=== PATIENT | female | born 1930 | race Caucasian/White ===

== ENCOUNTER → 2017-11-27 | Outpatient (CLI) | payer BC ==
--- NOTE | 2017-11-27 16:06 | DIAGNOSTIC IMAGING REPORT ---
BONE SCAN WHOLE BODY CLINICAL HISTORY: BREAST CA COMPARISON STUDY: No previous studies for comparison. FINDINGS: The patient was injected with 20.1 mCi of technetium 99m MDP. Three-hour delayed whole body images were acquired. There are foci of increased activity within the shoulders wrist and knees, likely on a degenerative/arthritic basis. There is a nonspecific focus of increased activity within the lower neck anteriorly, at the expected location of the right lobe of the thyroid. There is a focus of increased activity involving the left anterior fifth rib. There are foci of increased activity within the lumbar spine at the L2 and L5 levels. Conventional radiographic correlation is recommended as these findings may be secondary to degenerative change or osteoporotic compression fractures. IMPRESSION: 1. Scattered foci of increased uptake many of which are degenerative/arthritic 2. Nonspecific focus of increased activity involving the left anterior fifth rib. 3. Foci of increased activity within the lumbar spine. Conventional radiographic correlation is recommended. Electronically signed by: Carlos Arroyo M.D. 11/27/2017 4:04 PM Dictated Date/Time: 11/27/2017 4:01 PM
== END | disposition home or self-care (01) ==
LOC: C.NUCL 11:10
PROVIDERS: ATTEND Internal Medicine Hematology & Oncology
DX: D49.3 Neoplasm of unspecified behavior of breast (principal)

== ENCOUNTER → 2017-11-30 | Outpatient (CLI) | payer BC ==
[~2017-11-30] MED LIST: OPTIRAY 320 IV PRN
--- NOTE | 2017-11-30 14:11 | DIAGNOSTIC IMAGING REPORT ---
CT ABD/PELVIS IV AND ORAL CONT CLINICAL HISTORY: BREAST CA COMPARISON STUDY: None. TECHNIQUE: Following the IV administration of 94 mL of Optiray-320, CT scan of the abdomen and pelvis was performed from the lung bases to the proximal femurs. Images are reviewed in the axial, sagittal, and coronal planes. IV contrast was administered without complication. A dose lowering technique was utilized adhering to the principles of ALARA. CT DOSE: FINDINGS: Lower chest: The heart is mildly enlarged. There are bilateral pleural effusions. There are right basilar atelectatic changes. Liver: There is a 12 mm right lobe hepatic hypodensity likely representing a cyst. There is mild biliary ductal dilatation. Gallbladder: Surgically absent Spleen: Normal in size and attenuation. Pancreas: Unremarkable. Adrenal glands: There is minor adrenal gland thickening Kidneys: There is symmetric renal cortical enhancement. The kidneys are normal in size without hydronephrosis. Bowel: There are no transition zones indicate bowel obstruction. There is no evidence of acute diverticulitis. There is no evidence of acute appendicitis. Peritoneum: There is no intraperitoneal free air or abdominal ascites. Vasculature: The abdominal aorta is normal in course and caliber. Adenopathy: None. Pelvic viscera: The bladder, and pelvic viscera are unremarkable. Skeletal structures: No destructive lesions are visualized. There are degenerative changes present within the lumbar spine with multilevel spinal stenosis IMPRESSION: 1. Bilateral pleural effusions 2. No CT evidence of intra-abdominal or pelvic metastasis 3. Surgically absent gallbladder. Mild intrahepatic biliary ductal dilatation. 12 mm right lobe hepatic hypodensity likely representing a cyst Electronically signed by: Carlos Arroyo M.D. 11/30/2017 2:10 PM Dictated Date/Time: 11/30/2017 2:05 PM
--- NOTE | 2017-11-30 14:19 | DIAGNOSTIC IMAGING REPORT ---
CHEST CT WITH CONTRAST CT DOSE: 938.08 mGy.cm HISTORY: Surveillance study in a patient with breast cancer. BREAST CA TECHNIQUE: Multiaxial CT images of the chest were performed following the intravenous administration of contrast. A dose lowering technique was utilized adhering to the principles of ALARA. COMPARISON: CT abdomen and pelvis of same day, bone scan 11/27/2017 FINDINGS: No dominant thyroid nodule identified. Surgical clips are seen within the left axilla suggesting prior axillary node dissection. Heterogeneity of the bilateral breast parenchyma scattered calcifications and biopsy clips. No pathologic adenopathy about the chest identified. Mildly prominent right axillary lymph nodes measure up to 8 mm. There is mild multichamber cardiac enlargement. Dense calcifications of the mitral annulus are noted in addition to aortic annular calcifications and coronary arterial disease. Thoracic aorta is normal in both course and caliber without aneurysm or dissection. Moderate mixed plaquing of the thoracic aorta. There is patency of the imaged great vessels. The opacified pulmonary arterial tree is also within normal limits. Small bilateral pleural effusions. No pneumothorax. Mild upper lobe predominant centrilobular emphysema. Dependent groundglass opacities with linear subsegmental pleural based consolidative right basilar opacities suggest atelectasis. Respiratory motion limits evaluation of the lung bases. Central airways are patent. 5 mm pleural-based solid nodule of the right upper lobe is seen on image 152 series 6. 5 mm nodule of the right middle lobe is seen on image 194 series 6 abutting the fissure. This may reflect a perifissural lymph node however is indeterminate. 3 mm nodule of the right lower lobe seen on image 191 series 6. No suspicious nodules or masses of the left lung identified. Central airways are patent. No pathologic adenopathy of the imaged upper abdomen. There is mild thickening suggestive the left adrenal gland, partially imaged. The remaining soft tissues are unremarkable. There is very subtle minimal cortical irregularity of the anterior left fifth rib, image 204 series 6 without discrete lesion identified. No suspicious lytic or blastic bony lesions are seen. Multilevel endplate spurring and facet arthrosis of the spine. IMPRESSION: 1. Small bilateral pleural effusions with subsegmental bibasilar opacities suggesting atelectasis. 2. Three solid noncalcified pulmonary nodules of the right lung measuring up to 5 mm are indeterminate without comparison. Follow-up guidelines provided below. 3. Indeterminate mildly prominent right axillary lymph nodes measure up to 8 mm. No pathologically enlarged lymph nodes by CT size criteria. 4. Emphysema. 5. Minimal cortical irregularity involving the anterior aspect of the left fifth rib suggests possible acute nondisplaced fracture. No lesion identified within this area to correlate with the focal radiotracer uptake discussed on comparison bone scan. No suspicious lytic or blastic bony lesions are identified. Please refer to below summary of Fleischner criteria recommendations for follow-up of incidental CT nodules (Samir Ponce, Guidelines for management of small pulmonary nodules detected on CT scans: A statement from the Fleischner Society, Radiology 237: [phone].) SOLID NODULES Multiple nodules size: <6 mm * Low risk patients: no routine follow-up * high risk patients: optional CT at 12 months Note: newly detected indeterminate nodule in persons 35 years of age or older. * Low risk patients: minimal or absent history of smoking and/or other known risk factors * high risk patients: history of smoking or of other known risk factors (e.g. first degree relative with lung cancer, or exposure to asbestos, radon, uranium) * if a nodule up to 8 mm is partly solid or is ground glass further follow-up is required after 24 months to exclude possible slow growing adenocarcinoma (NIKKI) The above report was generated using voice recognition software. It may contain grammatical, syntax or spelling errors. Electronically signed by: Jordy Stewart M.D. 11/30/2017 2:18 PM Dictated Date/Time: 11/30/2017 2:05 PM
== END | disposition home or self-care (01) ==
LOC: C.CTS 12:29
PROVIDERS: ATTEND Internal Medicine Hematology & Oncology
DX: D49.3 Neoplasm of unspecified behavior of breast (principal)

== ENCOUNTER 2017-12-08 09:13 | Emergency (ER) | payer BC ==
[~2017-12-08] VITALS: Ht 170.2 cm; Wt 79.1 kg
[2017-12-08 09:20] VITALS: O2SAT 95; Ht 170.2 cm; Wt 79.1 kg
--- NOTE | 2017-12-08 09:36 | EMERGENCY ROOM VISIT NOTE ---
History Report prepared by Krista: Rajinder Sheriff Under the Supervision of: Dr. Alex Beltrán M.D. First contact with patient: 09:28 Chief Complaint: RESPIRATORY PROBLEMS Stated Complaint: RESPIRATORY Nursing Triage Summary: patient presents via ambulance from [facility]. patient states when she woke up and went to breakfast she felt slightly sob. after she ate "I feel better now" Patient denies any recent cough, or cold symptoms. History of Present Illness The patient is a 87 year old female who presents to the Emergency Room with complaints of shortness of breath that began prior to arrival. She states she woke up this morning and had a catchy cough. She reports a productive cough that is unchanged from baseline. The patient denies leg swelling, calf pain, history of blood clots, low back pain, and chest pain. She denies use of blood thinners. The patient has a history of breast cancer and diabetes. Source of History: patient Onset: [employer] Position: other (global) Timing: constant Associated Symptoms: + SOB, No chest pain, No back pain Note: The patient denies leg swelling, calf pain, and history of blood clots Review of Systems See HPI for pertinent positives & negatives. A total of 10 systems reviewed and were otherwise negative. Social History Smoking Status: Former Smoker Alcohol Use: none Drug Use: none Occupation Status: retired Current/Historical Medications Scheduled Aspirin (Aspirin Ec), 81 MG PO DAILY Calcium/Vitamin D (Os-John 500 Plus D), 1 TAB PO DAILY Cholecalciferol (D 400), 1 TAB PO DAILY Ferrous Sulfate (Kp Ferrous Sulfate), 1 TAB PO DAILY Insulin Lispro 75/25 (Humalog Mix 75/25), 8 UNIT SC DAILY Insulin Lispro 75/25 (Humalog Mix 75/25), 6 UNIT SC PM Letrozole (Femara), 2.5 MG PO DAILY Lisinopril (Zestril), 10 MG PO DAILY Metoprolol Tartrate (Lopressor) (Lopressor), 50 MG PO BID Multivitamins/Minerals (Mvi With Minerals), 1 TAB PO DAILY Polyethylene Glycol 3350 (Miralax), 17 GM PO HS Pravastatin (Pravachol ), 40 MG PO DAILY Scheduled PRN Acetaminophen Tab (Tylenol), 650 MG PO Q4H PRN for Pain Senna/Docusate Sod (Senokot S), 2 TAB PO DAILY PRN for Constipation [Dulcolax Suppository], 1 SUPP RE DAILY PRN for Constipation Allergies Coded Allergies: Penicillins (Unverified Allergy, Intermediate, UNKNOWN, 12/08/17) Physical Exam Vital Signs Date Time Temp Pulse Resp B/P (MAP) Pulse Ox O2 Delivery O2 Flow Rate FiO2 12/08/17 10:51 36.6 63 24 111/56 94 12/08/17 09:25 68 12/08/17 09:20 95 Room Air 12/08/17 09:20 36.6 68 18 140/65 95 Room Air 12/08/17 09:20 95 Room Air Physical Exam GENERAL: Patient is elderly appearing and in no acute distress. HEENT: No acute trauma, normocephalic atraumatic, mucous membranes moist, no nasal congestion, no scleral icterus. NECK: No stridor, no adenopathy, no meningismus, trachea is midline. LUNGS: No dyspnea. Clear to auscultation and equal bilaterally. No wheeze, no rhonchi. HEART: Regular rate and rhythm. No murmurs, rubs, gallops appreciated. ABDOMEN: Soft, nontender, bowel sounds positive, no masses appreciated, no peritonitis. BACK: No midline tenderness, no CVA tenderness EXTREMITIES: Normal motion all extremities, no cyanosis, no edema. NEUROLOGIC: Alert and oriented, no acute motor or sensory deficits, no focal weakness, cranial nerves grossly intact. SKIN: No rash, no jaundice, no diaphoresis. Medical Decision & Procedures ER Provider Diagnostic Interpretation: Radiology results and stated below per my review and radiologist interpretation: CHEST 2 VIEWS ROUTINE CLINICAL HISTORY: 87 years-old Female presenting with Cough/SHOB earlier in day. TECHNIQUE: PA and lateral views of the chest were obtained. COMPARISON: Chest CT from 11/30/2017. FINDINGS: Atherosclerosis of aortic arch. Cardiac silhouette enlarged. Radiography is not sensitive for pulmonary nodules. Allowing for this, bibasilar hazy and bandlike opacities. Right pleural effusion. No pneumothorax. Surgical clips are evident in the left axilla. Degenerative changes of the thoracic spine. Sclerotic lesion may be present in the proximal left humeral metaphysis. IMPRESSION: 1. Bibasilar hazy and bandlike opacities, likely atelectasis or less likely pulmonary edema. 2. Right pleural effusion. 3. Possible sclerotic lesion in the proximal left humeral metaphysis. No lesion was evident in this region on bone scan from earlier this month, which decreases the suspicion for a metastatic focus. Electronically signed by: Heath Noyola M.D. 12/08/2017 10:15 AM Dictated Date/Time: 12/08/2017 10:12 AM ED Course 0928: The patient was evaluated in room A4. A complete history and physical exam was performed. 1027: I checked on the patient and they are feeling comfortable. She would like to go home. 1030: I reevaluated the patient. Discussed results and discharge instructions: She verbalized understanding and agreement. The patient is ready for discharge. Medical Decision Differential: Infectious, Reactive Airway Disease, Pneumonia, Pneumothorax, COPD , CHF, ACS, Pulmonary Embolism, MSK, GI, Dissection, amongst other etiologies entertained. 87 yr old female brought over for evaluation of shortness of breath earlier in the day cleared with coughing. She is happy, no distress and wishes to go home. Exam is benign. CXR without acute process as pleural effusion noted on CT Scan a few days ago. Symptoms are not consistent with acs, dissection, copd , pna. She has no history of DVT/PE. With history breast CA PE considered but as she is without symptoms, stable vitals, just had CT Chest I feel CT PE study would not be indicated. Suspect her symptoms were some mucous plugging which cleared with cough. She is not in CHF. Discussed at length symptoms requiring RTED with her and son. Both are comfortable with discharge and wish to go home. Medication Reconcilliation Current Medication List: was personally reviewed by me Blood Pressure Screening Patient's blood pressure: Elevated blood pressure Blood pressure disposition: Elevated BP felt to be situational Impression Primary Impression: Shortness of breath Scribe Attestation The scribe's documentation has been prepared under my direction and personally reviewed by me in its entirety. I confirm that the note above accurately reflects all work, treatment, procedures, and medical decision making performed by me. Departure Information Dispostion Home / Self-Care Referrals No Doctor, Assigned (PCP) Patient Instructions My [facility] Additional Instructions Monitor for worsening cough, shortness of breath, fevers, chest pain, passing out or other concerns. We are always here to help. Follow up with your primary provider to discuss repeat chest xray and to discuss findings from your CT Scan last week. There are small amounts of fluid at the base of your lungs that was seen last week, these are called Pleural Effusions.
[2017-12-08] MEDS ORDERED: LETR2TAB PO (10:13)
[2017-12-08] MEDS ORDERED: PRAV20TA PO (10:13)
[2017-12-08] MEDS ORDERED: LISI-461 PO (10:13)
[2017-12-08] MEDS ORDERED: ACET-1693 PO (10:13)
[2017-12-08] MEDS ORDERED: HMLI7525 SC ×2 (10:13)
[2017-12-08] MEDS ORDERED: SENN-65 PO (10:13)
[2017-12-08] MEDS ORDERED: FERR1TAB13 PO (10:13)
[2017-12-08] MEDS ORDERED: MULT-513 PO (10:13)
[2017-12-08] MEDS ORDERED: CALC500C70 PO (10:13)
[2017-12-08] MEDS ORDERED: POLY335019 PO (10:13)
[2017-12-08] MEDS ORDERED: ASPI81TA28 PO (10:13)
[2017-12-08] MEDS ORDERED: CHOL1TAB PO (10:13)
[2017-12-08] MEDS ORDERED: DULCOLAX SUPPOSITORY RE (10:13)
[2017-12-08] MEDS ORDERED: METO50TA16 PO (10:13)
--- NOTE | 2017-12-08 10:17 | DIAGNOSTIC IMAGING REPORT ---
CHEST 2 VIEWS ROUTINE CLINICAL HISTORY: 87 years-old Female presenting with Cough/SHOB earlier in day. TECHNIQUE: PA and lateral views of the chest were obtained. COMPARISON: Chest CT from 11/30/2017. FINDINGS: Atherosclerosis of aortic arch. Cardiac silhouette enlarged. Radiography is not sensitive for pulmonary nodules. Allowing for this, bibasilar hazy and bandlike opacities. Right pleural effusion. No pneumothorax. Surgical clips are evident in the left axilla. Degenerative changes of the thoracic spine. Sclerotic lesion may be present in the proximal left humeral metaphysis. IMPRESSION: 1. Bibasilar hazy and bandlike opacities, likely atelectasis or less likely pulmonary edema. 2. Right pleural effusion. 3. Possible sclerotic lesion in the proximal left humeral metaphysis. No lesion was evident in this region on bone scan from earlier this month, which decreases the suspicion for a metastatic focus. Electronically signed by: Heath Noyola M.D. 12/08/2017 10:15 AM Dictated Date/Time: 12/08/2017 10:12 AM
[2017-12-08 10:51] VITALS: BP 111/56; PULSE 63; TEMP 36.6; O2SAT 94
== END 2017-12-08 10:48 | disposition home or self-care (01) ==
LOC: EDBD 09:13 → C.EDA 09:14
DX: R06.02 Shortness of breath (principal); R05 Cough; E11.9 Type 2 diabetes mellitus without complications; Z85.3 Personal history of malignant neoplasm of breast; Z87.891 Personal history of nicotine dependence; Z88.0 Allergy status to penicillin; Z79.82 Long term (current) use of aspirin; Z79.4 Long term (current) use of insulin

== ENCOUNTER 2018-01-22 12:55 | Emergency (ER) | payer BC ==
[~2018-01-22] VITALS: Ht 165.1 cm; Wt 82.0 kg
[~2018-01-22 12:55] MED LIST changes: +ACET-1693 PO; +ASPI81TA28 PO; +CALC500C70 PO; +CHOL1TAB PO; +DULCOLAX SUPPOSITORY RE; +FERR1TAB13 PO; +HMLI7525 SC; +LETR2TAB PO; +LISI-461 PO; +METO50TA16 PO; +MULT-513 PO; -OPTIRAY 320 IV PRN; +POLY335019 PO; +PRAV20TA PO; +SENN-65 PO
[2018-01-22 12:59] VITALS: TEMP 36.4
[2018-01-22] MEDS ORDERED: ALBUT/IPRATROP 3MG/0.5MG NEB 3 ML VIAL INH STA (13:08)
[2018-01-22 13:24] VITALS: O2SAT 93; Ht 165.1 cm; Wt 82.0 kg
--- NOTE | 2018-01-22 13:30 | DIAGNOSTIC IMAGING REPORT ---
CHEST ONE VIEW PORTABLE CLINICAL HISTORY: Respiratory distress COMPARISON STUDY: 12/08/2017 FINDINGS: The heart is mildly enlarged. There is calcification within the mitral annulus. Surgical clips are visualized in the left axillary region. There is probable left shoulder calcific tendinitis. There are bibasilar opacities, likely atelectatic ectatic. There is a suspected trace right pleural effusion. There is no overt failure.[ IMPRESSION: 1. Cardiomegaly and persistent basilar airspace opacities, likely atelectatic 2. Suspected trace right pleural effusion Electronically signed by: Carlos Arroyo M.D. 01/22/2018 1:29 PM Dictated Date/Time: 01/22/2018 1:27 PM
[2018-01-22] MEDS ORDERED: SODIUM CHLORIDE 0.9% 500ML 500 ML IV STA (13:34)
[2018-01-22 13:49] LABS: EOS % 0.4 %; EOS ABS # 0.01 K/uL (0-0.5); HEMATOCRIT 35.3 % (37-47); HEMOGLOBIN 11.7 g/dL (12.0-16.0); IG# 0.01 K/uL (0.00-0.02); LYMPH % 34.6 %; LYMPH ABS # 0.94 K/uL (1.2-3.4); MEAN CELL VOLUME 94.6 fL (80-100); MEAN CORPUSCULAR HEMOGLOBIN 31.4 pg (25-34); MEAN CORPUSCULAR HGB CONC 33.1 g/dl (32-36); MEAN PLATELET VOLUME 11.3 fL (7.4-10.4); MONO % 11.4 %; MONO ABS # 0.31 K/uL (0.11-0.59); NEUT % 53.2 %; NEUT ABS # 1.45 K/uL (1.4-6.5); PLATELET COUNT 146 K/uL (130-400); RED CELL DISTRIBUTION WIDTH CV 13.9 % (11.5-14.5); RED CELL DISTRIBUTION WIDTH SD 48.1 fL (36.4-46.3); WHITE BLOOD COUNT 2.72 K/uL (4.8-10.8)
[2018-01-22 13:58] LABS: PTT PATIENT 29.7 SECONDS (21.0-31.0)
[2018-01-22 14:05] LABS: INFLUENZA A PCR Neg for Influ A (NEG)
[2018-01-22 14:06] LABS: INFLUENZA B PCR POS for Influ B (NEG)
[2018-01-22] MEDS ORDERED: OSELTAMIVIR PHOSPHATE 75 MG CAP PO STA (14:09)
[2018-01-22 14:10] LABS: CALCIUM 8.9 mg/dl (8.5-10.1); CREATININE 1.58 mg/dl (0.60-1.20)
[2018-01-22] MEDS ORDERED: OSEL75CA12 PO (14:18)
[2018-01-22] MEDS ORDERED: PRAV40TA2 PO (14:27)
[2018-01-22] MEDS ORDERED: IPRASOL4 INH (14:27)
[2018-01-22] MEDS ORDERED: BISA10SU3 PR (14:27)
--- NOTE | 2018-01-22 14:46 | EMERGENCY ROOM VISIT NOTE ---
History Report prepared by Krista: Breana Arzola Under the Supervision of: Daria TapiaO. First contact with patient: 12:59 Chief Complaint: OTHER COMPLAINT History of Present Illness The patient is a 87 year old female who presents to the Emergency Room with complaints of a worsening illness for the past few days. The patient is a resident at [facility]. Per son, he received a call from the halfway that the patient had been short of breath for the past few days. She has been on oxygen intermittently over the past few days. She is not typically on oxygen. Son reports that the patient was having some trouble breathing at dinner with him last night. Today the patient was not acting like herself. She was more tired than usual and did not want to get out of bed. She was found to have a fever with a temperature of 99.4. She was sent to the ED for further evaluation. The patient does not have any complaints at this time. She denies any chest pain or current shortness of breath. She does report that she has been coughing intermittently over the past few days. She denies any pain or swelling in her legs. Source of History: patient, family (son), halfway notes Onset: a few days ago Position: other (global) Quality: other (illness) Timing: worsening Modifying Factors (Relieving): oxygen Associated Symptoms: + fevers, + cough, + SOB, + fatigue, No chest pain Review of Systems See HPI for pertinent positives & negatives. A total of 10 systems reviewed and were otherwise negative. Past Medical & Surgical Medical Problems: (1) Breast cancer (2) CKD (chronic kidney disease) (3) HLD (hyperlipidemia) (4) HTN (hypertension) Family History Non-pertinent due to advanced age. Social History Smoking Status: Former Smoker Alcohol Use: none Drug Use: none Marital Status: Housing Status: halfway Occupation Status: retired Current/Historical Medications Scheduled Aspirin (Aspirin Ec), 81 MG PO DAILY Calcium/Vitamin D (Os-John 500 Plus D), 1 TAB PO DAILY Cholecalciferol (D 400), 1 TAB PO DAILY Ferrous Sulfate (Kp Ferrous Sulfate), 1 TAB PO DAILY Insulin Lispro 75/25 (Humalog Mix 75/25), 26 UNIT SC DAILY Insulin Lispro 75/25 (Humalog Mix 75/25), 14 UNIT SC PM Letrozole (Femara), 2.5 MG PO DAILY Lisinopril (Zestril), 10 MG PO DAILY Metoprolol Tartrate (Lopressor) (Lopressor), 50 MG PO BID Multivitamins/Minerals (Mvi With Minerals), 1 TAB PO DAILY Oseltamivir (Tamiflu), 75 MG PO BID Polyethylene Glycol 3350 (Miralax), 17 GM PO HS Pravastatin Sodium (Pravastatin Sodium), 1 TAB PO DAILY Scheduled PRN Acetaminophen Tab (Tylenol), 650 MG PO Q4H PRN for Pain Bisacodyl (Dulcolax), 1 SUPP OH BID PRN for Constipation Ipratropium-Albuterol (Duoneb), 1 TREATMENT INH QID PRN for Shortness of Breath Senna/Docusate Sod (Senokot S), 2 TAB PO DAILY PRN for Constipation Allergies Coded Allergies: Penicillins (Unverified Allergy, Intermediate, UNKNOWN, 01/22/18) Physical Exam Vital Signs Date Time Temp Pulse Resp B/P (MAP) Pulse Ox O2 Delivery O2 Flow Rate FiO2 01/22/18 16:17 75 16 112/67 98 01/22/18 14:34 73 16 131/58 95 Room Air 01/22/18 13:26 63 01/22/18 13:24 93 Room Air 01/22/18 13:24 94 Room Air 01/22/18 12:59 36.4 61 16 101/66 93 Room Air Physical Exam GENERAL: Patient is awake, alert, somewhat anxious appearing but comfortable. EYES: The conjunctivae are clear. The pupils are round and reactive. EARS, NOSE, MOUTH AND THROAT: The nose is without any evidence of any deformity. Mucous membranes are moist tongue is midline NECK: The neck is nontender and supple. RESPIRATORY: Lung sounds diminished at both bases with scattered rhonchi, no tachypnea. CARDIOVASCULAR: Regular rate and rhythm noted there no murmurs rubs or gallops normal S1 normal S2 GASTROINTESTINAL: The abdomen is soft. Bowel sounds are present in all quadrants. Abdomen is nontender MUSCULOSKELETAL/EXTREMITIES: There is no evidence of gross deformity full range of motion is noted in the hips and shoulders SKIN: Trace pedal edema bilaterally. There is no obvious evidence of any rash. There are no petechiae, pallor or cyanosis noted. NEUROLOGIC: Patient is awake alert and oriented x3 Medical Decision & Procedures ER Provider Diagnostic Interpretation: Radiology results as stated below per my review and radiologist interpretation: CHEST ONE VIEW PORTABLE CLINICAL HISTORY: Respiratory distress COMPARISON STUDY: 12/08/2017 FINDINGS: The heart is mildly enlarged. There is calcification within the mitral annulus. Surgical clips are visualized in the left axillary region. There is probable left shoulder calcific tendinitis. There are bibasilar opacities, likely atelectatic ectatic. There is a suspected trace right pleural effusion. There is no overt failure.[ IMPRESSION: 1. Cardiomegaly and persistent basilar airspace opacities, likely atelectatic 2. Suspected trace right pleural effusion Electronically signed by: Carlos Arroyo M.D. 01/22/2018 1:29 PM Dictated Date/Time: 01/22/2018 1:27 PM Laboratory Results 01/22/18 13:30 Red Blood Count 3.73, Mean Corpuscular Volume 94.6, Mean Corpuscular Hemoglobin 31.4, Mean Corpuscular Hemoglobin Concent 33.1, Mean Platelet Volume 11.3, Neutrophils (%) (Auto) 53.2, Lymphocytes (%) (Auto) 34.6, Monocytes (%) (Auto) 11.4, Eosinophils (%) (Auto) 0.4, Basophils (%) (Auto) 0.0, Neutrophils # (Auto ) 1.45, Lymphocytes # (Auto) 0.94, Monocytes # (Auto) 0.31, Eosinophils # (Auto ) 0.01, Basophils # (Auto) 0.00 01/22/18 13:30 Test 01/22/18 13:17 01/22/18 13:30 01/22/18 14:14 Influenza Type A (RT-PCR) Neg for Influ A (NEG) Influenza Type B (RT-PCR) POS for Influ B (NEG) White Blood Count 2.72 K/uL (4.8-10.8) Red Blood Count 3.73 M/uL (4.2-5.4) Hemoglobin 11.7 g/dL (12.0-16.0) Hematocrit 35.3 % (37-47) Mean Corpuscular Volume 94.6 fL (80-100) Mean Corpuscular Hemoglobin 31.4 pg (25-34) Mean Corpuscular Hemoglobin Concent 33.1 g/dl (32-36) Platelet Count 146 K/uL (130-400) Mean Platelet Volume 11.3 fL (7.4-10.4) Neutrophils (%) (Auto) 53.2 % Lymphocytes (%) (Auto) 34.6 % Monocytes (%) (Auto) 11.4 % Eosinophils (%) (Auto) 0.4 % Basophils (%) (Auto) 0.0 % Neutrophils # (Auto) 1.45 K/uL (1.4-6.5) Lymphocytes # (Auto) 0.94 K/uL (1.2-3.4) Monocytes # (Auto) 0.31 K/uL (0.11-0.59) Eosinophils # (Auto) 0.01 K/uL (0-0.5) Basophils # (Auto) 0.00 K/uL (0-0.2) RDW Standard Deviation 48.1 fL (36.4-46.3) RDW Coefficient of Variation 13.9 % (11.5-14.5) Immature Granulocyte % (Auto) 0.4 % Immature Granulocyte # (Auto) 0.01 K/uL (0.00-0.02) Prothrombin Time 10.3 SECONDS (9.0-12.0) Prothromb Time International Ratio 1.0 (0.9-1.1) Activated Partial Thromboplast Time 29.7 SECONDS (21.0-31.0) Partial Thromboplastin Ratio 1.1 Anion Gap 6.0 mmol/L (3-11) Est Creatinine Clear Calc Drug Dose 26.0 ml/min Estimated GFR () 33.5 Estimated GFR (Non- 28.9 BUN/Creatinine Ratio 21.2 (10-20) Calcium Level 8.9 mg/dl (8.5-10.1) Total Bilirubin 0.3 mg/dl (0.2-1) Aspartate Amino Transf (AST/SGOT) 40 U/L (15-37) Alanine Aminotransferase (ALT/SGPT) 30 U/L (12-78) Alkaline Phosphatase 45 U/L (45-117) Troponin I 0.017 ng/ml (0-0.045) Pro-B-Type Natriuretic Peptide 2433 pg/ml (0-1800) Total Protein 7.0 gm/dl (6.4-8.2) Albumin 3.0 gm/dl (3.4-5.0) Globulin 4.0 gm/dl (2.5-4.0) Albumin/Globulin Ratio 0.8 (0.9-2) Bedside Glucose 82 mg/dl (70-90) Laboratory results per my review. Medications Administered Medications (Trade) Dose Ordered Sig/Salena Route Start Time Stop Time Status Last Admin Dose Admin Albuterol/ Ipratropium (Duoneb) 3 ml NOW STAT INH 01/22/18 13:08 01/22/18 13:10 DC 01/22/18 13:23 3 ML Sodium Chloride 500 ml @ 999 mls/hr Q31M STAT IV 01/22/18 13:34 01/22/18 14:04 DC 01/22/18 13:49 999 MLS/HR Oseltamivir Phosphate (Tamiflu Cap) 75 mg NOW STAT PO 01/22/18 14:09 01/22/18 14:10 DC 01/22/18 14:32 75 MG ECG Per My Interpretation Indication: SOB/dyspnea Rate (beats per minute): 62 Rhythm: normal sinus Findings: nonspecific-ST abn (Inferior), no ectopy Comparison ECG Date: no prior available ED Course 1259: The patient was evaluated in room B9. A complete history and physical examination were performed. 1308: DuoNeb 3 ml INH 1334: NSS 500 ml @ 999 mls/hr IV 1409: Tamiflu 75 mg PO 1419: I reassessed the patient at this time. She is feeling better and resting comfortably. I discussed the results and treatment plan with the patient and her son. I answered all pertaining questions that they had. They expressed understanding and verbalized agreement. The patient will be discharged home. Medical Decision Differential diagnosis: Etiologies such as infections, reactive airway disease, pneumonia, pneumothorax , COPD, CHF, cardiac ischemia, pulmonary embolism, musculoskeletal, gastrointestinal, as well as others were entertained. Nursing notes reviewed. The patient is an 87-year-old female who presented to the emergency department from her personal usp for fever and altered mental status. The patient was found to have a positive flu swab as well as hypoglycemia. She was given oral glucose replacement. Her repeat Accu-Chek was improved. Her mental status was at baseline according to her son. She was started on Tamiflu. I discussed patient's laboratory and radiographic studies with her son as well as the patient. They were encouraged to follow-up with the primary physician as soon as possible but return to the emergency department immediately if symptoms change worsen or the need arises. Medication Reconcilliation Current Medication List: was personally reviewed by me Blood Pressure Screening Patient's blood pressure: Normal blood pressure Impression Primary Impression: Influenza Additional Impressions: Fever Hypoglycemia Scribe Attestation The scribe's documentation has been prepared under my direction and personally reviewed by me in its entirety. I confirm that the note above accurately reflects all work, treatment, procedures, and medical decision making performed by me. Departure Information Dispostion Home / Self-Care Prescriptions Oseltamivir (Tamiflu) 75 Mg Cap 75 MG PO BID, #10 CAP Prov: Nguyễn Jacobo, DO 01/22/18 Referrals [facility] (PCP) Forms HOME CARE DOCUMENTATION FORM, IMPORTANT VISIT INFORMATION, WORK / SCHOOL INSTRUCTIONS Patient Instructions ED Diabetes Hypoglycemia Oral Agent, ED Fever Control, ED Flu, My [facility] Additional Instructions Follow-up with the family doctor this week for reevaluation. Continue all medications as prescribed. Monitor the blood sugar to ensure it does not drop again. Return to the emergency department immediately if symptoms change worsen or the need arises. Continue using Tylenol as directed for fever. Problem Qualifiers Additional Impressions: Fever Fever type: unspecified Qualified Codes: R50.9 - Fever, unspecified
[2018-01-22 16:17] VITALS: BP 112/67; PULSE 75; O2SAT 98
== END 2018-01-22 16:18 | disposition home or self-care (01) ==
LOC: EDBD 12:55 → C.EDB 12:59
DX: J10.1 Influenza due to other identified influenza virus with other respiratory manifestations (principal); R50.9 Fever, unspecified; E16.2 Hypoglycemia, unspecified; D49.3 Neoplasm of unspecified behavior of breast; N18.9 Chronic kidney disease, unspecified; E78.5 Hyperlipidemia, unspecified; I10 Essential (primary) hypertension; Z87.891 Personal history of nicotine dependence; Z79.82 Long term (current) use of aspirin; Z79.4 Long term (current) use of insulin

== ENCOUNTER 2018-01-29 15:33 | Emergency (ER) | payer BC ==
[~2018-01-29] VITALS: Ht 170.2 cm; Wt 78.1 kg
[~2018-01-29 15:33] MED LIST changes: +BISA10SU3 PR; -DULCOLAX SUPPOSITORY RE; +IPRASOL4 INH; +OSEL75CA12 PO; -PRAV20TA PO; +PRAV40TA2 PO
[2018-01-29 16:29] VITALS: TEMP 36.9; Ht 170.2 cm; Wt 78.1 kg
[2018-01-29 16:38] LABS: BASO % 0.2 %; BASO ABS # 0.01 K/uL (0-0.2); EOS % 0.9 %; EOS ABS # 0.06 K/uL (0-0.5); HEMATOCRIT 36.4 % (37-47); HEMOGLOBIN 11.9 g/dL (12.0-16.0); IG# 0.03 K/uL (0.00-0.02); LYMPH ABS # 0.79 K/uL (1.2-3.4); MEAN CELL VOLUME 94.5 fL (80-100); MEAN CORPUSCULAR HEMOGLOBIN 30.9 pg (25-34); MEAN CORPUSCULAR HGB CONC 32.7 g/dl (32-36); MEAN PLATELET VOLUME 10.8 fL (7.4-10.4); MONO % 8.7 %; MONO ABS # 0.57 K/uL (0.11-0.59); NEUT % 77.7 %; NEUT ABS # 5.12 K/uL (1.4-6.5); PLATELET COUNT 208 K/uL (130-400); RED CELL DISTRIBUTION WIDTH CV 13.5 % (11.5-14.5); RED CELL DISTRIBUTION WIDTH SD 46.4 fL (36.4-46.3); WHITE BLOOD COUNT 6.58 K/uL (4.8-10.8)
[2018-01-29 17:01] LABS: BLOOD UREA NITROGEN 18 mg/dl (7-18); CALCIUM 9.6 mg/dl (8.5-10.1); CARBON DIOXIDE 30 mmol/L (21-32); CREATININE 1.31 mg/dl (0.60-1.20); GLUCOSE 224 mg/dl (70-99); POTASSIUM 4.2 mmol/L (3.5-5.1); SODIUM 137 mmol/L (136-145)
--- NOTE | 2018-01-29 17:15 | DIAGNOSTIC IMAGING REPORT ---
CHEST ONE VIEW PORTABLE CLINICAL HISTORY: 87 years-old Female presenting with sob. TECHNIQUE: Portable upright AP view of the chest was obtained. COMPARISON: 01/22/2018. FINDINGS: Atherosclerosis of aortic arch. Cardiac silhouette enlarged. Mitral annular calcification suggested. Bandlike and hazy opacities at the lung bases unchanged from prior. Mild hyperinflation suggested. No large pleural effusion or pneumothorax. Surgical clips again noted in the left axilla. Osteopenia suspected. IMPRESSION: 1. Mild hyperinflation and bibasilar atelectasis or scarring, unchanged. 2. Mild cardiomegaly. Electronically signed by: Heath Noyola M.D. 01/29/2018 5:13 PM Dictated Date/Time: 01/29/2018 5:12 PM
--- NOTE | 2018-01-29 17:16 | DIAGNOSTIC IMAGING REPORT ---
SINGLE VIEW PELVIS; 2 VIEWS LEFT HIP CLINICAL HISTORY: Left hip pain. FINDINGS: An AP view of the pelvis with AP and frog-leg views of the left hip are obtained. Correlation is made with pelvic CT dated 11/30/2017. The skeletal structures are osteopenic. There is no radiographic evidence of fracture involving the hips or bony pelvis. Moderate to advanced arthritic change and joint space narrowing are present in both hips. Sclerotic change is seen involving the sacroiliac joints and pubic symphysis. Enthesophytes are noted at the origin the hamstrings, the anterior superior iliac spines, and the greater trochanters of the proximal femora. Lumbosacral spondylosis is partially imaged. There are pelvic phleboliths. Atherosclerotic calcification is seen in the femoral arteries. IMPRESSION: 1. No acute bony abnormality is identified involving the hips or pelvis. 2. Osteopenia and arthritic change as above. Electronically signed by: Rm Metzger M.D. 01/29/2018 5:15 PM Dictated Date/Time: 01/29/2018 5:13 PM
--- NOTE | 2018-01-29 18:20 | DIAGNOSTIC IMAGING REPORT ---
L VENOUS DOPP LOWER EXT UNILAT CLINICAL HISTORY: 87 years-old Female presenting with leg pain, swelling. TECHNIQUE: Real-time grayscale and color and spectral Doppler ultrasound imaging of the veins of the left lower extremity was performed. Compression and augmentation were also utilized. COMPARISON: None. FINDINGS: Left: Common femoral vein: Patent. Greater saphenous vein: Patent. Deep femoral vein: Patent. Femoral vein: Patent. Popliteal vein: Patent. Calf veins: Patent. Other: None. IMPRESSION: No evidence of deep venous thrombosis. Electronically signed by: Heath Noyola M.D. 01/29/2018 6:18 PM Dictated Date/Time: 01/29/2018 6:18 PM
[2018-01-29] MEDS ORDERED: CEFDINIR 300 MG CAP PO STA (18:58)
[2018-01-29] MEDS ORDERED: CEFD300C2 PO (19:36)
[2018-01-29 19:47] VITALS: BP 150/72; PULSE 71; O2SAT 93
--- NOTE | 2018-01-29 20:07 | EMERGENCY ROOM VISIT NOTE ---
History Report prepared by Krista: Brielle Knight Under the Supervision of: Dr. Rm Mccall M.D. First contact with patient: 15:37 Stated Complaint: GROIN PAIN, OTHER History of Present Illness The patient is an 87 year old female who presents to the Emergency Room with complaints of persistent low oxygen starting last night. The patient presents to the ED by EMS from [facility]. The patient had an oxygen saturation in the high 80s last night on room air. She was placed on oxygen. She is recently getting over an illness which the patient cannot recall. She reports feeling well currently. She is having some left hip pain. She denies any falls today. She uses a cane to ambulate. The history is limited secondary to dementia. Source of History: patient, nursing staff History Limited By: dementia Onset: last night Position: other (oxygen saturation) Symptom Intensity: high 80s on room air Quality: other (low oxygen) Timing: other (persistent) Note: Pt reports left hip pain. Review of Systems Limited secondary to dementia. Past Medical & Surgical Medical Problems: (1) Breast cancer (2) CKD (chronic kidney disease) (3) HLD (hyperlipidemia) (4) HTN (hypertension) Family History Noncontributory secondary to age. Social History Smoking Status: Former Smoker Alcohol Use: none Drug Use: none Marital Status: Housing Status: long term Occupation Status: retired Current/Historical Medications Scheduled Aspirin (Aspirin Ec), 81 MG PO DAILY Calcium/Vitamin D (Os-John 500 Plus D), 1 TAB PO DAILY Cefdinir (Omnicef), 300 MG PO Q12H Cholecalciferol (D 400), 1 TAB PO DAILY Ferrous Sulfate (Kp Ferrous Sulfate), 1 TAB PO DAILY Insulin Lispro 75/25 (Humalog Mix 75/25), 20 UNIT SC QAM Insulin Lispro 75/25 (Humalog Mix 75/25), 14 UNIT SC PM Letrozole (Femara), 2.5 MG PO DAILY Lisinopril (Zestril), 10 MG PO DAILY Metoprolol Tartrate (Lopressor) (Lopressor), 50 MG PO BID Multivitamins/Minerals (Mvi With Minerals), 1 TAB PO DAILY Polyethylene Glycol 3350 (Miralax), 17 GM PO HS Pravastatin Sodium (Pravastatin Sodium), 1 TAB PO DAILY Scheduled PRN Acetaminophen Tab (Tylenol), 650 MG PO Q4H PRN for Pain Bisacodyl (Dulcolax), 1 SUPP NE BID PRN for Constipation Ipratropium-Albuterol (Duoneb), 1 TREATMENT INH QID PRN for Shortness of Breath Senna/Docusate Sod (Senokot S), 2 TAB PO DAILY PRN for Constipation Allergies Coded Allergies: Penicillins (Unverified Allergy, Intermediate, UNKNOWN, 01/22/18) Physical Exam Vital Signs Date Time Temp Pulse Resp B/P (MAP) Pulse Ox O2 Delivery O2 Flow Rate FiO2 01/29/18 19:47 71 16 150/72 93 01/29/18 19:03 73 16 142/79 93 Room Air 01/29/18 18:36 72 16 138/69 94 Room Air 01/29/18 17:30 72 16 137/59 94 Room Air 01/29/18 16:29 36.9 80 16 140/62 95 Room Air Physical Exam GENERAL: Patient is in no acute distress. HEENT: No acute trauma, normocephalic atraumatic, mucous membranes moist, no nasal congestion, no scleral icterus. NECK: No stridor, no adenopathy, no meningismus, trachea is midline. LUNGS: Crackles at both lung bases, no wheezing. Breath sounds equal. No respiratory distress. HEART: Without murmurs gallops or rubs, regular rate and rhythm. ABDOMEN: Soft, nontender, bowel sounds positive, no hernias, no peritonitis. EXTREMITIES: Some pain with movement of the left hip, no gross deformity to the lower extremities, no pedal edema. NEUROLOGIC: Some confusion noted likely consistent with dementia. Awake, alert, moving all extremities. SKIN: No rash, no jaundice, no diaphoresis. Medical Decision & Procedures ER Provider Diagnostic Interpretation: X-ray results as stated below per interpretation by me and the radiologist. Radiology results as stated below per my review and radiologist interpretation: CHEST ONE VIEW PORTABLE CLINICAL HISTORY: 87 years-old Female presenting with sob. TECHNIQUE: Portable upright AP view of the chest was obtained. COMPARISON: 01/22/2018. FINDINGS: Atherosclerosis of aortic arch. Cardiac silhouette enlarged. Mitral annular calcification suggested. Bandlike and hazy opacities at the lung bases unchanged from prior. Mild hyperinflation suggested. No large pleural effusion or pneumothorax. Surgical clips again noted in the left axilla. Osteopenia suspected. IMPRESSION: 1. Mild hyperinflation and bibasilar atelectasis or scarring, unchanged. 2. Mild cardiomegaly. Electronically signed by: Heath Noyola M.D. 01/29/2018 5:13 PM Dictated Date/Time: 01/29/2018 5:12 PM SINGLE VIEW PELVIS; 2 VIEWS LEFT HIP CLINICAL HISTORY: Left hip pain. FINDINGS: An AP view of the pelvis with AP and frog-leg views of the left hip are obtained. Correlation is made with pelvic CT dated 11/30/2017. The skeletal structures are osteopenic. There is no radiographic evidence of fracture involving the hips or bony pelvis. Moderate to advanced arthritic change and joint space narrowing are present in both hips. Sclerotic change is seen involving the sacroiliac joints and pubic symphysis. Enthesophytes are noted at the origin the hamstrings, the anterior superior iliac spines, and the greater trochanters of the proximal femora. Lumbosacral spondylosis is partially imaged. There are pelvic phleboliths. Atherosclerotic calcification is seen in the femoral arteries. IMPRESSION: 1. No acute bony abnormality is identified involving the hips or pelvis. 2. Osteopenia and arthritic change as above. Electronically signed by: Rm Metzger M.D. 01/29/2018 5:15 PM Dictated Date/Time: 01/29/2018 5:13 PM L VENOUS DOPP LOWER EXT UNILAT CLINICAL HISTORY: 87 years-old Female presenting with leg pain, swelling. TECHNIQUE: Real-time grayscale and color and spectral Doppler ultrasound imaging of the veins of the left lower extremity was performed. Compression and augmentation were also utilized. COMPARISON: None. FINDINGS: Left: Common femoral vein: Patent. Greater saphenous vein: Patent. Deep femoral vein: Patent. Femoral vein: Patent. Popliteal vein: Patent. Calf veins: Patent. Other: None. IMPRESSION: No evidence of deep venous thrombosis. Electronically signed by: Heath Noyola M.D. 01/29/2018 6:18 PM Dictated Date/Time: 01/29/2018 6:18 PM Laboratory Results 01/29/18 16:27 Red Blood Count 3.85, Mean Corpuscular Volume 94.5, Mean Corpuscular Hemoglobin 30.9, Mean Corpuscular Hemoglobin Concent 32.7, Mean Platelet Volume 10.8, Neutrophils (%) (Auto) 77.7, Lymphocytes (%) (Auto) 12.0, Monocytes (%) (Auto) 8.7, Eosinophils (%) (Auto) 0.9, Basophils (%) (Auto) 0.2, Neutrophils # (Auto) 5.12, Lymphocytes # (Auto) 0.79, Monocytes # (Auto) 0.57, Eosinophils # (Auto) 0.06, Basophils # (Auto) 0.01 01/29/18 16:27 Test 01/29/18 16:27 01/29/18 18:14 White Blood Count 6.58 K/uL (4.8-10.8) Red Blood Count 3.85 M/uL (4.2-5.4) Hemoglobin 11.9 g/dL (12.0-16.0) Hematocrit 36.4 % (37-47) Mean Corpuscular Volume 94.5 fL (80-100) Mean Corpuscular Hemoglobin 30.9 pg (25-34) Mean Corpuscular Hemoglobin Concent 32.7 g/dl (32-36) Platelet Count 208 K/uL (130-400) Mean Platelet Volume 10.8 fL (7.4-10.4) Neutrophils (%) (Auto) 77.7 % Lymphocytes (%) (Auto) 12.0 % Monocytes (%) (Auto) 8.7 % Eosinophils (%) (Auto) 0.9 % Basophils (%) (Auto) 0.2 % Neutrophils # (Auto) 5.12 K/uL (1.4-6.5) Lymphocytes # (Auto) 0.79 K/uL (1.2-3.4) Monocytes # (Auto) 0.57 K/uL (0.11-0.59) Eosinophils # (Auto) 0.06 K/uL (0-0.5) Basophils # (Auto) 0.01 K/uL (0-0.2) RDW Standard Deviation 46.4 fL (36.4-46.3) RDW Coefficient of Variation 13.5 % (11.5-14.5) Immature Granulocyte % (Auto) 0.5 % Immature Granulocyte # (Auto) 0.03 K/uL (0.00-0.02) Anion Gap 7.0 mmol/L (3-11) Est Creatinine Clear Calc Drug Dose 32.0 ml/min Estimated GFR () 42.0 Estimated GFR (Non- 36.3 BUN/Creatinine Ratio 13.4 (10-20) Calcium Level 9.6 mg/dl (8.5-10.1) Troponin I < 0.015 ng/ml (0-0.045) Urine Color YELLOW Urine Appearance CLOUDY (CLEAR) Urine pH 8.0 (4.5-7.5) Urine Specific [place] 1.019 (1.000-1.030) Urine Protein NEG (NEG) Urine Glucose (UA) NEG (NEG) Urine Ketones NEG (NEG) Urine Occult Blood NEG (NEG) Urine Nitrite NEG (NEG) Urine Bilirubin NEG (NEG) Urine Urobilinogen NEG (NEG) Urine Leukocyte Esterase LARGE (NEG) Urine WBC (Auto) >30 /hpf (0-5) Urine RBC (Auto) 0-4 /hpf (0-4) Urine Hyaline Casts (Auto) 1-5 /lpf (0-5) Urine Epithelial Cells (Auto) >30 /lpf (0-5) Urine Bacteria (Auto) NEG (NEG) Laboratory results reviewed by me. Medications Administered Medications (Trade) Dose Ordered Sig/Salena Route Start Time Stop Time Status Last Admin Dose Admin Cefdinir (Omnicef Cap) 300 mg ONE STAT PO 01/29/18 18:58 01/29/18 18:59 DC 01/29/18 19:01 300 MG ECG Per My Interpretation Indication: SOB/dyspnea Rate (beats per minute): 71 Rhythm: sinus rhythm Findings: PAC, other (no ST elevation) ED Course 1541: The patient was evaluated in room A11A. A complete history and physical exam was performed. 1556: I spoke with [facility] where the patient resides. They sent the patient in because they were concerned about her respiratory status. 1833: I reevaluated the patient. I updated her and her son on the results. 1848: Reevaluated the patient. Discussed results and discharge instructions: They verbalized understanding and agreement. The patient is ready for discharge. 1858: Cefdinir 300 mg PO. Medical Decision Differential diagnoses considered include dehydration, pneumonia, CHF, bronchitis, anemia, electrolyte imbalance, UTI. There is no leukocytosis or concerning anemia. No significant electrolyte abnormality, no kidney failure. Urinalysis does suggest infection, urine culture is pending. EKG shows a sinus rhythm with PACs, no acute ischemia. Cardiac enzyme testing 1 is not consistent with acute cardiac injury. Chest film does not show pneumonia, CHF, some chronic findings were seen. Pelvis and left hip films do not show evidence for fracture or significant arthritis. Left leg ultrasound did not show any evidence for DVT. The patient has no complaints, she has not been hypoxic during her stay. She has not been tachycardic, she is comfortable. The patient was given a dose of Omnicef orally for the UTI. She is being discharged back to her care facility. If things are worsening, she can be returned. Medication Reconcilliation Current Medication List: was personally reviewed by me Blood Pressure Screening Patient's blood pressure: Elevated blood pressure Blood pressure disposition: Referred to PCP Impression Primary Impression: SOB (shortness of breath) Additional Impression: UTI (urinary tract infection) Scribe Attestation The scribe's documentation has been prepared under my direction and personally reviewed by me in its entirety. I confirm that the note above accurately reflects all work, treatment, procedures, and medical decision making performed by me. Departure Information Dispostion Home / Self-Care Prescriptions Cefdinir (OMNICEF) 300 Mg Cap 300 MG PO Q12H for 5 Days, #10 CAP Prov: Rm Mccall M.D. 01/29/18 Referrals [facility] [place] (PCP) Forms HOME CARE DOCUMENTATION FORM, IMPORTANT VISIT INFORMATION, WORK / SCHOOL INSTRUCTIONS Patient Instructions My [facility] [employer] Additional Instructions omnicef 2x per day for 5 days return to the ER for worsening symptoms chest was unchanged today lab testing and ECG were ok urine appeared infected--omnicef has been prescribed Problem Qualifiers
== END 2018-01-29 19:41 | disposition home or self-care (01) ==
LOC: EDBD 15:33 → C.EDA 15:34
DX: R06.02 Shortness of breath (principal); N39.0 Urinary tract infection, site not specified; F03.90 Unspecified dementia, unspecified severity, without behavioral disturbance, psychotic disturbance, mood disturbance, and anxiety; I12.9 Hypertensive chronic kidney disease with stage 1 through stage 4 chronic kidney disease, or unspecified chronic kidney disease; E78.5 Hyperlipidemia, unspecified; N18.3 Chronic kidney disease, stage 3 (moderate); Z85.3 Personal history of malignant neoplasm of breast; Z87.891 Personal history of nicotine dependence; Z88.0 Allergy status to penicillin; Z79.82 Long term (current) use of aspirin; Z79.899 Other long term (current) drug therapy

== ENCOUNTER → 2018-02-10 | Outpatient (CLI) | payer BC ==
[~2018-02-10] MED LIST changes: -OSEL75CA12 PO
== END | disposition home or self-care (01) ==
LOC: C.LABBROIN 09:30
PROVIDERS: ATTEND Physician Assistant Medical
DX: N39.0 Urinary tract infection, site not specified (principal); R41.82 Altered mental status, unspecified

== ENCOUNTER 2019-01-12 15:00 | Inpatient (IN) ==
[2019-01-12] MEDS ORDERED: ALBUT/IPRATROP 3MG/0.5MG NEB 3 ML VIAL INH STA (15:12)
[2019-01-12 15:37] LABS: Basophils # (auto) 0.02 K/uL (0-0.2); Basophils % (auto) 0.2 %; Eosinophils # (auto) 0.23 K/uL (0-0.5); Eosinophils % (auto) 2.8 %; Hematocrit (blood only) 38.6 % (37-47); Hemoglobin 12.4 g/dL (12.0-16.0); Immature Granulocytes # (auto) 0.02 K/uL (0.00-0.02); Immature Granulocytes % (auto) 0.2 %; Lymphocytes # (auto) 1.44 K/uL (1.2-3.4); Lymphocytes % (auto) 17.5 %; Mean Corpuscular Hgb Conc 32.1 g/dL (32-36); Mean Corpuscular Volume 95.1 fL (80-100); Mean Platelet Volume 11.2 fL (7.4-10.4); Monocytes # (auto) 0.61 K/uL (0.11-0.59); Monocytes % (auto) 7.4 %; Neutrophils # (auto) 5.91 K/uL (1.4-6.5); Neutrophils % (auto) 71.9 %; Platelet Count 233 K/uL (130-400); RDW Coefficient of Variation 14.6 % (11.5-14.5); RDW Standard Deviation 50.3 fL (36.4-46.3); Red Blood Count 4.06 M/uL (4.2-5.4); White Blood Count 8.23 K/uL (4.8-10.8)
--- NOTE | 2019-01-12 15:38 | XRay Report ---
XR chest 1V portable CLINICAL HISTORY: Shortness of breath. COMPARISON STUDY: Chest CT October 03, 2018. FINDINGS: Left breast and left axillary surgical clips are noted. There is moderate cardiomegaly with extensive mitral annular calcification. There is no pneumothorax. There is no radiographic evidence of pulmonary edema. Small left and trace right pleural effusions are noted. There are mild bibasilar opacities. IMPRESSION: 1. Small left and trace right pleural effusions. 3. Bibasilar opacities which favor atelectasis. Consolidation could appear similar but is considered less likely. Electronically signed by: Jeremy aHm M.D. 01/12/2019 3:37 PM
--- NOTE | 2019-01-12 15:53 | CT Scan Report ---
CT OF THE ABDOMEN AND PELVIS WITHOUT CONTRAST CLINICAL HISTORY: Abdominal distention. Left upper quadrant pain. Possible obstruction. History of br east cancer. COMPARISON STUDY: CT of the abdomen and pelvis October 03, 2018. TECHNIQUE: Axial images of the abdomen and pelvis were obtained without IV contrast. Images were revi ewed in the axial, sagittal, and coronal planes. Automated exposure control was utilized for the cassy dy. A dose lowering technique was utilized adhering to the principles of ALARA. FINDINGS: Visualized portions of the lower chest demonstrate moderate cardiomegaly with extensive martinez ral annular calcification. Small bilateral pleural effusions, left larger than right, have mildly inc reased in size since exam October 03, 2018. Associated airspace opacities favor atelectasis. No pneu matosis, free air or portal venous gas is present. Evaluation of the abdomen and pelvis is suboptimal on this unenhanced exam. The liver, spleen, adrenal glands and pancreas are unremarkable. Exam is mi ldly compromised by motion artifact. No renal, ureteral or bladder calculi are present. There is no h ydronephrosis or hydroureter. No peripancreatic infiltration. There is no evidence for a bowel obstru ction. The appendix is not visualized. There is sigmoid diverticulosis without evidence for acute div erticulitis. Mild distention of the bladder. The ovaries are not enlarged. There are no suspicious os seous lesions. There is no lymphadenopathy or ascites. IMPRESSION: 1. No acute process within the abdomen or pelvis on unenhanced exam. 2. Sigmoid diverticulosis without evidence for acute diverticulitis. 3. No bowel obstruction. 4. Small bilateral pleural effusions which have mildly increased in size since CT of October 03 8. Electronically signed by: Jeremy Ham M.D. 01/12/2019 3:52 PM
[2019-01-12 16:00] LABS: Alanine Aminotransferase 18 U/L (12-78); Albumin Level 3.1 gm/dl (3.4-5.0); Aspartate Aminotransferase 22 U/L (15-37); BUN Creatinine Ratio 19.9 (10-20); Blood Urea Nitrogen 29 mg/dl (7-18); Calcium 8.6 mg/dl (8.5-10.1); Carbon Dioxide 30 mmol/L (21-32); Chloride 106 mmol/L (98-107); Creatinine Clr Calc Pharmacy 32.1 ml/min; Est GFR (African American) 36.6; Est GFR (Non-African American) 31.6; Glucose 166 mg/dl (70-99); Potassium 4.3 mmol/L (3.5-5.1); Sodium 139 mmol/L (136-145)
[2019-01-12 16:01] LABS: Albumin Globulin Ratio 0.7 (0.9-2); Alkaline Phosphatase 78 U/L (45-117); Bilirubin,Total 0.4 mg/dl (0.2-1); Globulin 4.5 gm/dl (2.5-4.0); Total Protein 7.6 gm/dl (6.4-8.2); Troponin I < 0.015 ng/ml (0-0.045)
[2019-01-12 16:06] LABS: Partial Thromboplastin Time 26.3 Seconds (21.0-31.0)
[2019-01-12] MEDS ORDERED: OPTIRAY 320 125ml IV PRN (16:29)
--- NOTE | 2019-01-12 16:48 | CT Scan Report ---
CT ANGIOGRAPHY OF THE CHEST, PULMONARY EMBOLUS PROTOCOL CLINICAL HISTORY: Shortness of breath. COMPARISON STUDY: Chest CT October 03, 2018. Chest CT November 30, 2017. Chest radiograph performed earlier today. TECHNIQUE: Following IV administration of 111 mL of Optiray-320, helical axial images of the chest we re obtained utilizing the pulmonary embolus protocol. Maximal intensity projections and sagittal and coronal reformats were viewed on an independent 3D workstation. IV contrast was administered withou t complication. Automated exposure control was utilized for the study. A dose lowering technique wa s utilized adhering to the principles of ALARA. CT DOSE: 640.58 mGy.cm FINDINGS: No pulmonary emboli are identified. There is no thoracic aortic dissection. The heart is m oderately enlarged. No pericardial effusion is noted. There is extensive mitral annular calcification . Note is made of moderate coronary artery calcification. Small to moderate left and small right pleu ral effusions, left larger than right, have increased in size since CT of October 03, 2018. Central airways are patent. Groundglass and linear opacities favor atelectasis. There is no consolidation to strongly suggest pneumonia. There is mild emphysema. A few right lung nodules are unchanged and CT of November 2017. These include a 5 mm right upper lobe nodule on image 149 of 311 and a 6 mm right mid dle lobe nodule on image 108. Central airways are patent. There is no pneumothorax. There are no susp icious osseous lesions within the bony thorax. Postoperative findings within the left breast are note d. A few prominent right axillary lymph nodes measure up to 9 mm in short axis diameter. These are un changed and CT of November 30, 2017. IMPRESSION: 1. No pulmonary emboli identified. 2. Small to moderate left and small right pleural effusions which have mildly increased in size since CT of October 03, 2018. 3. Mild emphysema. 4. Moderate cardiomegaly. Moderate coronary artery calcification. 5. No change in several prominent right axillary lymph nodes and a few subcentimeter right lung nodul es. Electronically signed by: Jeremy Ham M.D. 01/12/2019 4:46 PM
[2019-01-12] MEDS ORDERED: SODIUM CHLORIDE 0.9% 1000ML 500 ML IV ONE (16:57)
[2019-01-12] MEDS ORDERED: ALBUT/IPRATROP 3MG/0.5MG NEB 3 ML VIAL NEB STA (17:41)
[2019-01-12] MEDS ORDERED: ALBUT/IPRATROP 3MG/0.5MG NEB 3 ML VIAL ONE (17:42)
[2019-01-12] MEDS ORDERED: FUROSEMIDE 40 MG/4 ML VIAL IV STA (18:05)
--- NOTE | 2019-01-12 18:06 | XRay Report ---
XR chest 1V portable CLINICAL HISTORY: Shortness of breath. COMPARISON STUDY: Chest radiograph January 12, 2019 at 3:30 PM. FINDINGS: Left axillary/breast surgical clips are noted. Edema has developed. Small to moderate left and small right pleural effusions are again noted. Moderate cardiomegaly is noted. There is no pneumo thorax. IMPRESSION: 1. Interval development of pulmonary edema. 2. Small to moderate left and small right pleural effusions. Electronically signed by: Jeremy Ham M.D. 01/12/2019 6:04 PM
[2019-01-12] MEDS ORDERED: NITROGLYCERIN 2% OINTMENT 30GM TUBE EXT STA (18:10)
[2019-01-12] MEDS ORDERED: NITROGLYCERIN 2% OINTMENT 30GM TUBE ONE (18:11)
--- NOTE | 2019-01-12 18:18 | Emergency Department Note ---
Entered by Jennifer Guthrie acting as a scribe for Rm Mccall MD History of Present Illness General Chief complaint: Shortness of Breath/Dyspnea Time Seen by Provider: 01/12/19 15:02 Source: patient and RN notes reviewed History of Present Illness Onset (ago): day(s) 2 Location: left (Lung) and right (Lung) Pain Consistency: + other (Persistent ) Quality: + other (Shortness of breath) Exacerbated By: + movement Associated symptoms: + shortness of breath and + other (Positive abdominal pain); no cough, no fever/chills and no nausea/vomiting The patient is a 88 year old female who presents to the Emergency Room with complaints of persistent shortness of breath starting 2 days ago. The nurse reports that the patient resides at [facility] and that she was sent here for abdominal pain. She states that the patient also has been sent here for shortness of breath. She notes that the patient had cancer in her left breast and the cancer may be recurring--she is not seeking treatment. The patient reports that she is short of breath. She states that movement worsens her symptoms. She notes that she normally does not use supplemental oxygen at [facility]. She denies cough, nausea, vomiting, fever and diarrhea. Home Medications Home Medications Medication Instructions Recorded Confirmed Type acetaminophen [Tylenol] 650 mg PO Q4H PRN MDD 3600 MG 01/12/19 01/12/19 History APAP/24 HOURS albuterol sulfate [ProAir 2 inh INHALATION Q5H PRN 01/12/19 01/12/19 History RespiClick] aspirin 81 mg PO DAILY 01/12/19 01/12/19 History buspirone 5 mg PO BID 01/12/19 01/12/19 History buspirone 10 mg PO HS 01/12/19 01/12/19 History calcium carbonate-vitamin D3 1 tab PO DAILY 01/12/19 01/12/19 History [Calcium 600 + D(3)] diclofenac sodium 2 g TOPICAL Q8H PRN 01/12/19 01/12/19 History ferrous sulfate 325 mg PO DAILY 01/12/19 01/12/19 History insulin aspart U-100 [Novolog See Rx Instructions .ROUTE .COMPLEX 01/12/19 History Flexpen U-100 Insulin] insulin glargine [Lantus U-100 14 units SUBCUT QAM 01/12/19 01/12/19 History Insulin] insulin glargine [Lantus U-100 20 units SUBCUT HS 01/12/19 01/12/19 History Insulin] letrozole 2.5 mg PO DAILY 01/12/19 01/12/19 History lisinopril 20 mg PO DAILY 01/12/19 01/12/19 History metoprolol tartrate 50 mg PO BID 01/12/19 01/12/19 History pravastatin 40 mg PO DAILY 01/12/19 01/12/19 History Allergies Allergy/AdvReac Type Severity Reaction Status Date / Time Penicillins Allergy Intermediate Unknown Verified 01/12/19 16:10 Past Med/Surg History Medical History Breast cancer (Chronic) initial dx in (left breast); initially treated with lumpectomy CKD (chronic kidney disease) (Chronic) HTN (hypertension) (Chronic) HLD (hyperlipidemia) (Chronic) DM w/o complication type II Surgical History History of tonsillectomy History of appendectomy History of lumpectomy of left breast Family History Father Cancer Mother , near age 90 No problems noted. Social History marital status details: Current Living Situation: Personal Care Facility Current Living Situation Comment: 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 and A total of 10 systems reviewed and were otherwise negative Physical Exam Vital Signs Vital Signs - 24 hr 01/12/19 15:15 01/12/19 15:22 01/12/19 17:45 Temperature 36.6 C Temperature Source Oral Sepsis Recent Fever Within 48 Hours No Sepsis New/Unexplained Change in Mental Status No Sepsis Action Taken by Nursing No Action Required Pulse Rate 72 77 Pulse Rate [Right Finger] 83 Pulse Rhythm Regular Respiratory Rate 29 H 22 24 Respiratory Effort / Characteristics Respiratory Depth Respiratory Pattern Blood Pressure 186/89 H Blood Pressure [Right Arm] 175/72 H Blood Pressure Mean 121 Blood Pressure Mean [Right Arm] 106 Pulse Oximetry 94 94 77 L Oxygen Delivery Method Room Air Room Air Room Air Fraction of Inspired Oxygen 01/12/19 18:31 Temperature Temperature Source Sepsis Recent Fever Within 48 Hours Sepsis New/Unexplained Change in Mental Status Sepsis Action Taken by Nursing Pulse Rate 85 Pulse Rate [Right Finger] Pulse Rhythm Respiratory Rate 32 H Respiratory Effort / Characteristics Spontaneous Labored Respiratory Depth Normal Respiratory Pattern Tachypnea Blood Pressure Blood Pressure [Right Arm] Blood Pressure Mean Blood Pressure Mean [Right Arm] Pulse Oximetry 99 Oxygen Delivery Method Fraction of Inspired Oxygen 35 GENERAL: Patient is in no acute distress. HEENT: No acute trauma, normocephalic atraumatic, mucous membranes moist, no nasal congestion, no scleral icterus. NECK: No stridor, no adenopathy, no meningismus, trachea is midline. LUNGS: Diminished breath sounds bilaterally. Some crackles at both bases. No wheezes. HEART: Without murmurs gallops or rubs, regular rate and rhythm. ABDOMEN: Nontender, bowel sounds positive, no hernias, no peritonitis. Distension noted with subtle bruising to LUQ. EXTREMITIES: No cyanosis, full range of motion of all the joints without pain or difficulty, no signs for acute trauma. Mild bilateral pedal edema. NEUROLOGIC: Oriented x 3, no acute motor or sensory deficits, no focal weakness. SKIN: No rash, no jaundice, no diaphoresis. Course 1505: Past medical records reviewed. The patient was evaluated in room D3B, and a complete history and physical examination were performed. 1613: I updated the patient and her family at this time. 1657: I reevaluated the patient at this time who is doing better. 1740: The nurse informed me that the patient�s oxygen saturation was 77% on room air and that she placed the patient on supplemental oxygen via nasal cannula. 174: I reevaluated the patient at this time. I spoke with the patient�s family. The patient is wheezing. I will order a breathing treatment. We discussed the patient�s disposition and the patient reported that she did not want to stay in the hospital at this time. 1823: I reviewed the patient's case with Dr. Brad Merino [facility] hospitalist. He will evaluate the patient for further management. Consultations Consultation #1: I reviewed the patient's case with Dr. [place] ist. He will evaluate the patient for further management. Time: 18:23 Administered Medications Ioversol (Optiray 320 125ml) 111 ml IV ONCE PRN PRN Reason: Interaction Checking Stop: 01/16/19 16:28 Last Admin: 01/12/19 16:30 Dose: 111 ml Documented by: [id number] Discontinued Medications Albuterol (Duoneb) 3 ml INH NOW STA Stop: 01/12/19 15:13 Last Admin: 01/12/19 15:30 Dose: 3 ml Documented by: [id number] Albuterol (Duoneb) 3 ml NEB NOW STA Stop: 01/12/19 17:42 Last Admin: 01/12/19 17:47 Dose: 3 ml Documented by: [id number] Albuterol (Duoneb) Confirm Administered Dose 3 ml .ROUTE .STK-MED ONE Stop: 01/12/19 17:43 Last Admin: 01/12/19 17:47 Dose: Not Given Documented by: [id number] Sodium Chloride (Nss 1000ml) 500 mls @ 999 mls/hr IV .Q31M ONE Stop: 01/12/19 17:27 Last Infusion: 01/12/19 18:08 Dose: 0 mls/hr Documented by: [id number] Admin: 01/12/19 17:08 Dose: 999 mls/hr Documented by: [id number] Nitroglycerin (Nitro-Bid 2%) 2 inch EXT NOW STA Stop: 01/12/19 18:11 Last Admin: 01/12/19 18:27 Dose: 2 inch Documented by: [id number] Nitroglycerin (Nitro-Bid 2%) Confirm Administered Dose 36 inch .ROUTE .STK-MED ONE Stop: 01/12/19 18:12 Last Admin: 01/12/19 18:27 Dose: Not Given Documented by: [id number] Medical Decision Making Differential Diagnosis Differentials include fluid over load, abdominal wall contusion, anemia, CHF, pneumonia, bronchitis, constipation, bowel obstruction and UTI among others. Medical Records Attestation: I reviewed the patient's medical records. Home Medications Current Medication List: was personally reviewed by me Laboratory Data Attestation: I reviewed the patient's lab results. Result diagrams: 01/12/19 15:30 01/12/19 15:30 Lab Results 01/12/19 01/12/19 01/12/19 Range/Units 15:30 15:30 15:30 WBC 8.23 (4.8-10.8) K/uL RBC 4.06 L (4.2-5.4) M/uL Hgb 12.4 (12.0-16.0) g/dL Hct 38.6 (37-47) % MCV 95.1 (80-100) fL MCH 30.5 (25-34) pg MCHC 32.1 (32-36) g/dL RDW Std Deviation 50.3 H (36.4-46.3) fL RDW Coeff of Nury 14.6 H (11.5-14.5) % Plt Count 233 (130-400) K/uL MPV 11.2 H (7.4-10.4) fL Immature Gran % (Auto) 0.2 % Neut % (Auto) 71.9 % Lymph % (Auto) 17.5 % [place] % (Auto) 7.4 % Eos % (Auto) 2.8 % Baso % (Auto) 0.2 % Immature Gran # (Auto) 0.02 (0.00-0.02) K/uL Neut # (Auto) 5.91 (1.4-6.5) K/uL Lymph # (Auto) 1.44 (1.2-3.4) K/uL [place] # (Auto) 0.61 H (0.11-0.59) K/uL Eos # (Auto) 0.23 (0-0.5) K/uL Baso # (Auto) 0.02 (0-0.2) K/uL PT 10.0 (9.0-12.0) Seconds INR 1.0 (0.9-1.1) APTT 26.3 (21.0-31.0) Seconds PTT Ratio 1.0 Sodium 139 (136-145) mmol/L Potassium 4.3 (3.5-5.1) mmol/L Chloride 106 (98-107) mmol/L Carbon Dioxide 30 (21-32) mmol/L Anion Gap 3.0 (3-11) BUN 29 H (7-18) mg/dl Creatinine 1.46 H (0.6-1.2) mg/dl Est Cr Clr Drug Dosing 32.1 ml/min Est GFR ( Amer) 36.6 Est GFR (Non-Af Amer) 31.6 BUN/Creatinine Ratio 19.9 (10-20) Glucose 166 H (70-99) mg/dl Calcium 8.6 (8.5-10.1) mg/dl Magnesium 2.0 (1.8-2.4) mg/dl Total Bilirubin 0.4 (0.2-1) mg/dl AST 22 (15-37) U/L ALT 18 (12-78) U/L Alkaline Phosphatase 78 (45-117) U/L Troponin I < 0.015 (0-0.045) ng/ml NT-Pro-B Natriuret Pep (0-1800) pg/ml Total Protein 7.6 (6.4-8.2) gm/dl Albumin 3.1 L (3.4-5.0) gm/dl Globulin 4.5 H (2.5-4.0) gm/dl Albumin/Globulin Ratio 0.7 L (0.9-2) Specimen Hemolysis 01/12/19 Range/Units 15:30 WBC (4.8-10.8) K/uL RBC (4.2-5.4) M/uL Hgb (12.0-16.0) g/dL Hct (37-47) % MCV (80-100) fL MCH (25-34) pg MCHC (32-36) g/dL RDW Std Deviation (36.4-46.3) fL RDW Coeff of Nury (11.5-14.5) % Plt Count (130-400) K/uL MPV (7.4-10.4) fL Immature Gran % (Auto) % Neut % (Auto) % Lymph % (Auto) % [place] % (Auto) % Eos % (Auto) % Baso % (Auto) % Immature Gran # (Auto) (0.00-0.02) K/uL Neut # (Auto) (1.4-6.5) K/uL Lymph # (Auto) (1.2-3.4) K/uL [place] # (Auto) (0.11-0.59) K/uL Eos # (Auto) (0-0.5) K/uL Baso # (Auto) (0-0.2) K/uL PT (9.0-12.0) Seconds INR (0.9-1.1) APTT (21.0-31.0) Seconds PTT Ratio Sodium (136-145) mmol/L Potassium (3.5-5.1) mmol/L Chloride (98-107) mmol/L Carbon Dioxide (21-32) mmol/L Anion Gap (3-11) BUN (7-18) mg/dl Creatinine (0.6-1.2) mg/dl Est Cr Clr Drug Dosing ml/min Est GFR ( Amer) Est GFR (Non-Af Amer) BUN/Creatinine Ratio (10-20) Glucose (70-99) mg/dl Calcium (8.5-10.1) mg/dl Magnesium (1.8-2.4) mg/dl Total Bilirubin (0.2-1) mg/dl AST (15-37) U/L ALT (12-78) U/L Alkaline Phosphatase (45-117) U/L Troponin I (0-0.045) ng/ml NT-Pro-B Natriuret Pep 1492 (0-1800) pg/ml Total Protein (6.4-8.2) gm/dl Albumin (3.4-5.0) gm/dl Globulin (2.5-4.0) gm/dl Albumin/Globulin Ratio (0.9-2) Specimen Hemolysis Imaging Data Radiologist's Impression: Radiology results as stated below per my review and th e radiologist's interpretation: XR chest 1V portable CLINICAL HISTORY: Shortness of breath. COMPARISON STUDY: Chest CT October 03, 2018. FINDINGS: Left breast and left axillary surgical clips are noted. There is moderate cardiomegaly with extensive mitral annular calcification. There is no pneumothorax. There is no radiographic evidence of pulmonary edema. Small left and trace right pleural effusions are noted. There are mild bibasilar opacities. IMPRESSION: 1. Small left and trace right pleural effusions. 3. Bibasilar opacities which favor atelectasis. Consolidation could appear similar but is considered less likely. Electronically signed by: Jeremy Ham M.D. 01/12/2019 3:[address] OF THE ABDOMEN AND PELVIS WITHOUT CONTRAST CLINICAL HISTORY: Abdominal distention. Left upper quadrant pain. Possible obstruction. History of breast cancer. COMPARISON STUDY: CT of the abdomen and pelvis October 03, 2018. TECHNIQUE: Axial images of the abdomen and pelvis were obtained without IV contrast. Images were reviewed in the axial, sagittal, and coronal planes. Automated exposure control was utilized for the study. A dose lowering technique was utilized adhering to the principles of ALARA. FINDINGS: Visualized portions of the lower chest demonstrate moderate cardiomegaly with extensive mitral annular calcification. Small bilateral pleural effusions, left larger than right, have mildly increased in size since exam October 03, 2018. Associated airspace opacities favor atelectasis. No pneumatosis, free air or portal venous gas is present. Evaluation of the abdomen and pelvis is suboptimal on this unenhanced exam. The liver, spleen, adrenal glands and pancreas are unremarkable. Exam is mildly compromised by motion artifact. No renal, ureteral or bladder calculi are present. There is no hydronephrosis or hydroureter. No peripancreatic infiltration. There is no evidence for a bowel obstruction. The appendix is not visualized. There is sigmoid diverticulosis without evidence for acute diverticulitis. Mild distention of the bladder. The ovaries are not enlarged. There are no suspicious osseous lesions. There is no lymphadenopathy or ascites. IMPRESSION: 1. No acute process within the abdomen or pelvis on unenhanced exam. 2. Sigmoid diverticulosis without evidence for acute diverticulitis. 3. No bowel obstruction. 4. Small bilateral pleural effusions which have mildly increased in size since CT of October 03, 2018. Electronically signed by: Jeremy Ham M.D. 01/12/2019 3:[address] ANGIOGRAPHY OF THE CHEST, PULMONARY EMBOLUS PROTOCOL CLINICAL HISTORY: Shortness of breath. COMPARISON STUDY: Chest CT October 03, 2018. Chest CT November 30, 2017. Chest radiograph performed earlier today. TECHNIQUE: Following IV administration of 111 mL of Optiray-320, helical axial images of the chest were obtained utilizing the pulmonary embolus protocol. Maximal intensity projections and sagittal and coronal reformats were viewed on an independent 3D workstation. IV contrast was administered without complication. Automated exposure control was utilized for the study. A dose lowering technique was utilized adhering to the principles of ALARA. CT DOSE: 640.58 mGy.cm FINDINGS: No pulmonary emboli are identified. There is no thoracic aortic dissection. The heart is moderately enlarged. No pericardial effusion is noted. There is extensive mitral annular calcification. Note is made of moderate coronary artery calcification. Small to moderate left and small right pleural effusions, left larger than right, have increased in size since CT of October 03, 2018. Central airways are patent. Groundglass and linear opacities favor atelectasis. There is no consolidation to strongly suggest pneumonia. There is mild emphysema. A few right lung nodules are unchanged and CT of November 2017. These include a 5 mm right upper lobe nodule on image 149 of 311 and a 6 mm right middle lobe nodule on image 108. Central airways are patent. There is no pneumothorax. There are no suspicious osseous lesions within the bony thorax. Postoperative findings within the left breast are noted. A few prominent right axillary lymph nodes measure up to 9 mm in short axis diameter. These are unchanged and CT of November 30, 2017. IMPRESSION: 1. No pulmonary emboli identified. 2. Small to moderate left and small right pleural effusions which have mildly increased in size since CT of October 03, 2018. 3. Mild emphysema. 4. Moderate cardiomegaly. Moderate coronary artery calcification. 5. No change in several prominent right axillary lymph nodes and a few subcentimeter right lung nodules. Electronically signed by: Jeremy Ham M.D. 01/12/2019 4:46 PM XR chest 1V portable CLINICAL HISTORY: Shortness of breath. COMPARISON STUDY: Chest radiograph January 12, 2019 at 3:30 PM. FINDINGS: Left axillary/breast surgical clips are noted. Edema has developed. Small to moderate left and small right pleural effusions are again noted. Moderate cardiomegaly is noted. There is no pneumothorax. IMPRESSION: 1. Interval development of pulmonary edema. 2. Small to moderate left and small right pleural effusions. Electronically signed by: Jeremy Ham M.D. 01/12/2019 6:04 PM ECG Data Attestation: I personally reviewed and interpreted this ECG as follows: Indication: SOB/dyspnea Rate (beats per minute): 74 Rhythm: sinus rhythm Findings: + other (Old septal infarct.) and + 1st degree AV block; no PVC Blood Pressure Blood Pressure Findings: Elevated blood pressure Blood Pressure Disposition: further management by hospitalist SARIKA Moore There is no leukocytosis or concerning anemia. No coagulopathy. Renal panel testing does show a creatinine of 1.4. This is about baseline for the patient. No significant electrolyte abnormality requiring correction. No hepatitis. EKG showed a sinus rhythm, no acute ischemia. Cardiac enzyme testing x1 was not consistent with acute cardiac injury. BNP was not elevated. Chest film shows what could be atelectasis or effusions bilaterally, worse on the left. There was no pneumothorax or obvious focal pneumonia. Chest CT showed effusions, no pneumonia, no PE. Abdominal and pelvis CT did not show bowel obstruction or retroperitoneal hematoma. There was no abdominal wall hematoma or free air. The patient initially was asking to be discharged. Prior to discharge though she became suddenly short of breath and was noted to have a saturation of about 77%. She was placed on oxygen with an increase in the O2 saturation to 97%. She was given a DuoNeb. A repeat chest film showed what appears to be worsening fluid overload/CHF on top of the pleural effusions. The patient was placed on BiPAP. She was given IV Lasix and nitroglycerin paste. With the hypoxia, the effusions and now the CHF, I do think a hospital stay is warranted. I spoke to the patient and case management. The on-call hospitalist was consulted. Impression & Plan Shortness of breath, CHF (congestive heart failure), Hypoxia Discharge Plan Visit Data Chief Complaint: Shortness of Breath/Dyspnea ED Provider: Rm Mccall Discharge Problem: Shortness of breath, CHF (congestive heart failure), Hypoxia Patient Disposition: Being Evaluated by Hospitalist Condition: Fair Forms Stand Alone Forms: [facility], Important Visit Information Prescriptions Prescriptions: No Action buspirone 5 mg tablet 5 mg PO BID RF: 0 acetaminophen [Tylenol] 325 mg Tablet 650 mg PO Q4H MDD 3600 MG APAP/24 HOURS PRN (Reason: Fever Or Pain) RF: 0 Lantus U-100 Insulin 100 unit/mL Solution 14 units SUBCUT QAM RF: 0 Lantus U-100 Insulin 100 unit/mL Solution 20 units SUBCUT HS RF: 0 pravastatin 40 mg tablet 40 mg PO DAILY RF: 0 lisinopril 20 mg tablet 20 mg PO DAILY RF: 0 aspirin 81 mg Tablet,Delayed Release (Dr/Ec) 81 mg PO DAILY RF: 0 ferrous sulfate 325 mg (65 mg iron) Tablet 325 mg PO DAILY RF: 0 buspirone 10 mg tablet 10 mg PO HS RF: 0 metoprolol tartrate 50 mg tablet 50 mg PO BID RF: 0 letrozole 2.5 mg tablet 2.5 mg PO DAILY RF: 0 Novolog Flexpen U-100 Insulin 100 unit/mL (3 mL) insulin pen See Rx Instructions .ROUTE .COMPLEX RF: 0 calcium carbonate-vitamin D3 [Calcium 600 + D(3)] 600 mg(1,500mg) -400 unit Tablet 1 tab PO DAILY RF: 0 diclofenac sodium 1 % gel 2 g topical Q8H PRN (Reason: Pain) RF: 0 ProAir RespiClick 90 mcg/actuation Aerosol Powdr Breath Activated 2 inh INHALATION Q5H PRN (Reason: Dyspnea) RF: 0 Referrals Referrals: [facility] [place], [Primary Care Provider] - Discharge Problem: CHF (congestive heart failure) Qualifiers: Heart failure type: unspecified Heart failure chronicity: acute Qualified Code(s): I50.9 - Heart failure, unspecified The scribe's documentation has been prepared under my direction and personally reviewed by me in its entirety. I confirm that the note above accurately reflects all work, treatment, procedures, and medical decision making performed by me.
--- NOTE | 2019-01-12 18:26 | History & Physical Report ---
Date of Service January 12, 2019 Assessment & Plan (1) Acute respiratory failure with hypoxia: Likely 2nd to acute CHF. See below. BIPAP for now; suspect we can transition to NC O2 later tonight after she diureses. No evidence of PE or pneumonia on CTA chest. Present on Admission?: Yes (2) CHF (congestive heart failure): I suspect she has been volume overloaded for some time, perhaps weeks. She has gained an unspecified amount of weight and has had dyspnea. She is a poor historian and cannot pinpoint most dates when symptoms started. [id number] I agree with the IV lasix given in the ER. Strict I's and O's. Daily standing weights. BMP in am. Schedule lasix 20mg IV qam. She may need larger doses and/or BID dosing. Continue beta deirdre -- at some point the metoprolol should be made succinate f orm or changed to coreg. Continue JUAN. Echo in am to check EF, RV function, diastolic function, and LV wall motion. Consider formal cardiology consultation. Needs much better BP control. Present on Admission?: Yes (3) Abdominal distension: Nothing acute on CT abd/pelvis. This is either due to abdominal wall edema from CHF or constipation, or both. KUB x-ray to assess stool load. Diurese. Present on Admission?: Yes (4) HTN (hypertension): Poor control. Agree with nitropaste given in ER for quick afterload reduction. Also gave lopressor 2.5mg IV x1. Titrate BB and/or JUAN while here for optimal control. Likely contributing heavily to acute CHF. Present on Admission?: Yes (5) CKD (chronic kidney disease): stage 3. Cr is at baseline today. Repeat BMP in am. Present on Admission?: Yes (6) Breast cancer: left sided s/p lumpectomy (per pt's recollection) years ago. followed by radiation; uncertain about chemo. then had cancer recurrence 2 years ago. followed by Dr. Chandra. no Rx is planned; she has declined such. b/l pleural effusions are likely due to acute CHF but I cannot fully r/o malignant effusions. the lymphadenopathy seen on CT as well as pulmonary nodules are likely metastatic in etiology. code status needs to be addressed. I encouraged her to discuss code status with her children in light of advanced age, recurrent (and probable metastatic) breast cancer, etc. Present on Admission?: Yes (7) HLD (hyperlipidemia): cont statin agent Present on Admission?: Yes (8) DM w/o complication type II: Cont lantus BID. T2DM diet. BSGs ac/hs. Novolog with meals using correction factor 30 and carb ratio 1:10. Present on Admission?: Yes (9) DVT prophylaxis: lovenox 40mg daily will need Pt, Ot son updated at bedside extensively place on telemetry History of Present Illness Chief Complaint: shortness of breath Primary Care Provider: [facility] 88yo female with history of recurrent breast cancer,CKD stage 3, & HTN who presents with shortness of breath starting some time earlier this week. She cannot pinpoint a specific day that it started but her son reports that on Monday she was short of breath with walking when [facility]. She has also had abdominal bloating/distension for some time. Reports the presence of edema but she also cannot say how long she has had such. She denies PND but has chronic orthopnea. She has gained weight in the last few months, and her son feels she has looked more swollen in general. The amount of weight loss was uncertain. During her work-up in the ER she received about 500cc of NS. She then went to CT, and upon return she had severe orthopnea requiring the placement of BIPAP. Upon my arrival preparations were being made to give IV lasix and place a rosen catheter. Allergies Allergy/AdvReac Type Severity Reaction Status Date / Time Penicillins Allergy Intermediate Unknown Verified 01/12/19 16:10 Home Medications Home Medications Medication Instructions Recorded Confirmed Type acetaminophen [Tylenol] 650 mg PO Q4H PRN MDD 3600 MG 01/12/19 01/12/19 History APAP/24 HOURS albuterol sulfate [ProAir 2 inh INHALATION Q5H PRN 01/12/19 01/12/19 History RespiClick] aspirin 81 mg PO DAILY 01/12/19 01/12/19 History buspirone 5 mg PO BID 01/12/19 01/12/19 History buspirone 10 mg PO HS 01/12/19 01/12/19 History calcium carbonate-vitamin D3 1 tab PO DAILY 01/12/19 01/12/19 History [Calcium 600 + D(3)] diclofenac sodium 2 g TOPICAL Q8H PRN 01/12/19 01/12/19 History ferrous sulfate 325 mg PO DAILY 01/12/19 01/12/19 History insulin aspart U-100 [Novolog See Rx Instructions .ROUTE .COMPLEX 01/12/19 01/12/19 History Flexpen U-100 Insulin] insulin glargine [Lantus U-100 14 units SUBCUT QAM 01/12/19 01/12/19 History Insulin] insulin glargine [Lantus U-100 20 units SUBCUT HS 01/12/19 01/12/19 History Insulin] letrozole 2.5 mg PO DAILY 01/12/19 01/12/19 History lisinopril 20 mg PO DAILY 01/12/19 01/12/19 History metoprolol tartrate 50 mg PO BID 01/12/19 01/12/19 History pravastatin 40 mg PO DAILY 01/12/19 01/12/19 History Past Med/Surg History Medical History Breast cancer (Chronic) initial dx in (left breast); treated with lumpectomy and radiation; recurrent disease diagnosed 2 years ago; decision made NOT to pursue additional treatment CKD (chronic kidney disease) (Chronic) stage 3 HTN (hypertension) (Chronic) HLD (hyperlipidemia) (Chronic) DM w/o complication type II Surgical History History of tonsillectomy History of appendectomy History of lumbar surgery History of lumpectomy of left breast Family History Father Cancer Mother , near age 90 No problems noted. 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 Feels Safe at Home: Yes Safety Concerns: Feels Safe At This Time Smoking Status: Former smoker Hx Alcohol Use: No Hx Substance Use: No Review of Systems Constitutional: + anorexia and + weight gain; no fever and no chills Eyes: no worsening vision Ear, Nose, Mouth, Throat: no sore throat and no dysphagia Respiratory: + cough, + dyspnea and + dyspnea on exertion Cardiovascular: + dyspnea on exertion and + orthopnea; no chest pain, no dyspnea at rest, no paroxysmal nocturnal dyspnea and no edema Gastrointestinal: + constipation; no abdominal pain, no nausea, no vomiting and no diarrhea/loose stools Genitourinary (Female): no dysuria and no difficulty urinating Musculoskeletal: no back pain and no joint pain Integumentary: no rash Neurologic: no numbness Psychiatric: + depression ("sometimes") <150 BSGs Physical Exam Vital Signs (Past 24 Hours): Last Vital Signs Temp 36.6 C 01/12/19 15:22 Pulse 83 01/12/19 17:45 Resp 24 01/12/19 17:45 BP 175/72 H 01/12/19 17:45 Pulse Ox 77 L 01/12/19 17:45 Constitutional: well developed, well nourished, + acute distress and + obese; not ill appearing and no altered mental status mild increased work of breathing Eyes: PERRL ENMT: external ear and nose normal, oropharynx normal Neck: trachea midline, no thyromegaly Respiratory: + labored breathing Auscultation: + diminished lung sounds (b/l) and + crackles (both bases); no rhonchi and no wheezes Cardiovascular: Rate/Rhythm: regular rate and regular rhythm Heart Sounds: normal S1 and normal S2; no murmur (difficult to assess due to the BIPAP machine) Vessels: posterior tibial pulses present and dorsalis pedis pulses present; no JVD (difficult to assess due to BIPAP straps and body habitus) Extremities: + edema (2+ b/l) Gastrointestinal (Abdomen): normal bowel sounds, soft, nontender, no hepatosplenomegaly Inspection/Auscultation: + abdomen distended (mild) Musculoskeletal: no cyanosis or clubbing, extremities motor strength 5/5 Skin: mild stasis changes b/l legs (shins) Neurologic: deep tendon reflexes 2+ bilaterally; no focal motor deficits Psychiatric: Orientation: alert and oriented x 3 Mood: + irritable mood Lymphatic: no cervical lymphadenopathy Results & Data Laboratory Results Laboratory Results - last 24 hr 01/12/19 01/12/19 01/12/19 15:30 15:30 15:30 WBC 8.23 RBC 4.06 L Hgb 12.4 Hct 38.6 MCV 95.1 MCH 30.5 MCHC 32.1 RDW Std Deviation 50.3 H RDW Coeff of [place] 14.6 H Plt Count 233 MPV 11.2 H Immature Gran % (Auto) 0.2 Neut % (Auto) 71.9 Lymph % (Auto) 17.5 Mobile % (Auto) 7.4 Eos % (Auto) 2.8 Baso % (Auto) 0.2 Immature Gran # (Auto) 0.02 Neut # (Auto) 5.91 Lymph # (Auto) 1.44 Mobile # (Auto) 0.61 H Eos # (Auto) 0.23 Baso # (Auto) 0.02 PT 10.0 INR 1.0 APTT 26.3 PTT Ratio 1.0 Sodium 139 Potassium 4.3 Chloride 106 Carbon Dioxide 30 Anion Gap 3.0 BUN 29 H Creatinine 1.46 H Est Cr Clr Drug Dosing 32.1 Est GFR ( Amer) 36.6 Est GFR (Non-Af Amer) 31.6 BUN/Creatinine Ratio 19.9 Glucose 166 H POC Glucose Calcium 8.6 Magnesium 2.0 Total Bilirubin 0.4 AST 22 ALT 18 Alkaline Phosphatase 78 Troponin I < 0.015 NT-Pro-B Natriuret Pep Total Protein 7.6 Albumin 3.1 L Globulin 4.5 H Albumin/Globulin Ratio 0.7 L Specimen Hemolysis Urine Color Urine Appearance Urine pH Ur Specific [place] Urine Protein Urine Glucose (UA) Urine Ketones Urine Blood Urine Nitrite Urine Bilirubin Urine Urobilinogen Ur Leukocyte Esterase 01/12/19 01/12/19 01/12/19 15:30 19:25 21:20 WBC RBC Hgb Hct MCV MCH MCHC RDW Std Deviation RDW Coeff of [place] Plt Count MPV Immature Gran % (Auto) Neut % (Auto) Lymph % (Auto) [place] % (Auto) Eos % (Auto) Baso % (Auto) Immature Gran # (Auto) Neut # (Auto) Lymph # (Auto) Mobile # (Auto) Eos # (Auto) Baso # (Auto) PT INR APTT PTT Ratio Sodium Potassium Chloride Carbon Dioxide Anion Gap BUN Creatinine Est Cr Clr Drug Dosing Est GFR ( Amer) Est GFR (Non-Af Amer) BUN/Creatinine Ratio Glucose POC Glucose 286 H Calcium Magnesium Total Bilirubin AST ALT Alkaline Phosphatase Troponin I NT-Pro-B Natriuret Pep 1492 Total Protein Albumin Globulin Albumin/Globulin Ratio Specimen Hemolysis Urine Color Yellow Urine Appearance Clear Urine pH 5.5 Ur Specific [place] 1.030 Urine Protein Negative Urine Glucose (UA) Negative Urine Ketones Negative Urine Blood Negative Urine Nitrite Negative Urine Bilirubin Negative Urine Urobilinogen Negative Ur Leukocyte Esterase Negative Diagnostic Findings EKG - NSR, first degree AV block, no ST changes CTA chest - IMPRESSION: 1. No pulmonary emboli identified. 2. Small to moderate left and small right pleural effusions which have mildly increased in size since CT of October 03, 2018. 3. Mild emphysema. 4. Moderate cardiomegaly. Moderate coronary artery calcification. 5. No change in several prominent right axillary lymph nodes and a few subcentimeter right lung nodules. repeat cxr later in her ER course- my reading - moderate pulmonary edema with b/l pleural effusions Code Status & VTE Plan Code Status level 1 full code VTE Prophylaxis Plan VTE Prophylaxis will be ordered: Yes (1) CHF (congestive heart failure) Heart failure chronicity: acute Heart failure type: unspecified Qualified Code(s): I50.9 - Heart failure, unspecified (2) HTN (hypertension) Hypertension type: essential hypertension Qualified Code(s): I10 - Essential (primary) hypertension (3) CKD (chronic kidney disease) Chronic kidney disease stage: stage 3 (moderate) Qualified Code(s): N18.3 - Chronic kidney disease, stage 3 (moderate) (4) Breast cancer Breast location: unspecified site of breast Estrogen receptor status: unspecified Patient sex: female Laterality: left Qualified Code(s): C50.912 - Malignant neoplasm of unspecified site of left female breast (5) HLD (hyperlipidemia) Hyperlipidemia type: mixed hyperlipidemia Qualified Code(s): E78.2 - Mixed hyperlipidemia (6) DM w/o complication type II Diabetes mellitus terminal superintendent insulin use: with terminal superintendent use Qualified Code(s): E11.9 - Type 2 diabetes mellitus without complications; Z79.4 - buttermaker (current) use of insulin
[2019-01-12] MEDS ORDERED: METOPROLOL TARTRATE 1 MG/ML VIAL IV STA (19:19)
[2019-01-12] MEDS ORDERED: METOPROLOL TARTRATE 1 MG/ML VIAL IV ONE (19:28)
[2019-01-12 19:47] LABS: Appearance Urine Clear (Clear); Bilirubin Urine Negative (Negative); Blood Urine Negative (Negative); Color Urine Yellow; Glucose Urine UA Negative (Negative); Ketones Urine Negative (Negative); Leukocyte Esterase Urine Negative (Negative); Nitrite Urine Negative (Negative); Protein Urine Negative (Negative); Urobilinogen Urine Negative (Negative); pH Urine 5.5 (4.5-7.5)
[2019-01-12] MEDS ORDERED: DICLOFENAC SOD 1% GEL 100 GM TUBE EXT PRN (20:06)
[2019-01-12] MEDS ORDERED: ONDANSETRON INJ 2 MG/ML 2 ML VIAL IV PRN (20:06)
[2019-01-12] MEDS ORDERED: NITROGLYCERIN SL 0.4 MG/TAB TAB SL PRN (20:06)
[2019-01-12] MEDS ORDERED: ACETAMINOPHEN 325 MG TAB PO PRN (20:06)
[2019-01-12] MEDS ORDERED: DEXTROSE 50% 50 ML SYRINGE IV PRN (20:45)
[2019-01-12] MEDS ORDERED: GLUCAGON FOR INJ 1 MG VIAL IM PRN (20:45)
[2019-01-12] MEDS ORDERED: GLUCOSE 40% GEL 15 GM TUBE PO PRN (20:45)
[2019-01-12] MEDS ORDERED: GLUCOSE 10 TABS/TUBE PO PRN (20:45)
[2019-01-12] MEDS ORDERED: ALBUTEROL HFA 8 GM INHALER INH PRN (21:00)
[2019-01-12] MEDS: METOPROLOL TARTRATE 50 MG TAB PO SCH (21:27)
[2019-01-12] MEDS: ENOXAPARIN INJ 30 MG/0.3 ML SYR SQ SCH (21:28)
[2019-01-12] MEDS: INSULIN ASPART 100 UNITS/ML 3 ML PEN SC SCH (21:28)
[2019-01-12] MEDS: INSULIN GLARGINE SOLOSTAR 100 UNITS/ML 3 ML PEN SC SCH (21:29)
--- NOTE | 2019-01-12 21:46 | XRay Report ---
V[facility] CLINICAL HISTORY: constipation? assess fecal load COMPARISON STUDY: CT of the abdomen and pelvis October 03, 2018 and January 12, 2019. FINDINGS: Bowel gas pattern is normal. A moderate amount stool within the colon and rectum is noted. Small bilateral pleural effusions are noted. There is cardiomegaly with mitral annular calcification. IMPRESSION: 1. Moderate amount of stool within the colon and rectum. 2. No evidence for a bowel obstruction. Electronically signed by: Jeremy Ham M.D. 01/12/2019 9:44 PM
[2019-01-13 07:03] LABS: BUN Creatinine Ratio 19.9 (10-20); Calcium 8.5 mg/dl (8.5-10.1); Creatinine Clr Calc Pharmacy 30.1 ml/min; Est GFR (African American) 37.5; Est GFR (Non-African American) 32.4; Magnesium 1.9 mg/dl (1.8-2.4)
[2019-01-13] MEDS: POTASSIUM CHLORIDE 20 MEQ TABCR PO SCH (08:39)
[2019-01-13] MEDS: ASPIRIN 81 MG ECTAB PO SCH (08:39)
[2019-01-13] MEDS: SENNA 8.6 MG TAB PO SCH (08:39)
[2019-01-13] MEDS: LETROZOLE 2.5 MG TAB PO SCH (08:39)
[2019-01-13] MEDS: LISINOPRIL 20 MG TAB PO SCH (08:39)
[2019-01-13] MEDS: PRAVASTATIN SOD 40 MG TAB PO SCH (08:39)
[2019-01-13] MEDS: CALCIUM 600MG + VIT D 400 IU TAB PO SCH (08:39)
[2019-01-13] MEDS: FUROSEMIDE 20 MG in SYRINGE 0 ML IV SCH (08:40)
[2019-01-13] MEDS: INSULIN GLARGINE SOLOSTAR 100 UNITS/ML 3 ML PEN SC SCH ×2 (08:40→21:24)
[2019-01-13] MEDS: INSULIN ASPART 100 UNITS/ML 3 ML PEN SC SCH ×4 (08:40→21:24)
[2019-01-13] MEDS: FERROUS SULFATE 325 MG TAB PO SCH (08:40)
[2019-01-13] MEDS: METOPROLOL TARTRATE 50 MG TAB PO SCH ×2 (08:40→21:17)
[2019-01-13] MEDS: POLYETHYLENE (MIRALAX) 17 GM PACK PO SCH (08:41)
--- NOTE | 2019-01-13 09:02 | Hospitalist Progress Note ---
Date of Service January 13, 2019 Assessment & Plan (1) Acute respiratory failure with hypoxia: Patient be removed from BiPAP and has been transitioned to NC O2 \ No evidence of PE or pneumonia on CTA chest. Concern for a x-ray pneumonitis (2) CHF (congestive heart failure): lasix 20mg IV qam. Awaiting echocardiogram results metoprolol tartrate 50 mg bid and lisinopril 20 Consider formal cardiology consultation. (3) Abdominal distension: Nothing acute on CT abd/pelvis. Plain films suggest increased stool load continue cathartic agents for constipation This is either due to abdominal wall edema from CHF or constipation, or both. (4) HTN (hypertension): nitropaste given in ER for quick afterload reduction. Also gave lopressor IV (5) CKD (chronic kidney disease): stage 3. Cr is at baseline. (6) Breast cancer: left sided s/p lumpectomy (per pt's recollection) years ago. followed by radiation; uncertain about chemo. then had cancer recurrence 2 years ago. followed by Dr. Chandra. no Rx is planned; she has declined such. b/l pleural effusions are likely due to acute CHF but I cannot fully r/o malignant effusions. the lymphadenopathy seen on CT as well as pulmonary nodules are likely metastatic in etiology. 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 T2DM diet. (9) DVT prophylaxis: lovenox 40mg daily will need Pt, Ot son updated at bedside extensively place on telemetry Subjective Patient states feels much better after being brought in with some heart failure this is defined with a systolic or diastolic and echocardiogram is pending. She also had significant stool load on her abdominal imaging studies and we are awaiting cathartics to improve her stool output Review of Systems ROS: Patient seems fatigued and tired No double vision blurry vision No problems with speech or swallowing No palpitations, chest pain or pressure Complains of increased dyspnea No abdominal pain nausea vomiting diarrhea constipation of late No burning urine urine frequency or changes in color No focal joint pain or muscle pain No skin rashes or oral lesions No unusual bruising or bleeding No focused back pain or numbness or loss of strength No changes in memory or confusion Physical Exam Vital Signs (Past 24 Hours): Last Vital Signs Temp 36.7 C 03/24/19 07:51 Pulse 69 01/13/19 07:51 Resp 19 01/13/19 07:51 BP 130/75 01/13/19 07:51 Pulse Ox 97 01/13/19 07:51 The patient appeared slightly short of breath and fatigued Vital signs as documented. Head exam is unremarkable. normocephalic, atraumatic Neck is without jugular venous distension, thyromegaly, or lymphademopathy Lungs are diminished breath sounds at the bases particularly at the left base some rhonchi there Cardiac exam reveals Rhythm is regular. Systolic ejection murmur first and second heart sounds normal. Abdominal exam reveals normal bowel sounds, no masses, no organomegaly no focal tenderness Extremities are nonedematous and both pedal pulses are present Neurologic exam is A&Ox3, no focal deficits, strength is equal bilateral Psychologically seems neither anxious or depressed Skin is warm Dry without bruises or lesions (1) DM w/o complication type II Diabetes mellitus vermin exterminator insulin use: with vermin exterminator use Qualified Code(s): E11.9 - Type 2 diabetes mellitus without complications; Z79.4 - long term care social worker (current) use of insulin (2) CHF (congestive heart failure) Heart failure chronicity: acute Heart failure type: unspecified Qualified Code(s): I50.9 - Heart failure, unspecified (3) HLD (hyperlipidemia) Hyperlipidemia type: mixed hyperlipidemia Qualified Code(s): E78.2 - Mixed hyperlipidemia (4) CKD (chronic kidney disease) Chronic kidney disease stage: stage 3 (moderate) Qualified Code(s): N18.3 - Chronic kidney disease, stage 3 (moderate) (5) Breast cancer Breast location: unspecified site of breast Estrogen receptor status: unspecified Laterality: left Patient sex: female Qualified Code(s): C50.912 - Malignant neoplasm of unspecified site of left female breast (6) HTN (hypertension) Hypertension type: essential hypertension Qualified Code(s): I10 - Essential (primary) hypertension
[2019-01-13] MEDS: ENOXAPARIN INJ 30 MG/0.3 ML SYR SQ SCH (21:17)
[2019-01-14] MEDS: METOPROLOL TARTRATE 50 MG TAB PO SCH ×2 (08:46→20:49)
[2019-01-14] MEDS: LISINOPRIL 20 MG TAB PO SCH (08:46)
[2019-01-14] MEDS: ASPIRIN 81 MG ECTAB PO SCH (08:46)
[2019-01-14] MEDS: CALCIUM 600MG + VIT D 400 IU TAB PO SCH (08:47)
[2019-01-14] MEDS: PRAVASTATIN SOD 40 MG TAB PO SCH (08:47)
[2019-01-14] MEDS: FERROUS SULFATE 325 MG TAB PO SCH (08:47)
[2019-01-14] MEDS: SENNA 8.6 MG TAB PO SCH ×2 (08:47→20:49)
[2019-01-14] MEDS: POTASSIUM CHLORIDE 20 MEQ TABCR PO SCH (08:47)
[2019-01-14] MEDS: LETROZOLE 2.5 MG TAB PO SCH (08:48)
[2019-01-14] MEDS: INSULIN GLARGINE SOLOSTAR 100 UNITS/ML 3 ML PEN SC SCH ×2 (08:51→20:50)
[2019-01-14] MEDS: POLYETHYLENE (MIRALAX) 17 GM PACK PO SCH (08:52)
[2019-01-14] MEDS: INSULIN ASPART 100 UNITS/ML 3 ML PEN SC SCH ×4 (08:52→20:50)
[2019-01-14] MEDS: FUROSEMIDE 20 MG in SYRINGE 0 ML IV SCH (09:07)
--- NOTE | 2019-01-14 15:07 | Hospitalist Progress Note ---
Date of Service January 14, 2019 Assessment & Plan (1) Acute respiratory failure with hypoxia: No evidence of PE or pneumonia on CTA chest. 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 Echocardiogram shows preserved LV function and RV function she has moderate mitral regurg and mild aortic stenosis continue treatment with metoprolol tartrate 50 mg bid and lisinopril 20 (3) Abdominal distension: Nothing acute on CT abd/pelvis. Plain films suggest increased stool load continue cathartic agents for constipation This is either due to abdominal wall edema from CHF or constipation, will increase cathartic use and promote bowel movements (4) HTN (hypertension): nitropaste given in ER for quick afterload reduction. Also gave lopressor IV (5) CKD (chronic kidney disease): stage 3. Cr is at baseline. (6) Breast cancer: left sided s/p lumpectomy (per pt's recollection) years ago. followed by radiation; uncertain about chemo. then had cancer recurrence 2 years ago. followed by Dr. Chandra. no Rx is planned; she has declined such. b/l pleural effusions are are seen, cannot fully r/o malignant effusions. the lymphadenopathy seen on CT as well as pulmonary nodules are likely metastatic in etiology. 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 T2DM diet. (9) DVT prophylaxis: lovenox 40mg daily Subjective Patient was awoken from sleep she is slightly confused she seems to be in much better cardiopulmonary condition today. Her echocardiogram did not bring any light into the significance of her shortness of breath and she is much better. PT OT evaluation Review of Systems ROS: well nourished well developed. She is forgetful at times during the interview No double vision blurry vision No problems with speech or swallowing No palpitations, chest pain or pressure No Wheezing or complaint of continued dyspnea on exertion No abdominal pain nausea vomiting diarrhea changes in appetite or weight No burning urine urine frequency or changes in color No focal joint pain or muscle pain No skin rashes or oral lesions No unusual bruising or bleeding No focused back pain or numbness or loss of strength No changes in memory or confusion Physical Exam Vital Signs (Past 24 Hours): Last Vital Signs Temp 36.4 C L 01/14/19 12:00 Pulse 66 01/14/19 12:00 Resp 18 01/14/19 12:00 BP 99/62 L 01/14/19 12:00 Pulse Ox 95 01/14/19 12:40 the patient appeared well nourished and normally developed. Vital signs as documented. Head exam is unremarkable. normocephalic, atraumatic Neck is without jugular venous distension, thyromegaly, or lymphademopathy Lungs are clear to auscultation and percussion. Although decreased air movement is felt to be present Cardiac exam reveals Rhythm is regular. First and second heart sounds normal. Abdominal exam reveals normal bowel sounds, soft nontender no masses, no organomegaly Extremities are nonedematous and both pedal pulses are present Neurologic exam is A&Ox2, no focal deficits, strength is equal bilateral Psychologically seems anxious Skin is warm Dry without bruises or lesions (1) CHF (congestive heart failure) Heart failure chronicity: acute Heart failure type: unspecified Qualified Code(s): I50.9 - Heart failure, unspecified (2) HTN (hypertension) Hypertension type: essential hypertension Qualified Code(s): I10 - Essential (primary) hypertension (3) CKD (chronic kidney disease) Chronic kidney disease stage: stage 3 (moderate) Qualified Code(s): N18.3 - Chronic kidney disease, stage 3 (moderate) (4) Breast cancer Breast location: unspecified site of breast Estrogen receptor status: unspecified Patient sex: female Laterality: left Qualified Code(s): C50.912 - Malignant neoplasm of unspecified site of left female breast (5) HLD (hyperlipidemia) Hyperlipidemia type: mixed hyperlipidemia Qualified Code(s): E78.2 - Mixed hyperlipidemia (6) DM w/o complication type II Diabetes mellitus penitentiary insulin use: with penitentiary use Qualified Code(s): E11.9 - Type 2 diabetes mellitus without complications; Z79.4 - local intermodal truck driver (current) use of insulin
[2019-01-14] MEDS: ENOXAPARIN INJ 30 MG/0.3 ML SYR SQ SCH (20:49)
[2019-01-15] MEDS: CARBOHYDRATES FOR HYPOGLYCEMIA PO PRN (07:37)
[2019-01-15] MEDS: POTASSIUM CHLORIDE 20 MEQ TABCR PO SCH (08:34)
[2019-01-15] MEDS: METOPROLOL TARTRATE 50 MG TAB PO SCH ×2 (08:34→20:50)
[2019-01-15] MEDS: FERROUS SULFATE 325 MG TAB PO SCH (08:34)
[2019-01-15] MEDS: PRAVASTATIN SOD 40 MG TAB PO SCH (08:34)
[2019-01-15] MEDS: CALCIUM 600MG + VIT D 400 IU TAB PO SCH (08:34)
[2019-01-15] MEDS: LISINOPRIL 20 MG TAB PO SCH (08:34)
[2019-01-15] MEDS: SENNA 8.6 MG TAB PO SCH ×3 (08:35→21:04)
[2019-01-15] MEDS: ASPIRIN 81 MG ECTAB PO SCH (08:35)
[2019-01-15] MEDS: LETROZOLE 2.5 MG TAB PO SCH (08:35)
[2019-01-15] MEDS: INSULIN GLARGINE SOLOSTAR 100 UNITS/ML 3 ML PEN SC SCH ×2 (08:38→20:49)
[2019-01-15] MEDS: INSULIN ASPART 100 UNITS/ML 3 ML PEN SC SCH ×4 (08:40→20:53)
[2019-01-15] MEDS: POLYETHYLENE (MIRALAX) 17 GM PACK PO SCH (08:42)
--- NOTE | 2019-01-15 09:48 | XRay Report ---
XR chest 2V routine CLINICAL HISTORY: pleural effusion COMPARISON STUDY: 01/12/2019 FINDINGS: The heart remains enlarged. There are persistent bilateral pleural effusions left greater t guevara right. There are associated basilar airspace opacities. There is resolving congestive failure.[ IMPRESSION: 1. Resolving congestive failure/pulmonary edema 2. Persistent bilateral pleural effusions left greater than right 3. Basilar airspace opacities, statistically representing compressive atelectasis Electronically signed by: Carlos Arroyo M.D. 01/15/2019 9:46 AM
[2019-01-15 10:27] LABS: Hematocrit (blood only) 34.8 % (37-47); Hemoglobin 11.1 g/dL (12.0-16.0); Mean Corpuscular Hgb Conc 31.9 g/dL (32-36); Mean Corpuscular Volume 95.3 fL (80-100); Mean Platelet Volume 11.2 fL (7.4-10.4); Platelet Count 228 K/uL (130-400); RDW Coefficient of Variation 14.6 % (11.5-14.5); RDW Standard Deviation 51.3 fL (36.4-46.3); Red Blood Count 3.65 M/uL (4.2-5.4); White Blood Count 9.69 K/uL (4.8-10.8)
[2019-01-15 11:03] LABS: BUN Creatinine Ratio 24.4 (10-20); Calcium 8.8 mg/dl (8.5-10.1); Creatinine Clr Calc Pharmacy 29.8 ml/min; Est GFR (African American) 37.5; Est GFR (Non-African American) 32.4
[2019-01-15] MEDS: ENOXAPARIN INJ 30 MG/0.3 ML SYR SQ SCH (20:51)
--- NOTE | 2019-01-16 07:59 | Hospitalist Progress Note ---
Date of Service January 15, 2019 Assessment & Plan (1) Acute respiratory failure with hypoxia: Likely from pleural effusions. X-ray does show inprovement of pulmonary congestion No evidence of PE or pneumonia on CTA chest. 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 But patient continues to have bliateral signs of pleural effusion. Will consult thoracic surgery. (2) CHF (congestive heart failure): Echocardiogram shows preserved LV function and RV function she has moderate mitral regurg and mild aortic stenosis continue treatment with metoprolol tartrate 50 mg bid and lisinopril 20 (3) Abdominal distension: Nothing acute on CT abd/pelvis. Plain films suggest increased stool load continue cathartic agents for constipation This is either due to abdominal wall edema from CHF or constipation, will increase cathartic use and promote bowel movements. No worsening on 01/15. (4) HTN (hypertension): nitropaste given in ER for quick afterload reduction. Also gave lopressor IV B/P better controlled. (5) CKD (chronic kidney disease): stage 3. Cr is at baseline. (6) Breast cancer: left sided s/p lumpectomy (per pt's recollection) years ago. followed by radiation; uncertain about chemo. then had cancer recurrence 2 years ago. followed by Dr. Chandra. no Rx is planned; she has declined such. b/l pleural effusions are are seen, cannot fully r/o malignant effusions. the lymphadenopathy seen on CT as well as pulmonary nodules are likely metastatic in etiology. 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 T2DM diet. (9) DVT prophylaxis: lovenox 40mg daily Spent 35 minutes in management of patient. Subjective Patient was awake and playing crosswords. She is hard of hearing but she states that she does feel better. She states though that she normally is not on oxygen at home. Constitutional: + anorexia and + weight gain; no fever and no chills Eyes: no blind spots and no discharge Ear, Nose, Mouth, Throat: no ear pain Respiratory: + cough, + dyspnea and + dyspnea on exertion Cardiovascular: + dyspnea on exertion and + orthopnea; no chest pain, no dyspnea at rest, no paroxysmal nocturnal dyspnea and no edema Gastrointestinal: + constipation; no abdominal pain, no nausea, no vomiting and no diarrhea/loose stools Genitourinary (Female): no dysuria and no urinary hesitancy Musculoskeletal: no back pain Integumentary: no rash Neurologic: no gait abnormality and no localized weakness Psychiatric: + depression ("sometimes") Physical Exam Vital Signs (Past 24 Hours): Last Vital Signs Temp 37 C 01/15/19 15:38 Pulse 71 01/15/19 15:38 Resp 18 01/15/19 15:38 BP 99/62 L 01/15/19 15:38 Pulse Ox 97 01/15/19 15:38 Physical Exam: the patient appeared well nourished and normally developed. On nasal cannula Vital signs as documented. Head exam is unremarkable. normocephalic, atraumatic Neck is without jugular venous distension, thyromegaly, or lymphademopathy Lungs are clear to auscultation and percussion except for decreased sounds on bases. Cardiac exam reveals Rhythm is regular. First and second heart sounds normal. Abdominal exam reveals normal bowel sounds, soft nontender no masses, no organomegaly Extremities are nonedematous and both pedal pulses are present Neurologic exam is A&Ox2, no focal deficits, strength is equal bilateral Psychologically seems anxious Skin is warm Dry without bruises or lesions (1) CHF (congestive heart failure) Heart failure chronicity: acute Heart failure type: unspecified Qualified Code(s): I50.9 - Heart failure, unspecified (2) HTN (hypertension) Hypertension type: essential hypertension Qualified Code(s): I10 - Essential (primary) hypertension (3) CKD (chronic kidney disease) Chronic kidney disease stage: stage 3 (moderate) Qualified Code(s): N18.3 - Chronic kidney disease, stage 3 (moderate) (4) Breast cancer Breast location: unspecified site of breast Estrogen receptor status: unspecified Patient sex: female Laterality: left Qualified Code(s): C50.912 - Malignant neoplasm of unspecified site of left female breast (5) HLD (hyperlipidemia) Hyperlipidemia type: mixed hyperlipidemia Qualified Code(s): E78.2 - Mixed hyperlipidemia (6) DM w/o complication type II Diabetes mellitus watermaster insulin use: with fpc use Qualified Code(s): E11.9 - Type 2 diabetes mellitus without complications; Z79.4 - retirement (current) use of insulin
[2019-01-16] MEDS: CALCIUM 600MG + VIT D 400 IU TAB PO SCH (08:10)
[2019-01-16] MEDS: METOPROLOL TARTRATE 50 MG TAB PO SCH ×2 (08:10→21:01)
[2019-01-16] MEDS: LETROZOLE 2.5 MG TAB PO SCH (08:10)
[2019-01-16] MEDS: FERROUS SULFATE 325 MG TAB PO SCH (08:10)
[2019-01-16] MEDS: PRAVASTATIN SOD 40 MG TAB PO SCH (08:10)
[2019-01-16] MEDS: SENNA 8.6 MG TAB PO SCH ×2 (08:10→21:00)
[2019-01-16] MEDS: ASPIRIN 81 MG ECTAB PO SCH (08:11)
[2019-01-16] MEDS: LISINOPRIL 20 MG TAB PO SCH (08:11)
[2019-01-16] MEDS: POTASSIUM CHLORIDE 20 MEQ TABCR PO SCH (08:11)
[2019-01-16] MEDS: INSULIN GLARGINE SOLOSTAR 100 UNITS/ML 3 ML PEN SC SCH (08:49)
[2019-01-16] MEDS: POLYETHYLENE (MIRALAX) 17 GM PACK PO SCH (08:50)
[2019-01-16] MEDS: INSULIN ASPART 100 UNITS/ML 3 ML PEN SC SCH ×4 (08:51→21:05)
--- NOTE | 2019-01-16 18:07 | XRay Report ---
XR chest 1V portable CLINICAL HISTORY: Status post left-sided thoracentesis COMPARISON STUDY: 01/15/2019 FINDINGS: There is been interval decrease in the size of the left pleural effusion. No pneumothorax i s visualized status post thoracentesis. The heart remains enlarged. There are trace pleural effusions . There is radiographic evidence of mild pulmonary vascular congestion/fluid overload. There is no lo bar consolidation. There is significant improved aeration of the left lung base. Surgical clips are v isualized in the left axillary region.[ IMPRESSION: No evidence of pneumothorax status post thoracentesis. Interval decrease in size of left pleural effusion. Improved aeration of the left lung base. Electronically signed by: Carlos Arroyo M.D. 01/16/2019 6:06 PM
--- NOTE | 2019-01-16 18:07 | Post Operative Brief Note ---
Immediate Post Op Note v1 Date of Surgery January 16, 2019 Pre & Post Diagnosis bilateral pleural effusions Procedure Ultrasound guided left thoracentesis Surgeon Sebastian Edwards MD, FACS Area Operations Manager Danny DE LEON Estimated Blood Loss 0 Findings Consistent with Post-Op Diagnosis
[2019-01-16 18:42] LABS: Total Protein Pleural Fluid 3.6 g/dl
[2019-01-16] MEDS ORDERED: PHARMACY GLYCEMIC MGMT CONSULT PRN (19:17)
[2019-01-16 19:18] LABS: Appearance Pleural Fluid CLEAR; Color Pleural Fluid YELLOW; RBC Pleural Fluid (A) < 3000 /uL; Source Pleural Fluid LEFT LUNG; WBC Pleural Fluid (A) 129 /uL
--- NOTE | 2019-01-16 19:57 | Consultation Report ---
DATE OF CONSULTATION: 01/16/2019 REASON FOR CONSULTATION: Bilateral pleural effusions. HISTORY OF PRESENT ILLNESS: Lanette Mahan is a delightful 88-year-old female who does have a history of cigarette smoking who presented to [facility] on 01/12/2019 with acute respiratory failure with hypoxia. These were rather small, but it seemed to be a bit larger in the left. I was asked to see her to determine whether a thoracentesis for both diagnosis and therapy would be helpful. I had a very long talk with the patient, although she is forgetful we discussed this in great detail. It is indicated that she would like to proceed with a thoracentesis. PAST MEDICAL HISTORY: 1. Episode of congestive heart failure. 2. Hypertension. 3. History of breast cancer treated with lumpectomy followed by radiation. 4. Possible metastatic disease with pulmonary nodules and lymphadenopathy. 5. Hyperlipidemia. 6. Diabetes mellitus. 7. History of cigarette smoking. PAST SURGICAL HISTORY: 1. 3, para 3, abortus none. 2. Left breast lumpectomy with radiation, recurrent disease diagnosed 2 years ago. 3. Appendectomy. 4. Lumbar laminectomy. 5. Tonsillectomy. FAMILY MEDICAL HISTORY: Mother at age 90. Father of cancer in his 70s. Her children are healthy. MEDICATIONS AT HOME: 1. ProAir. 2. Pravastatin. 3. Metoprolol. 4. Buspirone. 5. Calcium supplements. 6. Lisinopril. 7. Metoprolol. 8. Letrozole. 9. Diclofenac. 10. Iron supplements. 11. Insulin. ALLERGIES: PENICILLIN. SOCIAL HISTORY: The patient lives at [facility]. She states that she used to smoke. Does not smoke now. She does not use alcohol. She is a retired manager music. She attended to [employer] and studied music in the 40s. REVIEW OF SYSTEMS: The patient had some swelling of her legs and had some weight gain. She states that she has not been eating well. She had no fevers, no chills. It is important to note that this patient was diagnosed with recurrent breast cancer about 2 years ago and elected not to proceed with any therapy. She does indicate she has had a cough with dyspnea, although she states that she is not coughing anything up. She denies a sore throat. She has marked dyspnea on exertion. She is complaining of some constipation with no nausea or vomiting. She denies any difficulty urinating. She denies any joint pain other than "the usual wear and tear." She has had no neurologic events. She has had no skin breakdown. PHYSICAL EXAMINATION: GENERAL: This is a heavyset 210 pound female who is awake, alert and oriented. She wears glasses. HEENT: Extraocular movements are intact. Teeth are actually fairly good repair. Tongue is midline. She is articulate and conversive although easily confused. NECK: She has no carotid bruits. She has no neck vein distention or tracheal deviation. LUNGS: She does have decreased breath sounds on both sides, but I detect no wheezing or crackles. HEART: She has a regular rate and rhythm of her heart. I do not hear a significant murmur. I can palpate pedal pulses. She has good femoral pulses. She does have edema of her lower extremities at about 1+. She has no wound breakdown or discoloration. ABDOMEN: Obese, soft, nontender and she has good bowel sounds. She states that her stomach is a bit distended, but it is soft. EXTREMITIES: She has no joint effusions. NEUROLOGIC: She is awake, alert and oriented, but has no focal deficits and easily confused and readily admits that. ASSESSMENT AND PLAN: Bilateral pleural effusions, left greater than right. There was a question of the rather acute process here. I think a diagnostic and therapeutic left thoracentesis under ultrasound guidance should be offered. KALINA
--- NOTE | 2019-01-16 20:32 | Pharmacy Report ---
Glycemic Control Consultation - Date of Service January 16, 2019 - Scope Scope: Glycemic Pharmacist consulted by Dr Moody on 01-16-19 for glycemic control and to write orders per [facility] inpatient glycemic control protocol - Objective Weight: 95.7 kg Accuchecks BSG (last 24hrs): 01/16/19 01/16/19 01/16/19 07:37 11:49 11:50 POC Glucose 94 350 H 329 H 01/16/19 16:33 POC Glucose 295 H - Recent Pertinent Medications Outpatient Anti-diabetic Regimen: * Lantus 14 units QAM, Lantus 20 units HS, Novolog SSI + 4 units with AM, 6 units afternoon, 7 units pm * A1c = ordered for 01/17 AM The patient is currently receiving: * Basal insulin: Lantus 14 units QAM and Lantus 20 units QPM * Correctional Insulin: Novolog Correction per scale ACHS Goal Range: Low 120 mg/dL - High 160 mg/dL Correction Factor: 30 mg/dL/unit * Prandial insulin: Per carb ratio of 1 unit per 10 grams CHO consumed Risk Factors for Insulin Resistance: * Diet: T2DM - Assessment & Plan Assessment & Plan: ASSESSMENT: * 88 year old admitted with CHF. PMHx significant for CHF, CKD stage 3, breast cancer, hyperlipidemia * Pharmacy consulted for glycemic control. Unclear to glycemic control at home, no A1C per hospital records. Will order for 01/17 AM * BSG at 295 mg/dL at dinner this evening - BSGs typically in 200s previous days except <100 mg/dL in the morning * Patient received total of 53 units of insulin 01/15, of which 34 units were basal insulin. * Per nurse, does not think patient is snacking in between meals * Since fasting BSGs generally lower in the AMs will decrease Lantus dosing for this evening and give more short acting insulin * This evening's BSG at 348 mg/dL - will give one time IV bolus of insulin and also add overnight checks for BSGs PLAN FOR INPATIENT GLYCEMIC CONTROL: * Basal insulin * Lantus 14 units QAM * Lantus 18 units QPM - decreased due to lower fasting BSGs (~10% decr) * Bolus insulin * NovoLog per scale ACHS or Q6hrs while NPO * Goal Range: Low 120 mg/dL - High 160 mg/dL * Correction Factor: 20 mg/dL/unit * Nutritional / Prandial insulin per carb ratio of 1 unit per 7 grams CHO consumed * Please note that the plan above was derived based on current level of insulin resistance and hospital stress. These recommendations are appropriate for inpatient admission only. Plan of care upon discharge will need to be reassessed to avoid potential outpatient hypo/hyperglycemia. Thank you.
[2019-01-16] MEDS ORDERED: INSULIN HUMAN REGULAR PER UNIT 9 UNITS in SYRINGE 8.91 ML IV ONE (20:45)
[2019-01-16] MEDS ORDERED: INSULIN GLARGINE SOLOSTAR 100 UNITS/ML 3 ML PEN SC SCH (21:00)
[2019-01-16] MEDS: ENOXAPARIN INJ 30 MG/0.3 ML SYR SQ SCH (21:02)
--- NOTE | 2019-01-16 23:33 | Hospitalist Progress Note ---
Date of Service January 16, 2019 Assessment & Plan (1) Acute respiratory failure with hypoxia: Likely from pleural effusions. X-ray does show improvement of pulmonary congestion. Patient had thoracocenthesis on 01/16 400 mL of serous yellow fluid was drained. No evidence of PE or pneumonia on CTA chest. Concern for a x-ray pneumonitis from previous radiation treatment for breast cancer Patient appears to have responded from diuresis and procedure. (2) CHF (congestive heart failure): Echocardiogram shows preserved LV function and RV function she has moderate mitral regurg and mild aortic stenosis continue treatment with metoprolol tartrate 50 mg bid and lisinopril 20 (3) Abdominal distension: Nothing acute on CT abd/pelvis. Plain films suggest increased stool load continue cathartic agents for constipation This is either due to abdominal wall edema from CHF or constipation, will increase cathartic use and promote bowel movements. No worsening on 01/15- (4) HTN (hypertension): nitropaste given in ER for quick afterload reduction. Also gave lopressor IV B/P better controlled. (5) CKD (chronic kidney disease): stage 3. Cr is at baseline. (6) Breast cancer: left sided s/p lumpectomy (per pt's recollection) years ago. followed by radiation; uncertain about chemo. then had cancer recurrence 2 years ago. followed by Dr. Chandra. no Rx is planned; she has declined such. b/l pleural effusions are are seen, cannot fully r/o malignant effusions. Awaiting analysis. the lymphadenopathy seen on CT as well as pulmonary nodules are likely metastatic in etiology. 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 T2DM diet. (9) DVT prophylaxis: lovenox 40mg daily Spent 25 minutes in management of patient. Subjective Patient sitting in chair. Patient is off Nasal cannula. She is hard of hearing but she states that she does feel better. Patient is forgetful and does not recall being on oxygen. Constitutional: + anorexia and + weight gain; no fever and no chills Respiratory: + cough, + dyspnea and + dyspnea on exertion Cardiovascular: + dyspnea on exertion and + orthopnea; no chest pain, no dyspnea at rest, no paroxysmal nocturnal dyspnea and no edema Gastrointestinal: + constipation; no abdominal pain, no nausea, no vomiting and no diarrhea/loose stools Psychiatric: + depression ("sometimes") Physical Exam Vital Signs (Past 24 Hours): Last Vital Signs Temp 36.6 C 01/16/19 19:27 Pulse 85 01/16/19 19:27 Resp 18 01/16/19 19:27 BP 117/71 01/16/19 19:27 Pulse Ox 93 01/16/19 19:27 Physical Exam: The patient appeared well nourished and normally developed. Vital signs as documented. Head exam is unremarkable. normocephalic, atraumatic Neck is without jugular venous distension, thyromegaly, or lymphademopathy Lungs are clear to auscultation and percussion except for decreased sounds on bases. Cardiac exam reveals Rhythm is regular. First and second heart sounds normal. Abdominal exam reveals normal bowel sounds, soft nontender no masses, no organomegaly Extremities are nonedematous and both pedal pulses are present Neurologic exam is A&Ox2, no focal deficits, strength is equal bilateral Psychologically seems anxious Skin is warm Dry without bruises or lesions (1) DM w/o complication type II Diabetes mellitus nursing home insulin use: with nursing home use Qualified Code(s): E11.9 - Type 2 diabetes mellitus without complications; Z79.4 - terminal worker (current) use of insulin (2) CHF (congestive heart failure) Heart failure chronicity: acute Heart failure type: unspecified Qualified Code(s): I50.9 - Heart failure, unspecified (3) HLD (hyperlipidemia) Hyperlipidemia type: mixed hyperlipidemia Qualified Code(s): E78.2 - Mixed hyperlipidemia (4) CKD (chronic kidney disease) Chronic kidney disease stage: stage 3 (moderate) Qualified Code(s): N18.3 - Chronic kidney disease, stage 3 (moderate) (5) Breast cancer Breast location: unspecified site of breast Estrogen receptor status: unspecified Laterality: left Patient sex: female Qualified Code(s): C50.912 - Malignant neoplasm of unspecified site of left female breast (6) HTN (hypertension) Hypertension type: essential hypertension Qualified Code(s): I10 - Essential (primary) hypertension
--- NOTE | 2019-01-17 02:01 | Operative Report ---
DATE OF OPERATION: 01/16/2019 PREOPERATIVE DIAGNOSIS: Bilateral pleural effusions, left greater than right. POSTOPERATIVE DIAGNOSIS: Bilateral pleural effusions, left greater than right. PROCEDURE: Ultrasound-guided left thoracentesis. SURGEON: Sebastian Edwards MD PEDIATRIC CRITICAL CARE NURSE: MOISES Harrison ANESTHESIA: Local. SPECIFICS OF PROCEDURE: With the patient in upright position, ultrasound was used to find fluid. She was actually noted to have fluid bilaterally but more on the left than the right as expected. Appropriate consent had been obtained and I had discussed this with the patient. She was agreeable. Her back was prepped and draped in usual sterile fashion around the area that we had marked with an indelible ink. Skin wheal was raised with 25-gauge needle and 1% Xylocaine. After appropriate timeout had been called, the needle was inserted into the left pleural cavity after anesthetizing the skin and subcutaneous tissues. There was free flowing clear yellow fluid which was noted in the syringe. This was sent for pH, which was 7.39. A guidewire was inserted through the needle and the needle was removed. Triple lumen catheter slid in 18 cm and 400 mL of serous yellow fluid was drained. As stated, pH was 7.39. We removed this catheter at the conclusion and placed a sterile dressing over it. Her chest x-ray looked improved with no evidence of pneumothorax after the procedure. I attest to the content of the Intraoperative Record and any orders documented therein. Any exception s are noted below.
[2019-01-17] MEDS: CARBOHYDRATES FOR HYPOGLYCEMIA PO PRN ×2 (04:17→04:36)
[2019-01-17] MEDS: INSULIN ASPART 100 UNITS/ML 3 ML PEN SC SCH ×3 (04:19→09:31)
[2019-01-17 06:39] LABS: Hematocrit (blood only) 32.4 % (37-47); Hemoglobin 10.4 g/dL (12.0-16.0); Mean Corpuscular Hgb Conc 32.1 g/dL (32-36); Mean Corpuscular Volume 94.5 fL (80-100); Mean Platelet Volume 10.7 fL (7.4-10.4); Platelet Count 201 K/uL (130-400); RDW Coefficient of Variation 14.1 % (11.5-14.5); Red Blood Count 3.43 M/uL (4.2-5.4); White Blood Count 7.85 K/uL (4.8-10.8)
--- NOTE | 2019-01-17 07:14 | XRay Report ---
XR chest 1V portable HISTORY: 88 years-old Female effusion follow-up study in a patient with left pleural effusion COMPARISON: Chest radiograph 01/16/2019 TECHNIQUE: Portable AP view of the chest FINDINGS: Cardiac silhouette is enlarged. Dense mitral annular calcifications redemonstrated. Calcification of the thoracic aortic arch. No pneumothorax. Trace pleural effusions, slightly decreased in size from c omparison. Pulmonary vascular congestion with bibasilar opacities. Degenerative changes are seen abou t the shoulders and spine. Surgical clips project over the lateral left chest. Calcifications about t he bilateral proximal humeri are suggestive of rotator cuff calcific tendinosis or calcific bursitis. IMPRESSION: 1. Cardiomegaly with mild pulmonary vascular congestion. 2. Trace pleural effusions with bibasilar opacities. The above report was generated using voice recognition software. It may contain grammatical, syntax o r spelling errors. Electronically signed by: Jordy Stewart M.D. 01/17/2019 7:13 AM
[2019-01-17 07:15] LABS: Creatinine Clr Calc Pharmacy 25.6 ml/min; Est GFR (African American) 30.7; Est GFR (Non-African American) 26.5
[2019-01-17] MEDS: LETROZOLE 2.5 MG TAB PO SCH (09:25)
[2019-01-17] MEDS: POTASSIUM CHLORIDE 20 MEQ TABCR PO SCH (09:25)
[2019-01-17] MEDS: SENNA 8.6 MG TAB PO SCH (09:26)
[2019-01-17] MEDS: METOPROLOL TARTRATE 50 MG TAB PO SCH (09:26)
[2019-01-17] MEDS: PRAVASTATIN SOD 40 MG TAB PO SCH (09:26)
[2019-01-17] MEDS: CALCIUM 600MG + VIT D 400 IU TAB PO SCH (09:26)
[2019-01-17] MEDS: FERROUS SULFATE 325 MG TAB PO SCH (09:27)
[2019-01-17] MEDS: LISINOPRIL 20 MG TAB PO SCH (09:28)
[2019-01-17] MEDS: ASPIRIN 81 MG ECTAB PO SCH (09:28)
[2019-01-17] MEDS: POLYETHYLENE (MIRALAX) 17 GM PACK PO SCH (09:28)
[2019-01-17 09:36] LABS: Estimated Average Glucose 180 mg/dl; Hemoglobin A1C 7.9 % (4.5-5.6)
--- NOTE | 2019-01-17 09:41 | Progress Note ---
DATE: 01/17/2019 The patient was seen today. Her saturation is 100% on 2 liters. This can probably be weaned down. Her x-ray looks fine this morning. The fluid appeared to be a transudate and so my index of suspicion for an infection and malignancy are lower. At this point, we would simply follow her along. We will be glad to see her back at any time.
--- NOTE | 2019-01-22 11:11 | Discharge Summary ---
Date of Service January 17, 2019 Admission HPI Per Admitting Provider 88yo female with history of recurrent breast cancer,CKD stage 3, & HTN who presents with shortness of breath starting some time earlier this week. She cannot pinpoint a specific day that it started but her son reports that on Monday she was short of breath with walking when [facility]. She has also had abdominal bloating/distension for some time. Reports the presence of edema but she also cannot say how long she has had such. She denies PND but has chronic orthopnea. She has gained weight in the last few months, and her son feels she has looked more swollen in general. The amount of weight loss was uncertain. During her work-up in the ER she received about 500cc of NS. She then went to CT, and upon return she had severe orthopnea requiring the placement of BIPAP. Upon my arrival preparations were being made to give IV lasix and place a rosen catheter. Principal Diagnosis Acute respiratory failure with hypoxia Discharge Exam The patient appeared well nourished and normally developed. Vital signs as documented. Head exam is unremarkable. normocephalic, atraumatic Neck is without jugular venous distension, thyromegaly, or lymphademopathy Lungs are clear to auscultation and percussion except for decreased sounds on bases. Cardiac exam reveals Rhythm is regular. First and second heart sounds normal. Abdominal exam reveals normal bowel sounds, soft nontender no masses, no organomegaly Extremities are nonedematous and both pedal pulses are present Neurologic exam is A&Ox2, no focal deficits, strength is equal bilateral Psychologically seems anxious Skin is warm Dry without bruises or lesions Discharge Data Allergies Allergy/AdvReac Type Severity Reaction Status Date / Time Penicillins Allergy Intermediate Unknown Verified 01/12/19 16:10 Consultations 01/12/19 18:27 ED Decision to Admit Stat 01/15/19 19:19 Consult Thoracic Surgery Routine Ordered Studies 01/12/19 15:12 CT abd pelvis wo con Stat 01/12/19 16:12 CT angio chest PE protocol Stat Hospital Course (1) Acute respiratory failure with hypoxia: Likely from pleural effusions. X-ray does show improvement of pulmonary congestion. Patient had thoracocenthesis on 01/16 400 mL of serous yellow fluid was drained. No evidence of PE or pneumonia on CTA chest. Concern for a x-ray pneumonitis from previous radiation treatment for breast cancer Patient appears to have responded from diuresis and procedure. Patient will be discharged (2) CHF (congestive heart failure): Echocardiogram shows preserved LV function and RV function she has moderate mitral regurg and mild aortic stenosis continue treatment with metoprolol tartrate 50 mg bid and lisinopril 20 (3) Abdominal distension: Nothing acute on CT abd/pelvis. Plain films suggest increased stool load continue cathartic agents for constipation This is either due to abdominal wall edema from CHF or constipation, will increase cathartic use and promote bowel movements. No worsening on (4) HTN (hypertension): nitropaste given in ER for quick afterload reduction. Also gave lopressor IV B/P better controlled. (5) CKD (chronic kidney disease): stage 3. Cr is at baseline. (6) Breast cancer: left sided s/p lumpectomy (per pt's recollection) years ago. followed by radiation; uncertain about chemo. then had cancer recurrence 2 years ago. followed [address] Dr[address] Chandra. no Rx is planned; she has declined such. b/l pleural effusions are are seen, cannot fully r/o malignant effusions. Awaiting analysis. the lymphadenopathy seen on CT as well as pulmonary nodules are likely metastatic in etiology. 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 T2DM diet. (9) DVT prophylaxis: lovenox 40mg daily Total Time Total Time Spent Total Time Spent (In Minutes): 31 Total Time Includes: Examination of the Patient, Discharge Planning and Medication Reconciliation Discharge Plan Discharge Items Patient Disposition: Transfer Shelter Fac Reason For Visit: ACUTE CHF Discharge Diagnosis: Pleural effusion Condition: Fair Discharge Goals: Decrease discomfort and Improve function Activity: Resume your previous activity Non-emergency contact: Primary Care Provider and Public Safety [employer] Call non-emergency contact if: you have any medication questions and your sy mptoms worsen Follow-up/Referrals: [facility] [place], [Primary Care Provider] - Diet: Carb Consistent or DM2 and Heart Healthy Addtl Provider Instructions: Followup with PCP in 1-2 weeks. Followup with Cardio in 1-[address] Edwards in 2 weeks Check BMP in 7 days. Prescriptions: New furosemide [Lasix] 40 mg tablet 40 mg PO Q2D Qty: 30 RF: 0 potassium chloride 10 mEq tablet extended release 10 meq PO DAILY Qty: 14 RF: 0 Continued buspirone 5 mg tablet 5 mg PO BID RF: 0 acetaminophen [Tylenol] 325 mg Tablet 650 mg PO Q4H MDD 3600 MG APAP/24 HOURS PRN (Reason: Fever Or Pain) RF: 0 Lantus U-100 Insulin 100 unit/mL Solution 14 units SUBCUT QAM RF: 0 Lantus U-100 Insulin 100 unit/mL Solution 20 units SUBCUT HS RF: 0 pravastatin 40 mg tablet 40 mg PO DAILY RF: 0 lisinopril 20 mg tablet 20 mg PO DAILY RF: 0 aspirin 81 mg Tablet,Delayed Release (Dr/Ec) 81 mg PO DAILY RF: 0 ferrous sulfate 325 mg (65 mg iron) Tablet 325 mg PO DAILY RF: 0 buspirone 10 mg tablet 10 mg PO HS RF: 0 metoprolol tartrate 50 mg tablet 50 mg PO BID RF: 0 letrozole 2.5 mg tablet 2.5 mg PO DAILY RF: 0 Novolog Flexpen U-100 Insulin 100 unit/mL (3 mL) insulin pen See Rx Instructions .ROUTE .COMPLEX RF: 0 calcium carbonate-vitamin D3 [Calcium 600 + D(3)] 600 mg(1,500mg) -400 unit Tablet 1 tab PO DAILY RF: 0 diclofenac sodium 1 % gel 2 g topical Q8H PRN (Reason: Pain) RF: 0 ProAir RespiClick 90 mcg/actuation Aerosol Powdr Breath Activated 2 inh INHALATION Q5H PRN (Reason: Dyspnea) RF: 0 Stand-Alone Forms: [facility] Discharge Orders: Discharge Order (Routine); Ordered 01/17/19 Ordered By: Ronn Moody Skilled Items Patient informed of condition?: Yes DNR: No Discharge Level of Care: Skilled Communicable Disease: No Discharge Prognosis: Improving Admission Data Admit Date/Time: 01/12/19 19:25 Attending Provider: Ronn Moody Admit Provider: Conrado Salinas Primary Care Provider: [facility] [place], Other Providers: Sebastian Edwards Service: Telemetry Medical Other Interventions: Discharge Summary Assessment (RN) Last Done: 01/17/19 12:49 DC Date/Time DO NOT enter until pt leaves facility: 01/17/19 13:49
== END 2019-01-17 13:49 | DRG 291 ==
LOC: ED 15:00 → SUATTDRO 19:25 → 2S 19:25 → 2N 01-13 18:44

== ENCOUNTER 2019-02-03 06:43 | Inpatient (IN) ==
[2019-02-03] MEDS ORDERED: LEVALBUTEROL HCL 1.25 MG/3 ML NEB NEB STA (06:57)
--- NOTE | 2019-02-03 07:14 | XRay Report ---
XR chest 1V portable CLINICAL HISTORY: Chest Pain dyspnea COMPARISON STUDY: 01/17/2019 FINDINGS: Stable prominence of the pulmonary vasculature structures. Unchanged bibasilar parenchymal infiltrates. IMPRESSION: Stable bibasilar parenchymal infiltrates. Stable mild prominence of the pulmonary vascul ature. The above report was generated using voice recognition software. It may contain grammatical, syntax or spelling errors. Electronically signed by: Hill Enriquez M.D. 02/03/2019 7:13 AM
[2019-02-03 07:40] LABS: Basophils # (auto) 0.02 K/uL (0-0.2); Basophils % (auto) 0.1 %; Eosinophils # (auto) 0.07 K/uL (0-0.5); Eosinophils % (auto) 0.5 %; Hematocrit (blood only) 33.8 % (37-47); Hemoglobin 11.1 g/dL (12.0-16.0); Immature Granulocytes # (auto) 0.05 K/uL (0.00-0.02); Immature Granulocytes % (auto) 0.3 %; Lymphocytes % (auto) 8.3 %; Mean Corpuscular Hgb Conc 32.8 g/dL (32-36); Mean Corpuscular Volume 93.4 fL (80-100); Mean Platelet Volume 11.4 fL (7.4-10.4); Monocytes # (auto) 0.99 K/uL (0.11-0.59); Monocytes % (auto) 6.8 %; Neutrophils # (auto) 12.21 K/uL (1.4-6.5); Platelet Count 217 K/uL (130-400); RDW Coefficient of Variation 14.9 % (11.5-14.5); RDW Standard Deviation 50.5 fL (36.4-46.3); Red Blood Count 3.62 M/uL (4.2-5.4); White Blood Count 14.54 K/uL (4.8-10.8)
[2019-02-03 07:57] LABS: Alanine Aminotransferase 19 U/L (12-78); Albumin Level 2.6 gm/dl (3.4-5.0); Aspartate Aminotransferase 16 U/L (15-37); BUN Creatinine Ratio 20.9 (10-20); Blood Urea Nitrogen 32 mg/dl (7-18); Calcium 9.3 mg/dl (8.5-10.1); Carbon Dioxide 27 mmol/L (21-32); Chloride 102 mmol/L (98-107); Creatinine Clr Calc Pharmacy 27.3 ml/min; Est GFR (African American) 35.1; Est GFR (Non-African American) 30.3; Glucose 114 mg/dl (70-99); Potassium 3.7 mmol/L (3.5-5.1); Sodium 139 mmol/L (136-145)
[2019-02-03 08:02] LABS: Albumin Globulin Ratio 0.6 (0.9-2); Alkaline Phosphatase 71 U/L (45-117); Bilirubin,Total 0.8 mg/dl (0.2-1); Creatine Kinase 48 U/L (26-192); Creatine Kinase MB < 1.0 ng/ml (0.5-3.6); Globulin 4.4 gm/dl (2.5-4.0); Troponin I < 0.015 ng/ml (0-0.045)
[2019-02-03] MEDS ORDERED: ACETAMINOPHEN 500 MG TAB PO STA ×2 (08:13→08:16)
[2019-02-03 08:14] LABS: Influenza A virus by PCR Neg for Influ A (Neg); Influenza B virus by PCR Neg for Influ B (Neg)
[2019-02-03] MEDS ORDERED: MoRPHine SULFATE 2 MG/ML CARP IV STA (08:16)
[2019-02-03] MEDS ORDERED: ONDANSETRON INJ 2 MG/ML 2 ML VIAL IV STA (08:16)
[2019-02-03] MEDS ORDERED: AZTREONAM 2,000 MG in DEXTROSE 5% 100 ML IV STA (08:22)
[2019-02-03] MEDS ORDERED: LEVOFLOXACIN/D5W 750 MG/150 ML BAG IV STA (08:22)
--- NOTE | 2019-02-03 09:07 | Ultrasound Report ---
US venous doppler LE BI HISTORY: Pain. Edema. Pt c/o b/l leg pain COMPARISON STUDY: None. FINDINGS: There is normal compressibility, flow, and augmentation within the bilateral lower extremit y deep venous systems. IMPRESSION: No DVT within the right or left lower extremity. The above report was generated using voice recognition software. It may contain grammatical, syntax or spelling errors. Electronically signed by: Hill Enriquez M.D. 02/03/2019 9:05 AM
--- NOTE | 2019-02-03 09:51 | History & Physical Report ---
Date of Service February 03, 2019 Assessment & Plan (1) Dehydration: The patient is volume contracted on exam presumably from poor PO intake. Her BPs were low-normal or low in the ER. I gave a 500cc bolus followed by maintenance fluids. Will repeat BMP in am. Will hold lasix for now. Present on Admission?: Yes (2) Pneumonia: Chest x-ray today suggests possible b/l basilar pneumonia. She has a leukocytosis, hasn't been eating well, etc. These symptoms suggest an infectious process and perhaps it is pneumonia. Received IV antibiotics in the ER; will continue antibiotics with cefepime & levaquin. Defer on MRSA coverage unless MRSA swab is positive. Cont NC O2 and supportive care. Present on Admission?: Yes (3) Acute respiratory failure with hypoxia: Presumably 2nd to pneumonia process. Chest CT on prior hospitalization showed very small effusions. One of the effusions was tapped by Dr. Edwards. Fluid was not infected and was negative for malignant cells. She does not have evidence of decompensated CHF on examination. Will treat for pneumonia with Cefepime and levaquin. Check MRSA swab. If negative defer on MRSA coverage. NC O2 and supportive care. Present on Admission?: Yes (4) Encephalopathy: The pt's son reports, at a minimum, some element of cognitive impairment for months or longer. Then, in the last few weeks, the son reports significant altered mental status. She has voiced depressive feelings and thoughts of dying as confirmed by the son. In light of breast cancer history will obtain head CT to r/o mets. Rule out stroke as well. Her altered mental status could be from metabolic causes such as infection (UTI, pneumonia, etc). U/a and urine cx sent. Unfortunately Blood cx's were not sent in the ER. At this point they would likely be low-yield since she has already received IV antibiotic therapy. Avoid benzos. Will check TSH, B12, etc in am to be complete. Present on Admission?: Yes (5) Atrial flutter: This is a new problem for her. I have no record suggesting a prior a.fib/flutter history. The son reports her HR was elevated this am at the [facility] - perhaps she had a. flutter with RVR. At this point her rates are controlled in the 60s. Check TSH in am. Echo was done in late December - EF was preserved; had mild valvular heart disease only. Cont beta deirdre. Poor candidate for anticoagulation in light of advanced age, debilitated status, etc. Would need to discuss this issue with patient's family to determine best plan. Cardiology consult in am. Present on Admission?: Yes (6) Weakness: Suspect multi-factorial -- possible pneumonia, a. flutter, dehydration, depression, etc PT, OT while here. Present on Admission?: Yes (7) DM w/o complication type II: Lantus 10 units HS. Novolog supplemental with meals. BSGs ac/hs. T2DM diet. Present on Admission?: Yes (8) CHF (congestive heart failure): Chronic diastolic CHF. Appears volume contracted today. Hold lasix. Continue beta deirdre. Present on Admission?: No (9) HTN (hypertension): BPs are low or low-normal. Thus, old all BP meds except for beta deirdre due to a. flutter. Present on Admission?: Yes (10) CKD (chronic kidney disease): Stage 3, baseline creatinine mid-1's. BMP in AM for stability. Present on Admission?: Yes (11) Breast cancer: History of such. Left-sided? Records suggest it has recurred as of 2 years ago? Previously followed with Dr. Chivo Chandra. CTA chest during prior admission in December did not show definitive pulmonary mets. Checking CT head to r/o intracranial mets due to confusion, etc. (12) HLD (hyperlipidemia): Statin agent. Present on Admission?: Yes (13) Depression: Patient voiced significant depressive symptoms and thoughts of dying. Could depression be causing cognitive impairment/memory issues? Consider titration of lexapro to 10mg/day. Present on Admission?: Yes (14) Dysphagia: Speech consult for bedside swallow evaluation. (15) Bilateral leg pain: Patient complained of this during his evaluation in the ER. Dopplers were negative for DVT. Checking TSH, b12, etc. No obvious deformity on examination. Cause ? radicular pain from back? metabolic (b12 deficiency)? other? Present on Admission?: Yes (16) DVT prophylaxis: heparin 5000 TID. total time spent on admission activities - 75 minutes History of Present Illness Chief Complaint: shortness of breath Primary Care Provider: [facility] 88yo female - recent hospital stay for acute hypoxic respiratory failure and pleural effusions s/p thoracentesis on left (400cc per records) - who presents from [facility] due to dyspnea. Son was called this am and was told her HR was in the 130s and she was short of breath. She cannot provide much history to me. Son states she has been confused "for weeks." He confirms that she doesn't remember being in the hospital. By the son's report her memory has been impaired for some time. Son saw her Monday of this week and she was weak/tired. He mentions she was transferred from the [facility] level [facility] care [facility] to [facility] on . Patient has been depressed. She said to me during the visit "I want to ." Son also confirms she has been talking about recently. EKG and the monitor strips during my ER assessment shows rate-controlled a. flutter. Allergies Allergy/AdvReac Type Severity Reaction Status Date / Time Penicillins Allergy Intermediate Unknown Verified 02/03/19 07:22 Home Medications Home Medications Medication Instructions Recorded Confirmed Type Lantus U-100 Insulin 14 units SUBCUT QAM 01/12/19 02/03/19 History Lantus U-100 Insulin 20 units SUBCUT 01/12/19 02/03/19 History Novolog Flexpen U-100 Insulin See Rx Instructions .ROUTE .COMPLEX 01/12/19 02/03/19 History ProAir RespiClick 2 inh INHALATION Q5H PRN 01/12/19 02/03/19 History acetaminophen [Tylenol] 650 mg PO Q4H PRN MDD 3600 MG 01/12/19 02/03/19 History APAP/24 HOURS aspirin 81 mg PO QAM 01/12/19 02/03/19 History buspirone 5 mg PO BID 01/12/19 02/03/19 History buspirone 10 mg PO HS 01/12/19 02/03/19 History calcium carbonate-vitamin D3 1 tab PO DAILY 01/12/19 02/03/19 History [Calcium 600 + D(3)] diclofenac sodium 2 g TOPICAL Q8H PRN 01/12/19 02/03/19 History ferrous sulfate 325 mg PO DAILY 01/12/19 02/03/19 History letrozole 2.5 mg PO QAM 01/12/19 02/03/19 History lisinopril 20 mg PO DAILY 01/12/19 02/03/19 History metoprolol tartrate 50 mg PO BID 01/12/19 02/03/19 History pravastatin 40 mg PO QAM 01/12/19 02/03/19 History furosemide [Lasix] 40 mg PO Q2D #30 tab 01/17/19 02/03/19 Rx doxycycline hyclate 100 mg PO BID 10 Days #20 cap 02/03/19 Rx escitalopram oxalate [Lexapro] 5 mg PO QAM 02/03/19 02/03/19 History Past Med/Surg History Medical History Breast cancer (Chronic) initial dx in (left breast); treated with lumpectomy and radiation; recurrent disease diagnosed 2 years ago; decision made NOT to pursue additional treatment CKD (chronic kidney disease) (Chronic) stage 3 HTN (hypertension) (Chronic) HLD (hyperlipidemia) (Chronic) Chronic diastolic CHF (congestive heart failure) DM w/o complication type II Surgical History History of tonsillectomy History of appendectomy History of lumbar surgery History of lumpectomy of left breast Family History Father Cancer Mother , near age 90 No problems noted. 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 Feels Safe at Home: Yes Safety Concerns: Feels Safe At This Time Smoking Status: Former smoker Hx Alcohol Use: No Hx Substance Use: No Review of Systems Constitutional: + fatigue and + anorexia; no fever and no chills Ear, Nose, Mouth, Throat: + dysphagia Respiratory: + dyspnea and + dyspnea on exertion; no cough Cardiovascular: + palpitations; no chest pain, no orthopnea and no edema Gastrointestinal: + constipation; no abdominal pain, no nausea, no vomiting and no diarrhea/loose stools Genitourinary (Female): no difficulty urinating Musculoskeletal: + body aches pain in both calves Integumentary: no rash Neurologic: + generalized weakness; no paresthesia Psychiatric: + depression and + suicidal ideation Endocrine: + fatigue Physical Exam Vital Signs (Past 24 Hours): Last Vital Signs Temp 36.4 C L 02/03/19 06:52 Pulse 64 02/03/19 09:08 Resp 16 02/03/19 09:08 BP 102/65 02/03/19 09:08 Pulse Ox 98 02/03/19 09:08 Constitutional: + ill appearing; + not well nourished and no acute distress looks dehydrated; very weak Eyes: + anicteric sclerae and PERRL ENMT: Mouth: + oral mucosal abnormality (MM very dry; poor dentition.) Neck: normal visual inspection and trachea midline Respiratory: no respiratory distress and no labored breathing Auscultation: + diminished lung sounds (bases) and + rales (minimal - bases); no rhonchi and no wheezes Cardiovascular: Rate/Rhythm: regular rate; + abnormal rhythm (slightly irregular) Heart Sounds: normal S1, normal S2 and + murmur (2/6 RUSB/LSB) Vessels: posterior tibial pulses present and dorsalis pedis pulses present; no JVD Extremities: no edema Gastrointestinal (Abdomen): normal bowel sounds, soft, nontender, no hepatosplenomegaly Skin: no rashes, warm and dry Neurologic: deep tendon reflexes 2+ bilaterally and moves all extremities; no focal motor deficits Psychiatric: Orientation: alert; + not oriented x 3 (oriented to person, place but NOT time/date/etc) Lymphatic: no cervical lymphadenopathy Results & Data Laboratory Results Laboratory Results - last 24 hr 02/03/19 02/03/19 02/03/19 07:09 07:20 07:22 WBC 14.54 H RBC 3.62 L Hgb 11.1 L Hct 33.8 L MCV 93.4 MCH 30.7 MCHC 32.8 RDW Std Deviation 50.5 H RDW Coeff of [place] 14.9 H Plt Count 217 MPV 11.4 H Immature Gran % (Auto) 0.3 Neut % (Auto) 84.0 Lymph % (Auto) 8.3 Bee % (Auto) 6.8 Eos % (Auto) 0.5 Baso % (Auto) 0.1 Immature Gran # (Auto) 0.05 H Neut # (Auto) 12.21 H Lymph # (Auto) 1.20 Bee # (Auto) 0.99 H Eos # (Auto) 0.07 Baso # (Auto) 0.02 PT INR APTT PTT Ratio Sodium 139 Potassium 3.7 Chloride 102 Carbon Dioxide 27 Anion Gap 10.0 BUN 32 H Creatinine 1.51 H Est Cr Clr Drug Dosing 27.3 Est GFR ( Amer) 35.1 Est GFR (Non-Af Amer) 30.3 BUN/Creatinine Ratio 20.9 H Glucose 114 H POC Glucose Calcium 9.3 Magnesium Total Bilirubin 0.8 AST 16 ALT 19 Alkaline Phosphatase 71 Total Creatine Kinase 48 CK-MB (CK-2) < 1.0 CK/CKMB % Calc TNP Troponin I < 0.015 NT-Pro-B Natriuret Pep Total Protein 7.0 Albumin 2.6 L Globulin 4.4 H Albumin/Globulin Ratio 0.6 L Lipase 43 L Urine Color Urine Appearance Urine pH Ur Specific [place] Urine Protein Urine Glucose (UA) Urine Ketones Urine Blood Urine Nitrite Urine Bilirubin Urine Urobilinogen Ur Leukocyte Esterase Urine WBC (Auto) Urine RBC (Auto) U Hyaline Cast (Auto) U Epithel Cells (Auto) Urine Bacteria (Auto) Nasal Screen MRSA (PCR) Influenza Type A (PCR) Neg for Influ A Influenza Type B (PCR) Neg for Influ B 02/03/19 02/03/19 02/03/19 07:22 07:22 07:22 WBC RBC Hgb Hct MCV MCH MCHC RDW Std Deviation RDW Coeff of [place] Plt Count MPV Immature Gran % (Auto) Neut % (Auto) Lymph % (Auto) Bee % (Auto) Eos % (Auto) Baso % (Auto) Immature Gran # (Auto) Neut # (Auto) Lymph # (Auto) Bee # (Auto) Eos # (Auto) Baso # (Auto) PT 11.6 INR 1.1 APTT 30.5 PTT Ratio 1.1 Sodium Potassium Chloride Carbon Dioxide Anion Gap BUN Creatinine Est Cr Clr Drug Dosing Est GFR ( Amer) Est GFR (Non-Af Amer) BUN/Creatinine Ratio Glucose POC Glucose Calcium Magnesium 2.1 Total Bilirubin AST ALT Alkaline Phosphatase Total Creatine Kinase CK-MB (CK-2) CK/CKMB % Calc Troponin I NT-Pro-B Natriuret Pep 5677 H Total Protein Albumin Globulin Albumin/Globulin Ratio Lipase Urine Color Urine Appearance Urine pH Ur Specific [place] Urine Protein Urine Glucose (UA) Urine Ketones Urine Blood Urine Nitrite Urine Bilirubin Urine Urobilinogen Ur Leukocyte Esterase Urine WBC (Auto) Urine RBC (Auto) U Hyaline Cast (Auto) U Epithel Cells (Auto) Urine Bacteria (Auto) Nasal Screen MRSA (PCR) Influenza Type A (PCR) Influenza Type B (PCR) 02/03/19 02/03/19 02/03/19 10:50 13:14 15:10 WBC RBC Hgb Hct MCV MCH MCHC RDW Std Deviation RDW Coeff of [place] Plt Count MPV Immature Gran % (Auto) Neut % (Auto) Lymph % (Auto) Bee % (Auto) Eos % (Auto) Baso % (Auto) Immature Gran # (Auto) Neut # (Auto) Lymph # (Auto) Bee # (Auto) Eos # (Auto) Baso # (Auto) PT INR APTT PTT Ratio Sodium Potassium Chloride Carbon Dioxide Anion Gap BUN Creatinine Est Cr Clr Drug Dosing Est GFR ( Amer) Est GFR (Non-Af Amer) BUN/Creatinine Ratio Glucose POC Glucose Calcium Magnesium Total Bilirubin AST ALT Alkaline Phosphatase Total Creatine Kinase CK-MB (CK-2) CK/CKMB % Calc Troponin I < 0.015 NT-Pro-B Natriuret Pep Total Protein Albumin Globulin Albumin/Globulin Ratio Lipase Urine Color Yellow Urine Appearance Cloudy H Urine pH 5.0 Ur Specific [place] 1.019 Urine Protein Negative Urine Glucose (UA) Negative Urine Ketones Negative Urine Blood 1+ H Urine Nitrite Negative Urine Bilirubin Negative Urine Urobilinogen Negative Ur Leukocyte Esterase 2+ H Urine WBC (Auto) >30 H Urine RBC (Auto) 0-4 U Hyaline Cast (Auto) 1-5 U Epithel Cells (Auto) 5-10 H Urine Bacteria (Auto) Negative Nasal Screen MRSA (PCR) Negative Influenza Type A (PCR) Influenza Type B (PCR) 02/03/19 02/03/19 02/03/19 16:41 19:19 20:28 WBC RBC Hgb Hct MCV MCH MCHC RDW Std Deviation RDW Coeff of [place] Plt Count MPV Immature Gran % (Auto) Neut % (Auto) Lymph % (Auto) Bee % (Auto) Eos % (Auto) Baso % (Auto) Immature Gran # (Auto) Neut # (Auto) Lymph # (Auto) Bee # (Auto) Eos # (Auto) Baso # (Auto) PT INR APTT PTT Ratio Sodium Potassium Chloride Carbon Dioxide Anion Gap BUN Creatinine Est Cr Clr Drug Dosing Est GFR ( Amer) Est GFR (Non-Af Amer) BUN/Creatinine Ratio Glucose POC Glucose 260 H 141 H Calcium Magnesium Total Bilirubin AST ALT Alkaline Phosphatase Total Creatine Kinase CK-MB (CK-2) CK/CKMB % Calc Troponin I < 0.015 NT-Pro-B Natriuret Pep Total Protein Albumin Globulin Albumin/Globulin Ratio Lipase Urine Color Urine Appearance Urine pH Ur Specific [place] Urine Protein Urine Glucose (UA) Urine Ketones Urine Blood Urine Nitrite Urine Bilirubin Urine Urobilinogen Ur Leukocyte Esterase Urine WBC (Auto) Urine RBC (Auto) U Hyaline Cast (Auto) U Epithel Cells (Auto) Urine Bacteria (Auto) Nasal Screen MRSA (PCR) Influenza Type A (PCR) Influenza Type B (PCR) 02/03/19 20:54 WBC RBC Hgb Hct MCV MCH MCHC RDW Std Deviation RDW Coeff of [place] Plt Count MPV Immature Gran % (Auto) Neut % (Auto) Lymph % (Auto) Bee % (Auto) Eos % (Auto) Baso % (Auto) Immature Gran # (Auto) Neut # (Auto) Lymph # (Auto) Bee # (Auto) Eos # (Auto) Baso # (Auto) PT INR APTT PTT Ratio Sodium Potassium Chloride Carbon Dioxide Anion Gap BUN Creatinine Est Cr Clr Drug Dosing Est GFR ( Amer) Est GFR (Non-Af Amer) BUN/Creatinine Ratio Glucose POC Glucose 136 H Calcium Magnesium Total Bilirubin AST ALT Alkaline Phosphatase Total Creatine Kinase CK-MB (CK-2) CK/CKMB % Calc Troponin I NT-Pro-B Natriuret Pep Total Protein Albumin Globulin Albumin/Globulin Ratio Lipase Urine Color Urine Appearance Urine pH Ur Specific [place] Urine Protein Urine Glucose (UA) Urine Ketones Urine Blood Urine Nitrite Urine Bilirubin Urine Urobilinogen Ur Leukocyte Esterase Urine WBC (Auto) Urine RBC (Auto) U Hyaline Cast (Auto) U Epithel Cells (Auto) Urine Bacteria (Auto) Nasal Screen MRSA (PCR) Influenza Type A (PCR) Influenza Type B (PCR) Diagnostic Findings cxr - IMPRESSION: Stable bibasilar parenchymal infiltrates. Stable mild prominence of the pulmonary vasculature. EKG - my reading - a. flutter with 4:1 AV conduction Code Status & VTE Plan Code Status level 5 DNR per her wishes; this was confirmed in the presence of her son VTE Prophylaxis Plan VTE Prophylaxis will be ordered: Yes (1) DM w/o complication type II Diabetes mellitus intermediate insulin use: with oil heaterman use Qualified Code(s): E11.9 - Type 2 diabetes mellitus without complications; Z79.4 - oil heaterman (current) use of insulin (2) CHF (congestive heart failure) Heart failure chronicity: unspecified Heart failure type: unspecified Qualified Code(s): I50.9 - Heart failure, unspecified (3) Atrial flutter Atrial flutter type: unspecified Qualified Code(s): I48.92 - Unspecified atrial flutter (4) HLD (hyperlipidemia) Hyperlipidemia type: mixed hyperlipidemia Qualified Code(s): E78.2 - Mixed hyperlipidemia (5) CKD (chronic kidney disease) Chronic kidney disease stage: stage 3 (moderate) Qualified Code(s): N18.3 - Chronic kidney disease, stage 3 (moderate) (6) Breast cancer Breast location: unspecified site of breast Estrogen receptor status: unspecified Laterality: left Patient sex: female Qualified Code(s): C50.912 - Malignant neoplasm of unspecified site of left female breast (7) HTN (hypertension) Hypertension type: essential hypertension Qualified Code(s): I10 - Essential (primary) hypertension (8) Pneumonia Pneumonia type: due to unspecified organism Laterality: bilateral Lung l ocation: lower lobe of lung Qualified Code(s): J18.1 - Lobar pneumonia, unspecified organism (9) Depression Depression Type: other depression Qualified Code(s): F32.89 - Other specified depressive episodes (10) Dysphagia Dysphagia type: unspecified Qualified Code(s): R13.10 - Dysphagia, unspecified
[2019-02-03] MEDS ORDERED: SODIUM CHLORIDE 0.9% 500 ML IV ONE (10:33)
[2019-02-03 11:16] LABS: Appearance Urine Cloudy (Clear); Bacteria Urine Automated Negative (Negative); Bilirubin Urine Negative (Negative); Blood Urine 1+ (Negative); Color Urine Yellow; Glucose Urine UA Negative (Negative); Ketones Urine Negative (Negative); Leukocyte Esterase Urine 2+ (Negative); Nitrite Urine Negative (Negative); Protein Urine Negative (Negative); Specific Gravity Urine 1.019 (1.000-1.030); Urobilinogen Urine Negative (Negative); WBC Urine Automated >30 /hpf (0-5)
[2019-02-03 11:22] LABS: INR 1.1 (0.9-1.1); Partial Thromboplastin Ratio 1.1; Partial Thromboplastin Time 30.5 Seconds (21.0-31.0); Prothrombin Time 11.6 Seconds (9.0-12.0)
--- NOTE | 2019-02-03 11:24 | CT Scan Report ---
CT head/brain wo con CT DOSE: 537.48 mGy.cm HISTORY: breast ca, altered MS, eval mets TECHNIQUE: Multiaxial CT images of the head were performed without the use of intravenous contrast. A dose lowering technique was utilized adhering to the principles of ALARA. Comparison: None. Findings: The paranasal sinuses and mastoid air cells are clear. The calvarium and skull base are int act. The ventricles and sulci are within normal limits. There is no mass, hematoma, midline shift, or acute infarct. Impression: No acute intracranial abnormality. The above report was generated using voice recognition software. It may contain grammatical, syntax or spelling errors. Electronically signed by: Hill Enriquez M.D. 02/03/2019 11:23 AM
[2019-02-03 11:27] LABS: RBC Urine Automated 0-4 /hpf (0-4)
[2019-02-03] MEDS ORDERED: DICLOFENAC SOD 1% GEL 100 GM TUBE EXT PRN (12:25)
[2019-02-03] MEDS ORDERED: ONDANSETRON INJ 2 MG/ML 2 ML VIAL IV PRN (12:25)
[2019-02-03] MEDS ORDERED: ACETAMINOPHEN 325 MG TAB PO PRN (12:25)
[2019-02-03] MEDS ORDERED: CARBOHYDRATES FOR HYPOGLYCEMIA PO PRN (13:15)
[2019-02-03] MEDS ORDERED: GLUCOSE 40% GEL 15 GM TUBE PO PRN (13:15)
[2019-02-03] MEDS ORDERED: GLUCAGON FOR INJ 1 MG VIAL IM PRN (13:15)
[2019-02-03] MEDS ORDERED: GLUCOSE 10 TABS/TUBE PO PRN (13:15)
[2019-02-03] MEDS ORDERED: DEXTROSE 50% 50 ML SYRINGE IV PRN (13:15)
[2019-02-03] MEDS: INSULIN ASPART 100 UNITS/ML 3 ML PEN SC SCH ×3 (14:15→20:59)
[2019-02-03] MEDS: CEFEPIME 1,000 MG in SYRINGE 0 ML IV SCH (14:17)
[2019-02-03] MEDS: NSS + 20MEQ KCL 20 MEQ/1,000 ML BAG IV SCH (14:17)
[2019-02-03] MEDS: HEPARIN SOD 5,000 UNIT/0.5 ML VIAL SQ SCH ×2 (14:18→20:59)
[2019-02-03] MEDS: METOPROLOL TARTRATE 50 MG TAB PO SCH ×2 (20:51→21:00)
[2019-02-03] MEDS: INSULIN GLARGINE SOLOSTAR 100 UNITS/ML 3 ML PEN SQ SCH (20:52)
[2019-02-03] MEDS ORDERED: BUSPIRONE HCL 10 MG TAB PO SCH (21:00)
[2019-02-03] MEDS ORDERED: LANTUS PER UNIT CHARGE SQ SCH (21:00)
[2019-02-04] MEDS: CEFEPIME 1,000 MG in SYRINGE 0 ML IV SCH ×2 (01:00→12:54)
[2019-02-04] MEDS: NSS + 20MEQ KCL 20 MEQ/1,000 ML BAG IV SCH (02:07)
[2019-02-04] MEDS: HEPARIN SOD 5,000 UNIT/0.5 ML VIAL SQ SCH ×3 (06:19→21:32)
[2019-02-04 06:51] LABS: Hemoglobin 10.5 g/dL (12.0-16.0); Mean Corpuscular Hgb Conc 31.8 g/dL (32-36); Mean Corpuscular Volume 96.8 fL (80-100); Mean Platelet Volume 11.1 fL (7.4-10.4); Platelet Count 190 K/uL (130-400); RDW Coefficient of Variation 14.8 % (11.5-14.5); RDW Standard Deviation 52.1 fL (36.4-46.3); Red Blood Count 3.41 M/uL (4.2-5.4); White Blood Count 8.45 K/uL (4.8-10.8)
[2019-02-04 07:15] LABS: BUN Creatinine Ratio 19.7 (10-20); Calcium 8.7 mg/dl (8.5-10.1); Creatinine Clr Calc Pharmacy 28.7 ml/min; Est GFR (African American) 37.2; Est GFR (Non-African American) 32.1; Potassium 4.4 mmol/L (3.5-5.1)
[2019-02-04] MEDS: INSULIN ASPART 100 UNITS/ML 3 ML PEN SC SCH ×4 (07:38→21:32)
[2019-02-04] MEDS: ESCITALOPRAM OXALATE 10 MG TAB PO SCH (07:39)
[2019-02-04] MEDS: LETROZOLE 2.5 MG TAB PO SCH (07:40)
[2019-02-04] MEDS: METOPROLOL TARTRATE 50 MG TAB PO SCH ×2 (07:40→21:29)
[2019-02-04] MEDS: ASPIRIN 81 MG ECTAB PO SCH (07:40)
[2019-02-04] MEDS: PRAVASTATIN SOD 40 MG TAB PO SCH (09:12)
--- NOTE | 2019-02-04 09:35 | Hospitalist Progress Note ---
Date of Service February 04, 2019 Assessment & Plan (1) Dehydration: The patient was volume contracted on presentation now resolved presumedly from not being promoted to drink due to her dementia . contineu to hold lasix. (2) Pneumonia: Chest x-ray suggests possible b/l basilar pneumonia. She has a leukocytosis, cefepime & levaquin, initially will de escalate to cefepime monotherapy to also cover possible mssa in urine Defer on MRSA coverage as MRSA swab is positive. Cont NC O2 and supportive care. (3) Acute respiratory failure with hypoxia: Presumably 2nd to pneumonia process. Chest CT on prior hospitalization showed very small effusions. One of the effusions was tapped by Dr. Edwards in the past Fluid was not infected and was negative for malignant cells. She does not have evidence of decompensated CHF on examination. Will treat for pneumonia with Cefepime (4) Encephalopathy: The pt's son reports, at a minimum, some element of cognitive impairment for months or longer. Then, in the last few weeks, the son reports significant altered mental status. She has voiced depressive feelings and thoughts of dying as confirmed by the son. In light of breast cancer history head CT negative for mets. Ruled out stroke as well. Her altered mental status could be from metabolic (UTI, pneumonia). U/a and urine cx sent, mssa but not final sensitivities Unfortunately Blood cx's were not sent in the ER. (5) Atrial flutter: This is a new problem for her, her rates are controlled in the 60s. Echo was done in late December - EF was preserved; had mild valvular heart disease only. Cont beta deirdre. Poor candidate for anticoagulation in light of advanced age, debilitated status, etc. cardiology to consider warfarin/lovenox as does have some valvular heart disease (6) Weakness: Suspect multi-factorial -- possible pneumonia, a. flutter, dehydration, depression, etc PT, OT while here. (7) DM w/o complication type II: Lantus 10 units HS. Novolog supplemental with meals. BSGs ac/hs. T2DM diet. (8) CHF (congestive heart failure): Chronic diastolic CHF. Hold lasix. Continue beta deirdre. (9) HTN (hypertension): BPs are low or low-normal. Thus, old all BP meds except for beta deirdre due to a. flutter. (10) CKD (chronic kidney disease): Stage 3, baseline creatinine mid-1's. BMP in AM for stability. (11) Breast cancer: History of such. Left-sided? Records suggest it has recurred as of 2 years ago? Previously followed with Dr. Chivo Chandra. CTA chest during prior admission in December did not show definitive pulmonary mets. (12) HLD (hyperlipidemia): Statin agent. (13) Depression: Patient voiced significant depressive symptoms and thoughts of dying. Could depression be causing cognitive impairment/memory issues? Consider titration of lexapro to 10mg/day. (14) Dysphagia: Speech consult for bedside swallow evaluation. (15) Bilateral leg pain: Patient complained of this during his evaluation in the ER. Dopplers were negative for DVT. (16) DVT prophylaxis: heparin 5000 TID. Patient is expressed to the family she does not wish to keep living due to her chronic medical problems. We had a long discussion on 02/04 they are agreeable to talk to palliative care the patient states she does not feel depressed she is just tired of being ill state and she is appreciative that she is losing some of her memory with the progression of her dementia Subjective Patient feels much better today her daughter is present at bedside we discussed whether she might need to go to a fpc facility for more than a more permanent basis. The family is open to discussing palliative care Review of Systems ROS: well nourished well developed. Appears her stated age No double vision blurry vision No problems with speech or swallowing No palpitations, chest pain or pressure No Wheezing or breathing issues No abdominal pain nausea vomiting diarrhea changes in appetite or weight No burning urine she does have some urine frequency No focal joint pain or muscle pain No skin rashes or oral lesions No unusual bruising or bleeding No focused back pain or numbness or loss of strength No changes in memory or confusion Physical Exam Vital Signs (Past 24 Hours): Last Vital Signs Temp 36.4 C L 02/04/19 08:07 Pulse 64 02/04/19 08:07 Resp 16 02/04/19 08:07 BP 99/63 L 02/04/19 08:07 Pulse Ox 98 02/04/19 08:07 The patient appeared well nourished and normally developed. Vital signs as documented. Head exam is unremarkable. normocephalic, atraumatic Neck is without jugular venous distension, thyromegaly, or lymphademopathy Lungs are clear to auscultation and percussion. Cardiac exam reveals Rhythm is regular systolic ejection murmur is heard. First and second heart sounds normal. Abdominal exam reveals normal bowel sounds, no masses, no organomegaly Extremities are mildly edematous and both pedal pulses are present Neurologic exam is A&Ox3, no focal deficits Psychologically seems neither anxious or depressed Skin is warm Dry without bruises or lesions (1) DM w/o complication type II Diabetes mellitus prison insulin use: with prison use Qualified Code(s): E11.9 - Type 2 diabetes mellitus without complications; Z79.4 - longterm (current) use of insulin (2) CHF (congestive heart failure) Heart failure chronicity: unspecified Heart failure type: unspecified Qualified Code(s): I50.9 - Heart failure, unspecified (3) Atrial flutter Atrial flutter type: unspecified Qualified Code(s): I48.92 - Unspecified atrial flutter (4) Dysphagia Dysphagia type: unspecified Qualified Code(s): R13.10 - Dysphagia, unspecified (5) Depression Depression Type: other depression Qualified Code(s): F32.89 - Other specified depressive episodes (6) HLD (hyperlipidemia) Hyperlipidemia type: mixed hyperlipidemia Qualified Code(s): E78.2 - Mixed hyperlipidemia (7) CKD (chronic kidney disease) Chronic kidney disease stage: stage 3 (moderate) Qualified Code(s): N18.3 - Chronic kidney disease, stage 3 (moderate) (8) Breast cancer Breast location: unspecified site of breast Estrogen receptor status: unspecified Laterality: left Patient sex: female Qualified Code(s): C50.912 - Malignant neoplasm of unspecified site of left female breast (9) HTN (hypertension) Hypertension type: essential hypertension Qualified Code(s): I10 - Essential (primary) hypertension (10) Pneumonia Laterality: bilateral Lung location: lower lobe of lung Pneumonia type: due to unspecified organism Qualified Code(s): J18.1 - Lobar pneumonia, unspecified organism
--- NOTE | 2019-02-04 09:37 | Cardiology Consultation ---
Date of Consultation February 04, 2019 Assessment & Plan (1) Atrial flutter: This is a new diagnosis. The overall chronicity is unknown, but likely only a few days at most. Her rates appear to be well controlled on her current dose of beta blockade. She would likely have more difficulty with rate control if she were more active. However, she is very sedentary at this time I do not think we need to adjust her medical regimen for rate control. I do not think there is any current indication for cardioversion or catheter based therapy although these are both options for her clinical course changed significantly. She is certainly at increased risk for stroke. Ideally she would be on a nticoagulation for prophylaxis against stroke. Whether she is a good candidate for anticoagulation is unclear. In fact, there has been some discussion regarding a change to palliative care based on the patient's recent statements. If she is felt to be a reasonable candidate for anticoagulation, the FDA guidelines suggests warfarin given her known mitral stenosis. However, a no attic would also seem to be a reasonable option and she would be a good candidate for Eliquis. Alternatively enoxaparin could be used if she will be in an assisted facility or can have such medication administered daily. (2) CHF (congestive heart failure): During her last admission she had evidence of pulmonary vascular congestion and transmitted pleural effusions likely related to diastolic heart failure. Her volume status has been managed with p.r.n. use of diuretics. This seems to be the best option for managing diastolic heart failure going forward. Blood pressure appears to be well controlled. (3) Valvular heart disease: She has an element of aortic and mitral stenosis. I do not believe this is causing any decompensation or symptoms. She is not a good candidate for any intervention with respect to her valves. History of Present Illness Reason for Consultation: Atrial flutter Requesting Physician: Brad Attending Physician: Michele Craft MD History of Present Illness The patient is an 88-year-old woman with a recent admission for bilateral pleural effusions and associated shortness of breath. She was seen by myself in the outpatient setting approximately 5 days ago in follow-up from hospitalization. She lives at an assisted living facility and apparently was noted to be somewhat short of breath and tachycardic yesterday. She was brought to [facility] where she was discovered to have atrial fibrillation and a chest x-ray concerning for pneumonia. She was admitted and underwent hydration. This morning the patient claims to be feeling well. Her main complaints include back pain and a very faint sense of breathing trouble. She denied pain at other sites. She has not been aware of any palpitations. She claimed to be in a good breakfast which was confirmed by her daughter was also present for today's interview. She denies any chest pains. She cannot recall her last hospitalization. She did not recall meeting me in the past. She did admit to having some difficulties with her memory. She also made several statements regarding her desire to . The patient has struggled with memory issues, confusion, poor appetite and limited mobility recently. She was in a [facility] facility but was transferred back to her assisted living setting a few days ago. Seems that she is poorly mobile. It is unclear whether she eats regularly or has maintained good hydration. Allergies Allergy/AdvReac Type Severity Reaction Status Date / Time Penicillins Allergy Intermediate Unknown Verified 02/03/19 07:22 Home Medications Home Medications Medication Instructions Recorded Confirmed Type Lantus U-100 Insulin 14 units SUBCUT QAM 01/12/19 02/03/19 History Lantus U-100 Insulin 20 units SUBCUT 01/12/19 02/03/19 History Novolog Flexpen U-100 Insulin See Rx Instructions .ROUTE .COMPLEX 01/12/19 02/03/19 History ProAir RespiClick 2 inh INHALATION Q5H PRN 01/12/19 02/03/19 History acetaminophen [Tylenol] 650 mg PO Q4H PRN MDD 3600 MG 01/12/19 02/03/19 History APAP/24 HOURS aspirin 81 mg PO QAM 01/12/19 02/03/19 History buspirone 5 mg PO BID 01/12/19 02/03/19 History buspirone 10 mg PO HS 01/12/19 02/03/19 History calcium carbonate-vitamin D3 1 tab PO DAILY 01/12/19 02/03/19 History [Calcium 600 + D(3)] diclofenac sodium 2 g TOPICAL Q8H PRN 01/12/19 02/03/19 History ferrous sulfate 325 mg PO DAILY 01/12/19 02/03/19 History letrozole 2.5 mg PO QAM 01/12/19 02/03/19 History lisinopril 20 mg PO DAILY 01/12/19 02/03/19 History metoprolol tartrate 50 mg PO BID 01/12/19 02/03/19 History pravastatin 40 mg PO QAM 01/12/19 02/03/19 History escitalopram oxalate [Lexapro] 5 mg PO QAM 02/03/19 02/03/19 History cefdinir 300 mg PO BID 4 Days #8 cap 02/06/19 Rx enoxaparin 90 mg SUBCUT Q24H #10 ml 02/06/19 Rx furosemide 20 mg PO QAM #30 tab 02/06/19 Rx warfarin [Coumadin] 5 mg PO DAILY@1600 #30 tab 02/06/19 Rx Patient History Medical History Breast cancer (Chronic) initial dx in (left breast); treated with lumpectomy and radiation; recurrent disease diagnosed 2 years ago; decision made NOT to pursue additional treatment CKD (chronic kidney disease) (Chronic) stage 3 HTN (hypertension) (Chronic) HLD (hyperlipidemia) (Chronic) Chronic diastolic CHF (congestive heart failure) DM w/o complication type II Surgical History History of tonsillectomy History of appendectomy History of lumbar surgery History of lumpectomy of left breast Family History Father Cancer Mother , near age 90 No problems noted. 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 She did recognize her daughter.. Mood affect appear normal. She answered all questions appropriately but was clearly forgetful at times. HEENT: Sclerae are anicteric. Pupils are equal and reactive to light and accom modation. Extraocular movements were intact. Neuro: Cranial nerves intact Neck: Examination of the submandibular region did not reveal any significant lymphadenopathy. Carotids are palpable bilaterally and free of bruits on auscultation. There was no evidence of jugular venous distention. The thyroid was not enlarged. Lungs: Occasional crackles in the right base. No expiratory wheezing. She has normal respiratory effort without use of accessory muscles. There is normal pulmonary excursion. Cardiac: The rhythm was regular with occasional ectopy. S1 and S2 were normal. Soft crescendo systolic murmur. The PMI was not markedly displaced on palpation. Abdomen: The abdomen was soft and nontender. Extremities: Patient has bilateral radial pulses that are equal in intensity. There is no evidence cyanosis or clubbing. Very mild edema in the right leg with more pronounced edema in the left. Skin: There are no rashes noted on examination today. Results & Data Laboratory Results Abnormal Lab Results 02/03/19 02/03/19 02/03/19 07:22 07:22 10:50 WBC RBC Hgb Hct MCV MCH MCHC RDW Std Deviation RDW Coeff of Nury Plt Count MPV PT 11.6 INR 1.1 APTT 30.5 PTT Ratio 1.1 Sodium Potassium Chloride Carbon Dioxide Anion Gap BUN Creatinine Est Cr Clr Drug Dosing Est GFR ( Amer) Est GFR (Non-Af Amer) BUN/Creatinine Ratio Glucose POC Glucose Calcium Magnesium 2.1 Ammonia Troponin I Vitamin B12 TSH Urine Color Yellow Urine Appearance Cloudy H Urine pH 5.0 Ur Specific [place] 1.019 Urine Protein Negative Urine Glucose (UA) Negative Urine Ketones Negative Urine Blood 1+ H Urine Nitrite Negative Urine Bilirubin Negative Urine Urobilinogen Negative Ur Leukocyte Esterase 2+ H Urine WBC (Auto) >30 H Urine RBC (Auto) 0-4 U Hyaline Cast (Auto) 1-5 U Epithel Cells (Auto) 5-10 H Urine Bacteria (Auto) Negative Nasal Screen MRSA (PCR) 02/03/19 02/03/19 02/03/19 13:14 15:10 16:41 WBC RBC Hgb Hct MCV MCH MCHC RDW Std Deviation RDW Coeff of [place]ury Plt Count MPV PT INR APTT PTT Ratio Sodium Potassium Chloride Carbon Dioxide Anion Gap BUN Creatinine Est Cr Clr Drug Dosing Est GFR ( Amer) Est GFR (Non-Af Amer) BUN/Creatinine Ratio Glucose POC Glucose 260 H Calcium Magnesium Ammonia Troponin I < 0.015 Vitamin B12 TSH Urine Color Urine Appearance Urine pH Ur Specific [place] Urine Protein Urine Glucose (UA) Urine Ketones Urine Blood Urine Nitrite Urine Bilirubin Urine Urobilinogen Ur Leukocyte Esterase Urine WBC (Auto) Urine RBC (Auto) U Hyaline Cast (Auto) U Epithel Cells (Auto) Urine Bacteria (Auto) Nasal Screen MRSA (PCR) Negative 02/03/19 02/03/19 02/03/19 19:19 20:28 20:54 WBC RBC Hgb Hct MCV MCH MCHC RDW Std Deviation RDW Coeff of [place]ury Plt Count MPV PT INR APTT PTT Ratio Sodium Potassium Chloride Carbon Dioxide Anion Gap BUN Creatinine Est Cr Clr Drug Dosing Est GFR ( Amer) Est GFR (Non-Af Amer) BUN/Creatinine Ratio Glucose POC Glucose 141 H 136 H Calcium Magnesium Ammonia Troponin I < 0.015 Vitamin B12 TSH Urine Color Urine Appearance Urine pH Ur Specific [place] Urine Protein Urine Glucose (UA) Urine Ketones Urine Blood Urine Nitrite Urine Bilirubin Urine Urobilinogen Ur Leukocyte Esterase Urine WBC (Auto) Urine RBC (Auto) U Hyaline Cast (Auto) U Epithel Cells (Auto) Urine Bacteria (Auto) Nasal Screen MRSA (PCR) 02/04/19 02/04/19 02/04/19 06:40 06:40 06:40 WBC RBC Hgb Hct MCV MCH MCHC RDW Std Deviation RDW Coeff of [place]ury Plt Count MPV PT INR APTT PTT Ratio Sodium 139 Potassium 4.4 D Chloride 105 Carbon Dioxide 28 Anion Gap 6.0 BUN 28 H Creatinine 1.44 H Est Cr Clr Drug Dosing 28.7 Est GFR ( Amer) 37.2 Est GFR (Non-Af Amer) 32.1 BUN/Creatinine Ratio 19.7 Glucose 83 POC Glucose Calcium 8.7 Magnesium Ammonia 27.4 Troponin I Vitamin B12 380 TSH 1.680 Urine Color Urine Appearance Urine pH Ur Specific [place] Urine Protein Urine Glucose (UA) Urine Ketones Urine Blood Urine Nitrite Urine Bilirubin Urine Urobilinogen Ur Leukocyte Esterase Urine WBC (Auto) Urine RBC (Auto) U Hyaline Cast (Auto) U Epithel Cells (Auto) Urine Bacteria (Auto) Nasal Screen MRSA (PCR) 02/04/19 02/04/19 06:40 07:08 WBC 8.45 RBC 3.41 L Hgb 10.5 L Hct 33.0 L MCV 96.8 MCH 30.8 MCHC 31.8 L RDW Std Deviation 52.1 H RDW Coeff of [place]ury 14.8 H Plt Count 190 MPV 11.1 H PT INR APTT PTT Ratio Sodium Potassium Chloride Carbon Dioxide Anion Gap BUN Creatinine Est Cr Clr Drug Dosing Est GFR ( Amer) Est GFR (Non-Af Amer) BUN/Creatinine Ratio Glucose POC Glucose 135 H Calcium Magnesium Ammonia Troponin I Vitamin B12 TSH Urine Color Urine Appearance Urine pH Ur Specific [place] Urine Protein Urine Glucose (UA) Urine Ketones Urine Blood Urine Nitrite Urine Bilirubin Urine Urobilinogen Ur Leukocyte Esterase Urine WBC (Auto) Urine RBC (Auto) U Hyaline Cast (Auto) U Epithel Cells (Auto) Urine Bacteria (Auto) Nasal Screen MRSA (PCR) Diagnostic Findings Chest x-ray the time admission was concerning for bibasilar infiltrates. Very small pleural effusions. Echocardiogram obtained last admission revealed preserved LV systolic function with mild aortic stenosis and moderate mitral stenosis ECG Additional Comments: Atrial flutter with controlled ventricular rate (1) CHF (congestive heart failure) Heart failure chronicity: unspecified Heart failure type: unspecified Qualified Code(s): I50.9 - Heart failure, unspecified (2) Atrial flutter Atrial flutter type: unspecified Qualified Code(s): I48.92 - Unspecified atrial flutter
[2019-02-04] MEDS: INSULIN GLARGINE SOLOSTAR 100 UNITS/ML 3 ML PEN SQ SCH (21:30)
[2019-02-05] MEDS: CEFEPIME 1,000 MG in SYRINGE 0 ML IV SCH ×2 (01:20→14:18)
[2019-02-05] MEDS: HEPARIN SOD 5,000 UNIT/0.5 ML VIAL SQ SCH ×2 (06:10→14:19)
[2019-02-05] MEDS: LETROZOLE 2.5 MG TAB PO SCH (07:48)
[2019-02-05] MEDS: PRAVASTATIN SOD 40 MG TAB PO SCH (07:48)
[2019-02-05] MEDS: ESCITALOPRAM OXALATE 10 MG TAB PO SCH (07:48)
[2019-02-05] MEDS: METOPROLOL TARTRATE 50 MG TAB PO SCH ×2 (07:48→20:44)
[2019-02-05] MEDS: ASPIRIN 81 MG ECTAB PO SCH (07:48)
[2019-02-05] MEDS: INSULIN ASPART 100 UNITS/ML 3 ML PEN SC SCH ×4 (07:50→20:44)
[2019-02-05] MEDS ORDERED: LEVOFLOXACIN/D5W 750 MG/150 ML BAG IV SCH (09:00)
--- NOTE | 2019-02-05 13:46 | Palliative Care Consultation ---
Date of Consultation February 05, 2019 Assessment & Plan (1) Goals of care, counseling/discussion: -88 year old female with PMH mild dementia, CKD stage three, breast cancer with recurrence two years ago, CHF, and others, presented to the hospital two days ago with increased SOB 2/2 pneumonia and new onset aflutter. Patient was just discharged from the hospital on 01/08. She was sent to [facility] for rehab in skilled facility and was then transitioned back to her apartment just a few days prior to arrival. She quickly decompensated and had to come back to the hospital. Patient does have a history of CHF, cardiology consulted for the new aflutter. Given that her rate is controlled on her beta deirdre, no intervention is warranted at this time. Last echo was late december that showed preserved EF, but did show valvular abnormalities. Creatinine is stable, is 1.4-1.5 at baseline. Patient has been stating that she does not want to continue coming back and forth to the hospital. Patient and family interested in discussing ways to keep her comfortable, palliative care is consulted. -Met with the patient this morning in room 236. She is sitting in chair, no complaints. She is oriented x4 at this time, but definitely has some cognitive impairment and memory loss. Patient said, "I'm just all discombobulated." She repeated herself a couple times and would forget what we talked about just a few minutes prior. -Even with the memory loss, patient is quite clear on her philosophies in life and states that she, at 88 years old, does not want to continue coming back and forth to the hospital. She states that she just wants to be comfortable and would be amenable to hospice care. She gave me permission to call her son Juan Carlos. -Message left for Juan Carlos, waiting for call back. -Patient will likely require nursing home care at [facility]. She does not feel like she wants to do rehab, but is not completely opposed to the idea. Would recommend the addition of hospice care if the goal is in fact for her to stay out of the hospital. Given patient's history of heart disease, dementia, low albumin, decreased functional status, and CKD, I think she would qualify for hospice. She could also wait to transition to hospice once further decline occurred. Will discuss this with her family as well. (2) Dehydration: (3) Pneumonia: Pneumonia type: due to unspecified organism Laterality: bilateral Lung location: lower lobe of lung Qualified Code(s): J18.1 - Lobar pneumonia, unspecified organism (4) Acute respiratory failure with hypoxia: (5) Atrial flutter: Atrial flutter type: unspecified Qualified Code(s): I48.92 - Unspecified atrial flutter (6) CHF (congestive heart failure): Heart failure chronicity: unspecified Heart failure type: unspecified Qualified Code(s): I50.9 - Heart failure, unspecified History of Present Illness Reason for Consultation: Goals of care Requesting Physician: Dr. Craft Attending Physician: Michele Craft MD History of Present Illness This 88 year old female with PMH mild dementia, CKD stage three, breast cancer with recurrence two years ago, CHF, and others, presented to the hospital two days ago with increased SOB 2/2 pneumonia and new onset aflutter. Patient was just discharged from the hospital on 01/08. She was sent to [facility] for rehab in skilled facility and was then transitioned back to her apartment just a few days prior to arrival. She quickly decompensated and had to come back to the hospital. Patient does have a history of CHF, cardiology consulted for the new aflutter. Given that her rate is controlled on her beta deirdre, no intervention is warranted at this time. Last echo was late december that showed preserved EF, but did show valvular abnormalities. Creatinine is stable, is 1.4-1.5 at baseline. Patient has been stating that she does not want to continue coming back and forth to the hospital. Patient and family interested in discussing ways to keep her comfortable, palliative care is consulted. Thank you kindly for this consult. I will follow as needed. Allergies Allergy/AdvReac Type Severity Reaction Status Date / Time Penicillins Allergy Intermediate Unknown Verified 02/03/19 07:22 Home Medications Home Medications Medication Instructions Recorded Confirmed Type Lantus U-100 Insulin 14 units SUBCUT QAM 01/12/19 02/03/19 History Lantus U-100 Insulin 20 units SUBCUT HS 01/12/19 02/03/19 History Novolog Flexpen U-100 Insulin See Rx Instructions .ROUTE .COMPLEX 01/12/19 02/03/19 History ProAir RespiClick 2 inh INHALATION Q5H PRN 01/12/19 02/03/19 History acetaminophen [Tylenol] 650 mg PO Q4H PRN MDD 3600 MG 01/12/19 02/03/19 History APAP/24 HOURS aspirin 81 mg PO QAM 01/12/19 02/03/19 History buspirone 5 mg PO BID 01/12/19 02/03/19 History buspirone 10 mg PO HS 01/12/19 02/03/19 History calcium carbonate-vitamin D3 1 tab PO DAILY 01/12/19 02/03/19 History [Calcium 600 + D(3)] diclofenac sodium 2 g TOPICAL Q8H PRN 01/12/19 02/03/19 History ferrous sulfate 325 mg PO DAILY 01/12/19 02/03/19 History letrozole 2.5 mg PO QAM 01/12/19 02/03/19 History lisinopril 20 mg PO DAILY 01/12/19 02/03/19 History metoprolol tartrate 50 mg PO BID 01/12/19 02/03/19 History pravastatin 40 mg PO QAM 01/12/19 02/03/19 History furosemide [Lasix] 40 mg PO Q2D #30 tab 01/17/19 02/03/19 Rx doxycycline hyclate 100 mg PO BID 10 Days #20 cap 02/03/19 Rx escitalopram oxalate [Lexapro] 5 mg PO QAM 02/03/19 02/03/19 History Patient History Medical History Breast cancer (Chronic) initial dx in (left breast); treated with lumpectomy and radiation; recurrent disease diagnosed 2 years ago; decision made NOT to pursue additional treatment CKD (chronic kidney disease) (Chronic) stage 3 HTN (hypertension) (Chronic) HLD (hyperlipidemia) (Chronic) Chronic diastolic CHF (congestive heart failure) DM w/o complication type II Surgical History History of tonsillectomy History of appendectomy History of lumbar surgery History of lumpectomy of left breast Family History Father Cancer Mother , near age 90 No problems noted. Social History Communication Ability: Effective Beliefs That Will Affect Care: None marital status: / marital status details: ; 3 children Current Living Situation: Personal Care Facility Current Living Situation Comment: [facility] to [facility] personal care, current occupational status: retired Other Information That Helps Us Care for You: No other: [employer] Feels Safe at Home: Yes Safety Concerns: Feels Safe At This Time Smoking Status: Former smoker Hx Alcohol Use: No Hx Substance Use: No Review of Systems Constitutional: no fever and no chills Ear, Nose, Mouth, Throat: no dysphagia Respiratory: no cough and no dyspnea Cardiovascular: + edema; no chest pain Gastrointestinal: no abdominal pain, no nausea and no vomiting Musculoskeletal: + muscle weakness (mild) Neurologic: + confusion and + memory loss Psychiatric: no depression and no anxiety Physical Exam Vital Signs (Past 24 Hours): Last Vital Signs Temp 36.9 C 02/05/19 11:24 Pulse 65 02/05/19 11:24 Resp 16 02/05/19 11:24 BP 151/80 H 02/05/19 11:24 Pulse Ox 98 02/05/19 11:24 Constitutional: + overweight; no acute distress ENMT: Ears: no hearing impairment Mouth: + poor dentition Neck: normal visual inspection Respiratory: normal respiratory effort, lungs clear to auscultation Auscultation: + diminished lung sounds (bases) Cardiovascular: Rate/Rhythm: regular rate and regular rhythm (regularly irregular) Vessels: no JVD Extremities: + pedal edema Gastrointestinal (Abdomen): Inspection/Auscultation: abdomen normal to inspection and normal bowel sounds; abdomen not distended Percussion/Palpation: abdomen soft; abdomen nontender Neurologic: moves all extremities and awake Psychiatric: Orientation: alert, oriented to person, oriented to place and oriented to time (does have some forgetfulness and periods of confusion) Insight: + limited insight (due to her forgetfulness. she is able to state her wishes) Time Spent Midlevel 70 minutes with >50% of time spent at bedside with patient discussing condition, GOC, and possible hospice.
--- NOTE | 2019-02-05 18:00 | Emergency Department Note ---
Entered by Sujatha Purcell acting as a scribe for Devagn Hemphill MD History of Present Illness General Chief complaint: Shortness of Breath/Dyspnea Stated complaint: shortness of breath Time Seen by Provider: 02/03/19 06:43 Source: patient and EMS History of Present Illness Onset (ago): hour(s) (this morning) Location: chest Pain Consistency: + other (episode) Quality: + other (shortness of breath) Associated symptoms: no fever/chills (fevers) The patient is a 88 year old female who presents to the Emergency Room with complaints of an episode of shortness of breath that started this morning. The patient states she is not sure why she was brought to the Emergency Room. EMS no beverley that the patient lives in the [facility] [place] and was noted to have a O2Sat level of 91% on room air. She was recently diagnosed with CHF and the patient states that she had a lumpectomy on her left breast for possible breast cancer. Hospital staff noted that the patients O2 level improved to 98% with 4 liters of oxygen. She denies any fevers. Home Medications Home Medications Medication Instructions Recorded Confirmed Type Lantus U-100 Insulin 14 units SUBCUT QAM 01/12/19 02/03/19 History Lantus U-100 Insulin 20 units SUBCUT HS 01/12/19 02/03/19 History Novolog Flexpen U-100 Insulin See Rx Instructions .ROUTE .COMPLEX 01/12/19 02/03/19 History ProAir RespiClick 2 inh INHALATION Q5H PRN 01/12/19 02/03/19 History acetaminophen [Tylenol] 650 mg PO Q4H PRN MDD 3600 MG 01/12/19 02/03/19 History APAP/24 HOURS aspirin 81 mg PO QAM 01/12/19 02/03/19 History buspirone 5 mg PO BID 01/12/19 02/03/19 History buspirone 10 mg PO HS 01/12/19 02/03/19 History calcium carbonate-vitamin D3 1 tab PO DAILY 01/12/19 02/03/19 History [Calcium 600 + D(3)] diclofenac sodium 2 g TOPICAL Q8H PRN 01/12/19 02/03/19 History ferrous sulfate 325 mg PO DAILY 01/12/19 02/03/19 History letrozole 2.5 mg PO QAM 01/12/19 02/03/19 History lisinopril 20 mg PO DAILY 01/12/19 02/03/19 History metoprolol tartrate 50 mg PO BID 01/12/19 02/03/19 History pravastatin 40 mg PO QAM 01/12/19 02/03/19 History furosemide [Lasix] 40 mg PO Q2D #30 tab 01/17/19 02/03/19 Rx doxycycline hyclate 100 mg PO BID 10 Days #20 cap 02/03/19 Rx escitalopram oxalate [Lexapro] 5 mg PO QAM 02/03/19 02/03/19 History Allergies Allergy/AdvReac Type Severity Reaction Status Date / Time Penicillins Allergy Intermediate Unknown Verified 02/03/19 07:22 Past Med/Surg History Medical History Breast cancer (Chronic) initial dx in (left breast); treated with lumpectomy and radiation; recurrent disease diagnosed 2 years ago; decision made NOT to pursue additional treatment CKD (chronic kidney disease) (Chronic) stage 3 HTN (hypertension) (Chronic) HLD (hyperlipidemia) (Chronic) Chronic diastolic CHF (congestive heart failure) DM w/o complication type II Surgical History History of tonsillectomy History of appendectomy History of lumbar surgery History of lumpectomy of left breast Family History Father Cancer Mother , near age 90 No problems noted. 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 and A total of 10 systems reviewed and were otherwise negative Physical Exam Vital Signs Vital Signs - 24 hr 02/04/19 19:40 02/04/19 20:00 02/04/19 23:50 Temperature 36.7 C 37.1 C Temperature Source Oral Oral Pulse Rate Pulse Rate [Right Finger] 117 H 65 Respiratory Rate 20 19 Respiratory Effort / Characteristics Non-Labored Spontaneous Respiratory Depth Normal Respiratory Pattern Regular Blood Pressure [Right Arm] 128/65 114/72 Blood Pressure Mean [Right Arm] 86 86 Blood Pressure Position [Right Arm] Lying Lying Pulse Oximetry 95 98 Pulse Oximetry [Start of Treatment] Pulse Oximetry [with Activity] Oxygen Delivery Method Room Air Nasal Cannula Nasal Cannula Oxygen Flow Rate 2 2 Oxygen Flow Rate [Start of Treatment] Oxygen Flow Rate [with Activity] 02/05/19 03:40 02/05/19 07:08 02/05/19 08:00 Temperature 36.7 C 36.4 C L Temperature Source Oral Oral Pulse Rate 67 Pulse Rate [Right Finger] 65 73 Respiratory Rate 19 21 Respiratory Effort / Characteristics Non-Labored Spontaneous Respiratory Depth Normal Respiratory Pattern Regular Blood Pressure [Right Arm] 115/71 116/62 Blood Pressure Mean [Right Arm] 85 80 Blood Pressure Position [Right Arm] Lying Lying Pulse Oximetry 94 98 Pulse Oximetry [Start of Treatment] Pulse Oximetry [with Activity] Oxygen Delivery Method Nasal Cannula Nasal Cannula Nasal Cannula Oxygen Flow Rate 2 2.0 2 Oxygen Flow Rate [Start of Treatment] Oxygen Flow Rate [with Activity] 02/05/19 10:23 02/05/19 11:24 02/05/19 14:52 Temperature 36.9 C Temperature Source Oral Pulse Rate 97 H Pulse Rate [Right Finger] 65 Respiratory Rate 16 Respiratory Effort / Characteristics Respiratory Depth Respiratory Pattern Blood Pressure [Right Arm] 151/80 H Blood Pressure Mean [Right Arm] 103 Blood Pressure Position [Right Arm] Pulse Oximetry 98 Pulse Oximetry [Start of Treatment] 96 Pulse Oximetry [with Activity] 96 Oxygen Delivery Method Nasal Cannula Oxygen Flow Rate 2 Oxygen Flow Rate [Start of Treatment] 2 Oxygen Flow Rate [with Activity] 2 02/05/19 15:57 Temperature 36.7 C Temperature Source Oral Pulse Rate Pulse Rate [Right Finger] 98 H Respiratory Rate 18 Respiratory Effort / Characteristics Respiratory Depth Respiratory Pattern Blood Pressure [Right Arm] 138/60 Blood Pressure Mean [Right Arm] 86 Blood Pressure Position [Right Arm] Lying Pulse Oximetry 98 Pulse Oximetry [Start of Treatment] Pulse Oximetry [with Activity] Oxygen Delivery Method Room Air Oxygen Flow Rate Oxygen Flow Rate [Start of Treatment] Oxygen Flow Rate [with Activity] GENERAL: Patient is a healthy-appearing well-nourished HEAD: Normocephalic atraumatic EYES: Ocular movements intact pupils equal and react to light OROPHARYNX mucous membranes are moist no exudates present no erythema or edema present NECK: Supple no nuchal rigidity CHEST: Good equal expansion LUNGS: Clear and equal to auscultation CARDIAC: Normal S1 and S2 ABDOMEN: Soft nontender no guarding BACK: No CVA tenderness EXTREMITIES: No pain upon palpation normal muscle strength in all groups no clubbing cyanosis or edema NEURO: Patient is following commands is answering questions appropriately. Alert and oriented x3 Cranial Nerves 2-12 grossly intact Course 0646: The patient was evaluated in room A02, and a complete history and physical examination were performed. 0730: I updated the patient on her current lab and imaging results. The patient complained of leg pain. I ordered an US LE to rule out DVT. 0924: I reevaluated the patient and advised that she be evaluated by a hospitalist, but the patient would like to return home. I will evaluate her most recent results to decide the proper course of treatment. 0930: I reevaluated the patient and she is currently on 87% on Room Air. 0936: I discussed the patient's case [place] [facility] [place] evaluate the patient for further management and care. 0945: I discussed today's findings with the patient. She is agreeable to the treatment plan. The patient will be evaluated for further management and care. 0953: I spoke with the patients son and updated him on the patients treatment plan. Administered Medications Acetaminophen (Tylenol) 650 mg PO Q4H PRN PRN Reason: Pain or Fever Stop: 03/05/19 12:24 Last Admin: 02/04/19 07:36 Dose: 650 mg Documented by: [id number] Aspir[facility] ([facility]rin [facility]ab) [facility] Stop: 03/06/19 08:59 Last Admin: 02/05/19 07:48 Dose: 81 mg Documented by: [id number] Admin: 02/04/19 07:40 Dose: 81 mg Documented by: [id number] Buspirone HCl (Buspar) 5 mg PO BID@0900,1400 [facility] Stop: 03/05/19 13:59 Last Admin: 02/05/19 14:18 Dose: 5 mg Documented by: [id number] Admin: 02/05/19 07:48 Dose: 5 mg Documented by: [id number] Admin: 02/04/19 17:06 Dose: 5 mg Documented by: [id number] Admin: 02/04/19 07:39 Dose: 5 mg Documented by: [id number] Admin: 02/03/19 14:18 Dose: 5 mg Documented by: [id number] Buspirone HCl (Buspar) 10 mg PO HS [facility] Stop: 03/05/19 20:59 Last Admin: 02/04/19 21:30 Dose: 10 mg Documented by: [id number] Admin: 02/03/19 20:51 Dose: 10 mg Documented by: [id number] Diclofenac Sodium (Voltaren 1% Top) 1 appln EXT Q6H PRN PRN Reason: Pain Stop: 03/05/19 12:24 Last Admin: 02/04/19 07:41 Dose: 1 appln Documented by: [id number] Escitalopram Oxalate (Lexapro) 5 mg PO QAM [facility] Stop: 03/06/19 08:59 Last Admin: 02/05/19 07:48 Dose: 5 mg Documented by: [id number] Admin: 02/04/19 07:39 Dose: 5 mg Documented by: [id number] Heparin Sodium (Porcine) (Heparin Sodium (Porcine)) 5,000 units SQ Q8 [facility] Stop: 03/05/19 13:59 Last Admin: 02/05/19 14:19 Dose: 5,000 units Documented by: [id number] Cosigned by: [id number] Admin: 02/05/19 06:10 Dose: 5,000 units Documented by: [id number] Cosigned by: [id number] Admin: 02/04/19 21:32 Dose: 5,000 units Documented by: [id number] Cosigned by: [id number] Admin: 02/04/19 17:06 Dose: 5,000 units Documented by: [id number] Cosigned by: [id number] Admin: 02/04/19 06:19 Dose: 5,000 units Documented by: [id number] Cosigned by: [id number] Admin: 02/03/19 20:59 Dose: 5,000 units Documented by: [id number] Cosigned by: [id number] Admin: 02/03/19 14:18 Dose: 5,000 units Documented by: [id number] Cosigned by: [id number] Cefepime HCl 1,000 mg/ Syringe 11.3 mls @ 5.5 mls/min IV Q12H [facility] Stop: 02/10/19 12:59 Last Admin: 02/05/19 14:18 Dose: 5.5 mls/min Documented by: [id number] Admin: 02/05/19 01:20 Dose: 5.5 mls/min Documented by: [id number] Admin: 02/04/19 12:54 Dose: 5.5 mls/min Documented by: [id number] Admin: 02/04/19 01:00 Dose: 5.5 mls/min Documented by: [id number] Admin: 02/03/19 14:17 Dose: 5.5 mls/min Documented by: [id number] Insulin Aspart (Novolog Flexpen) 0 units SC ACHS [facility] Stop: 03/05/19 12:24 Last Admin: 02/05/19 16:52 Dose: 3 units Documented by: [id number] Cosigned by: [id number] Admin: 02/05/19 11:50 Dose: Not Given Documented by: [id number] Cosigned by: [id number] Admin: 02/05/19 07:50 Dose: Not Given Documented by: [id number] Cosigned by: [id number] Admin: 02/04/19 21:32 Dose: 3 units Documented by: [id number] Cosigned by: [id number] Admin: 02/04/19 17:08 Dose: Not Given Documented by: [id number] Cosigned by: [id number] Admin: 02/04/19 12:52 Dose: Not Given Documented by: [id number] Cosigned by: [id number] Admin: 02/04/19 07:38 Dose: Not Given Documented by: [id number] Cosigned by: [id number] Admin: 02/03/19 20:59 Dose: Not Given Documented by: [id number] Cosigned by: [id number] Admin: 02/03/19 17:21 Dose: 3 units Documented by: [id number] Cosigned by: [id number] Admin: 02/03/19 14:15 Dose: Not Given Documented by: [id number] Cosigned by: [id number] Insulin Glargine (Lantus Solostar Pen) 10 units SQ HS [facility] Stop: 03/05/19 20:59 Last Admin: 02/04/19 21:30 Dose: 10 units Documented by: [id number] Cosigned by: [id number] Admin: 02/03/19 20:52 Dose: 10 units Documented by: [id number] Cosigned by: [id number] Letrozole (Femara) 2.5 mg PO [facility] Stop: 03/06/19 08:59 Last Admin: 02/05/19 07:48 Dose: 2.5 mg Documented by: [id number] Cosigned by: [id number] Admin: 02/04/19 07:40 Dose: 2.5 mg Documented by: [id number] Cosigned by: [id number] Metoprolol Tartrate (Lopressor) 50 mg PO BID [facility] Stop: 03/05/19 20:59 Last Admin: 02/05/19 07:48 Dose: 50 mg Documented by: [id number] Admin: 02/04/19 21:29 Dose: 50 mg Documented by: [id number] Admin: 02/04/19 07:40 Dose: 50 mg Documented by: [id number] Admin: 02/03/19 21:00 Dose: 50 mg Documented by: [id number] Pravastatin Sodium (Pravachol) 40 mg PO [facility] Stop: 03/06/19 08:59 Last Admin: 02/05/19 07:48 Dose: 40 mg Documented by: [id number] Admin: 02/04/19 09:12 Dose: 40 mg Documented by: [id number] Discontinued Medications Acetaminophen (Tylenol) 1,000 mg PO NOW STA Stop: 02/03/19 08:14 Last Admin: 02/03/19 08:23 Dose: 1,000 mg Documented by: [id number] Acetaminophen (Tylenol) 1,000 mg PO NOW STA Stop: 02/03/19 08:17 Last Admin: 02/03/19 08:27 Dose: Not Given Documented by: [id number] Aztreonam 2,000 mg/ Dextrose 110 mls @ 100 mls/hr IV NOW STA Stop: 02/03/19 09:27 Last Infusion: 02/03/19 10:35 Dose: 0 mls/hr Documented by: [id number] Admin: 02/03/19 09:29 Dose: 100 mls/hr Documented by: [id number] Levofloxacin/Dextrose (Levaquin/D5w) 750 mg in 150 mls @ 100 mls/hr IV NOW STA Stop: 02/03/19 09:51 Last Infusion: 02/03/19 10:08 Dose: 0 mls/hr Documented by: [id number] Admin: 02/03/19 08:38 Dose: 100 mls/hr Documented by: [id number] Sodium Chloride (Nss) 500 mls @ 999 mls/hr IV .Q31M ONE Stop: 02/03/19 11:03 Last Infusion: 02/03/19 11:35 Dose: 0 mls/hr Documented by: [id number] Admin: 02/03/19 11:02 Dose: 999 mls/hr Documented by: [id number] Potassium Chloride/Sodium Chloride (Normal Saline W/20 Meq Kcl) 20 meq in 1,000 mls @ 75 mls/hr IV .[id number] [facility] Stop: 03/05/19 12:59 Last Infusion: 02/04/19 14:41 Dose: 0 mls/hr Documented by: [id number] Admin: 02/04/19 02:07 Dose: 75 mls/hr Documented by: [id number] Infusion: 02/04/19 02:07 Dose: 75 mls/hr Documented by: [id number] Admin: 02/03/19 14:17 Dose: 75 mls/hr Documented by: [id number] Levalbuterol HCl (Xopenex 1.25mg/3ml Neb) 1.25 mg NEB NOW STA Stop: 02/03/19 06:58 Last Admin: 02/03/19 07:17 Dose: 1.25 mg Documented by: [id number] Morphine Sulfate (Morphine Sulfate) 2 mg IV NOW STA Stop: 02/03/19 08:17 Last Admin: 02/03/19 08:23 Dose: 2 mg Documented by: [id number] Ondansetron HCl (Zofran) 4 mg IV NOW STA Stop: 02/03/19 08:17 Last Admin: 02/03/19 08:23 Dose: 4 mg Documented by: [id number] Medical Decision Making Differential Diagnosis Differential diagnosis: Etiologies such as infections, reactive airway disease, pneumonia, pneumothorax, COPD, CHF, cardiac ischemia, pulmonary embolism, musculoskeletal, gastrointestinal, as well as others were entertained. Medical Records Attestation: I reviewed the patient's medical records. Home Medications Current Medication List: was personally reviewed by me Laboratory Data Attestation: I reviewed the patient's lab results. Result diagrams: 02/04/19 06:40 04/15/19 06:40 Lab Results 02/03/19 02/03/19 02/03/19 Range/Units 07:09 07:20 07:22 WBC 14.54 H (4.8-10.8) K/uL RBC 3.62 L (4.2-5.4) M/uL Hgb 11.1 L (12.0-16.0) g/dL Hct 33.8 L (37-47) % MCV 93.4 (80-100) fL MCH 30.7 (25-34) pg MCHC 32.8 (32-36) g/dL RDW Std Deviation 50.5 H (36.4-46.3) fL RDW Coeff of Nury 14.9 H (11.5-14.5) % Plt Count 217 (130-400) K/uL MPV 11.4 H (7.4-10.4) fL Immature Gran % (Auto) 0.3 % Neut % (Auto) 84.0 % Lymph % (Auto) 8.3 % [place] % (Auto) 6.8 % Eos % (Auto) 0.5 % Baso % (Auto) 0.1 % Immature Gran # (Auto) 0.05 H (0.00-0.02) K/uL Neut # (Auto) 12.21 H (1.4-6.5) K/uL Lymph # (Auto) 1.20 (1.2-3.4) K/uL [place] # (Auto) 0.99 H (0.11-0.59) K/uL Eos # (Auto) 0.07 (0-0.5) K/uL Baso # (Auto) 0.02 (0-0.2) K/uL PT (9.0-12.0) Seconds INR (0.9-1.1) APTT (21.0-31.0) Seconds PTT Ratio Sodium 139 (136-145) mmol/L Potassium 3.7 (3.5-5.1) mmol/L Chloride 102 (98-107) mmol/L Carbon Dioxide 27 (21-32) mmol/L Anion Gap 10.0 (3-11) BUN 32 H (7-18) mg/dl Creatinine 1.51 H (0.6-1.2) mg/dl Est Cr Clr Drug Dosing 27.3 ml/min Est GFR ( Amer) 35.1 Est GFR (Non-Af Amer) 30.3 BUN/Creatinine Ratio 20.9 H (10-20) Glucose 114 H (70-99) mg/dl POC Glucose (70-99) Calcium 9.3 (8.5-10.1) mg/dl Magnesium (1.8-2.4) mg/dl Total Bilirubin 0.8 (0.2-1) mg/dl AST 16 (15-37) U/L ALT 19 (12-78) U/L Alkaline Phosphatase 71 (45-117) U/L Ammonia (11-32) umol/L Total Creatine Kinase 48 (26-192) U/L CK-MB (CK-2) < 1.0 (0.5-3.6) ng/ml CK/CKMB % Calc TNP Troponin I < 0.015 (0-0.045) ng/ml NT-Pro-B Natriuret Pep (0-1800) pg/ml Total Protein 7.0 (6.4-8.2) gm/dl Albumin 2.6 L (3.4-5.0) gm/dl Globulin 4.4 H (2.5-4.0) gm/dl Albumin/Globulin Ratio 0.6 L (0.9-2) Lipase 43 L (73-393) U/L Vitamin B12 (211-911) pg/ml TSH (0.300-4.500) uIu/ml Urine Color Urine Appearance (Clear) Urine pH (4.5-7.5) Ur Specific [place] (1.000-1.030) Urine Protein (Negative) Urine Glucose (UA) (Negative) Urine Ketones (Negative) Urine Blood (Negative) Urine Nitrite (Negative) Urine Bilirubin (Negative) Urine Urobilinogen (Negative) Ur Leukocyte Esterase (Negative) Urine WBC (Auto) (0-5) /hpf Urine RBC (Auto) (0-4) /hpf U Hyaline Cast (Auto) (0-5) /lpf U Epithel Cells (Auto) (0-5) /lpf Urine Bacteria (Auto) (Negative) Nasal Screen MRSA (PCR) (Negative) Influenza Type A (PCR) Neg for Influ A (Neg) Influenza Type B (PCR) Neg for Influ B (Neg) 02/03/19 02/03/19 02/03/19 Range/Units 07:22 07:22 07:22 WBC (4.8-10.8) K/uL RBC (4.2-5.4) M/uL Hgb (12.0-16.0) g/dL Hct (37-47) % MCV (80-100) fL MCH (25-34) pg MCHC (32-36) g/dL RDW Std Deviation (36.4-46.3) fL RDW Coeff of Nury (11.5-14.5) % Plt Count (130-400) K/uL MPV (7.4-10.4) fL Immature Gran % (Auto) % Neut % (Auto) % Lymph % (Auto) % [place] % (Auto) % Eos % (Auto) % Baso % (Auto) % Immature Gran # (Auto) (0.00-0.02) K/uL Neut # (Auto) (1.4-6.5) K/uL Lymph # (Auto) (1.2-3.4) K/uL [place] # (Auto) (0.11-0.59) K/uL Eos # (Auto) (0-0.5) K/uL Baso # (Auto) (0-0.2) K/uL PT 11.6 (9.0-12.0) Seconds INR 1.1 (0.9-1.1) APTT 30.5 (21.0-31.0) Seconds PTT Ratio 1.1 Sodium (136-145) mmol/L Potassium (3.5-5.1) mmol/L Chloride (98-107) mmol/L Carbon Dioxide (21-32) mmol/L Anion Gap (3-11) BUN (7-18) mg/dl Creatinine (0.6-1.2) mg/dl Est Cr Clr Drug Dosing ml/min Est GFR ( Amer) Est GFR (Non-Af Amer) BUN/Creatinine Ratio (10-20) Glucose (70-99) mg/dl POC Glucose (70-99) Calcium (8.5-10.1) mg/dl Magnesium 2.1 (1.8-2.4) mg/dl Total Bilirubin (0.2-1) mg/dl AST (15-37) U/L ALT (12-78) U/L Alkaline Phosphatase (45-117) U/L Ammonia (11-32) umol/L Total Creatine Kinase (26-192) U/L CK-MB (CK-2) (0.5-3.6) ng/ml CK/CKMB % Calc Troponin I (0-0.045) ng/ml NT-Pro-B Natriuret Pep 5677 H (0-1800) pg/ml Total Protein (6.4-8.2) gm/dl Albumin (3.4-5.0) gm/dl Globulin (2.5-4.0) gm/dl Albumin/Globulin Ratio (0.9-2) Lipase (73-393) U/L Vitamin B12 (211-911) pg/ml TSH (0.300-4.500) uIu/ml Urine Color Urine Appearance (Clear) Urine pH (4.5-7.5) Ur Specific [place] (1.000-1.030) Urine Protein (Negative) Urine Glucose (UA) (Negative) Urine Ketones (Negative) Urine Blood (Negative) Urine Nitrite (Negative) Urine Bilirubin (Negative) Urine Urobilinogen (Negative) Ur Leukocyte Esterase (Negative) Urine WBC (Auto) (0-5) /hpf Urine RBC (Auto) (0-4) /hpf U Hyaline Cast (Auto) (0-5) /lpf U Epithel Cells (Auto) (0-5) /lpf Urine Bacteria (Auto) (Negative) Nasal Screen MRSA (PCR) (Negative) Influenza Type A (PCR) (Neg) Influenza Type B (PCR) (Neg) 02/03/19 02/03/19 02/03/19 Range/Units 10:50 13:14 15:10 WBC (4.8-10.8) K/uL RBC (4.2-5.4) M/uL Hgb (12.0-16.0) g/dL Hct (37-47) % MCV (80-100) fL MCH (25-34) pg MCHC (32-36) g/dL RDW Std Deviation (36.4-46.3) fL RDW Coeff of Nury (11.5-14.5) % Plt Count (130-400) K/uL MPV (7.4-10.4) fL Immature Gran % (Auto) % Neut % (Auto) % Lymph % (Auto) % [place] % (Auto) % Eos % (Auto) % Baso % (Auto) % Immature Gran # (Auto) (0.00-0.02) K/uL Neut # (Auto) (1.4-6.5) K/uL Lymph # (Auto) (1.2-3.4) K/uL [place] # (Auto) (0.11-0.59) K/uL Eos # (Auto) (0-0.5) K/uL Baso # (Auto) (0-0.2) K/uL PT (9.0-12.0) Seconds INR (0.9-1.1) APTT (21.0-31.0) Seconds PTT Ratio Sodium (136-145) mmol/L Potassium (3.5-5.1) mmol/L Chloride (98-107) mmol/L Carbon Dioxide (21-32) mmol/L Anion Gap (3-11) BUN (7-18) mg/dl Creatinine (0.6-1.2) mg/dl Est Cr Clr Drug Dosing ml/min Est GFR ( Amer) Est GFR (Non-Af Amer) BUN/Creatinine Ratio (10-20) Glucose (70-99) mg/dl POC Glucose (70-99) Calcium (8.5-10.1) mg/dl Magnesium (1.8-2.4) mg/dl Total Bilirubin (0.2-1) mg/dl AST (15-37) U/L ALT (12-78) U/L Alkaline Phosphatase (45-117) U/L Ammonia (11-32) umol/L Total Creatine Kinase (26-192) U/L CK-MB (CK-2) (0.5-3.6) ng/ml CK/CKMB % Calc Troponin I < 0.015 (0-0.045) ng/ml NT-Pro-B Natriuret Pep (0-1800) pg/ml Total Protein (6.4-8.2) gm/dl Albumin (3.4-5.0) gm/dl Globulin (2.5-4.0) gm/dl Albumin/Globulin Ratio (0.9-2) Lipase (73-393) U/L Vitamin B12 (211-911) pg/ml TSH (0.300-4.500) uIu/ml Urine Color Yellow Urine Appearance Cloudy H (Clear) Urine pH 5.0 (4.5-7.5) Ur Specific [place] 1.019 (1.000-1.030) Urine Protein Negative (Negative) Urine Glucose (UA) Negative (Negative) Urine Ketones Negative (Negative) Urine Blood 1+ H (Negative) Urine Nitrite Negative (Negative) Urine Bilirubin Negative (Negative) Urine Urobilinogen Negative (Negative) Ur Leukocyte Esterase 2+ H (Negative) Urine WBC (Auto) >30 H (0-5) /hpf Urine RBC (Auto) 0-4 (0-4) /hpf U Hyaline Cast (Auto) 1-5 (0-5) /lpf U Epithel Cells (Auto) 5-10 H (0-5) /lpf Urine Bacteria (Auto) Negative (Negative) Nasal Screen MRSA (PCR) Negative (Negative) Influenza Type A (PCR) (Neg) Influenza Type B (PCR) (Neg) 02/03/19 02/03/19 02/03/19 Range/Units 16:41 19:19 20:28 WBC (4.8-10.8) K/uL RBC (4.2-5.4) M/uL Hgb (12.0-16.0) g/dL Hct (37-47) % MCV (80-100) fL MCH (25-34) pg MCHC (32-36) g/dL RDW Std Deviation (36.4-46.3) fL RDW Coeff of Nury (11.5-14.5) % Plt Count (130-400) K/uL MPV (7.4-10.4) fL Immature Gran % (Auto) % Neut % (Auto) % Lymph % (Auto) % [place] % (Auto) % Eos % (Auto) % Baso % (Auto) % Immature Gran # (Auto) (0.00-0.02) K/uL Neut # (Auto) (1.4-6.5) K/uL Lymph # (Auto) (1.2-3.4) K/uL [place] # (Auto) (0.11-0.59) K/uL Eos # (Auto) (0-0.5) K/uL Baso # (Auto) (0-0.2) K/uL PT (9.0-12.0) Seconds INR (0.9-1.1) APTT (21.0-31.0) Seconds PTT Ratio Sodium (136-145) mmol/L Potassium (3.5-5.1) mmol/L Chloride (98-107) mmol/L Carbon Dioxide (21-32) mmol/L Anion Gap (3-11) BUN (7-18) mg/dl Creatinine (0.6-1.2) mg/dl Est Cr Clr Drug Dosing ml/min Est GFR ( Amer) Est GFR (Non-Af Amer) BUN/Creatinine Ratio (10-20) Glucose (70-99) mg/dl POC Glucose 260 H 141 H (70-99) Calcium (8.5-10.1) mg/dl Magnesium (1.8-2.4) mg/dl Total Bilirubin (0.2-1) mg/dl AST (15-37) U/L ALT (12-78) U/L Alkaline Phosphatase (45-117) U/L Ammonia (11-32) umol/L Total Creatine Kinase (26-192) U/L CK-MB (CK-2) (0.5-3.6) ng/ml CK/CKMB % Calc Troponin I < 0.015 (0-0.045) ng/ml NT-Pro-B Natriuret Pep (0-1800) pg/ml Total Protein (6.4-8.2) gm/dl Albumin (3.4-5.0) gm/dl Globulin (2.5-4.0) gm/dl Albumin/Globulin Ratio (0.9-2) Lipase (73-393) U/L Vitamin B12 (211-911) pg/ml TSH (0.300-4.500) uIu/ml Urine Color Urine Appearance (Clear) Urine pH (4.5-7.5) Ur Specific [place] (1.000-1.030) Urine Protein (Negative) Urine Glucose (UA) (Negative) Urine Ketones (Negative) Urine Blood (Negative) Urine Nitrite (Negative) Urine Bilirubin (Negative) Urine Urobilinogen (Negative) Ur Leukocyte Esterase (Negative) Urine WBC (Auto) (0-5) /hpf Urine RBC (Auto) (0-4) /hpf U Hyaline Cast (Auto) (0-5) /lpf U Epithel Cells (Auto) (0-5) /lpf Urine Bacteria (Auto) (Negative) Nasal Screen MRSA (PCR) (Negative) Influenza Type A (PCR) (Neg) Influenza Type B (PCR) (Neg) 02/03/19 02/04/19 02/04/19 Range/Units 20:54 06:40 06:40 WBC (4.8-10.8) K/uL RBC (4.2-5.4) M/uL Hgb (12.0-16.0) g/dL Hct (37-47) % MCV (80-100) fL MCH (25-34) pg MCHC (32-36) g/dL RDW Std Deviation (36.4-46.3) fL RDW Coeff of [place] (11.5-14.5) % Plt Count (130-400) K/uL MPV (7.4-10.4) fL Immature Gran % (Auto) % Neut % (Auto) % Lymph % (Auto) % [place] % (Auto) % Eos % (Auto) % Baso % (Auto) % Immature Gran # (Auto) (0.00-0.02) K/uL Neut # (Auto) (1.4-6.5) K/uL Lymph # (Auto) (1.2-3.4) K/uL [place] # (Auto) (0.11-0.59) K/uL Eos # (Auto) (0-0.5) K/uL Baso # (Auto) (0-0.2) K/uL PT (9.0-12.0) Seconds INR (0.9-1.1) APTT (21.0-31.0) Seconds PTT Ratio Sodium (136-145) mmol/L Potassium (3.5-5.1) mmol/L Chloride (98-107) mmol/L Carbon Dioxide (21-32) mmol/L Anion Gap (3-11) BUN (7-18) mg/dl Creatinine (0.6-1.2) mg/dl Est Cr Clr Drug Dosing ml/min Est GFR ( Amer) Est GFR (Non-Af Amer) BUN/Creatinine Ratio (10-20) Glucose (70-99) mg/dl POC Glucose 136 H (70-99) Calcium (8.5-10.1) mg/dl Magnesium (1.8-2.4) mg/dl Total Bilirubin (0.2-1) mg/dl AST (15-37) U/L ALT (12-78) U/L Alkaline Phosphatase (45-117) U/L Ammonia 27.4 (11-32) umol/L Total Creatine Kinase (26-192) U/L CK-MB (CK-2) (0.5-3.6) ng/ml CK/CKMB % Calc Troponin I (0-0.045) ng/ml NT-Pro-B Natriuret Pep (0-1800) pg/ml Total Protein (6.4-8.2) gm/dl Albumin (3.4-5.0) gm/dl Globulin (2.5-4.0) gm/dl Albumin/Globulin Ratio (0.9-2) Lipase (73-393) U/L Vitamin B12 380 (211-911) pg/ml TSH (0.300-4.500) uIu/ml Urine Color Urine Appearance (Clear) Urine pH (4.5-7.5) Ur Specific [place] (1.000-1.030) Urine Protein (Negative) Urine Glucose (UA) (Negative) Urine Ketones (Negative) Urine Blood (Negative) Urine Nitrite (Negative) Urine Bilirubin (Negative) Urine Urobilinogen (Negative) Ur Leukocyte Esterase (Negative) Urine WBC (Auto) (0-5) /hpf Urine RBC (Auto) (0-4) /hpf U Hyaline Cast (Auto) (0-5) /lpf U Epithel Cells (Auto) (0-5) /lpf Urine Bacteria (Auto) (Negative) Nasal Screen MRSA (PCR) (Negative) Influenza Type A (PCR) (Neg) Influenza Type B (PCR) (Neg) 02/04/19 02/04/19 02/04/19 Range/Units 06:40 06:40 07:08 WBC 8.45 (4.8-10.8) K/uL RBC 3.41 L (4.2-5.4) M/uL Hgb 10.5 L (12.0-16.0) g/dL Hct 33.0 L (37-47) % MCV 96.8 (80-100) fL MCH 30.8 (25-34) pg MCHC 31.8 L (32-36) g/dL RDW Std Deviation 52.1 H (36.4-46.3) fL RDW Coeff of Nury 14.8 H (11.5-14.5) % Plt Count 190 (130-400) K/uL MPV 11.1 H (7.4-10.4) fL Immature Gran % (Auto) % Neut % (Auto) % Lymph % (Auto) % [place] % (Auto) % Eos % (Auto) % Baso % (Auto) % Immature Gran # (Auto) (0.00-0.02) K/uL Neut # (Auto) (1.4-6.5) K/uL Lymph # (Auto) (1.2-3.4) K/uL [place] # (Auto) (0.11-0.59) K/uL Eos # (Auto) (0-0.5) K/uL Baso # (Auto) (0-0.2) K/uL PT (9.0-12.0) Seconds INR (0.9-1.1) APTT (21.0-31.0) Seconds PTT Ratio Sodium 139 (136-145) mmol/L Potassium 4.4 D (3.5-5.1) mmol/L Chloride 105 (98-107) mmol/L Carbon Dioxide 28 (21-32) mmol/L Anion Gap 6.0 (3-11) BUN 28 H (7-18) mg/dl Creatinine 1.44 H (0.6-1.2) mg/dl Est Cr Clr Drug Dosing 28.7 ml/min Est GFR ( Amer) 37.2 Est GFR (Non-Af Amer) 32.1 BUN/Creatinine Ratio 19.7 (10-20) Glucose 83 (70-99) mg/dl POC Glucose 135 H (70-99) Calcium 8.7 (8.5-10.1) mg/dl Magnesium (1.8-2.4) mg/dl Total Bilirubin (0.2-1) mg/dl AST (15-37) U/L ALT (12-78) U/L Alkaline Phosphatase (45-117) U/L Ammonia (11-32) umol/L Total Creatine Kinase (26-192) U/L CK-MB (CK-2) (0.5-3.6) ng/ml CK/CKMB % Calc Troponin I (0-0.045) ng/ml NT-Pro-B Natriuret Pep (0-1800) pg/ml Total Protein (6.4-8.2) gm/dl Albumin (3.4-5.0) gm/dl Globulin (2.5-4.0) gm/dl Albumin/Globulin Ratio (0.9-2) Lipase (73-393) U/L Vitamin B12 (211-911) pg/ml TSH 1.680 (0.300-4.500) uIu/ml Urine Color Urine Appearance (Clear) Urine pH (4.5-7.5) Ur Specific [place] (1.000-1.030) Urine Protein (Negative) Urine Glucose (UA) (Negative) Urine Ketones (Negative) Urine Blood (Negative) Urine Nitrite (Negative) Urine Bilirubin (Negative) Urine Urobilinogen (Negative) Ur Leukocyte Esterase (Negative) Urine WBC (Auto) (0-5) /hpf Urine RBC (Auto) (0-4) /hpf U Hyaline Cast (Auto) (0-5) /lpf U Epithel Cells (Auto) (0-5) /lpf Urine Bacteria (Auto) (Negative) Nasal Screen MRSA (PCR) (Negative) Influenza Type A (PCR) (Neg) Influenza Type B (PCR) (Neg) 02/04/19 02/04/19 02/04/19 Range/Units 11:13 16:49 21:18 WBC (4.8-10.8) K/uL RBC (4.2-5.4) M/uL Hgb (12.0-16.0) g/dL Hct (37-47) % MCV (80-100) fL MCH (25-34) pg MCHC (32-36) g/dL RDW Std Deviation (36.4-46.3) fL RDW Coeff of [place]ury (11.5-14.5) % Plt Count (130-400) K/uL MPV (7.4-10.4) fL Immature Gran % (Auto) % Neut % (Auto) % Lymph % (Auto) % [place] % (Auto) % Eos % (Auto) % Baso % (Auto) % Immature Gran # (Auto) (0.00-0.02) K/uL Neut # (Auto) (1.4-6.5) K/uL Lymph # (Auto) (1.2-3.4) K/uL [place] # (Auto) (0.11-0.59) K/uL Eos # (Auto) (0-0.5) K/uL Baso # (Auto) (0-0.2) K/uL PT (9.0-12.0) Seconds INR (0.9-1.1) APTT (21.0-31.0) Seconds PTT Ratio Sodium (136-145) mmol/L Potassium (3.5-5.1) mmol/L Chloride (98-107) mmol/L Carbon Dioxide (21-32) mmol/L Anion Gap (3-11) BUN (7-18) mg/dl Creatinine (0.6-1.2) mg/dl Est Cr Clr Drug Dosing ml/min Est GFR ( Amer) Est GFR (Non-Af Amer) BUN/Creatinine Ratio (10-20) Glucose (70-99) mg/dl POC Glucose 160 H 161 H 243 H (70-99) Calcium (8.5-10.1) mg/dl Magnesium (1.8-2.4) mg/dl Total Bilirubin (0.2-1) mg/dl AST (15-37) U/L ALT (12-78) U/L Alkaline Phosphatase (45-117) U/L Ammonia (11-32) umol/L Total Creatine Kinase (26-192) U/L CK-MB (CK-2) (0.5-3.6) ng/ml CK/CKMB % Calc Troponin I (0-0.045) ng/ml NT-Pro-B Natriuret Pep (0-1800) pg/ml Total Protein (6.4-8.2) gm/dl Albumin (3.4-5.0) gm/dl Globulin (2.5-4.0) gm/dl Albumin/Globulin Ratio (0.9-2) Lipase (73-393) U/L Vitamin B12 (211-911) pg/ml TSH (0.300-4.500) uIu/ml Urine Color Urine Appearance (Clear) Urine pH (4.5-7.5) Ur Specific [place] (1.000-1.030) Urine Protein (Negative) Urine Glucose (UA) (Negative) Urine Ketones (Negative) Urine Blood (Negative) Urine Nitrite (Negative) Urine Bilirubin (Negative) Urine Urobilinogen (Negative) Ur Leukocyte Esterase (Negative) Urine WBC (Auto) (0-5) /hpf Urine RBC (Auto) (0-4) /hpf U Hyaline Cast (Auto) (0-5) /lpf U Epithel Cells (Auto) (0-5) /lpf Urine Bacteria (Auto) (Negative) Nasal Screen MRSA (PCR) (Negative) Influenza Type A (PCR) (Neg) Influenza Type B (PCR) (Neg) 02/05/19 02/05/19 02/05/19 Range/Units 07:23 11:41 16:27 WBC (4.8-10.8) K/uL RBC (4.2-5.4) M/uL Hgb (12.0-16.0) g/dL Hct (37-47) % MCV (80-100) fL MCH (25-34) pg MCHC (32-36) g/dL RDW Std Deviation (36.4-46.3) fL RDW Coeff of [place]ury (11.5-14.5) % Plt Count (130-400) K/uL MPV (7.4-10.4) fL Immature Gran % (Auto) % Neut % (Auto) % Lymph % (Auto) % [place] % (Auto) % Eos % (Auto) % Baso % (Auto) % Immature Gran # (Auto) (0.00-0.02) K/uL Neut # (Auto) (1.4-6.5) K/uL Lymph # (Auto) (1.2-3.4) K/uL [place] # (Auto) (0.11-0.59) K/uL Eos # (Auto) (0-0.5) K/uL Baso # (Auto) (0-0.2) K/uL PT (9.0-12.0) Seconds INR (0.9-1.1) APTT (21.0-31.0) Seconds PTT Ratio Sodium (136-145) mmol/L Potassium (3.5-5.1) mmol/L Chloride (98-107) mmol/L Carbon Dioxide (21-32) mmol/L Anion Gap (3-11) BUN (7-18) mg/dl Creatinine (0.6-1.2) mg/dl Est Cr Clr Drug Dosing ml/min Est GFR ( Amer) Est GFR (Non-Af Amer) BUN/Creatinine Ratio (10-20) Glucose (70-99) mg/dl POC Glucose 139 H 166 H 253 H (70-99) Calcium (8.5-10.1) mg/dl Magnesium (1.8-2.4) mg/dl Total Bilirubin (0.2-1) mg/dl AST (15-37) U/L ALT (12-78) U/L Alkaline Phosphatase (45-117) U/L Ammonia (11-32) umol/L Total Creatine Kinase (26-192) U/L CK-MB (CK-2) (0.5-3.6) ng/ml CK/CKMB % Calc Troponin I (0-0.045) ng/ml NT-Pro-B Natriuret Pep (0-1800) pg/ml Total Protein (6.4-8.2) gm/dl Albumin (3.4-5.0) gm/dl Globulin (2.5-4.0) gm/dl Albumin/Globulin Ratio (0.9-2) Lipase (73-393) U/L Vitamin B12 (211-911) pg/ml TSH (0.300-4.500) uIu/ml Urine Color Urine Appearance (Clear) Urine pH (4.5-7.5) Ur Specific [place] (1.000-1.030) Urine Protein (Negative) Urine Glucose (UA) (Negative) Urine Ketones (Negative) Urine Blood (Negative) Urine Nitrite (Negative) Urine Bilirubin (Negative) Urine Urobilinogen (Negative) Ur Leukocyte Esterase (Negative) Urine WBC (Auto) (0-5) /hpf Urine RBC (Auto) (0-4) /hpf U Hyaline Cast (Auto) (0-5) /lpf U Epithel Cells (Auto) (0-5) /lpf Urine Bacteria (Auto) (Negative) Nasal Screen MRSA (PCR) (Negative) Influenza Type A (PCR) (Neg) Influenza Type B (PCR) (Neg) Imaging Data Radiologist's Impression: Radiology results as stated below per my review and the radiologist's interpretation: XR chest 1V portable CLINICAL HISTORY: Chest Pain dyspnea COMPARISON STUDY: 01/17/2019 FINDINGS: Stable prominence of the pulmonary vasculature structures. Unchanged bibasilar parenchymal infiltrates. IMPRESSION: Stable bibasilar parenchymal infiltrates. Stable mild prominence of the pulmonary vasculature. The above report was generated using voice recognition software. It may contain grammatical, syntax or spelling errors. Electronically signed by: Hill Enriquez M.D. 02/03/2019 7:13 AM US venous doppler LE BI HISTORY: Pain. Edema. Pt c/o b/l leg pain COMPARISON STUDY: None. FINDINGS: There is normal compressibility, flow, and augmentation within the bilateral lower extremity deep venous systems. IMPRESSION: No DVT within the right or left lower extremity. The above report was generated using voice recognition software. It may contain grammatical, syntax or spelling errors. Electronically signed by: Hill Enriquez M.D. 02/03/2019 9:05 AM ECG Data Attestation: I personally reviewed and interpreted this ECG as follows: Indication: SOB/dyspnea Rate (beats per minute): 65 Rhythm: atrial flutter Findings: + other (4 to 1 AV conduction); no ST depression, no ST elevation and no acute ischemic change Comparison ECG Date: from (01/16/19) Change: the following changes noted (atrial flutter) Blood Pressure Blood Pressure Findings: Normal blood pressure MDM Narrative This is an 88-year-old female who presents emergency department complaining of shortness of breath. Patient appears to have congestive heart failure exacerbation on chest x-ray. She is requiring oxygen here in the emergency department. She was given breathing treatments and started on Lasix. Despite this the patient still remained hypoxic. She was given morphine for her pain as well as Tylenol. I did discuss the case with the hospitalist service who agreed to admit the patient. Patient was in agreement with the treatment plan. Impression & Plan CHF (congestive heart failure) Discharge Plan Visit Data *Final* Discharge Date/Time: 02/03/19 11:33 Chief Complaint: Shortness of Breath/Dyspnea Stated Complaint: shortness of breath ED Provider: Devang Hemphill Discharge Problem: CHF (congestive heart failure) Patient Disposition: Admitted As Inpatient Condition: Good Discharge Instructions Interventions: ED Discharge Assessment Last Done: 02/03/19 11:33 Discharge Problem: CHF (congestive heart failure) Qualifiers: Heart failure type: unspecified Heart failure chronicity: unspecified Qualified Code(s): I50.9 - Heart failure, unspecified The scribe's documentation has been prepared under my direction and personally reviewed by me in its entirety. I confirm that the note above accurately reflects all work, treatment, procedures, and medical decision making performed by me.
--- NOTE | 2019-02-05 18:55 | Hospitalist Progress Note ---
Date of Service February 05, 2019 Assessment & Plan (1) Dehydration: The patient was volume contracted on presentation now resolved presumedly from not being promoted to drink due to her dementia . Patient clinically is improved we are holding her Lasix therapy at this time she not showing signs of any fluid overload at this time (2) Pneumonia: Chest x-ray suggests possible b/l basilar pneumonia. She has a leukocytosis, cefepime & levaquin, initially will de escalate to cefepime monotherapy to also cover possible mssa in urine, urine confirms MSSA resistant to Bactrim drawn by sensitivities Defer on MRSA coverage as MRSA swab is negative Cont NC O2 and supportive care. (3) Acute respiratory failure with hypoxia: Presumably 2nd to pneumonia process. Chest CT on prior hospitalization showed very small effusions. One of the effusions was tapped by Dr. Edwards in the past Fluid was not infected and was negative for malignant cells. She does not have evidence of decompensated CHF on examination. Will treat for pneumonia with Cefepime (4) Encephalopathy: The pt's son reports, at a minimum, some element of cognitive impairment for months or longer. Then, in the last few weeks, the son reports significant altered mental status. She has voiced depressive feelings and thoughts of dying as confirmed by the son. In light of breast cancer history head CT negative for mets. Ruled out stroke as well. Her altered mental status could be from metabolic (UTI, pneumonia). U/a and urine cx sent, mssa but not final sensitivities Unfortunately Blood cx's were not sent in the ER. (5) Atrial flutter: This is a new problem for her, her rates are controlled in the 60s. Echo was done in late December - EF was preserved; had mild valvular heart disease only. Cont beta deirdre. cardiology to consider warfarin/lovenox as does have some valvular heart disease this can be accomplished as she returns to long term facility (6) Weakness: Suspect multi-factorial -- possible pneumonia, a. flutter, dehydration, depression, etc PT, OT recommendations for long term facility for subacute rehab (7) DM w/o complication type II: Basal bolus insulin T2DM diet. (8) CHF (congestive heart failure): Chronic diastolic CHF. Likely resume Lasix on 02/06 Continue beta deirdre. (9) HTN (hypertension): beta deirdre due to a. flutter. Reinstitute Lasix therapy to help with diastolic heart failure (10) CKD (chronic kidney disease): Stage 3, baseline creatinine mid-1's. . (11) Breast cancer: History of such CTA chest during prior admission in December did not show definitive pulmonary mets. (12) HLD (hyperlipidemia): Statin agent. (13) Depression: Patient voiced significant depressive symptoms and thoughts of dying. Could depression be causing cognitive impairment/memory issues? Remains on Lexapro to 10mg/day. Confirms DNR did have a conversation with palliative care (14) Dysphagia: Speech consult for bedside swallow evaluation. (15) Bilateral leg pain: Patient complained of this during his evaluation in the ER. Dopplers were negative for DVT. (16) DVT prophylaxis: heparin 5000 TID. Patient is expressed to the family she does not wish to keep living due to her chronic medical problems. We had a long discussion on 02/04 they are agreeable to talk to palliative care the patient states she does not feel depressed she is just tired of being ill state and she is appreciative that she is losing some of her memory with the progression of her dementia Subjective Patient has no new complaints or problems she says her breathing has improved. Patient continues to do well other supportive environment. She has no complaints or problems with her atrial flutter she does confirm that she wants to be a DNR today Review of Systems ROS: well nourished well developed. No double vision blurry vision No problems with speech or swallowing No palpitations, chest pain or pressure No Wheezing seems dyspneic with exertion No abdominal pain nausea vomiting diarrhea No burning urine urine frequency or changes in color No focal joint pain or muscle pain No skin rashes or oral lesions No unusual bruising or bleeding No focused back pain or numbness or loss of strength No new changes in memory or confusion Physical Exam Vital Signs (Past 24 Hours): Last Vital Signs Temp 36.7 C 02/05/19 15:57 Pulse 98 H 02/05/19 15:57 Resp 18 02/05/19 15:57 BP 138/60 02/05/19 15:57 Pulse Ox 98 02/05/19 15:57 The patient appeared well nourished and normally developed. She appears fatigued and tired Vital signs as documented. Head exam is unremarkable. normocephalic, atraumatic Neck is without jugular venous distension, thyromegaly, or lymphademopathy Lungs are clear to auscultation and percussion. Cardiac exam reveals Rhythm is regular. She is in a flutter on the monitor first and second heart sounds normal. Abdominal exam reveals normal bowel sounds, no masses, no organomegaly Extremities are nonedematous and both pedal pulses are present Neurologic exam is A&Ox2, no focal deficits, strength is equal bilateral globally diminished Psychologically seems depressed Skin is warm Dry with bruises on her arms (1) Pneumonia Pneumonia type: due to unspecified organism Laterality: bilateral Lung location: lower lobe of lung Qualified Code(s): J18.1 - Lobar pneumonia, unspecified organism (2) Atrial flutter Atrial flutter type: unspecified Qualified Code(s): I48.92 - Unspecified atrial flutter (3) DM w/o complication type II Diabetes mellitus adjunct faculty for medical terminology insulin use: with adjunct faculty for medical terminology use Qualified Code(s): E11.9 - Type 2 diabetes mellitus without complications; Z79.4 - moth exterminator (current) use of insulin (4) CHF (congestive heart failure) Heart failure chronicity: unspecified Heart failure type: unspecified Q ualified Code(s): I50.9 - Heart failure, unspecified (5) HTN (hypertension) Hypertension type: essential hypertension Qualified Code(s): I10 - Essential (primary) hypertension (6) CKD (chronic kidney disease) Chronic kidney disease stage: stage 3 (moderate) Qualified Code(s): N18.3 - Chronic kidney disease, stage 3 (moderate) (7) Breast cancer Breast location: unspecified site of breast Estrogen receptor status: unspecified Patient sex: female Laterality: left Qualified Code(s): C50.912 - Malignant neoplasm of unspecified site of left female breast (8) HLD (hyperlipidemia) Hyperlipidemia type: mixed hyperlipidemia Qualified Code(s): E78.2 - Mixed hyperlipidemia (9) Depression Depression Type: other depression Qualified Code(s): F32.89 - Other specified depressive episodes (10) Dysphagia Dysphagia type: unspecified Qualified Code(s): R13.10 - Dysphagia, unspecified
[2019-02-05] MEDS: WARFARIN SOD 5 MG TAB PO SCH (19:56)
[2019-02-05] MEDS: ENOXAPARIN 100 MG/1ML SYR SQ SCH (19:57)
[2019-02-05] MEDS: INSULIN GLARGINE SOLOSTAR 100 UNITS/ML 3 ML PEN SQ SCH (20:42)
[2019-02-06] MEDS: CEFEPIME 1,000 MG in SYRINGE 0 ML IV SCH ×2 (00:49→12:41)
[2019-02-06 06:40] LABS: Hematocrit (blood only) 34.4 % (37-47); Hemoglobin 10.6 g/dL (12.0-16.0); Mean Corpuscular Hgb Conc 30.8 g/dL (32-36); Mean Corpuscular Volume 97.7 fL (80-100); Platelet Count 206 K/uL (130-400); RDW Coefficient of Variation 14.4 % (11.5-14.5); RDW Standard Deviation 51.5 fL (36.4-46.3); Red Blood Count 3.52 M/uL (4.2-5.4); White Blood Count 7.66 K/uL (4.8-10.8)
[2019-02-06 06:49] LABS: INR 1.1 (0.9-1.1)
[2019-02-06 06:58] LABS: Creatinine Clr Calc Pharmacy 33.3 ml/min; Est GFR (African American) 44.6; Est GFR (Non-African American) 38.5
[2019-02-06] MEDS: LETROZOLE 2.5 MG TAB PO SCH (08:37)
[2019-02-06] MEDS: METOPROLOL TARTRATE 50 MG TAB PO SCH (08:37)
[2019-02-06] MEDS: ASPIRIN 81 MG ECTAB PO SCH (08:39)
[2019-02-06] MEDS: ESCITALOPRAM OXALATE 10 MG TAB PO SCH (08:39)
[2019-02-06] MEDS: PRAVASTATIN SOD 40 MG TAB PO SCH (08:39)
[2019-02-06] MEDS: INSULIN ASPART 100 UNITS/ML 3 ML PEN SC SCH ×3 (08:40→17:11)
[2019-02-06] MEDS ORDERED: FUROSEMIDE 20 MG TAB PO SCH (09:00)
--- NOTE | 2019-02-06 09:02 | Hospitalist Progress Note ---
Date of Service February 06, 2019 Assessment & Plan (1) Dehydration: The patient was volume contracted on presentation now resolved presumedly from not being promoted to drink due to her dementia . Patient clinically is improved we are holding her Lasix therapy at this time she not showing signs of any fluid overload at this time (2) Pneumonia: Chest x-ray suggests possible b/l basilar pneumonia. She has a leukocytosis, cefepime & levaquin, initially will de escalate to cefepime monotherapy to also cover possible mssa in urine, urine confirms MSSA resistant to Bactrim drawn by sensitivities Defer on MRSA coverage as MRSA swab is negative Cont NC O2 and supportive care. (3) Acute respiratory failure with hypoxia: Presumably 2nd to pneumonia process. Chest CT on prior hospitalization showed very small effusions. One of the effusions was tapped by Dr. Edwards in the past Fluid was not infected and was negative for malignant cells. She does not have evidence of decompensated CHF on examination. Will treat for pneumonia with Cefepime (4) Encephalopathy: The pt's son reports, at a minimum, some element of cognitive impairment for months or longer. Then, in the last few weeks, the son reports significant altered mental status. She has voiced depressive feelings and thoughts of dying as confirmed by the son. In light of breast cancer history head CT negative for mets. Ruled out stroke as well. Her altered mental status could be from metabolic (UTI, pneumonia). U/a and urine cx sent, mssa but not final sensitivities Unfortunately Blood cx's were not sent in the ER. (5) Atrial flutter: This is a new problem for her, her rates are controlled in the 60s. Echo was done in late December - EF was preserved; had mild valvular heart disease only. Cont beta deirdre. cardiology to consider warfarin/lovenox as does have some valvular heart disease this can be accomplished as she returns to shelter facility (6) Weakness: Suspect multi-factorial -- possible pneumonia, a. flutter, dehydration, depression, etc PT, OT recommendations for shelter facility for subacute rehab (7) DM w/o complication type II: Basal bolus insulin T2DM diet. (8) CHF (congestive heart failure): Chronic diastolic CHF. Likely resume Lasix on 02/06 Continue beta deirdre. (9) HTN (hypertension): beta deirdre due to a. flutter. Reinstitute Lasix therapy to help with diastolic heart failure (10) CKD (chronic kidney disease): Stage 3, baseline creatinine mid-1's. . (11) Breast cancer: History of such CTA chest during prior admission in December did not show definitive pulmonary mets. (12) HLD (hyperlipidemia): Statin agent. (13) Depression: Patient voiced significant depressive symptoms and thoughts of dying. Could depression be causing cognitive impairment/memory issues? Remains on Lexapro to 10mg/day. Confirms DNR did have a conversation with palliative care (14) Dysphagia: Speech consult for bedside swallow evaluation. (15) Bilateral leg pain: Patient complained of this during his evaluation in the ER. Dopplers were negative for DVT. (16) DVT prophylaxis: heparin 5000 TID. Patient is expressed to the family she does not wish to keep living due to her chronic medical problems. We had a long discussion on 02/04 they are agreeable to talk to palliative care the patient states she does not feel depressed she is just tired of being ill state and she is appreciative that she is losing some of her memory with the progression of her dementia Physical Exam Vital Signs (Past 24 Hours): Last Vital Signs Temp 36.4 C L 02/06/19 07:25 Pulse 65 02/06/19 07:25 Resp 16 02/06/19 07:25 BP 124/79 02/06/19 07:25 Pulse Ox 98 02/06/19 07:25 (1) Pneumonia Pneumonia type: due to unspecified organism Laterality: bilateral Lung location: lower lobe of lung Qualified Code(s): J18.1 - Lobar pneumonia, unspecified organism (2) Atrial flutter Atrial flutter type: unspecified Qualified Code(s): I48.92 - Unspecified atrial flutter (3) DM w/o complication type II Diabetes mellitus 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 Qualified Code(s): E11.9 - Type 2 diabetes mellitus without complications; Z79.4 - residential (current) use of insulin (4) CHF (congestive heart failure) Heart failure chronicity: unspecified Heart failure type: unspecified Qualified Code(s): I50.9 - Heart failure, unspecified (5) HTN (hypertension) Hypertension type: essential hypertension Qualified Code(s): I10 - Essential (primary) hypertension (6) CKD (chronic kidney disease) Chronic kidney disease stage: stage 3 (moderate) Qualified Code(s): N18.3 - Chronic kidney disease, stage 3 (moderate) (7) Breast cancer Breast location: unspecified site of breast Estrogen receptor status: unspecified Patient sex: female Laterality: left Qualified Code(s): C50.912 - Malignant neoplasm of unspecified site of left female breast (8) HLD (hyperlipidemia) Hyperlipidemia type: mixed hyperlipidemia Qualified Code(s): E78.2 - Mixed hyperlipidemia (9) Depression Depression Type: other depression Qualified Code(s): F32.89 - Other specified depressive episodes (10) Dysphagia Dysphagia type: unspecified Qualified Code(s): R13.10 - Dysphagia, unspecified
[2019-02-06] MEDS: WARFARIN SOD 5 MG TAB PO SCH (15:27)
--- NOTE | 2019-02-06 15:58 | Discharge Summary ---
Date of Service February 06, 2019 Admission HPI Per Admitting Provider 88yo female - recent hospital stay for acute hypoxic respiratory failure and pleural effusions s/p thoracentesis on left (400cc per records) - who presents from [facility] due to dyspnea. Son was called this am and was told her HR was in the 130s and she was short of breath. She cannot provide much history to me. Son states she has been confused "for weeks." He confirms that she doesn't remember being in the hospital. By the son's report her memory has been impaired for some time. Son saw her Monday of this week and she was weak/tired. He mentions she was transferred from the SNF level of care back to [facility] on . Patient has been depressed. She said to me during the visit "I want to ." Son also confirms she has been talking about recently. EKG and the monitor strips during my ER assessment shows rate-controlled a. flutter. Principal Diagnosis dehydration uti poa metabolic encephalopathy from uti possible pneumonia Discharge Exam Constitutional well developed and average body habitus Eyes no conjunctival abnormality and no scleral abnormality Neck normal visual inspection and trachea midline Respiratory normal respiratory effort; no respiratory distress Auscultation: lungs clear to auscultation bilaterally Cardiovascular Rate/Rhythm: + abnormal rhythm Heart Sounds: + murmur irregularly irregular Gastrointestinal (Abdomen) normal bowel sounds, soft, nontender, no hepatosplenomegaly Musculoskeletal no cyanosis or clubbing, extremities motor strength 5/5 Discharge Data Allergies Allergy/AdvReac Type Severity Reaction Status Date / Time Penicillins Allergy Intermediate Unknown Verified 02/03/19 07:22 Consultations 02/03/19 09:39 ED Decision to Admit Stat 02/04/19 07:00 Consult Cardiology Routine 02/04/19 18:53 Consult Palliative Care Routine Ordered Studies 02/03/19 08:16 US venous doppler LE BI Stat 02/03/19 10:39 CT head/brain wo con Stat Hospital Course (1) Dehydration: The patient was volume contracted on presentation now resolved presumedly from not being promoted to drink due to her dementia . Patient clinically is improved we are restarting her Lasix at reduced dosing (2) Pneumonia: Chest x-ray suggests possible b/l basilar pneumonia. mssa in urine, urine confirms MSSA resistant to Bactrim drawn by sensitivities, will d/c on cefdinir to cover urine and lung Defer on MRSA coverage as MRSA swab is negative (3) Acute respiratory failure with hypoxia: Presumably 2nd to pneumonia process. Chest CT on prior hospitalization showed very small effusions. One of the effusions was tapped by Dr. Edwards in the past Fluid was not infected and was negative for malignant cells. She does not have evidence of decompensated CHF on examination. (4) Encephalopathy: The pt's son reports, at a minimum, some element of cognitive impairment for months or longer. Then, in the last few weeks, the son reports significant altered mental status. She has voiced depressive feelings and thoughts of dying as confirmed by the son. In light of breast cancer history head CT negative for mets. Ruled out stroke as well. Her altered mental status could be from metabolic (UTI, pneumonia). Unfortunately Blood cx's were not sent in the ER. (5) Atrial flutter: This is a new problem for her, her rates are controlled in the 60s. Echo was done in late December - EF was preserved; had mild valvular heart disease only. Cont beta deirdre. cardiology to consider warfarin/lovenox as does have some valvular heart disease this can be accomplished as she returns to longterm facility inr was 1.1 at time if discharge (6) Weakness: Suspect multi-factorial -- possible pneumonia, a. flutter, dehydration, depression, etc PT, OT recommendations for longterm facility for subacute rehab (7) DM w/o complication type II: Basal bolus insulin T2DM diet. (8) CHF (congestive heart failure): Chronic diastolic CHF. Likely resume Lasix on 02/06 at lower dose Continue beta deirdre. (9) HTN (hypertension): beta deirdre due to a. flutter. Reinstitute Lasix therapy to help with diastolic heart failure (10) CKD (chronic kidney disease): Stage 3, baseline creatinine mid-1's. . (11) Breast cancer: History of such CTA chest during prior admission in December did not show definitive pulmonary mets. (12) HLD (hyperlipidemia): Statin agent. (13) Depression: Patient voiced significant depressive symptoms and thoughts of dying. Could depression be causing cognitive impairment/memory issues? Remains on Lexapro to 10mg/day. Confirms DNR did have a conversation with palliative care (14) Dysphagia: Speech consult for bedside swallow evaluation. (15) Bilateral leg pain: Patient complained of this during his evaluation in the ER. Dopplers were negative for DVT. (16) DVT prophylaxis: heparin 5000 TID. Patient is expressed to the family she does not wish to keep living due to her chronic medical problems. We had a long discussion on 02/04 they are agreeable to talk to palliative care the patient states she does not feel depressed she is just tired of being ill state and she is appreciative that she is losing some of her memory with the progression of her dementia Total Time Total Time Spent Total Time Spent (In Minutes): greater than 30 minutes were required to prepare discharge Discharge Plan Discharge Items Patient Disposition: Transfer Long-Term Fac Reason For Visit: NEW ONSET A FLUTTER; PROBABLE PNEUMONIA Discharge Diagnosis: dehydration, staph uti( not mrsa ) mild pneumonia Condition: Good Discharge Goals: Decrease discomfort, Diagnostic testing and Improve disease control Activity: Resume your previous activity Non-emergency contact: Primary Care Provider Call non-emergency contact if: you have any medication questions Follow-up/Referrals: [facility] [place], [Primary Care Provider] - Diet: Regular Addtl Provider Instructions: please follow for clearance of uti pt is a new start of anticoagulation for valvular afib, she is no both lovenox and coumadin. INR is 1.1 on discharge Prescriptions: New warfarin [Coumadin] 5 mg Tablet 5 mg PO DAILY@1600 Qty: 30 RF: 0 furosemide 20 mg Tablet 20 mg PO QAM Qty: 30 RF: 0 enoxaparin 100 mg/mL Syringe 90 mg subcut Q24H Qty: 10 RF: 0 cefdinir 300 mg capsule 300 mg PO BID 4 Days Qty: 8 RF: 0 Continued buspirone 5 mg tablet 5 mg PO BID RF: 0 acetaminophen [Tylenol] 325 mg Tablet 650 mg PO Q4H MDD 3600 MG APAP/24 HOURS PRN (Reason: Fever Or Pain) RF: 0 Lantus U-100 Insulin 100 unit/mL Solution 14 units SUBCUT QAM RF: 0 Lantus U-100 Insulin 100 unit/mL Solution 20 units SUBCUT HS RF: 0 pravastatin 40 mg tablet 40 mg PO QAM RF: 0 lisinopril 20 mg tablet 20 mg PO DAILY RF: 0 aspirin 81 mg Tablet,Delayed Release (Dr/Ec) 81 mg PO QAM RF: 0 ferrous sulfate 325 mg (65 mg iron) Tablet 325 mg PO DAILY RF: 0 buspirone 10 mg tablet 10 mg PO HS RF: 0 metoprolol tartrate 50 mg tablet 50 mg PO BID RF: 0 letrozole 2.5 mg tablet 2.5 mg PO QAM RF: 0 Novolog Flexpen U-100 Insulin 100 unit/mL (3 mL) insulin pen See Rx Instructions .ROUTE .COMPLEX RF: 0 calcium carbonate-vitamin D3 [Calcium 600 + D(3)] 600 mg(1,500mg) -400 unit Tablet 1 tab PO DAILY RF: 0 diclofenac sodium 1 % gel 2 g topical Q8H PRN (Reason: Pain) RF: 0 ProAir RespiClick 90 mcg/actuation Aerosol Powdr Breath Activated 2 inh INHALATION Q5H PRN (Reason: Dyspnea) RF: 0 escitalopram oxalate [Lexapro] 5 mg Tablet 5 mg PO QAM RF: 0 Discontinued furosemide [Lasix] 40 mg tablet 40 mg PO Q2D Qty: 30 RF: 0 Stand-Alone Forms: [facility] Discharge Orders: Discharge Order (Routine); Ordered 02/06/19 Ordered By: Michele Craft Skilled Items Patient informed of condition?: Yes DNR: Yes Discharge Level of Care: Skilled Communicable Disease: No Discharge Prognosis: Stable Admission Data Admit Date/Time: 02/03/19 10:39 Attending Provider: Michele Craft Admit Provider: Conrado Salinas Primary Care Provider: [facility] [place], Other Providers: Conrado Salinas ; Wander Powell ; Wendie Keller Service: Telemetry
[2019-02-06 16:01] VITALS: BP 120/66; PULSE 66; TEMP 97.9; O2SAT 99
[2019-02-06] MEDS: ENOXAPARIN 100 MG/1ML SYR SQ SCH (18:18)
== END 2019-02-06 20:34 | DRG 193 ==
LOC: ED 06:43 → 2S 10:39 → SUATTDRO 10:39 → 2S 11:33
DX: F32.9 Major depressive disorder, single episode, unspecified; E11.9 Type 2 diabetes mellitus without complications; N18.3 Chronic kidney disease, stage 3 (moderate); G93.41 Metabolic encephalopathy; E86.0 Dehydration; J18.9 Pneumonia, unspecified organism; I13.0 Hypertensive heart and chronic kidney disease with heart failure and stage 1 through stage 4 chronic kidney disease, or unspecified chronic kidney disease; Z87.891 Personal history of nicotine dependence; M79.661 Pain in right lower leg; Z85.3 Personal history of malignant neoplasm of breast; I48.92 Unspecified atrial flutter; E78.5 Hyperlipidemia, unspecified; I50.32 Chronic diastolic (congestive) heart failure; J96.01 Acute respiratory failure with hypoxia; M79.662 Pain in left lower leg; R13.10 Dysphagia, unspecified; Z80.9 Family history of malignant neoplasm, unspecified; Z79.4 Long term (current) use of insulin; Z88.0 Allergy status to penicillin

== ENCOUNTER 2019-02-19 12:10 | Inpatient (IN) ==
[2019-02-19] MEDS ORDERED: METOPROLOL TARTRATE 1 MG/ML VIAL IV STA (13:08)
--- NOTE | 2019-02-19 13:09 | XRay Report ---
XR chest 1V portable HISTORY: Atypical chest pain. COMPARISON: Chest 02/03/2019. FINDINGS: No pneumothorax. The heart remains mildly enlarged. Moderate pulmonary edema and small bila teral pleural effusions and bibasilar densities have progressed. Surgical clips within the left axill a. There are mitral annulus calcifications. IMPRESSION: Interval progression of the moderate pulmonary edema and small bilateral pleural effusions/densities. Electronically signed by: Jb Doshi M.D. 02/19/2019 1:08 PM
[2019-02-19 13:10] LABS: Basophils # (auto) 0.02 K/uL (0-0.2); Basophils % (auto) 0.1 %; Eosinophils # (auto) 0.09 K/uL (0-0.5); Eosinophils % (auto) 0.7 %; Hematocrit (blood only) 38.3 % (37-47); Immature Granulocytes # (auto) 0.04 K/uL (0.00-0.02); Immature Granulocytes % (auto) 0.3 %; Lymphocytes # (auto) 0.96 K/uL (1.2-3.4); Lymphocytes % (auto) 7.1 %; Mean Corpuscular Hgb Conc 31.3 g/dL (32-36); Mean Platelet Volume 11.4 fL (7.4-10.4); Monocytes # (auto) 0.69 K/uL (0.11-0.59); Monocytes % (auto) 5.1 %; Neutrophils # (auto) 11.75 K/uL (1.4-6.5); Neutrophils % (auto) 86.7 %; Platelet Count 322 K/uL (130-400); RDW Coefficient of Variation 14.6 % (11.5-14.5); RDW Standard Deviation 51.3 fL (36.4-46.3); Red Blood Count 3.99 M/uL (4.2-5.4); White Blood Count 13.55 K/uL (4.8-10.8)
[2019-02-19 13:18] LABS: Alanine Aminotransferase 31 U/L (12-78); Albumin Level 2.7 gm/dl (3.4-5.0); BUN Creatinine Ratio 14.9 (10-20); Blood Urea Nitrogen 22 mg/dl (7-18); Calcium 8.9 mg/dl (8.5-10.1); Carbon Dioxide 34 mmol/L (21-32); Chloride 98 mmol/L (98-107); Est GFR (African American) 35.4; Est GFR (Non-African American) 30.6; Glucose 250 mg/dl (70-99); Potassium 5.2 mmol/L (3.5-5.1); Sodium 133 mmol/L (136-145)
[2019-02-19 13:20] LABS: Albumin Globulin Ratio 0.6 (0.9-2); Bilirubin,Total 0.6 mg/dl (0.2-1); Globulin 4.5 gm/dl (2.5-4.0); Total Protein 7.2 gm/dl (6.4-8.2)
[2019-02-19 13:23] LABS: Alkaline Phosphatase 70 U/L (45-117); Aspartate Aminotransferase 25 U/L (15-37); Magnesium 2.2 mg/dl (1.8-2.4); Troponin I < 0.015 ng/ml (0-0.045)
[2019-02-19] MEDS ORDERED: FUROSEMIDE 40 MG/4 ML VIAL IV STA (13:45)
[2019-02-19 13:57] LABS: Prothrombin Time 28.2 Seconds (9.0-12.0)
[2019-02-19 14:01] LABS: Partial Thromboplastin Time 53.6 Seconds (21.0-31.0)
--- NOTE | 2019-02-19 15:07 | History & Physical Report ---
Date of Service February 19, 2019 Assessment & Plan (1) Atrial fibrillation: Atrial fibrillation we will increase her beta-deirdre to 75 twice daily metoprolol tartrate, continue anticoagulation with Coumadin his INR is therapeutic, and follow heart rate on the monitor with EKGs in the morning (2) DM w/o complication type II: Patient is on basal bolus insulin with an insulin sliding scale and diabetic diet (3) CKD (chronic kidney disease): Patient has chronic kidney disease stage III appropriate renal dose adjustment will be made watching her with intravenous diuresis to avoid acute renal failure (4) HTN (hypertension): For hypertension control in addition to the metoprolol and Lasix patient is on lisinopril. Patient's lisinopril will be reduced slightly as the metoprolol is increased (5) Breast cancer: Patient is on a hormonal suppressive agent for breast cancer there was some concern during her last hospital stay how much her little the breast cancer was playing in her shortness of breath if any pain there may be some radiation pneumonitis which has the appearance of heart failure she did appreciate rad iation treatment for her breast issues (6) Acute respiratory failure with hypoxia: Patient acute respiratory failure with hypoxia is based upon heart failure from diastolic failure with rapid atrial rate and ventricular response we will diurese her and provide supplemental oxygen at this time. Is unclear whether there is a component of interstitial change from radiation (7) Iron deficiency anemia: Patient typically is on iron supplementation however given her ill state we will try to reduce oral medication passing we will hold her iron at the time of admission which may be resumed at the time during her hospital stay or discharge (8) DVT prophylaxis: Therapeutic Coumadin will serve as DVT prevention (9) Seen by palliative care medicine: During her last admission the patient was seen by the palliative care provider there is some distance of decision to proceed in this manner by family the patient herself has voiced in many occasion that she is tired of being sick perhaps reengage and palliative care could be undertaken if the family is in agreement. My personal phone call at the time of presentation I do not feel they are ready at this point in time History of Present Illness Primary Care Provider: Bhavana Stevenson [facility] 88-year-old female who was readmitted to the facility with acute on chronic amanda stolic heart failure from atrial fibrillation with rapid ventricular response and an acute respiratory failure with hypoxia secondary to this condition Patient is demented and still believe she is at home although she resides at [facility] she was hospitalized most recently with a similar episode at which time the atrial fibrillation was diagnosed, she was placed on anticoagulation, and rate control with metoprolol. She was also put on daily diuretic therapy at that time She is here with decompensation of her above problems. I did discuss the case with her son at the time of admission as last time we discussed palliative care as the patient states she does not want to come to the hospital anymore and she had some challenges with stating she wanted to . At this time the son is not made any final determinations of proceeding to palliative care in fact is not even discussed the pulsed form with his family although he said he will do so tonight. At this juncture the patient is still a full code Allergies Allergy/AdvReac Type Severity Reaction Status Date / Time Penicillins Allergy Intermediate Unknown Verified 02/19/19 13:24 Home Medications Home Medications Medication Instructions Recorded Confirmed Type Lantus U-100 Insulin 14 units SUBCUT QA 01/12/19 02/19/19 History Lantus U-100 Insulin 20 units SUBCUT 01/12/19 02/19/19 History Novolog Flexpen U-100 Insulin 4 unit SUBCUT QA 01/12/19 02/19/19 History ProAir RespiClick 2 inh INHALATION Q5H PRN 01/12/19 02/19/19 History acetaminophen [Tylenol] 650 mg PO Q4H PRN MDD 3600 MG 01/12/19 02/19/19 History APAP/24 HOURS aspirin 81 mg PO QAM 01/12/19 02/19/19 History buspirone 5 mg PO BID17 01/12/19 02/19/19 History buspirone 10 mg PO HS 01/12/19 02/19/19 History calcium carbonate-vitamin D3 1 tab PO QAM 01/12/19 02/19/19 History [Calcium 600 + D(3)] diclofenac sodium 2 g TOPICAL Q8H PRN 01/12/19 02/19/19 History ferrous sulfate 325 mg PO 1400 01/12/19 02/19/19 History letrozole 2.5 mg PO QAM 01/12/19 02/19/19 History lisinopril 20 mg PO QAM 01/12/19 02/19/19 History metoprolol tartrate 50 mg PO BID 01/12/19 02/19/19 History pravastatin 40 mg PO QAM 01/12/19 02/19/19 History escitalopram oxalate [Lexapro] 10 mg PO QAM 02/03/19 02/19/19 History enoxaparin 90 mg SUBCUT Q24H #10 ml 02/06/19 02/19/19 Rx furosemide 20 mg PO QAM #30 tab 02/06/19 02/19/19 Rx insulin aspart U-100 [Novolog 0 unit SUBCUT .SLIDING SCALE 02/19/19 02/19/19 History Flexpen U-100 Insulin] insulin aspart U-100 [Novolog 6 unit SUBCUT QDL 02/19/19 02/19/19 History Flexpen U-100 Insulin] insulin aspart U-100 [Novolog 7 unit SUBCUT PM 02/19/19 02/19/19 History U-100 Insulin aspart] nitroglycerin [Nitrostat] 0.4 mg SUBLINGUAL UD 02/19/19 02/19/19 History ranitidine HCl 150 mg PO .ONE TIME 02/19/19 02/19/19 History warfarin 1 mg PO 2XWK 02/19/19 02/19/19 History warfarin 1 mg PO 3XWK 02/19/19 02/19/19 History warfarin 2 mg PO 4XWK 02/19/19 02/19/19 History warfarin 2 mg PO WK 02/19/19 02/19/19 History Past Med/Surg History Medical History Breast cancer (Chronic) initial dx in (left breast); treated with lumpectomy and radiation; recurrent disease diagnosed 2 years ago; decision made NOT to pursue additional treatment CKD (chronic kidney disease) (Chronic) stage 3 HTN (hypertension) (Chronic) HLD (hyperlipidemia) (Chronic) Atrial fibrillation Chronic diastolic CHF (congestive heart failure) DM w/o complication type II Surgical History History of tonsillectomy History of appendectomy History of lumbar surgery History of lumpectomy of left breast Family History Father Cancer Mother , near age 90 No problems noted. 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 ROS: This may be clouded by her dementia Appears chronically ill and fatigued states she is tired of being ill No double vision blurry vision No problems with speech or swallowing No palpitations, chest pain or pressure Complains of feeling short of breath and having a nonproductive cough No abdominal pain nausea vomiting diarrhea No burning urine urine frequency or changes in color No focal joint pain or muscle pain No skin rashes or oral lesions No unusual bruising or bleeding No focused back pain or numbness or loss of strength Physical Exam Physical Exam: The patient appeared chronically ill and partially depressed Vital signs as documented. Profound hypoxia was documented on presentation Head exam is unremarkable. normocephalic, atraumatic Neck is with mild jugular venous distension, thyromegaly, or lymphademopathy Lungs are diminished bilaterally at the bases with rales bilaterally Cardiac exam reveals irregularly irregular and tachycardic. Systolic ejection murmur is noted Abdominal exam reveals normal bowel sounds, no masses, no organomegaly Extremities are mildly edematous and both pedal pulses are present Neurologic exam is A&Ox2, no focal deficits, strength is equal bilateral Psychologically seems depressed Skin is warm Dry without bruises or lesions Results & Data Vital Signs (Past 12 Hours) Vital Signs Temp Pulse Pulse Resp BP BP Pulse Ox 02/19/19 14:16 103 H 30 H 115/69 97 02/19/19 14:10 98 02/19/19 14:01 94/76 L 98 02/19/19 14:00 98 02/19/19 13:50 97 02/19/19 13:40 111 H 15 97 02/19/19 13:33 93 H 25 H 117/94 97 02/19/19 13:31 114 H 9 L 117/94 98 02/19/19 13:30 96 02/19/19 13:20 100 H 23 82 L 02/19/19 13:10 115 H 36 H 02/19/19 13:05 110 H 02/19/19 13:01 137/69 02/19/19 12:50 108 H 98 02/19/19 12:43 102 H 98 02/19/19 12:31 109 H 118/75 98 02/19/19 12:16 37.0 C 92 H 92 H 36 H 131/64 131/64 95 Diagnostic Findings cxr : Interval progression of the moderate pulmonary edema and small bilateral pleural effusions/densities. ECG Rhythm: atrial fibrillation Additional Comments: RVR (1) CKD (chronic kidney disease) Chronic kidney disease stage: stage 3 (moderate) Qualified Code(s): N18.3 - Chronic kidney disease, stage 3 (moderate) (2) HTN (hypertension) Hypertension type: essential hypertension Qualified Code(s): I10 - Essential (primary) hypertension (3) Breast cancer Breast location: unspecified site of breast Estrogen receptor status: unspecified Patient sex: female Laterality: left Qualified Code(s): C50.912 - Malignant neoplasm of unspecified site of left female breast
--- OUTSIDE RECORDS SUMMARY | 2019-02-19 15:13 | External Medical Summary | Continuity of Care Document ---
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 Refills: 0 Aspirin 81 MG TABS; TAKE 1 TABLET DAILY. Refills: 0 Calcium 600/Vitamin D 600-400 MG-UNIT Oral Tablet Chew able; Take 1 tablet daily Refills: 0 Ferrous Sulfate 325 (65 Fe) MG Oral Tablet; TAKE 1 TABLET DA DEBBIE DIRECTED. Refills: 0 NovoLOG FlexPen 100 UNIT/ML SOLN Refills: 0 Lantus SoloStar 100 UNIT/ML SOLN Refills: 0 Letrozole 2.5 MG Oral Tablet; TAKE 1 TABLET DAILY. Refills: 0 Lopressor 50 MG Oral Tablet; TAKE 1 TABLET TWICE DAILY. Quantity: 180 Refills: 3 Multi-Vitamin TABS; TAKE 1 TABLET DAILY. Refills: 0 Polyethylene Glycol 3350 Oral Packet; USE DIRECTED. Refills: 0 Pravastatin Sodium 40 MG Oral Tablet; TAKE 1 TABLET DAILY DIRECTED. 90 Tablet Bottle Refills: 0 Furosemide 40 MG Oral Tablet; TAKE 1 TABLET Every other day Refills: 0 Lexapro 5 MG Oral Tablet; TAKE ONE TABLET BY MOUTH ONCE DAVID Y Quantity: 90 Refills: 3 ProAir HFA 108 (90 Base) MCG/ACT Inhalation Aerosol So lution; INHALE PUFFS PRN 8.5 GM Inhaler Refills: 0 Senna 8.6 MG Oral Capsule; TAKE DIRECTED. Refills: 0 Tamiflu 30 MG Oral Capsule Refills: 0 Tylenol 8 Hour 650 MG Oral Tablet Extend ed Release; TAKE 1 TABLET Every 4 hours PRN Refills: 0 Procedures History of mastectomy partial Status: Co mpleted History of appendectomy Status: Complete d History of Tonsillectomy With Adenoidectomy Status: Completed Immunizations Immunizations not documented Social History - Smoking Status Former smoker Plan of Treatment Planned Observations Planned Goals not documented Results No Known Results Results not documented Vital Signs 30-Jan-2019 9:27 Systolic 133 mm[Hg] Diastolic 72 mm[Hg] Heart Rate 62 /min Encounters Appointment; Andrew Gonzáles M.D. 30-Jan-2019 9:30 Encounter Diagnosis: Problem not documented
[2019-02-19] MEDS ORDERED: ACETAMINOPHEN 325 MG TAB PO PRN ×2 (16:15)
[2019-02-19] MEDS ORDERED: SODIUM CHLORIDE 0.9% 1000ML 1,000 ML IV SCH (16:15)
[2019-02-19] MEDS ORDERED: DICLOFENAC SOD 1% GEL 100 GM TUBE EXT PRN (16:15)
[2019-02-19] MEDS ORDERED: ONDANSETRON INJ 2 MG/ML 2 ML VIAL IV PRN (16:15)
[2019-02-19] MEDS ORDERED: METOPROLOL TARTRATE 1 MG/ML VIAL IV PRN (16:15)
[2019-02-19] MEDS ORDERED: DEXTROSE 50% 50 ML SYRINGE IV PRN ×2 (16:45→17:02)
[2019-02-19] MEDS ORDERED: GLUCAGON FOR INJ 1 MG VIAL IM PRN (16:45)
[2019-02-19] MEDS ORDERED: GLUCOSE 40% GEL 15 GM TUBE PO PRN ×2 (16:45→17:02)
[2019-02-19] MEDS ORDERED: GLUCOSE 10 TABS/TUBE PO PRN ×2 (16:45→17:02)
[2019-02-19] MEDS ORDERED: GLUCAGON FOR INJ 1 MG VIAL SQ PRN (17:02)
[2019-02-19] MEDS ORDERED: CARBOHYDRATES FOR HYPOGLYCEMIA PO PRN (17:02)
--- NOTE | 2019-02-19 17:07 | Emergency Department Note ---
Entered by Alea Munoz acting as a scribe for Rm Mccall MD History of Present Illness General Chief complaint: Chest Pain Stated complaint: Shortness of breath, chest pain Time Seen by Provider: 02/19/19 13:01 Source: patient, RN notes reviewed and old records reviewed History of Present Illness Provider complaint: chest pain Onset (ago): hour(s) (this morning) Location: chest Maximum Pain Intensity: 2 Quality: + other (pain) Associated symptoms: + shortness of breath History is limited secondary to mental state. The patient is an 88 year old female who presents to the Emergency Department with complaints of chest pain this morning. The patient states that she was short of breath with the pain. She rates her pain at a 2/10 currently. Review of EMR shows that the patient was discharged on February 06 with dehydration and a mental status change from a UTI. Review of notes shows that the patient had chest pain this morning. She was given 3 Nitroglycerin and 150 ml of Zantac with some relief. Home Medications Home Medications Medication Instructions Recorded Confirmed Type Lantus U-100 Insulin 14 units SUBCUT QAM 01/12/19 02/19/19 History Lantus U-100 Insulin 20 units SUBCUT HS 01/12/19 02/19/19 History Novolog Flexpen U-100 Insulin 4 unit SUBCUT QAM 01/12/19 02/19/19 History ProAir RespiClick 2 inh INHALATION Q5H PRN 01/12/19 02/19/19 History acetaminophen [Tylenol] 650 mg PO Q4H PRN MDD 3600 MG 01/12/19 02/19/19 History APAP/24 HOURS aspirin 81 mg PO QAM 01/12/19 02/19/19 History buspirone 5 mg PO BID17 01/12/19 02/19/19 History buspirone 10 mg PO HS 01/12/19 02/19/19 History calcium carbonate-vitamin D3 1 tab PO QAM 01/12/19 02/19/19 History [Calcium 600 + D(3)] diclofenac sodium 2 g TOPICAL Q8H PRN 01/12/19 02/19/19 History ferrous sulfate 325 mg PO 1400 01/12/19 02/19/19 History letrozole 2.5 mg PO QAM 01/12/19 02/19/19 History lisinopril 20 mg PO QAM 01/12/19 02/19/19 History metoprolol tartrate 50 mg PO BID 01/12/19 02/19/19 History pravastatin 40 mg PO QAM 01/12/19 02/19/19 History escitalopram oxalate [Lexapro] 10 mg PO QAM 02/03/19 02/19/19 History enoxaparin 90 mg SUBCUT Q24H #10 ml 02/06/19 02/19/19 Rx furosemide 20 mg PO QAM #30 tab 02/06/19 02/19/19 Rx insulin aspart U-100 [Novolog 0 unit SUBCUT .SLIDING SCALE 02/19/19 02/19/19 History Flexpen U-100 Insulin] insulin aspart U-100 [Novolog 6 unit SUBCUT QDL 02/19/19 02/19/19 History Flexpen U-100 Insulin] insulin aspart U-100 [Novolog 7 unit SUBCUT PM 02/19/19 02/19/19 History U-100 Insulin aspart] nitroglycerin [Nitrostat] 0.4 mg SUBLINGUAL UD 02/19/19 02/19/19 History ranitidine HCl 150 mg PO .ONE TIME 02/19/19 02/19/19 History warfarin 1 mg PO 2XWK 02/19/19 02/19/19 History warfarin 1 mg PO 3XWK 02/19/19 02/19/19 History warfarin 2 mg PO 4XWK 02/19/19 02/19/19 History warfarin 2 mg PO WK 02/19/19 02/19/19 History Allergies Allergy/AdvReac Type Severity Reaction Status Date / Time Penicillins Allergy Intermediate Unknown Verified 02/19/19 13:24 Past Med/Surg History Medical History Breast cancer (Chronic) initial dx in (left breast); treated with lumpectomy and radiation; recurrent disease diagnosed 2 years ago; decision made NOT to pursue additional treatment CKD (chronic kidney disease) (Chronic) stage 3 HTN (hypertension) (Chronic) HLD (hyperlipidemia) (Chronic) Atrial fibrillation Chronic diastolic CHF (congestive heart failure) DM w/o complication type II Surgical History History of tonsillectomy History of appendectomy History of lumbar surgery History of lumpectomy of left breast Family History Father Cancer Mother , near age 90 No problems noted. 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 Feels Safe at Home: Yes Safety Concerns: Feels Safe At This Time Smoking Status: Former smoker Tobacco Type: cigarettes Cigarettes Per Day: quit 40 years ago Do You Dip or Chew Tobacco: No Second Hand Exposure: No Tobacco Cessation Education Requested by Patient: No Hx Alcohol Use: No Hx Substance Use: No Review of Systems Unobtainable due to cognitive status Physical Exam Vital Signs Vital Signs - 24 hr 02/19/19 12:16 02/19/19 12:31 02/19/19 12:43 Temperature 37.0 C Temperature Source Oral Sepsis Recent Fever Within 48 Hours No Sepsis New/Unexplained Change in Mental Status No Sepsis Action Taken by Nursing No Action Required Pulse Rate 92 H 109 H 102 H Pulse Rate [Finger] 92 H Pulse Rate from SpO2 Sensor 110 H 103 H Pulse Rhythm [Finger] Pulse Strength [Finger] Respiratory Rate 36 H Respiratory Effort / Characteristics Non-Labored Spontaneous Respiratory Depth Normal Respiratory Pattern Blood Pressure 131/64 118/75 Blood Pressure [Right Arm] 131/64 Blood Pressure Mean 86 89 Blood Pressure Mean [Right Arm] 86 Blood Pressure Position [Right Arm] Pulse Oximetry 95 98 98 Oxygen Delivery Method Nasal Cannula Oxygen Flow Rate 2 02/19/19 12:50 02/19/19 13:01 02/19/19 13:05 Temperature Temperature Source Sepsis Recent Fever Within 48 Hours Sepsis New/Unexplained Change in Mental Status Sepsis Action Taken by Nursing Pulse Rate 108 H 110 H Pulse Rate [Finger] Pulse Rate from SpO2 Sensor 110 H Pulse Rhythm [Finger] Pulse Strength [Finger] Respiratory Rate Respiratory Effort / Characteristics Respiratory Depth Respiratory Pattern Blood Pressure 137/69 Blood Pressure [Right Arm] Blood Pressure Mean 91 Blood Pressure Mean [Right Arm] Blood Pressure Position [Right Arm] Pulse Oximetry 98 Oxygen Delivery Method Oxygen Flow Rate 02/19/19 13:10 02/19/19 13:20 02/19/19 13:30 Temperature Temperature Source Sepsis Recent Fever Within 48 Hours Sepsis New/Unexplained Change in Mental Status Sepsis Action Taken by Nursing Pulse Rate 115 H 100 H Pulse Rate [Finger] Pulse Rate from SpO2 Sensor 34 L 110 H Pulse Rhythm [Finger] Pulse Strength [Finger] Respiratory Rate 36 H 23 Respiratory Effort / Characteristics Respiratory Depth Respiratory Pattern Blood Pressure Blood Pressure [Right Arm] Blood Pressure Mean Blood Pressure Mean [Right Arm] Blood Pressure Position [Right Arm] Pulse Oximetry 82 L 96 Oxygen Delivery Method Oxygen Flow Rate 02/19/19 13:31 02/19/19 13:33 02/19/19 13:40 Temperature Temperature Source Sepsis Recent Fever Within 48 Hours Sepsis New/Unexplained Change in Mental Status Sepsis Action Taken by Nursing Pulse Rate 114 H 111 H Pulse Rate [Finger] 93 H Pulse Rate from SpO2 Sensor 111 H 108 H Pulse Rhythm [Finger] Pulse Strength [Finger] Respiratory Rate 9 L 25 H 15 Respiratory Effort / Characteristics Respiratory Depth Respiratory Pattern Blood Pressure 117/94 Blood Pressure [Right Arm] 117/94 Blood Pressure Mean 101 Blood Pressure Mean [Right Arm] 101 Blood Pressure Position [Right Arm] Pulse Oximetry 98 97 97 Oxygen Delivery Method Nasal Cannula Oxygen Flow Rate 2 02/19/19 13:50 02/19/19 14:00 02/19/19 14:01 Temperature Temperature Source Sepsis Recent Fever Within 48 Hours Sepsis New/Unexplained Change in Mental Status Sepsis Action Taken by Nursing Pulse Rate Pulse Rate [Finger] Pulse Rate from SpO2 Sensor 101 H 104 H 107 H Pulse Rhythm [Finger] Pulse Strength [Finger] Respiratory Rate Respiratory Effort / Characteristics Respiratory Depth Respiratory Pattern Blood Pressure 94/76 L Blood Pressure [Right Arm] Blood Pressure Mean 82 Blood Pressure Mean [Right Arm] Blood Pressure Position [Right Arm] Pulse Oximetry 97 98 98 Oxygen Delivery Method Oxygen Flow Rate 02/19/19 14:10 02/19/19 14:16 02/19/19 14:18 Temperature Temperature Source Sepsis Recent Fever Within 48 Hours Sepsis New/Unexplained Change in Mental Status Sepsis Action Taken by Nursing Pulse Rate 104 H Pulse Rate [Finger] 103 H Pulse Rate from SpO2 Sensor 108 H 111 H Pulse Rhythm [Finger] Pulse Strength [Finger] Respiratory Rate 30 H 33 H Respiratory Effort / Characteristics Respiratory Depth Respiratory Pattern Blood Pressure 115/69 Blood Pressure [Right Arm] 115/69 Blood Pressure Mean 84 Blood Pressure Mean [Right Arm] 84 Blood Pressure Position [Right Arm] Pulse Oximetry 98 97 97 Oxygen Delivery Method Nasal Cannula Oxygen Flow Rate 2 02/19/19 14:20 02/19/19 14:30 02/19/19 14:31 Temperature Temperature Source Sepsis Recent Fever Within 48 Hours Sepsis New/Unexplained Change in Mental Status Sepsis Action Taken by Nursing Pulse Rate 107 H 113 H 105 H Pulse Rate [Finger] Pulse Rate from SpO2 Sensor 106 H 112 H 109 H Pulse Rhythm [Finger] Pulse Strength [Finger] Respiratory Rate 19 34 H 33 H Respiratory Effort / Characteristics Respiratory Depth Respiratory Pattern Blood Pressure 111/68 Blood Pressure [Right Arm] Blood Pressure Mean 82 Blood Pressure Mean [Right Arm] Blood Pressure Position [Right Arm] Pulse Oximetry 97 96 97 Oxygen Delivery Method Oxygen Flow Rate 02/19/19 14:40 02/19/19 14:50 02/19/19 15:00 Temperature Temperature Source Sepsis Recent Fever Within 48 Hours Sepsis New/Unexplained Change in Mental Status Sepsis Action Taken by Nursing Pulse Rate 110 H 107 H 106 H Pulse Rate [Finger] Pulse Rate from SpO2 Sensor 108 H 110 H 108 H Pulse Rhythm [Finger] Pulse Strength [Finger] Respiratory Rate 28 H 32 H 33 H Respiratory Effort / Characteristics Respiratory Depth Respiratory Pattern Blood Pressure Blood Pressure [Right Arm] Blood Pressure Mean Blood Pressure Mean [Right Arm] Blood Pressure Position [Right Arm] Pulse Oximetry 97 98 97 Oxygen Delivery Method Oxygen Flow Rate 02/19/19 15:01 02/19/19 15:10 02/19/19 15:15 Temperature Temperature Source Sepsis Recent Fever Within 48 Hours Sepsis New/Unexplained Change in Mental Status Sepsis Action Taken by Nursing Pulse Rate 115 H 107 H Pulse Rate [Finger] Pulse Rate from SpO2 Sensor 113 H 110 H Pulse Rhythm [Finger] Pulse Strength [Finger] Respiratory Rate 28 H 32 H Respiratory Effort / Characteristics Spontaneous SOB on Exertion Respiratory Depth Normal Respiratory Pattern Regular Tachypnea Blood Pressure 115/75 Blood Pressure [Right Arm] Blood Pressure Mean 88 Blood Pressure Mean [Right Arm] Blood Pressure Position [Right Arm] Pulse Oximetry 98 96 Oxygen Delivery Method Nasal Cannula Oxygen Flow Rate 2 02/19/19 15:20 02/19/19 15:30 02/19/19 15:31 Temperature Temperature Source Sepsis Recent Fever Within 48 Hours Sepsis New/Unexplained Change in Mental Status Sepsis Action Taken by Nursing Pulse Rate 104 H 104 H 97 H Pulse Rate [Finger] Pulse Rate from SpO2 Sensor 105 H 111 H 99 H Pulse Rhythm [Finger] Pulse Strength [Finger] Respiratory Rate 31 H 32 H 25 H Respiratory Effort / Characteristics Respiratory Depth Respiratory Pattern Blood Pressure 102/78 Blood Pressure [Right Arm] Blood Pressure Mean 86 Blood Pressure Mean [Right Arm] Blood Pressure Position [Right Arm] Pulse Oximetry 97 97 97 Oxygen Delivery Method Oxygen Flow Rate 02/19/19 15:39 02/19/19 15:40 02/19/19 16:23 Temperature 37.0 C Temperature Source Oral Sepsis Recent Fever Within 48 Hours Sepsis New/Unexplained Change in Mental Status Sepsis Action Taken by Nursing Pulse Rate 105 H Pulse Rate [Finger] 82 Pulse Rate from SpO2 Sensor 107 H Pulse Rhythm [Finger] Regular Pulse Strength [Finger] Normal Respiratory Rate 30 H 31 H 20 Respiratory Effort / Characteristics Non-Labored Spontaneous Respiratory Depth Normal Respiratory Pattern Regular Blood Pressure Blood Pressure [Right Arm] 106/70 Blood Pressure Mean Blood Pressure Mean [Right Arm] 82 Blood Pressure Position [Right Arm] Sitting Pulse Oximetry 97 97 95 Oxygen Delivery Method Nasal Cannula Nasal Cannula Oxygen Flow Rate 2 2 02/19/19 16:41 Temperature Temperature Source Sepsis Recent Fever Within 48 Hours Sepsis New/Unexplained Change in Mental Status Sepsis Action Taken by Nursing Pulse Rate 104 H Pulse Rate [Finger] Pulse Rate from SpO2 Sensor Pulse Rhythm [Finger] Pulse Strength [Finger] Respiratory Rate Respiratory Effort / Characteristics Non-Labored Spontaneous SOB on Exertion Respiratory Depth Normal Respiratory Pattern Regular Blood Pressure Blood Pressure [Right Arm] Blood Pressure Mean Blood Pressure Mean [Right Arm] Blood Pressure Position [Right Arm] Pulse Oximetry Oxygen Delivery Method Nasal Cannula Oxygen Flow Rate 2 GENERAL: Patient is in no acute distress. HEENT: No acute trauma, normocephalic atraumatic, mucous membranes moist, no nasal congestion, no scleral icterus. NECK: No stridor, no adenopathy, no meningismus, trachea is midline. LUNGS: Decreased breath sounds bilaterally. Scattered crackles at the bases. No wheezing. No respiratory distress. HEART: Tachycardic rate, irregular rhythm. 2/6 systolic murmur. ABDOMEN: Soft, nontender, bowel sounds positive, no hernias, no peritonitis. EXTREMITIES: No cyanosis or edema, full range of motion of all the joints without pain or difficulty, no signs for acute trauma. NEUROLOGIC: Awake, alert. Some confusion. No focal motor deficits. SKIN: No rash, no jaundice, no diaphoresis. Course 1304: The patient was evaluated in room B9. A history and physical were performed. 1412: I updated the patient and her family who is now at bedside. They verbaliz ed agreement and understanding of the treatment plan. 1418: I discussed the patient's case with Dr. Srinivasan Walsh who will evaluate the patient for further management. Consultations Consultation #1: Dr. Srinivasan Walsh Time: 14:18 Administered Medications Buspirone HCl (Buspar) 5 mg PO [id number] RAJWINDER Stop: 03/21/19 16:59 Last Admin: 02/19/19 17:36 Dose: 5 mg Documented by: [id number] Warfarin Sodium (Coumadin) 1 mg PO [id number] RAJWINDER Stop: 03/21/19 17:29 Last Admin: 02/19/19 17:36 Dose: 1 mg Documented by: [id number] Discontinued Medications Furosemide (Lasix) 40 mg IV NOW STA Stop: 02/19/19 13:46 Last Admin: 02/19/19 14:15 Dose: 40 mg Documented by: [id number] Sodium Chloride (Nss 1000ml) 1,000 mls @ 100 mls/hr IV .Q10H RAJWINDER Stop: 03/21/19 16:30 Last Admin: 02/19/19 17:24 Dose: Not Given Documented by: [id number] Metoprolol Tartrate (Lopressor) 2.5 mg IV NOW STA Stop: 02/19/19 13:09 Last Admin: 02/19/19 13:38 Dose: 2.5 mg Documented by: [id number] Medical Decision Making Differential Diagnosis Differentials include afib or aflutter, CT, angina, anemia, CHF, musculoskeletal pain, reflux, PE, and aortic dissection. Medical Records Attestation: I reviewed the patient's medical records. Home Medications Current Medication List: was personally reviewed by me Laboratory Data Attestation: I reviewed the patient's lab results. Result diagrams: 02/19/19 12:22 02/19/19 17:23 Lab Results 02/19/19 02/19/19 02/19/19 Range/Units 12:22 12:22 13:20 WBC 13.55 H (4.8-10.8) K/uL RBC 3.99 L (4.2-5.4) M/uL Hgb 12.0 (12.0-16.0) g/dL Hct 38.3 (37-47) % MCV 96.0 (80-100) fL MCH 30.1 (25-34) pg MCHC 31.3 L (32-36) g/dL RDW Std Deviation 51.3 H (36.4-46.3) fL RDW Coeff of Nury 14.6 H (11.5-14.5) % Plt Count 322 (130-400) K/uL MPV 11.4 H (7.4-10.4) fL Immature Gran % (Auto) 0.3 % Neut % (Auto) 86.7 % Lymph % (Auto) 7.1 % York % (Auto) 5.1 % Eos % (Auto) 0.7 % Baso % (Auto) 0.1 % Immature Gran # (Auto) 0.04 H (0.00-0.02) K/uL Neut # (Auto) 11.75 H (1.4-6.5) K/uL Lymph # (Auto) 0.96 L (1.2-3.4) K/uL York # (Auto) 0.69 H (0.11-0.59) K/uL Eos # (Auto) 0.09 (0-0.5) K/uL Baso # (Auto) 0.02 (0-0.2) K/uL PT 28.2 H (9.0-12.0) Seconds INR 3.0 H (0.9-1.1) APTT 53.6 H* (21.0-31.0) Seconds PTT Ratio 2.0 Sodium 133 L (136-145) mmol/L Potassium 5.2 H (3.5-5.1) mmol/L Chloride 98 (98-107) mmol/L Carbon Dioxide 34 H (21-32) mmol/L Anion Gap 1.0 L (3-11) BUN 22 H (7-18) mg/dl Creatinine 1.50 H (0.6-1.2) mg/dl Est Cr Clr Drug Dosing Not Reportable Est GFR ( Amer) 35.4 Est GFR (Non-Af Amer) 30.6 BUN/Creatinine Ratio 14.9 (10-20) Glucose 250 H (70-99) mg/dl POC Glucose (70-99) Calcium 8.9 (8.5-10.1) mg/dl Magnesium 2.2 (1.8-2.4) mg/dl Total Bilirubin 0.6 (0.2-1) mg/dl AST 25 (15-37) U/L ALT 31 (12-78) U/L Alkaline Phosphatase 70 (45-117) U/L Troponin I < 0.015 (0-0.045) ng/ml Total Protein 7.2 (6.4-8.2) gm/dl Albumin 2.7 L (3.4-5.0) gm/dl Globulin 4.5 H (2.5-4.0) gm/dl Albumin/Globulin Ratio 0.6 L (0.9-2) 02/19/19 02/19/19 02/19/19 Range/Units 16:18 16:47 17:23 WBC (4.8-10.8) K/uL RBC (4.2-5.4) M/uL Hgb (12.0-16.0) g/dL Hct (37-47) % MCV (80-100) fL MCH (25-34) pg MCHC (32-36) g/dL RDW Std Deviation (36.4-46.3) fL RDW Coeff of Nury (11.5-14.5) % Plt Count (130-400) K/uL MPV (7.4-10.4) fL Immature Gran % (Auto) % Neut % (Auto) % Lymph % (Auto) % York % (Auto) % Eos % (Auto) % Baso % (Auto) % Immature Gran # (Auto) (0.00-0.02) K/uL Neut # (Auto) (1.4-6.5) K/uL Lymph # (Auto) (1.2-3.4) K/uL York # (Auto) (0.11-0.59) K/uL Eos # (Auto) (0-0.5) K/uL Baso # (Auto) (0-0.2) K/uL PT (9.0-12.0) Seconds INR (0.9-1.1) APTT (21.0-31.0) Seconds PTT Ratio Sodium (136-145) mmol/L Potassium Cancelled 4.7 (3.5-5.1) mmol/L Chloride (98-107) mmol/L Carbon Dioxide (21-32) mmol/L Anion Gap (3-11) BUN (7-18) mg/dl Creatinine (0.6-1.2) mg/dl Est Cr Clr Drug Dosing Est GFR ( Amer) Est GFR (Non-Af Amer) BUN/Creatinine Ratio (10-20) Glucose (70-99) mg/dl POC Glucose 196 H (70-99) Calcium (8.5-10.1) mg/dl Magnesium (1.8-2.4) mg/dl Total Bilirubin (0.2-1) mg/dl AST (15-37) U/L ALT (12-78) U/L Alkaline Phosphatase (45-117) U/L Troponin I (0-0.045) ng/ml Total Protein (6.4-8.2) gm/dl Albumin (3.4-5.0) gm/dl Globulin (2.5-4.0) gm/dl Albumin/Globulin Ratio (0.9-2) Imaging Data Radiologist's Impression: Radiology results as stated below per my review and the radiologist's interpretation: XR chest 1V portable HISTORY: Atypical chest pain. COMPARISON: Chest 02/03/2019. FINDINGS: No pneumothorax. The heart remains mildly enlarged. Moderate pulmonary edema and small bilateral pleural effusions and bibasilar densities have progressed. Surgical clips within the left axilla. There are mitral annulus calcifications. IMPRESSION: Interval progression of the moderate pulmonary edema and small bilateral pleural effusions/densities. Electronically signed by: Jb Doshi M.D. 02/19/2019 1:08 PM ECG Data Attestation: I personally reviewed and interpreted this ECG as follows: Indication: chest pain Rate (beats per minute): 110 Rhythm: atrial fibrillation Findings: + other (old septal infarct); no PVC and no ST elevation Comparison ECG Date: from (02/03/19) Change: the following changes noted (afib and increased rate compared to aflutter) Blood Pressure Blood Pressure Findings: Normal blood pressure MDM Narrative There is a slight elevation to the white blood cell count at 13, this could be consistent with infection or possibly just the stress of her situation. No concerning anemia. INR is elevated at around 3, this is consistent with her Coumadin use. There was some renal insufficiency noted with a creatinine of 1.5. No significant electrolyte abnormality requiring emergent correction. No evidence for hepatitis. Chest film shows bilateral pleural effusions and CHF. No pneumothorax, no pneumonia. EKG shows atrial fibrillation, she was slightly tachycardic. No acute ischemic change. Cardiac enzyme testing x1 did not show evidence for acute cardiac injury. The patient received IV Lopressor for the faster heart rate. She was given IV Lasix to help with diuresis. No additional nitroglycerin was given as the majority of her discomfort had resolved. The patient requires a hospital stay. She appears to be in a rapid A. fib. She is fluid overloaded and in some mild CHF. She does present with precordial chest pain which resolved with nitroglycerin prior to arrival. I did speak to the patient and case management. The on-call hospitalist was consulted. The patient is currently resting comfortably. Impression & Plan Atrial fibrillation, rapid, CHF (congestive heart failure), Chest pain, precordial Discharge Plan Visit Data Chief Complaint: Chest Pain Stated Complaint: Shortness of breath, chest pain ED Provider: Rm Mccall Discharge Problem: Atrial fibrillation, rapid, CHF (congestive heart failure), Chest pain, precordial Patient Disposition: Being Evaluated by Hospitalist Discharge Instructions Interventions: ED Discharge Assessment Last Done: 02/19/19 15:39 Discharge Problem: CHF (congestive heart failure) Qualifiers: Heart failure type: unspecified Heart failure chronicity: acute Qualified Code(s): I50.9 - Heart failure, unspecified The scribe's documentation has been prepared under my direction and personally reviewed by me in its entirety. I confirm that the note above accurately reflects all work, treatment, procedures, and medical decision making performed by me.
[2019-02-19] MEDS ORDERED: Nursing to Pharmacy Communication ONE (17:18)
[2019-02-19] MEDS: WARFARIN SOD 1 MG TAB PO SCH (17:36)
[2019-02-19] MEDS: METOPROLOL TARTRATE 50 MG TAB PO SCH (19:38)
[2019-02-19] MEDS: INSULIN GLARGINE SOLOSTAR 100 UNITS/ML 3 ML PEN SQ SCH (21:18)
[2019-02-19] MEDS: INSULIN ASPART 100 UNITS/ML 3 ML PEN SC SCH (21:19)
[2019-02-20 07:28] LABS: INR 2.8 (0.9-1.1); Prothrombin Time 27.1 Seconds (9.0-12.0)
[2019-02-20 07:55] LABS: BUN Creatinine Ratio 18.5 (10-20); Calcium 8.9 mg/dl (8.5-10.1); Potassium 4.4 mmol/L (3.5-5.1)
[2019-02-20] MEDS: PRAVASTATIN SOD 40 MG TAB PO SCH (08:04)
[2019-02-20] MEDS: METOPROLOL TARTRATE 50 MG TAB PO SCH ×2 (08:05→20:38)
[2019-02-20] MEDS: ASPIRIN 81 MG ECTAB PO SCH (08:05)
[2019-02-20] MEDS: ESCITALOPRAM OXALATE 10 MG TAB PO SCH (08:06)
[2019-02-20] MEDS: LETROZOLE 2.5 MG TAB PO SCH (08:06)
[2019-02-20] MEDS: LISINOPRIL 10 MG TAB PO SCH (08:06)
[2019-02-20] MEDS: INSULIN GLARGINE SOLOSTAR 100 UNITS/ML 3 ML PEN SQ SCH ×2 (08:07→20:40)
[2019-02-20] MEDS: INSULIN ASPART 100 UNITS/ML 3 ML PEN SC SCH ×4 (08:10→20:40)
[2019-02-20 08:22] LABS: Estimated Average Glucose 183 mg/dl
--- NOTE | 2019-02-20 15:40 | Hospitalist Progress Note ---
Date of Service February 20, 2019 Assessment & Plan (1) Atrial fibrillation: Afib with RVR to the 100-120 range on admission. - Increased metop to 75mg PO BID on admission; rates now in the 60s. - Continue anticoagulation with warfarin; INR of 2.8 on 02/20 (2) DM w/o complication type II: A1c was 8.0% on 02/20. - Continue home Lantus 14 units QAM & 20 units HS - Sliding scale insulin (3) CKD (chronic kidney disease): Chronic kidney disease stage III. Baseline Cr ~1.5; eGFR ~30. - Appropriate renal dose adjustment will be made watching her with intravenous diuresis to avoid acute renal failure - Monitor Cr (4) HTN (hypertension): BP has been at goal (~110/70) since admission. - Continue regimen - Lowered lisinopril for increase in metoprolol (5) Breast cancer: Patient is on a hormonal suppressive agent for breast cancer. Some level of concern for radiation pneumonitis; however, less so at this time. - Outpatient follow up (6) Iron deficiency anemia: Patient typically is on iron supplementation; however, held on admission. - Restart as needed or consider IV iron as PO iron is poorly absorbed and largely useless. (7) DVT prophylaxis: On anticoagulation for her afib Subjective Seen today. Without any major distress. Breathing comfortably. Reports some fatigue. Reports no fevers/chills, chest pain, shortness of breath, abdominal pain, nausea, or vomiting. Review of Systems Review of Systems: All systems reviewed & are unremarkable except as noted in HPI & below Physical Exam Constitutional: WD/WN, vitals as above Eyes: EOM intact bilaterally; no conjunctival abnormality ENMT: external ear and nose normal, oropharynx normal Neck: trachea midline, no thyromegaly normal visual inspection Respiratory: normal respiratory effort, lungs clear to auscultation no respiratory distress Cardiovascular: RRR, no murmur, no edema Gastrointestinal (Abdomen): Inspection/Auscultation: abdomen normal to inspection; abdomen not distended Musculoskeletal: no cyanosis or clubbing, extremities motor strength 5/5 Skin: no rashes, warm and dry Neurologic: moves all extremities and awake Psychiatric: Orientation: alert, oriented to person and cooperative Results & Data Vital Signs (Past 12 Hours) Vital Signs Temp Pulse Pulse Resp BP Pulse Ox 02/20/19 14:50 36.6 C 66 20 115/69 95 02/20/19 11:22 36.6 C 64 18 113/70 95 02/20/19 07:44 36.6 C 65 18 95/56 L 98 02/20/19 07:30 65 02/20/19 04:10 36.4 C L 65 17 121/55 L 98 (1) CKD (chronic kidney disease) Chronic kidney disease stage: stage 3 (moderate) Qualified Code(s): N18.3 - Chronic kidney disease, stage 3 (moderate) (2) HTN (hypertension) Hypertension type: essential hypertension Qualified Code(s): I10 - Essential (primary) hypertension (3) Breast cancer Breast location: unspecified site of breast Estrogen receptor status: unspecified Patient sex: female Laterality: left Qualified Code(s): C50.912 - Malignant neoplasm of unspecified site of left female breast
[2019-02-20] MEDS: WARFARIN SOD 1 MG TAB PO SCH (16:11)
[2019-02-20] MEDS ORDERED: ALUMINUM/MAGNESIUM SUSP 30 ML UDC PO PRN (16:16)
[2019-02-21] MEDS: CARBOHYDRATES FOR HYPOGLYCEMIA PO PRN ×2 (07:05→07:27)
[2019-02-21] MEDS: INSULIN ASPART 100 UNITS/ML 3 ML PEN SC SCH ×4 (07:28→21:00)
[2019-02-21 07:48] LABS: Hematocrit (blood only) 34.5 % (37-47); Hemoglobin 11.2 g/dL (12.0-16.0); Mean Corpuscular Hgb Conc 32.5 g/dL (32-36); Mean Corpuscular Volume 95.8 fL (80-100); Mean Platelet Volume 11.4 fL (7.4-10.4); Platelet Count 276 K/uL (130-400); RDW Coefficient of Variation 14.9 % (11.5-14.5); RDW Standard Deviation 52.6 fL (36.4-46.3); White Blood Count 8.32 K/uL (4.8-10.8)
[2019-02-21 07:55] LABS: INR 2.6 (0.9-1.1); Prothrombin Time 24.6 Seconds (9.0-12.0)
[2019-02-21] MEDS: LISINOPRIL 10 MG TAB PO SCH (08:24)
[2019-02-21] MEDS: ASPIRIN 81 MG ECTAB PO SCH (08:24)
[2019-02-21] MEDS: LETROZOLE 2.5 MG TAB PO SCH (08:24)
[2019-02-21] MEDS: INSULIN GLARGINE SOLOSTAR 100 UNITS/ML 3 ML PEN SQ SCH ×2 (08:25→21:00)
[2019-02-21] MEDS: PRAVASTATIN SOD 40 MG TAB PO SCH (08:25)
[2019-02-21] MEDS: ESCITALOPRAM OXALATE 10 MG TAB PO SCH (08:25)
[2019-02-21] MEDS: METOPROLOL TARTRATE 50 MG TAB PO SCH ×2 (08:25→20:59)
[2019-02-21 08:35] LABS: BUN Creatinine Ratio 23.4 (10-20); Creatinine Clr Calc Pharmacy 25.8 ml/min; Est GFR (African American) 33.5; Est GFR (Non-African American) 28.9; Potassium 4.2 mmol/L (3.5-5.1)
--- NOTE | 2019-02-21 14:50 | Hospitalist Progress Note ---
Date of Service February 21, 2019 Assessment & Plan (1) Atrial fibrillation: Afib with RVR to the 100-120 range on admission. - Increased metop to 75mg PO BID on admission; rates now in the 60s. - Continue anticoagulation with warfarin; INR of 2.6 on 02/21 (2) DM w/o complication type II: A1c was 8.0% on 02/20. - On 02/21 in the AM, blood sugars were down in the 50s. AM Lantus held. Will stop it all together to avoid further hypoglycemia. - Continue home Lantus 20 units HS, but hold the 14 units QAM - Sliding scale insulin (3) CKD (chronic kidney disease): Chronic kidney disease stage III. Baseline Cr ~1.5; eGFR ~30. - Renally dose meds - Monitor Cr; presently at baseline. (4) HTN (hypertension): BP has been at goal (~110/70) since admission. - Continue regimen - Lowered lisinopril for increase in metoprolol (5) Breast cancer: Patient is on a hormonal suppressive agent for breast cancer. Some level of concern for radiation pneumonitis; however, less so at this time. - Outpatient follow up (6) Iron deficiency anemia: Patient typically is on iron supplementation; however, held on admission. - Restart as needed or consider IV iron as PO iron is poorly absorbed and largely useless. (7) DVT prophylaxis: On anticoagulation for her afib Subjective Doing well this morning. Mildly short of breath, but she feels this is at baseline. Reports no fevers/chills, chest pain, abdominal pain, nausea, or vomiting. Physical Exam Constitutional: WD/WN, vitals as above Eyes: EOM intact bilaterally; no conjunctival abnormality ENMT: external ear and nose normal, oropharynx normal Neck: trachea midline, no thyromegaly normal visual inspection Respiratory: normal respiratory effort, lungs clear to auscultation no respiratory distress Cardiovascular: RRR, no murmur, no edema Gastrointestinal (Abdomen): Inspection/Auscultation: abdomen normal to inspection; abdomen not distended Musculoskeletal: no cyanosis or clubbing, extremities motor strength 5/5 Skin: no rashes, warm and dry Neurologic: moves all extremities and awake Psychiatric: Orientation: alert, oriented to person and cooperative Results & Data Vital Signs (Past 12 Hours) Vital Signs Temp Pulse Resp BP Pulse Ox 02/21/19 10:50 36.5 C 64 16 100/65 99 02/21/19 07:33 36.6 C 70 18 101/66 95 02/21/19 04:00 36.6 C 66 18 111/69 98 (1) CKD (chronic kidney disease) Chronic kidney disease stage: stage 3 (moderate) Qualified Code(s): N18.3 - Chronic kidney disease, stage 3 (moderate) (2) HTN (hypertension) Hypertension type: essential hypertension Qualified Code(s): I10 - Essential (primary) hypertension (3) Breast cancer Breast location: unspecified site of breast Estrogen receptor status: unspecified Patient sex: female Laterality: left Qualified Code(s): C50.912 - Malignant neoplasm of unspecified site of left female breast
[2019-02-21] MEDS ORDERED: WARFARIN SOD 2 MG TAB PO SCH (16:00)
[2019-02-22 07:06] LABS: INR 2.4 (0.9-1.1)
[2019-02-22] MEDS: CARBOHYDRATES FOR HYPOGLYCEMIA PO PRN (07:22)
[2019-02-22] MEDS: INSULIN ASPART 100 UNITS/ML 3 ML PEN SC SCH ×2 (07:24→12:44)
[2019-02-22 07:31] LABS: BUN Creatinine Ratio 23.9 (10-20); Calcium 8.8 mg/dl (8.5-10.1); Creatinine Clr Calc Pharmacy 26.6 ml/min; Est GFR (African American) 34.9; Est GFR (Non-African American) 30.1
[2019-02-22] MEDS: ASPIRIN 81 MG ECTAB PO SCH (09:11)
[2019-02-22] MEDS: ESCITALOPRAM OXALATE 10 MG TAB PO SCH (09:11)
[2019-02-22] MEDS: LETROZOLE 2.5 MG TAB PO SCH (09:11)
[2019-02-22] MEDS: LISINOPRIL 10 MG TAB PO SCH (09:11)
[2019-02-22] MEDS: PRAVASTATIN SOD 40 MG TAB PO SCH (09:11)
[2019-02-22] MEDS: METOPROLOL TARTRATE 50 MG TAB PO SCH (09:12)
--- NOTE | 2019-02-22 12:58 | Hospitalist Progress Note ---
Date of Service February 22, 2019 Assessment & Plan (1) Atrial fibrillation: Afib with RVR to the 100-120 range on admission. - Increased metop to 75mg PO BID on admission; rates now in the 60s. - Continue anticoagulation with warfarin; INR of 2.4 on 02/22 (2) DM w/o complication type II: A1c was 8.0% on 02/20. - On 02/21 in the AM, blood sugars were down in the 50s. AM Lantus held. - On 02/22 in the AM, her blood sugars was again in the 40s. - Dropped Lantus all the way down to 5 units HS - Given she pops up throughout the day, I did increase her sliding scale coverage to try to counteract this. - Sliding scale insulin (3) CKD (chronic kidney disease): Chronic kidney disease stage III. Baseline Cr ~1.5; eGFR ~30. - Renally dose meds - Monitor Cr; presently at baseline. (4) HTN (hypertension): BP has been at goal (~110/70) since admission. - Continue regimen - Lowered lisinopril for increase in metoprolol (5) Breast cancer: Patient is on a hormonal suppressive agent for breast cancer. Some level of concern for radiation pneumonitis; however, less so at this time. - Outpatient follow up (6) Iron deficiency anemia: Patient typically is on iron supplementation; however, held on admission. - Restart as needed or consider IV iron as PO iron is poorly absorbed and largely useless. (7) DVT prophylaxis: On anticoagulation for her afib Subjective Feeling well today. Some mild shortness of breath, but nothing off of baseline. Reports no fevers/chills, chest pain, abdominal pain, nausea, or vomiting. Physical Exam Constitutional: WD/WN, vitals as above Eyes: EOM intact bilaterally; no conjunctival abnormality ENMT: external ear and nose normal, oropharynx normal Neck: trachea midline, no thyromegaly normal visual inspection Respiratory: normal respiratory effort, lungs clear to auscultation no respiratory distress Cardiovascular: RRR, no murmur, no edema Gastrointestinal (Abdomen): Inspection/Auscultation: abdomen normal to inspection; abdomen not distended Musculoskeletal: no cyanosis or clubbing, extremities motor strength 5/5 Skin: no rashes, warm and dry Neurologic: moves all extremities and awake Psychiatric: Orientation: alert, oriented to person and cooperative Results & Data Vital Signs (Past 12 Hours) Vital Signs Temp Pulse Resp BP Pulse Ox 02/22/19 10:51 36.5 C 66 18 97/60 L 97 02/22/19 07:47 36.7 C 65 19 121/62 100 02/22/19 03:22 36.7 C 66 17 104/65 98 (1) CKD (chronic kidney disease) Chronic kidney disease stage: stage 3 (moderate) Qualified Code(s): N18.3 - Chronic kidney disease, stage 3 (moderate) (2) HTN (hypertension) Hypertension type: essential hypertension Qualified Code(s): I10 - Essential (primary) hypertension (3) Breast cancer Breast location: unspecified site of breast Estrogen receptor status: unspecified Patient sex: female Laterality: left Qualified Code(s): C50.912 - Malignant neoplasm of unspecified site of left female breast
--- NOTE | 2019-02-22 15:04 | Discharge Summary ---
Date of Service February 22, 2019 Admission HPI Per Admitting Provider 88-year-old female who was readmitted to the facility with acute on chronic diastolic heart failure from atrial fibrillation with rapid ventricular response and an acute respiratory failure with hypoxia secondary to this condition Patient is demented and still believe she is at home although she resides at [facility] she was hospitalized most recently with a similar episode at which time the atrial fibrillation was diagnosed, she was placed on anticoagulation, and rate control with metoprolol. She was also put on daily diuretic therapy at that time She is here with decompensation of her above problems. I did discuss the case with her son at the time of admission as last time we discussed palliative care as the patient states she does not want to come to the hospital anymore and she had some challenges with stating she wanted to . At this time the son is not made any final determinations of proceeding to palliative care in fact is not even discussed the pulsed form with his family although he said he will do so tonight. At this juncture the patient is still a full code Principal Diagnosis Afib with RVR Discharge Exam Constitutional WD/WN, vitals as above Eyes EOM intact bilaterally; no conjunctival abnormality ENMT external ear and nose normal, oropharynx normal Neck trachea midline, no thyromegaly normal visual inspection Respiratory normal respiratory effort, lungs clear to auscultation no respiratory distress Cardiovascular RRR, no murmur, no edema Gastrointestinal (Abdomen) Inspection/Auscultation: abdomen normal to inspection; abdomen not distended Musculoskeletal no cyanosis or clubbing, extremities motor strength 5/5 Skin no rashes, warm and dry Neurologic moves all extremities and awake Psychiatric Orientation: alert, oriented to person and cooperative Discharge Data Allergies Allergy/AdvReac Type Severity Reaction Status Date / Time Penicillins Allergy Intermediate Unknown Verified 02/19/19 13:24 Consultations 02/19/19 14:16 ED Decision to Admit Stat 02/19/19 16:15 Consult Case Management - Discharge Planning Routine Hospital Course (1) Atrial fibrillation: Afib with RVR to the 100-120 range on admission. - Increased metop to 75mg PO BID on admission; rates now in the 60s. - Continued anticoagulation with warfarin; INR of 2.4 on 02/22 (2) DM w/o complication type II: A1c was 8.0% on 02/20. - On 02/21 in the AM, blood sugars were down in the 50s. AM Lantus held. - On 02/22 in the AM, her blood sugars was again in the 40s. - Dropped Lantus all the way down to 10 units HS - Given she pops up throughout the day, I did increase her sliding scale coverage to try to counteract this. - Sliding scale insulin (3) CKD (chronic kidney disease): Chronic kidney disease stage III. Baseline Cr ~1.5; eGFR ~30. - Cr was at baseline on discharge. (4) HTN (hypertension): BP has been at goal (~110/70) since admission. - Stopped lisinopril for increase in metoprolol. (5) Breast cancer: Patient is on a hormonal suppressive agent for breast cancer. Some level of concern for radiation pneumonitis; however, less so at this time. - Outpatient follow up (6) Iron deficiency anemia: Patient typically is on iron supplementation; however, held on admission. - Restart as needed or consider IV iron as PO iron is poorly absorbed and largely useless. (7) DVT prophylaxis: On anticoagulation for her afib Total Time Total Time Spent Total Time Spent (In Minutes): 35 Total Time Includes: Examination of the Patient, Discharge Planning and Medication Reconciliation Discharge Plan Discharge Items Patient Disposition: Transfer Care Home Fac Reason For Visit: AFIB RVR Discharge Diagnosis: Atrial fibrillation (afib) with rapid heart rate Discharge Goals: Decrease discomfort and Diagnostic testing Activity: Resume your previous activity Non-emergency contact: Primary Care Provider and Sustainability Executive Director Call non-emergency contact if: you have any medication questions, your symptoms worsen and your pain is not controlled Follow-up/Referrals: Graham Bateman [facility] [Primary Care Provider] - Diet: Heart Healthy Add Provider Instructions: Ms. Mahan was admitted for fast heart rate from her atrial fibrillation. We increased her metoprolol to help control the rate. She got 1 dose of Lasix at 20mg IV which kept her volume status under control. She had low blood sugars several mornings, so her long-acting insulin was reduced with an increase in her mealtime bolus insulin as it was with meals that she went higher. Her lisinopril was stopped to avoid low blood pressures when her metoprolol was increased to better control her heart rate. Her INR was 2.4 on discharge, and her Lovenox injections were not needed. Her INR should be checked in 3 days. Prescriptions: Continued buspirone 5 mg tablet 5 mg PO [id number] RF: 0 acetaminophen [Tylenol] 325 mg Tablet 650 mg PO Q4H MDD 3600 MG APAP/24 HOURS PRN (Reason: Fever Or Pain) RF: 0 aspirin 81 mg Tablet,Delayed Release (Dr/Ec) 81 mg PO QAM RF: 0 ferrous sulfate 325 mg (65 mg iron) Tablet 325 mg PO 1400 RF: 0 buspirone 10 mg tablet 10 mg PO HS RF: 0 letrozole 2.5 mg tablet 2.5 mg PO QAM RF: 0 Novolog Flexpen U-100 Insulin 100 unit/mL (3 mL) insulin pen 4 unit subcut QAM RF: 0 calcium carbonate-vitamin D3 [Calcium 600 + D(3)] 600 mg(1,500mg) -400 unit Tablet 1 tab PO QAM RF: 0 diclofenac sodium 1 % gel 2 g topical Q8H PRN (Reason: Pain) RF: 0 ProAir RespiClick 90 mcg/actuation Aerosol Powdr Breath Activated 2 inh INHALATION Q5H PRN (Reason: Dyspnea) RF: 0 Novolog U-100 Insulin aspart 100 unit/mL solution 7 unit subcut PM RF: 0 ranitidine HCl 150 mg Tablet 150 mg PO .ONE TIME RF: 0 nitroglycerin [Nitrostat] 0.4 mg Tablet, Sublingual 0.4 mg sublingual UD RF: 0 warfarin 1 mg Tablet 1 mg PO 3XWK RF: 0 warfarin 1 mg Tablet 2 mg PO 4XWK RF: 0 Novolog Flexpen U-100 Insulin 100 unit/mL (3 mL) insulin pen 6 unit subcut QDL RF: 0 Novolog Flexpen U-100 Insulin 100 unit/mL (3 mL) insulin pen subcut .SLIDING SCALE RF: 0 escitalopram oxalate [Lexapro] 5 mg Tablet 10 mg PO QAM RF: 0 furosemide 20 mg Tablet 20 mg PO QAM Qty: 30 RF: 0 Changed Lantus U-100 Insulin 100 unit/mL Solution 10 unit SUBCUT HS Qty: 0 RF: 0 metoprolol tartrate 50 mg tablet 75 mg PO BID Qty: 0 RF: 0 Discontinued Lantus U-100 Insulin 100 unit/mL Solution 14 units SUBCUT QAM RF: 0 pravastatin 40 mg tablet 40 mg PO QAM RF: 0 lisinopril 20 mg tablet 20 mg PO QAM RF: 0 warfarin 1 mg Tablet 2 mg PO WK RF: 0 warfarin 1 mg Tablet 1 mg PO 2XWK RF: 0 enoxaparin 100 mg/mL Syringe 90 mg subcut Q24H Qty: 10 RF: 0 Stand-Alone Forms: [facility] Discharge Orders: Discharge Order (Routine); Ordered 02/22/19 Ordered By: Humberto Sauceda Skilled Items Patient informed of condition?: Yes DNR: No Discharge Level of Care: Skilled Communicable Disease: No Discharge Prognosis: Stable Admission Data Admit Date/Time: 02/19/19 15:04 Attending Provider: Humberto Sauceda Admit Provider: Michele Craft Primary Care Provider: Graham Bateman [facility] Other Providers: Humberto Sauceda Service: Telemetry
[2019-02-22] MEDS ORDERED: INSULIN GLARGINE SOLOSTAR 100 UNITS/ML 3 ML PEN SQ SCH (21:00)
== END 2019-02-22 16:03 | DRG 308 ==
LOC: ED 12:10 → SUATTDRO 15:04 → 2S 15:04

== ENCOUNTER 2019-05-05 11:20 | Inpatient (IN) ==
[2019-05-05] MEDS ORDERED: ALBUT/IPRATROP 3MG/0.5MG NEB 3 ML VIAL INH STA (11:31)
[2019-05-05] MEDS ORDERED: methylPREDNISolone 125 MG/2 ML VIAL IV STA (11:31)
[2019-05-05 11:55] LABS: HCO3 ABG 39 mmol/L (19-24); Oxygen Saturation ABG 96.8 % (90-95); PCO2 ABG 70 mmHg (35-46); PO2 ABG 98 mm/Hg (80-95); pH ABG 7.37 (7.35-7.45)
[2019-05-05 12:26] LABS: Basophils # (auto) 0.01 K/uL (0-0.2); Basophils % (auto) 0.1 %; Eosinophils # (auto) 0.02 K/uL (0-0.5); Eosinophils % (auto) 0.2 %; Hematocrit (blood only) 34.9 % (37-47); Hemoglobin 10.5 g/dL (12.0-16.0); Immature Granulocytes # (auto) 0.04 K/uL (0.00-0.02); Immature Granulocytes % (auto) 0.4 %; Lymphocytes # (auto) 0.82 K/uL (1.2-3.4); Lymphocytes % (auto) 8.4 %; Mean Corpuscular Hgb Conc 30.1 g/dL (32-36); Mean Corpuscular Volume 103.6 fL (80-100); Monocytes # (auto) 0.52 K/uL (0.11-0.59); Monocytes % (auto) 5.3 %; Neutrophils # (auto) 8.35 K/uL (1.4-6.5); Neutrophils % (auto) 85.6 %; Platelet Count 294 K/uL (130-400); RDW Standard Deviation 64.1 fL (36.4-46.3); Red Blood Count 3.37 M/uL (4.2-5.4); White Blood Count 9.76 K/uL (4.8-10.8)
--- NOTE | 2019-05-05 12:41 | XRay Report ---
SINGLE VIEW CHEST CLINICAL HISTORY: Dyspnea. FINDINGS: An AP, portable, upright chest radiograph is compared to study dated 04/26/2019 and correlate d with chest CT dated 04/04/2019. The examination is degraded by portable technique and patient rotati on. The examination is degraded by portable technique and patient rotation. The heart is enlarged an d there is atherosclerotic calcification of the thoracic aorta. There is pulmonary vessel congestion and interstitial edema. The mitral annulus is densely calcified. There are layering pleural effusions with bibasilar consolidation. No pneumothorax is seen. The skeletal structures are osteopenic. The b emiliano thorax is grossly intact. Surgical clips are noted in the left axilla. Degenerative change is not ed in the shoulders. IMPRESSION: 1. Cardiomegaly with evidence of congestive failure and interstitial edema. 2. There are layering pleural effusions with bibasilar consolidation which likely represents atelecta sis. Correlate clinically for evidence of superimposed pneumonia. Electronically signed by: Rm Metzger M.D. 05/05/2019 12:40 PM
[2019-05-05 12:47] LABS: Partial Thromboplastin Ratio 2.6; Prothrombin Time 54.1 Seconds (9.0-12.0)
[2019-05-05 12:50] LABS: Partial Thromboplastin Time 70.6 Seconds (21.0-31.0)
[2019-05-05 13:00] LABS: Alanine Aminotransferase 29 U/L (12-78); Albumin Globulin Ratio 0.6 (0.9-2); Albumin Level 2.6 gm/dl (3.4-5.0); Alkaline Phosphatase 68 U/L (45-117); Aspartate Aminotransferase 25 U/L (15-37); BUN Creatinine Ratio 15.4 (10-20); Bilirubin,Total 0.5 mg/dl (0.2-1); Blood Urea Nitrogen 21 mg/dl (7-18); Calcium 9.2 mg/dl (8.5-10.1); Carbon Dioxide 40 mmol/L (21-32); Chloride 96 mmol/L (98-107); Est GFR (African American) 40.6; Globulin 4.2 gm/dl (2.5-4.0); Glucose 282 mg/dl (70-99); Potassium 4.7 mmol/L (3.5-5.1); Sodium 139 mmol/L (136-145); Total Protein 6.8 gm/dl (6.4-8.2); Troponin I 0.038 ng/ml (0-0.045)
[2019-05-05 13:10] LABS: Allen Test Pos (Pos)
[2019-05-05 13:13] LABS: Appearance Urine Clear (Clear); Bacteria Urine Automated 4+ (Negative); Bilirubin Urine Negative (Negative); Color Urine Yellow; Epithelial Cell Urine Auto 0-5 /lpf (0-5); Glucose Urine UA Negative (Negative); Ketones Urine Negative (Negative); Leukocyte Esterase Urine 1+ (Negative); Nitrite Urine Positive (Negative); Protein Urine Negative (Negative); Specific Gravity Urine 1.019 (1.000-1.030); Urobilinogen Urine Negative (Negative); pH Urine 5.5 (4.5-7.5)
[2019-05-05] MEDS ORDERED: NITROGLYCERIN 2% OINTMENT 30GM TUBE EXT STA (13:47)
[2019-05-05] MEDS ORDERED: FUROSEMIDE 20 MG in SYRINGE 0 ML IV ONE ×2 (13:47→16:30)
[2019-05-05] MEDS ORDERED: VANCOMYCIN CONSULT ACTIVE PRN (13:48)
[2019-05-05] MEDS ORDERED: CEFEPIME 2,000 MG/20 ML VIAL IV STA (13:48)
[2019-05-05] MEDS ORDERED: VANCOMYCIN HCL 2,000 MG in SODIUM CHLORIDE 0.9% 500 ML IV ONE (13:48)
[2019-05-05] MEDS ORDERED: FUROSEMIDE 40 MG/4 ML VIAL IV ONE (13:52)
--- NOTE | 2019-05-05 15:16 | History & Physical Report ---
Date of Service May 05, 2019 Assessment & Plan (1) CHF (congestive heart failure): In exacerbation Was requiring BIPAP initially, now stable on NC Lasix in the ED, will give additional dosing this afternoon and continue with usual home dose in AM May need further additional doses Recent thoracentesis on 04/[address] Edwards, 1400cc removed (2) Acute respiratory failure with hypoxia: As above CXR noted, no PNA Unlikely PE given elevated INR on coumadin, will hold on CTA Started on vanc/cefepime in the ED, will continue cefepime for UTI and hold on further abx coverage (3) UTI (urinary tract infection): UA noted, cx pending Cefepime (4) Elevated troponin: Likely demand ischemia related to above Minimally elevated at 0.038, serials pending (5) DM w/o complication type II: continue home meds SSI PRN (6) Depression: continue home meds (7) Breast cancer: continue home meds (8) CKD (chronic kidney disease): Baseline cr is 1.5, 1.3 on admission Monitor with increased lasix use (9) HTN (hypertension): continue home meds (10) HLD (hyperlipidemia): continue home meds (11) Anxiety: continue home meds (12) Dementia: Family is trying to determine further course of care as pt's dementia is worsening (13) Afib: continue home meds (14) DVT prophylaxis: Supratherapeutic on coumadin, monitor History of Present Illness Primary Care Provider: Bhavana Stevenson at [place] 88 y/o F who was sent to the ED from [facility] for worsening SOB. Son states that pt has been on O2 regularly for the last few weeks. This AM, he received a call that she was needing more O2 and still SOB. He was asked if they wanted pt evaluated in the ED or to be made comfortable and he selected ED eval. Son states there were no other concerns from Matthew. He has received no other calls regarding a change in health status over the last week. He had no been in to see pt since last Monday. Daughter states she saw pt last about 2 weeks ago. They both state that due to pt's dementia, she does not generally make valid statements about her status. "She might complain about something, but it was from 50 years ago, so we never know." There had been nothing that they were aware of however. They deny that they were told of any fever, chest pain, abd pain, n/v/c/d, LE pain or swelling. They believe she is eating without issue at . Pt denies fever, chest pain, abd pain, n/v/c/d, LE pain or swelling. Pt was tx in the ED with BIPAP, lasix 20mg IV, nitro paste, and abx. She states that she still feels some SOB, but better than earlier today. Family feels she is much improved. She is now on NC. Pt was just d/c'd on 04/24 for tx of afib with RVR. She also had 1400cc of fluid taken off with Dr. Edwards on 04/26 as an outpt. Son and daughter state that pt used to live outside of [facility], however they moved her here about 1.5 yrs ago due to dementia and other health issues. They state that she was having issues with knowing where she was prior, but since this move it has gotten worse. She is also never oriented to time. Her dementia has worse tres since the of their brother on 03/23. During last admission there was discussion about possible palliative care, however no conclusion was made and pt was d/c'd to . They were given a POLST form to discuss prior to d/c, however they had not been able to meet to discuss. They are requesting a POLST today to fill out. Allergies Allergy/AdvReac Type Severity Reaction Status Date / Time Penicillins Allergy Intermediate Unknown Verified 05/05/19 13:27 Home Medications Home Medications Medication Instructions Recorded Confirmed Type Novolog Flexpen U-100 Insulin 8 unit SUBCUT QAM 01/12/19 05/05/19 History ProAir RespiClick 2 inh INHALATION Q5H PRN 01/12/19 05/05/19 History acetaminophen [Tylenol] 650 mg PO Q4H PRN MDD 3600 MG 01/12/19 05/05/19 History APAP/24 HOURS aspirin 81 mg PO QAM 01/12/19 05/05/19 History buspirone 5 mg PO BID17 01/12/19 05/05/19 History buspirone 10 mg PO HS 01/12/19 05/05/19 History calcium carbonate-vitamin D3 1 tab PO QAM 01/12/19 05/05/19 History [Calcium 600 + D(3)] diclofenac sodium 2 g TOPICAL Q8H PRN 01/12/19 05/05/19 History ferrous sulfate 325 mg PO 1400 01/12/19 05/05/19 History letrozole 2.5 mg PO QAM 01/12/19 05/05/19 History escitalopram oxalate [Lexapro] 10 mg PO QAM 02/03/19 05/05/19 History furosemide 20 mg PO QAM #30 tab 02/06/19 05/05/19 Rx Novolog Flexpen U-100 Insulin 10 unit SUBCUT QDL 02/19/19 05/05/19 History Novolog U-100 Insulin aspart 8 unit SUBCUT PM 02/19/19 05/05/19 History nitroglycerin [Nitrostat] 0.4 mg SUBLINGUAL UD 02/19/19 05/05/19 History warfarin 3 mg PO DAILY 02/19/19 05/05/19 History Lantus U-100 Insulin 10 unit SUBCUT HS #0 ml 02/22/19 05/05/19 Rx metoprolol tartrate 75 mg PO BID #0 tab 02/22/19 05/05/19 Rx Past Med/Surg History Medical History Breast cancer (Chronic) initial dx in (left breast); treated with lumpectomy and radiation; recurrent disease diagnosed 2 years ago; decision made NOT to pursue additional treatment CKD (chronic kidney disease) (Chronic) stage 3 HTN (hypertension) (Chronic) HLD (hyperlipidemia) (Chronic) Atrial fibrillation Chronic diastolic CHF (congestive heart failure) DM w/o complication type II Surgical History History of tonsillectomy History of appendectomy History of thoracentesis (Acute) History of lumbar surgery History of lumpectomy of left breast Family History Father Cancer ALS (amyotrophic lateral sclerosis) Mother , near age 90 Stroke Brother Myocardial infarction Social History Preferred Language: Yoruba Communication Ability: Impaired Beliefs That Will Affect Care: None marital status: / marital status details: ; 3 children Current Living Situation: Custodial Current Living Situation Comment: [facility] to [facility] personal care, 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 Feels Safe at Home: Declines to Answer Smoking Status: Former smoker Tobacco Type: cigarettes Cigarettes Per Day: quit 40 years ago Number of Years Since Quit: 30 Second Hand Exposure: No Hx Alcohol Use: No Hx Substance Use: No Review of Systems Review of Systems: Pertinent positives and negatives reviewed in HPI--all others negative Physical Exam Constitutional: WD/WN, vitals as above Eyes: normal visual echeverria by confrontation and + anicteric sclerae Neck: normal visual inspection and trachea midline Respiratory: normal respiratory effort; no respiratory distress Auscultation: + crackles; no wheezes Cardiovascular: Rate/Rhythm: regular rate and regular rhythm Gastrointestinal (Abdomen): Inspection/Auscultation: abdomen not distended Percussion/Palpation: abdomen soft; abdomen nontender Musculoskeletal: Head/Neck/Chest: normocephalic and head atraumatic negative for edema, peripheral pulses intact Skin: no rashes, warm and dry Neurologic: awake Speech / Cognition: normal speech Psychiatric: Orientation: oriented to person and cooperative; + not oriented to place (answers "no" when asked if she knows where she is) and + not oriented to time (answers "no" when asked if she knows the year) Eye Contact: good eye contact Speech: normal rate/rhythm/volume of speech Results & Data Vital Signs (Past 12 Hours) Vital Signs Temp Pulse Pulse Resp BP Pulse Ox 05/05/19 14:31 78 133/99 94 05/05/19 14:01 73 142/78 H 97 05/05/19 13:31 68 30 H 129/72 97 05/05/19 13:05 72 130/65 95 05/05/19 12:42 76 26 H 133/73 97 05/05/19 12:30 85 28 H 97 05/05/19 12:04 83 30 H 97 05/05/19 11:43 104 H 36 H 97 05/05/19 11:41 104 H 36 H 97 05/05/19 11:24 36.7 C 91 H 36 H 138/72 100 05/05/19 11:20 96 Diagnostic Findings CXR: CHF and likely atelectasis Code Status & VTE Plan Code Status DNR/DNI, POLST is being completed VTE Prophylaxis Plan VTE Prophylaxis will be ordered: Yes PG Care Time/CCT Total # of Minutes Spent Total Time Spent with Patient: Total time spent is greater than 50% in coordination of care (as documented) at patient's floor/unit and/or counseling patient: (1) CHF (congestive heart failure) Heart failure chronicity: unspecified Heart failure type: unspecified Qualified Code(s): I50.9 - Heart failure, unspecified (2) DM w/o complication type II Diabetes mellitus [facility] insulin use: with intermodal truck driver use Qualified Code(s): E11.9 - Type 2 diabetes mellitus without complications; Z79.4 - intermission coordinator (current) use of insulin (3) Depression Depression Type: other depression Qualified Code(s): F32.89 - Other specified depressive episodes (4) Breast cancer Breast location: unspecified site of breast Estrogen receptor status: unspecified Patient sex: female Laterality: left Qualified Code(s): C50.912 - Malignant neoplasm of unspecified site of left female breast (5) CKD (chronic kidney disease) Chronic kidney disease stage: stage 3 (moderate) Qualified Code(s): N18.3 - Chronic kidney disease, stage 3 (moderate) (6) HTN (hypertension) Hypertension type: essential hypertension Qualified Code(s): I10 - Essential (primary) hypertension (7) HLD (hyperlipidemia) Hyperlipidemia type: mixed hyperlipidemia Qualified Code(s): E78.2 - Mixed hyperlipidemia
[2019-05-05] MEDS ORDERED: DEXTROSE 50% 50 ML SYRINGE IV PRN (16:16)
[2019-05-05] MEDS ORDERED: GLUCAGON FOR INJ 1 MG VIAL SQ PRN (16:16)
[2019-05-05] MEDS ORDERED: CEFEPIME 2,000 MG in SYRINGE 7.5 ML IV SCH (16:16)
[2019-05-05] MEDS ORDERED: NITROGLYCERIN SL 0.4 MG/TAB TAB SL SCH (16:16)
[2019-05-05] MEDS ORDERED: CARBOHYDRATES FOR HYPOGLYCEMIA PO PRN (16:16)
[2019-05-05] MEDS ORDERED: ALBUTEROL HFA 8 GM INHALER INH PRN (16:16)
[2019-05-05] MEDS ORDERED: ACETAMINOPHEN 325 MG TAB PO PRN ×2 (16:16)
[2019-05-05] MEDS ORDERED: DICLOFENAC SOD 1% GEL 100 GM TUBE EXT PRN (16:16)
[2019-05-05] MEDS ORDERED: MAGNESIUM HYDROXIDE SUSP 30 ML UDC PO PRN (16:16)
[2019-05-05] MEDS ORDERED: ONDANSETRON INJ 2 MG/ML 2 ML VIAL IV PRN (16:16)
[2019-05-05] MEDS ORDERED: GLUCOSE 10 TABS/TUBE PO PRN (16:16)
[2019-05-05] MEDS ORDERED: GLUCOSE 40% GEL 15 GM TUBE PO PRN (16:16)
--- NOTE | 2019-05-05 17:18 | Emergency Department Note ---
Entered by Joey Betancourt acting as a scribe for Mikie Del Toro MD ED Provider Note CHIEF COMPLAINT: Difficulty breathing HISTORY OF PRESENT ILLNESS: The patient is a 88 year old female who presents to the Emergency Room via EMS with complaints of difficulty breathing. Per EMS, patient was very short of breath so he put her on 100% oxygen. He states when they got her moving around there was a lot of wheezing. The patient has CHF, COPD, and pneumonia. The patient also has taken all of her medications today. The patient just had a thoracentesis by Dr. Edwards on April 26. He removed 1400 mL of fluid from the left chest. Pt denies LOC, headache, fevers, chills, diaphoresis, visual changes, neck pain, chest pain, breathing difficulties, nausea, vomiting, abdominal pain, back pain, melena, hematochezia, urinary symptoms, numbness, weakness, lymphadenopathy, rash, or other complaints. REVIEW OF SYSTEMS: See HPI for pertinent positives and negatives. ROS limited due to medical acuity. PMHx/PSHx: COPD, CHF, pleural effusion, limited due to medical acuity. SOCIAL HISTORY: Patient lives at home. PHYSICAL EXAM: GENERAL: Increased work of breathing HENT: Normocephalic, atraumatic. Oropharynx unremarkable. EYES: PERRL. Normal conjunctiva. Sclera non-icteric. NECK: Inspection normal. Non-tender. Supple. No nuchal rigidity. FROM. No masses. RESPIRATORY: Tachypnea. Increased work of breathing. CARDIAC: Normal rate. Normal rhythm. No murmurs. No rubs. Extremities warm and well perfused. Pulses equal. No JVD. GI: Soft, non-distended. No tenderness to palpation. No rebound or guarding. No masses. RECTAL: Deferred. MUSCULOSKELETAL: Atraumatic. Chest examination reveals no tenderness. The back is symmetrical on inspection without obvious abnormality. There is no CVA tenderness to palpation. No joint edema. LOWER EXTREMITIES: Calves are equal size bilaterally and non-tender. 1+ edema in lower extremities. No discoloration. NEURO: Normal sensorium. No sensory or motor deficits noted. SKIN: No rash or jaundice noted. EMERGENCY DEPARTMENT COURSE: 1124: Past medical records reviewed. The patient was evaluated in room B01, and a complete history and physical examination were performed. 1221: I updated the patients family on the test results. 1352: I updated the family and the patient about test results. 1403: I spoke with Dr. Yang, [facility] Hospitalist, about the patient's case and she agreed to accept the patient for further evaluation. MEDICAL DECISION MAKING: Prior records/ancillary studies reviewed. Patient had 1400 mL removed via thoracentesis from the left side. Triage Nursing notes reviewed and agree them. Additional history obtained from the family and EMS. The patient's history was concerning for shortness of breath. Differential diagnosis: Etiologies such as pneumonia, COPD, reactive airway disease, pleural effusion, CHF, cardiac ischemia, pulmonary embolism, pneumothorax, musculoskeletal, infections, gastrointestinal, as well as others were entertained. Physical examination: Patient had significant increased work of breathing. She had poor air movement. ER treatment provided: DuoNeb Site Medrol BiPAP IV cefepime Vancomycin On reassessment the patient felt better. IV Lasix Nitropaste 0.5 inch to the chest wall. Diagnostic interpretation by me: The electrocardiogram was negative for skin change. The labs revealed an unremarkable CBC. No significant change from prior. Trop onin negative. INR was significantly elevated at 6.0. Lactic acid was elevated at 2.44. Patient's ABG revealed hypercarbia. Imaging studies: Chest x-ray chest imaging revealed pulmonary edema as well as concerns for infiltrate. Consultation: A consultation was placed with the hospitalist. The case was discussed and diagnostics were reviewed. The patient was evaluated in the ER for further tr eatment. CRITICAL CARE: I have personally spent greater than 31 minutes of critical care time in the direct management of this patient. This includes bedside care, interpretation of diagnostic studies, and testing, discussion with consultants, patient, and family members, and other required patient management activities. This 31 minutes is in excess of all separately billable procedures. IMPRESSION: Respiratory distress, supratherapeutic INR, lactic acidosis, CHF, PNA PLAN: Further management by hospitalist Impression & Plan Acute respiratory distress, CHF (congestive heart failure), PNA (pneumonia), Supratherapeutic INR, Acidosis, lactic Past Med/Surg History Medical History Breast cancer (Chronic) initial dx in (left breast); treated with lumpectomy and radiation; recurrent disease diagnosed 2 years ago; decision made NOT to pursue additional treatment CKD (chronic kidney disease) (Chronic) stage 3 HTN (hypertension) (Chronic) HLD (hyperlipidemia) (Chronic) Atrial fibrillation Chronic diastolic CHF (congestive heart failure) DM w/o complication type II Surgical History History of tonsillectomy History of appendectomy History of thoracentesis (Acute) History of lumbar surgery History of lumpectomy of left breast Family History Father Cancer ALS (amyotrophic lateral sclerosis) Mother , near age 90 Stroke Brother Myocardial infarction Social History Preferred Language: Angolan Communication Ability: Impaired Beliefs That Will Affect Care: None marital status: / marital status details: ; 3 children Current Living Situation: [facility] Current Living Situation Comment: recently moved from [place] to [place] [facility] personal care, 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 Feels Safe at Home: Declines to Answer Smoking Status: Former smoker Tobacco Type: cigarettes Cigarettes Per Day: quit 40 years ago Number of Years Since Quit: 30 Second Hand Exposure: No Hx Alcohol Use: No Hx Substance Use: No Results & Data Vital Signs Vital Signs - 24 hr 05/05/19 11:20 05/05/19 11:24 05/05/19 11:41 Temperature 36.7 C Temperature Source Axillary Sepsis Recent Fever Within 48 Hours No Sepsis New/Unexplained Change in Mental Status No Sepsis Action Taken by Nursing No Action Required Pulse Rate 91 H 104 H Pulse Rate [Apical] Pulse Rate from SpO2 Sensor Respiratory Rate 36 H 36 H Respiratory Effort / Characteristics Accessory Muscle Use Spontaneous Labored Short of Breath Respiratory Depth Deep Shallow Respiratory Pattern Tachypnea Tachypnea Blood Pressure 138/72 Blood Pressure Mean 94 Pulse Oximetry 96 100 97 Oxygen Delivery Method BiPAP Non-rebreather Oxygen Flow Rate 10 Fraction of Inspired Oxygen 40 40 05/05/19 11:43 05/05/19 12:04 05/05/19 12:30 Temperature Temperature Source Sepsis Recent Fever Within 48 Hours Sepsis New/Unexplained Change in Mental Status Sepsis Action Taken by Nursing Pulse Rate 83 85 Pulse Rate [Apical] 104 H Pulse Rate from SpO2 Sensor 87 87 Respiratory Rate 36 H 30 H 28 H Respiratory Effort / Characteristics Spontaneous Labored Short of Breath Respiratory Depth Respiratory Pattern Blood Pressure Blood Pressure Mean Pulse Oximetry 97 97 97 Oxygen Delivery Method BiPAP BiPAP BiPAP Oxygen Flow Rate Fraction of Inspired Oxygen 40 05/05/19 12:42 05/05/19 13:05 05/05/19 13:31 Temperature Temperature Source Sepsis Recent Fever Within 48 Hours Sepsis New/Unexplained Change in Mental Status Sepsis Action Taken by Nursing Pulse Rate 76 72 68 Pulse Rate [Apical] Pulse Rate from SpO2 Sensor 76 87 66 Respiratory Rate 26 H 30 H Respiratory Effort / Characteristics Respiratory Depth Respiratory Pattern Blood Pressure 133/73 130/65 129/72 Blood Pressure Mean 93 86 91 Pulse Oximetry 97 95 97 Oxygen Delivery Method BiPAP BiPAP BiPAP Oxygen Flow Rate Fraction of Inspired Oxygen 05/05/19 14:01 05/05/19 14:31 05/05/19 15:01 Temperature Temperature Source Sepsis Recent Fever Within 48 Hours Sepsis New/Unexplained Change in Mental Status Sepsis Action Taken by Nursing Pulse Rate 73 78 68 Pulse Rate [Apical] Pulse Rate from SpO2 Sensor 65 83 68 Respiratory Rate Respiratory Effort / Characteristics Respiratory Depth Respiratory Pattern Blood Pressure 142/78 H 133/99 123/67 Blood Pressure Mean 99 110 85 Pulse Oximetry 97 94 97 Oxygen Delivery Method Nasal Cannula Nasal Cannula Nasal Cannula Oxygen Flow Rate 3 3 3 Fraction of Inspired Oxygen Home Medications Current Medication List: was personally reviewed by me Laboratory Data Attestation: I reviewed the patient's lab results. Result diagrams: 05/05/19 12:13 05/05/19 12:13 Lab Results 05/05/19 05/05/19 05/05/19 Range/Units 11:45 12:13 12:13 WBC 9.76 (4.8-10.8) K/uL RBC 3.37 L (4.2-5.4) M/uL Hgb 10.5 L (12.0-16.0) g/dL Hct 34.9 L (37-47) % MCV 103.6 H (80-100) fL MCH 31.2 (25-34) pg MCHC 30.1 L (32-36) g/dL RDW Std Deviation 64.1 H (36.4-46.3) fL RDW Coeff of Nury 17.0 H (11.5-14.5) % Plt Count 294 (130-400) K/uL MPV 11.0 H (7.4-10.4) fL Immature Gran % (Auto) 0.4 % Neut % (Auto) 85.6 % Lymph % (Auto) 8.4 % [place] % (Auto) 5.3 % Eos % (Auto) 0.2 % Baso % (Auto) 0.1 % Immature Gran # (Auto) 0.04 H (0.00-0.02) K/uL Neut # (Auto) 8.35 H (1.4-6.5) K/uL Lymph # (Auto) 0.82 L (1.2-3.4) K/uL [place] # (Auto) 0.52 (0.11-0.59) K/uL Eos # (Auto) 0.02 (0-0.5) K/uL Baso # (Auto) 0.01 (0-0.2) K/uL PT 54.1 H (9.0-12.0) Seconds INR 6.0 H* (0.9-1.1) APTT 70.6 H* (21.0-31.0) Seconds PTT Ratio 2.6 ABG pH 7.37 (7.35-7.45) ABG pCO2 70 H (35-46) mmHg ABG pO2 98 H (80-95) mm/Hg ABG HCO3 39 H (19-24) mmol/L ABG O2 Saturation 96.8 H (90-95) % ABG Base Excess 11.6 H (-9-1.8) mEq/L Benito Test Pos (Pos) Barometric Pressure 733.4 mm/Hg Oxygen Given 40% Sodium (136-145) mmol/L Potassium (3.5-5.1) mmol/L Chloride (98-107) mmol/L Carbon Dioxide (21-32) mmol/L Anion Gap (3-11) BUN (7-18) mg/dl Creatinine (0.6-1.2) mg/dl Est Cr Clr Drug Dosing Est GFR ( Amer) Est GFR (Non-Af Amer) BUN/Creatinine Ratio (10-20) Glucose (70-99) mg/dl POC Lactic Acid David (0.90-1.70) mmol/L Calcium (8.5-10.1) mg/dl Magnesium (1.8-2.4) mg/dl Total Bilirubin (0.2-1) mg/dl AST (15-37) U/L ALT (12-78) U/L Alkaline Phosphatase (45-117) U/L Troponin I (0-0.045) ng/ml Total Protein (6.4-8.2) gm/dl Albumin (3.4-5.0) gm/dl Globulin (2.5-4.0) gm/dl Albumin/Globulin Ratio (0.9-2) Urine Color Urine Appearance (Clear) Urine pH (4.5-7.5) Ur Specific [place] (1.000-1.030) Urine Protein (Negative) Urine Glucose (UA) (Negative) Urine Ketones (Negative) Urine Blood (Negative) Urine Nitrite (Negative) Urine Bilirubin (Negative) Urine Urobilinogen (Negative) Ur Leukocyte Esterase (Negative) Urine WBC (Auto) (0-5) /hpf Urine RBC (Auto) (0-4) /hpf U Hyaline Cast (Auto) (0-5) /lpf U Epithel Cells (Auto) (0-5) /lpf Urine Bacteria (Auto) (Negative) 05/05/19 05/05/19 05/05/19 Range/Units 12:13 12:22 12:30 WBC (4.8-10.8) K/uL RBC (4.2-5.4) M/uL Hgb (12.0-16.0) g/dL Hct (37-47) % MCV (80-100) fL MCH (25-34) pg MCHC (32-36) g/dL RDW Std Deviation (36.4-46.3) fL RDW Coeff of Nury (11.5-14.5) % Plt Count (130-400) K/uL MPV (7.4-10.4) fL Immature Gran % (Auto) % Neut % (Auto) % Lymph % (Auto) % [place] % (Auto) % Eos % (Auto) % Baso % (Auto) % Immature Gran # (Auto) (0.00-0.02) K/uL Neut # (Auto) (1.4-6.5) K/uL Lymph # (Auto) (1.2-3.4) K/uL [place] # (Auto) (0.11-0.59) K/uL Eos # (Auto) (0-0.5) K/uL Baso # (Auto) (0-0.2) K/uL PT (9.0-12.0) Seconds INR (0.9-1.1) APTT (21.0-31.0) Seconds PTT Ratio ABG pH (7.35-7.45) ABG pCO2 (35-46) mmHg ABG pO2 (80-95) mm/Hg ABG HCO3 (19-24) mmol/L ABG O2 Saturation (90-95) % ABG Base Excess (-9-1.8) mEq/L Benito Test (Pos) Barometric Pressure mm/Hg Oxygen Given Sodium 139 (136-145) mmol/L Potassium 4.7 (3.5-5.1) mmol/L Chloride 96 L (98-107) mmol/L Carbon Dioxide 40 H (21-32) mmol/L Anion Gap 2.0 L (3-11) BUN 21 H (7-18) mg/dl Creatinine 1.34 H (0.6-1.2) mg/dl Est Cr Clr Drug Dosing Not Reportable Est GFR ( Amer) 40.6 Est GFR (Non-Af Amer) 35.0 BUN/Creatinine Ratio 15.4 (10-20) Glucose 282 H (70-99) mg/dl POC Lactic Acid David 2.44 H (0.90-1.70) mmol/L Calcium 9.2 (8.5-10.1) mg/dl Magnesium 2.0 (1.8-2.4) mg/dl Total Bilirubin 0.5 (0.2-1) mg/dl AST 25 (15-37) U/L ALT 29 (12-78) U/L Alkaline Phosphatase 68 (45-117) U/L Troponin I 0.038 (0-0.045) ng/ml Total Protein 6.8 (6.4-8.2) gm/dl Albumin 2.6 L (3.4-5.0) gm/dl Globulin 4.2 H (2.5-4.0) gm/dl Albumin/Globulin Ratio 0.6 L (0.9-2) Urine Color Yellow Urine Appearance Clear (Clear) Urine pH 5.5 (4.5-7.5) Ur Specific [place] 1.019 (1.000-1.030) Urine Protein Negative (Negative) Urine Glucose (UA) Negative (Negative) Urine Ketones Negative (Negative) Urine Blood 2+ H (Negative) Urine Nitrite Positive A (Negative) Urine Bilirubin Negative (Negative) Urine Urobilinogen Negative (Negative) Ur Leukocyte Esterase 1+ H (Negative) Urine WBC (Auto) 10-30 H (0-5) /hpf Urine RBC (Auto) 0-4 (0-4) /hpf U Hyaline Cast (Auto) 1-5 (0-5) /lpf U Epithel Cells (Auto) 0-5 (0-5) /lpf Urine Bacteria (Auto) 4+ H (Negative) Administered Medications Discontinued Medications Albuterol (Duoneb) 3 ml INH NOW STA Stop: 05/05/19 11:32 Last Admin: 05/05/19 11:40 Dose: 3 ml Documented by: [id number] Furosemide (Lasix) Confirm Administered Dose 40 mg IV .[employer] ONE Stop: 05/05/19 13:53 Last Admin: 05/05/19 14:00 Dose: 20 mg Documented by: [id number] Furosemide 20 mg/ Syringe 2 mls @ 4 mls/min IV ONE ONE Stop: 05/05/19 13:48 Last Admin: 05/05/19 14:01 Dose: Not Given Documented by: [id number] Vancomycin HCl 2,000 mg/ (Sodium Chloride) 540 mls @ 200 mls/hr IV NOW ONE; Protocol Stop: 05/05/19 16:29 Last Admin: 05/05/19 14:29 Dose: 200 mls/hr Documented by: [id number] Cefepime HCl (Maxipime) 2,000 mg in 20 mls @ 5 mls/min IV NOW STA; Protocol Stop: 05/05/19 13:51 Last Admin: 05/05/19 14:03 Dose: 5 mls/min Documented by: [id number] Methylprednisolone (Solumedrol) 125 mg IV NOW STA Stop: 05/05/19 11:32 Last Admin: 05/05/19 12:28 Dose: 125 mg Documented by: [id number] Nitroglycerin (Nitro-Bid 2%) 0.25 inch EXT NOW STA Stop: 05/05/19 13:48 Last Admin: 05/05/19 14:01 Dose: 0.25 inch Documented by: [id number] Imaging Data Attestation: I personally reviewed and interpreted this imaging study as follows: Radiologist's Impression: Radiology results have been interpreted by the radiologist and reviewed by me. SINGLE VIEW CHEST CLINICAL HISTORY: Dyspnea. FINDINGS: An AP, portable, upright chest radiograph is compared to study dated 04/26/2019 and correlated with chest CT dated 04/04/2019. The examination is degraded by portable technique and patient rotation. The examination is degraded by portable technique and patient rotation. The heart is enlarged and there is atherosclerotic calcification of the thoracic aorta. There is pulmonary vessel congestion and interstitial edema. The mitral annulus is densely calcified. There are layering pleural effusions with bibasilar consolidation. No pneumothorax is seen. The skeletal structures are osteopenic. The bony thorax is grossly intact. Surgical clips are noted in the left axilla. Degenerative change is noted in the shoulders. IMPRESSION: 1. Cardiomegaly with evidence of congestive failure and interstitial edema. 2. There are layering pleural effusions with bibasilar consolidation which likely represents atelectasis. Correlate clinically for evidence of superimposed pneumonia. Electronically signed by: Rm Metzger M.D. 05/05/2019 12:40 PM ECG Data Attestation: I personally reviewed and interpreted this ECG as follows: Indication: SOB/dyspnea Rate (beats per minute): 100 Rhythm: atrial fibrillation Findings: + nonspecific-ST abn; no PVC and no ST elevation Blood Pressure Blood Pressure Findings: Normal blood pressure Discharge Plan Visit Data *Final* Discharge Date/Time: 05/05/19 15:47 Chief Complaint: Shortness of Breath/Dyspnea ED Provider: Mikie Del Toro Discharge Problem: Acute respiratory distress, CHF (congestive heart failure), PNA (pneumonia), Supratherapeutic INR, Acidosis, lactic Patient Disposition: Admitted As Inpatient Discharge Instructions Interventions: ED Discharge Assessment Last Done: 05/05/19 15:47 Discharge Problem: CHF (congestive heart failure) Qualifiers: Heart failure type: unspecified Heart failure chronicity: unspecified Qualified Code(s): I50.9 - Heart failure, unspecified PNA (pneumonia) Qualifiers: Pneumonia type: due to unspecified organism Laterality: unspecified laterality Lung location: unspecified part of lung Qualified Code(s): J18.9 - Pneumonia, unspecified organism The scribe's documentation has been prepared under my direction and personally reviewed by me in its entirety. I confirm that the note above accurately reflects all work, treatment, procedures, and medical decision making performed by me.
[2019-05-05] MEDS: INSULIN ASPART 100 UNITS/ML 3 ML PEN SC SCH ×2 (18:08→21:15)
[2019-05-05] MEDS ORDERED: CEFEPIME CONSULT ACTIVE PRN (19:13)
[2019-05-05] MEDS: INSULIN GLARGINE SOLOSTAR 100 UNITS/ML 3 ML PEN SQ SCH (21:16)
[2019-05-05] MEDS: METOPROLOL TARTRATE 25 MG TAB PO SCH (21:19)
[2019-05-06] MEDS: CEFEPIME 2,000 MG in SYRINGE 7.5 ML IV SCH ×2 (01:49→13:08)
[2019-05-06 07:12] LABS: Prothrombin Time 48.8 Seconds (9.0-12.0)
[2019-05-06 07:17] LABS: BUN Creatinine Ratio 20.9 (10-20); Calcium 8.9 mg/dl (8.5-10.1); Creatinine Clr Calc Pharmacy 35.6 ml/min; Est GFR (African American) 46.4; Potassium 4.3 mmol/L (3.5-5.1)
[2019-05-06 07:26] LABS: INR 5.4 (0.9-1.1)
--- NOTE | 2019-05-06 07:33 | Family Medicine Progress Note ---
Date of Service May 06, 2019 Assessment & Plan (1) CHF (congestive heart failure): -Mrs. Dumont is an 88 yo woman with a PMHx of chronic diastolic CHF, atrial fibrillation with RVR on anticoagulation, Type II Diabetes Mellitus, advanced Alzehimer's dementia and CKd stage 3 on day 2 of her hospital stay for exacerbation of her heart failure. -last ECHO 01/13/19 showed normal LV systolic function with an EF 55-60% -CXR showed evidence of bilateral pleural effusions in lower lung echeverria -patient follows with Dr. Edwards, had a theraputic thoracentesis on 04/26/19 at which time 1400cc of transudative fluid was removed; analysis of serology was benign -Continue home dose lasix 20mg qAM; given that patient is in fluid overloaded state, additional dose of lasix 20mg IV ordered today -baseline weight is unknown, but is at 92.1 kg today -if additional dose of lasix fails to remove excess fluid, may consult Dr. Edwards for possible theraputic thoracentsis (pending patient's goals of care) (2) Acute respiratory failure with hypoxia: -secondary to acute CHF exacerbation -patient was stable on 4L of oxygen NC, but switched to BiPAP when breathing became labored (3) UTI (urinary tract infection): -UA positive for nitrites, 1+ for leuk esterase with 10-30 WBC -Urine Cx grew gram neg bacilli, sensitivities pending -continue IV cefepime for now (4) Afib: -on chronic anticoagulation (coumadin) -on beta deirdre for rate control (5) Elevated INR: -patient was supratheraputic on coumadin on admission -INR as high as 6; now down to 5.4 -will restart coumadin when INR is below 2.5 -continue to check INR qdaily (6) Elevated troponin: -troponin elevated to 0.038 on admission -trending down -likely secondary to demand ischemia -EKG without ST segment changes (7) CKD (chronic kidney disease): -creatinine 1.34 on admission, down to 1.20 today -continue to monitor with daily BMPs -consider renal dosing of medications when appropriate (8) Type II diabetes mellitus: -continue home insulin regimen -added sliding scale as inpatient (9) Dementia: -chronic likely at baseline -residing at [facility], as she is unable to perform ADLs (10) Anxiety: -continue home dose of Buspar (11) HTN (hypertension): -continue beta deirdre (12) HLD (hyperlipidemia): -not taking any home meds for this (13) Breast cancer: -continue home dose of Femara FEN/GI: Carb consistent Type II DM Code: DNR/DNI PT/OT: ordered DVT prophylaxis:held as patient is supratheraputic on coumadin Dispo: admit to med/surg; POA is son "Juan Carlos" (contact number [phone]) Supervising Physician Co-Signing Physician Notes Patient seen and examined with Dr. Ram. Agree with history, physical exam findings, assessment and plan of care. 88 year old female with hx of CHF, depression, CKD, HTN, HLD, anxiety, dementia, afib admitted with CHF exacerbation. Limited historian. Decreased breath sounds in the bilateral bases, breathing comfortably on 4L O2. 1. CHF exacerbation with hypoxia - requiring intermittent BiPAP and Lasix 20mg IV. Recent thora with [facility] - home Lasix 20mg - daily weights, I/Os 2. Dirty UA - urine culture pending - continue cefepime, but consider de-escalation pending culture 3. elevated troponin 2/2 demand ischemia 4. DM2 - continue home med (lantus 10u qhs + novalong 8+10+8), ssi PRN 5. CKD, baseline Cr 1.5 6. afib, rate controlled. - AC with Coumadin 3mg daily, continue home beta 7. anxiety/depression - buspar 10mg BID, 4mg qhs + Lexapro 10mg Subjective Found patient awake and resting comfortably. She did not volunteer any information (did not respond to questions although she was conscious). No acute events overnight, per nightfloat. Patient's daughter "Melly" (contact # [phone]) provided some of the history; patient did not eat breakfast. Melly confirmed patient does have living will and POA is patient's son "Juan Carlos." Melly requested palliative care consult, POLST form completed. Daughter reported all questions were answered. Review of Systems Review of Systems: Unobtainable due to cognitive status Physical Exam Constitutional: WD/WN, vitals as above drowsy throughout encounter Eyes: + anicteric sclerae Respiratory: + labored breathing; no audible wheezes breath sounds not appreciated in bilateral lower lung echeverria; poor inspiratory effort Cardiovascular: Rate/Rhythm: regular rate and regular rhythm Heart Sounds: normal S1 and normal S2; no click, no gallop, no murmur and no cardiac rub heart sounds distant; +2 pitting edema up to the knee on bilateral LE Neurologic: + confused Speech / Cognition: + abnormal cognition patient was awake but drowsy; Not oriented to person, place or time Genitourinary: Coelho catheter in place draining elina colored urine without v isible blood clots Results & Data Vital Signs (Past 12 Hours) Vital Signs Temp Pulse Pulse Resp BP Pulse Ox 05/06/19 04:26 36.7 C 64 18 126/71 96 05/06/19 00:57 64 05/06/19 00:56 62 05/05/19 23:29 36.3 C L 67 18 112/75 94 05/05/19 22:40 63 96 Laboratory Results 05/06/19 05/06/19 05/06/19 Range/Units 11:53 07:40 06:25 PT (9.0-12.0) Seconds INR (0.9-1.1) Sodium 140 (136-145) mmol/L Potassium 4.3 (3.5-5.1) mmol/L Chloride 97 L (98-107) mmol/L Carbon Dioxide 41 H* (21-32) mmol/L Anion Gap 2.0 L (3-11) BUN 25 H (7-18) mg/dl Creatinine 1.20 (0.6-1.2) mg/dl Est Cr Clr Drug Dosing 35.6 ml/min Est GFR ( Amer) 46.4 Est GFR (Non-Af Amer) 40.0 BUN/Creatinine Ratio 20.9 H (10-20) Glucose 171 H (70-99) mg/dl POC Glucose 169 H 178 H (70-99) Calcium 8.9 (8.5-10.1) mg/dl Troponin I (0-0.045) ng/ml Nasal Screen MRSA (PCR) (Negative) 05/06/19 05/05/19 05/05/19 Range/Units 06:25 Unknown 23:21 PT 48.8 H (9.0-12.0) Seconds INR 5.4 H (0.9-1.1) Sodium (136-145) mmol/L Potassium (3.5-5.1) mmol/L Chloride (98-107) mmol/L Carbon Dioxide (21-32) mmol/L Anion Gap (3-11) BUN (7-18) mg/dl Creatinine (0.6-1.2) mg/dl Est Cr Clr Drug Dosing ml/min Est GFR ( Amer) Est GFR (Non-Af Amer) BUN/Creatinine Ratio (10-20) Glucose (70-99) mg/dl POC Glucose (70-99) Calcium (8.5-10.1) mg/dl Troponin I 0.028 (0-0.045) ng/ml Nasal Screen MRSA (PCR) Negative (Negative) 05/05/19 05/05/19 05/05/19 Range/Units 19:58 19:56 18:03 PT (9.0-12.0) Seconds INR (0.9-1.1) Sodium (136-145) mmol/L Potassium (3.5-5.1) mmol/L Chloride (98-107) mmol/L Carbon Dioxide (21-32) mmol/L Anion Gap (3-11) BUN (7-18) mg/dl Creatinine (0.6-1.2) mg/dl Est Cr Clr Drug Dosing ml/min Est GFR ( Amer) Est GFR (Non-Af Amer) BUN/Creatinine Ratio (10-20) Glucose (70-99) mg/dl POC Glucose 350 H* 364 H* 262 H (70-99) Calcium (8.5-10.1) mg/dl Troponin I (0-0.045) ng/ml Nasal Screen MRSA (PCR) (Negative) 05/05/19 Range/Units 17:14 PT (9.0-12.0) Seconds INR (0.9-1.1) Sodium (136-145) mmol/L Potassium (3.5-5.1) mmol/L Chloride (98-107) mmol/L Carbon Dioxide (21-32) mmol/L Anion Gap (3-11) BUN (7-18) mg/dl Creatinine (0.6-1.2) mg/dl Est Cr Clr Drug Dosing ml/min Est GFR ( Amer) Est GFR (Non-Af Amer) BUN/Creatinine Ratio (10-20) Glucose (70-99) mg/dl POC Glucose (70-99) Calcium (8.5-10.1) mg/dl Troponin I 0.033 (0-0.045) ng/ml Nasal Screen MRSA (PCR) (Negative) Medications Administered Current Inpatient Medications Acetaminophen (Tylenol) 650 mg PO Q4H PRN PRN Reason: Pain or Fever Stop: 06/04/19 16:15 Albuterol (Ventolin Hfa) 2 puffs INH Q5H PRN PRN Reason: Dyspnea Aspirin (Ecotrin Ectab) 81 mg PO QAM [facility] Stop: 06/05/19 08:59 Last Admin: 05/06/19 09:25 Dose: 81 mg Documented by: Buspirone HCl (Buspar) 10 mg PO HS [facility] Stop: 06/04/19 20:59 Last Admin: 05/05/19 21:18 Dose: 10 mg Documented by: Buspirone HCl (Buspar) 5 mg PO BID17 [facility] Stop: 06/04/19 16:59 Last Admin: 05/06/19 09:22 Dose: 5 mg Documented by: Dextrose (Dextrose 50%) 25 - 50 ml IV UD PRN; Protocol PRN Reason: Hypoglycemia Protocol Stop: 06/04/19 16:15 Diclofenac Sodium (Voltaren 1% Top) 1 appln EXT Q8H PRN PRN Reason: Pain Stop: 06/04/19 16:15 Escitalopram Oxalate (Lexapro Tab) 10 mg PO QAM [facility] Stop: 06/05/19 08:59 Last Admin: 05/06/19 09:24 Dose: 10 mg Documented by: Ferrous Sulfate (Feosol) 325 mg PO QDL [facility] Stop: 06/05/19 11:29 Last Admin: 05/06/19 12:56 Dose: Not Given Documented by: Furosemide (Lasix) 20 mg PO QAM [facility] Stop: 06/05/19 08:59 Last Admin: 05/06/19 09:24 Dose: 20 mg Documented by: Glucagon (Glucagen) 1 mg SQ UD PRN; Protocol PRN Reason: Hypoglycemia Protocol Stop: 06/04/19 16:15 Glucose (Glucose 40%) 15 - 30 gm PO UD PRN; Protocol PRN Reason: Hypoglycemia Protocol Stop: 06/04/19 16:15 Glucose (Dex4 Glucose) 4 - 8 tabs PO UD PRN; Protocol PRN Reason: Hypoglycemia Protocol Stop: 06/04/19 16:15 Cefepime HCl 2,000 mg/ Syringe 20 mls @ 5.5 mls/min IV Q12H [facility]; Protocol Stop: 05/14/19 13:59 Last Admin: 05/06/19 13:08 Dose: 5.5 mls/min Documented by: Furosemide 20 mg/ Syringe 2 mls @ 4 mls/min IV ONE ONE Stop: 05/06/19 17:01 Insulin Aspart (Novolog Flexpen) 8 units SQ QDD [facility] Stop: 06/05/19 16:29 Insulin Aspart (Novolog Flexpen) 8 units SQ DAILY@0730 [facility] Stop: 06/05/19 07:29 Last Admin: 05/06/19 09:22 Dose: 8 units Documented by: Insulin Aspart (Novolog Flexpen) 10 units SQ QDL [facility] Stop: 06/05/19 11:29 Last Admin: 05/06/19 13:09 Dose: 10 units Documented by: Insulin Aspart (Novolog Flexpen) 0 units SC ACHS [facility] Stop: 06/04/19 16:29 Last Admin: 05/06/19 13:09 Dose: 2 units Documented by: Insulin Glargine (Lantus Solostar Pen) 10 units SQ HS [facility] Stop: 06/04/19 20:59 Last Admin: 05/05/19 21:16 Dose: 10 units Documented by: Letrozole (Femara) 2.5 mg PO QAM [facility] Stop: 06/05/19 08:59 Last Admin: 05/06/19 12:56 Dose: Not Given Documented by: Magnesium Hydroxide (Milk Of Magnesia) 30 ml PO Q12H PRN PRN Reason: Constipation Stop: 06/04/19 16:15 Metoprolol Tartrate (Lopressor) 75 mg PO BID [facility] Stop: 06/04/19 20:59 Last Admin: 05/06/19 09:23 Dose: 75 mg Documented by: Miconazole Nitrate (Desenex) 1 appln EXT PRN PRN PRN Reason: Affected Skin Folds Stop: 06/04/19 17:37 Last Admin: 05/06/19 09:23 Dose: 1 appln Documented by: Miscellaneous (Carbohydrates For Hypoglycemia) 15 - 30 gm PO UD PRN PRN Reason: Hypoglycemia Treatment Stop: 06/04/19 16:15 Miscellaneous Information (Cefepime Consult Active) 1 ea N/A UD PRN PRN Reason: Consult Stop: 06/04/19 19:12 Multivitamins/Minerals (Caltrate Plus) 1 tab PO QAM [facility] Stop: 06/05/19 08:59 Last Admin: 05/06/19 09:23 Dose: 1 tab Documented by: Nitroglycerin (Nitrostat) 0.4 mg SL UD [facility] Stop: 06/04/19 16:15 Ondansetron HCl (Zofran) 4 mg IV Q6H PRN PRN Reason: Nausea Stop: 06/04/19 16:15 PG Care Time/CCT Total # of Minutes Spent Total Time Spent with Patient: Total time spent is greater than 50% in coordination of care (as documented) at patient's floor/unit and/or counseling patient: Resident Activity Tracking Resident Involvement: Resident Care Provided Care Provided: Adult Hospital Medicine (1) CHF (congestive heart failure) Heart failure chronicity: unspecified Heart failure type: unspecified Qualified Code(s): I50.9 - Heart failure, unspecified (2) HLD (hyperlipidemia) Hyperlipidemia type: mixed hyperlipidemia Qualified Code(s): E78.2 - Mixed hyperlipidemia (3) CKD (chronic kidney disease) Chronic kidney disease stage: stage 3 (moderate) Qualified Code(s): N18.3 - Chronic kidney disease, stage 3 (moderate) (4) Breast cancer Breast location: unspecified site of breast Estrogen receptor status: unspecified Laterality: left Patient sex: female Qualified Code(s): C50.912 - Malignant neoplasm of unspecified site of left female breast (5) HTN (hypertension) Hypertension type: essential hypertension Qualified Code(s): I10 - Essential (primary) hypertension
[2019-05-06] MEDS: INSULIN ASPART 100 UNITS/ML 3 ML PEN SC SCH ×4 (09:22→21:18)
[2019-05-06] MEDS: INSULIN ASPART 100 UNITS/ML 3 ML PEN SQ SCH ×3 (09:22→17:30)
[2019-05-06] MEDS: CALCIUM 600MG + VIT D 400 IU TAB PO SCH (09:23)
[2019-05-06] MEDS: MICONAZOLE NITRATE POWDER 43 GM EXT PRN (09:23)
[2019-05-06] MEDS: METOPROLOL TARTRATE 25 MG TAB PO SCH ×2 (09:23→21:16)
[2019-05-06] MEDS: FUROSEMIDE 20 MG TAB PO SCH (09:24)
[2019-05-06] MEDS: ESCITALOPRAM OXALATE 10 MG TAB PO SCH (09:24)
[2019-05-06] MEDS: ASPIRIN 81 MG ECTAB PO SCH (09:25)
[2019-05-06] MEDS: LETROZOLE 2.5 MG TAB PO SCH (12:56)
[2019-05-06] MEDS: FERROUS SULFATE 325 MG TAB PO SCH (12:56)
--- NOTE | 2019-05-06 14:16 | Palliative Care Consultation ---
Date of Consultation May 06, 2019 Assessment & Plan (1) Goals of care, counseling/discussion: -88 year old female patient with PMH CHF, dementia, htn, HLD, DM, afib, and CKD, presented to the hospital from [facility] yesterday with c/o increasing SOB. In ED, CXR showed evidence of congestive failure and pulmonary edema, as well bilateral pleural effusions. She was given IV Lasix in ED for diuresis. Patient was just discharged on 04/24 for treatment of afib with RVR. She also had outpatient thoracentesis on 04/[address] Edwards at which time 1400ml fluid was removed. Per report, [facility] called patient's son/POAJuan Carlos, when they found her to be more SOB with AMS and asked if he wanted her to go to the ED for evaluation or to be kept comfortable at . Son chose for patient to go to hospital. Palliative care was consulted on previous admission in January 2019 to discuss GOC and goal at that time was for patient to undergo rehab and reevaluate where she was at. Palliative care is reconsulted to continue discussing GOC. -Met with patient in room 280. She is somewhat drowsy on the bipap. Stated she was in the hospital but could not tell me why. She did not know the month, year, or time. -Called patient's son/Juan Carlos WEBER. Juan Carlos states that since the patient's other son about a month ago, patient has drastically declined. Patient has stated several times that she "is ready to go." Juan Carlos states that when called him about patient yanet to the hospital, he contemplated saying no, but was just not prepared to make that decision yet. He feels as though his mother no longer wants to pursue life-prolonging treatment. -We discussed what hospice care is and what they would offer patient while at SNF. He is agreeable to a hospice referral and he will then make final decision. launch manager to make referral. -For now, continue current care while in hospital. He will call me when he and his sister have made a decision on hospice. (2) CHF (congestive heart failure): Heart failure chronicity: unspecified Heart failure type: unspecified Qualified Code(s): I50.9 - Heart failure, unspecified (3) Dementia: (4) UTI (urinary tract infection): Supervising Physician Co-Signing Physician Notes Patient seen and examined-no family at bedside. Collaborated with VINNY Persaud Patient was placed back on BiPAP due to increased shortness of breath-now resting comfortably. PE: No acute distress-now on BiPAP Respirations: Unlabored, good air movement CV: Regular rate, positive lower extremity edema Abdomen: Soft, nontender Agree with above note, assessment and plan as per VINNY Persaud-we will continue to follow and assist family with medical decision making-hospice referral placed. History of Present Illness Reason for Consultation: Goals of care Requesting Physician: Dr. Young Attending Physician: Armin Young, History of Present Illness This 88 year old female patient with PMH CHF, dementia, htn, HLD, DM, afib, and CKD, presented to the hospital from [facility] yesterday with c/o increasing SOB. In ED, CXR showed evidence of congestive failure and pulmonary edema, as well bilateral pleural effusions. She was given IV Lasix in ED for diuresis. Patient was just discharged on 04/24 for treatment of afib with RVR. She also had outpatient thoracentesis on 04/[address] Edwards at which time 1400ml fluid was removed. Per report, [facility] called patient's son/Juan Carlos WEBER, when they found her to be more SOB with AMS and asked if he wanted her to go to the ED for evaluation or to be kept comfortable at . Son chose for patient to go to hospital. Palliative care was consulted on previous admission in January 2019 to discuss GOC and goal at that time was for patient to undergo rehab and reevaluate where she was at. Palliative care is reconsulted to continue discussing GOC. Allergies Allergy/AdvReac Type Severity Reaction Status Date / Time Penicillins Allergy Intermediate Unknown Verified 05/05/19 13:27 Home Medications Home Medications Medication Instructions Recorded Confirmed Type Novolog Flexpen U-100 Insulin 8 unit SUBCUT QAM 01/12/19 05/05/19 History ProAir RespiClick 2 inh INHALATION Q5H PRN 01/12/19 05/05/19 History acetaminophen [Tylenol] 650 mg PO Q4H PRN MDD 3600 MG 01/12/19 05/05/19 History APAP/24 HOURS aspirin 81 mg PO QAM 01/12/19 05/05/19 History buspirone 5 mg PO BID17 01/12/19 05/05/19 History buspirone 10 mg PO HS 01/12/19 05/05/19 History calcium carbonate-vitamin D3 1 tab PO QAM 01/12/19 05/05/19 History [Calcium 600 + D(3)] diclofenac sodium 2 g TOPICAL Q8H PRN 01/12/19 05/05/19 History ferrous sulfate 325 mg PO 1400 01/12/19 05/05/19 History letrozole 2.5 mg PO QAM 01/12/19 05/05/19 History escitalopram oxalate [Lexapro] 10 mg PO QAM 02/03/19 05/05/19 History furosemide 20 mg PO QAM #30 tab 02/06/19 05/05/19 Rx Novolog Flexpen U-100 Insulin 10 unit SUBCUT QDL 02/19/19 05/05/19 History Novolog U-100 Insulin aspart 8 unit SUBCUT PM 02/19/19 05/05/19 History nitroglycerin [Nitrostat] 0.4 mg SUBLINGUAL UD 02/19/19 05/05/19 History warfarin 3 mg PO DAILY 02/19/19 05/05/19 History Lantus U-100 Insulin 10 unit SUBCUT HS #0 ml 02/22/19 05/05/19 Rx metoprolol tartrate 75 mg PO BID #0 tab 02/22/19 05/05/19 Rx Patient History Medical History Breast cancer (Chronic) initial dx in (left breast); treated with lumpectomy and radiation; recurrent disease diagnosed 2 years ago; decision made NOT to pursue additional treatment CKD (chronic kidney disease) (Chronic) stage 3 HTN (hypertension) (Chronic) HLD (hyperlipidemia) (Chronic) Atrial fibrillation Chronic diastolic CHF (congestive heart failure) DM w/o complication type II Surgical History History of tonsillectomy History of appendectomy History of thoracentesis (Acute) History of lumbar surgery History of lumpectomy of left breast Family History Father Cancer ALS (amyotrophic lateral sclerosis) Mother , near age 90 Stroke Brother Myocardial infarction Social History Preferred Language: Italian Communication Ability: Impaired Automotive General Sales Manager Required: No Beliefs That Will Affect Care: Protestant Protestant Beliefs: Zoroastrianism marital status: / marital status details: ; 3 children Current Living Situation: Long Term Current Living Situation Comment: recently 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 Feels Safe at Home: Yes Safety Concerns: Feels Safe At This Time Smoking Status: Former smoker Tobacco Type: cigarettes Cigarettes Per Day: quit 40 years ago Number of Years Since Quit: 30 Second Hand Exposure: No Hx Alcohol Use: No Hx Substance Use: No Review of Systems Respiratory: + dyspnea on exertion; no cough and no dyspnea Cardiovascular: no chest pain Gastrointestinal: no abdominal pain and no nausea Psychiatric: no anxiety Physical Exam Constitutional: + ill appearing and + overweight; no acute distress ENMT: Mouth: + dry oral mucous membranes Neck: normal visual inspection Respiratory: normal respiratory effort, lungs clear to auscultation A uscultation: + diminished lung sounds Cardiovascular: Rate/Rhythm: regular rate and regular rhythm Extremities: + edema (BL ankles +2 pitting edema) Gastrointestinal (Abdomen): Inspection/Auscultation: abdomen normal to inspection and normal bowel sounds; abdomen not distended Percussion/Palpation: abdomen soft Skin: no rashes, warm and dry Neurologic: moves all extremities and awake Psychiatric: Orientation: oriented to person and oriented to place; + not oriented to time Insight: + poor insight Results & Data Vital Signs (Past 12 Hours) Vital Signs Temp Pulse Resp BP Pulse Ox 05/06/19 12:26 28 H 91 05/06/19 12:21 77 28 H 97/65 L 89 L 05/06/19 11:54 22 05/06/19 07:52 36.3 C L 64 18 116/74 95 05/06/19 04:26 36.7 C 64 18 126/71 96 PG Care Time/CCT Total # of Minutes Spent Total Time Spent with Patient: Total time spent is greater than 50% in coord ination of care (as documented) at patient's floor/unit and/or counseling patient: Time Spent Midlevel 70 minutes with >50% of the time spent at bedside with patient and family discussing condition, GOC, and hospice.
[2019-05-06] MEDS ORDERED: FUROSEMIDE 20 MG in SYRINGE 0 ML IV ONE (17:00)
[2019-05-06] MEDS: INSULIN GLARGINE SOLOSTAR 100 UNITS/ML 3 ML PEN SQ SCH (21:18)
[2019-05-07] MEDS: CEFEPIME 2,000 MG in SYRINGE 7.5 ML IV SCH (02:29)
[2019-05-07 06:07] LABS: Hematocrit (blood only) 33.5 % (37-47); Hemoglobin 9.9 g/dL (12.0-16.0); Mean Corpuscular Hgb Conc 29.6 g/dL (32-36); Mean Corpuscular Volume 102.1 fL (80-100); Mean Platelet Volume 10.9 fL (7.4-10.4); Platelet Count 299 K/uL (130-400); RDW Standard Deviation 63.8 fL (36.4-46.3); Red Blood Count 3.28 M/uL (4.2-5.4); White Blood Count 10.28 K/uL (4.8-10.8)
[2019-05-07 06:31] LABS: INR 3.3 (0.9-1.1); Prothrombin Time 31.3 Seconds (9.0-12.0)
[2019-05-07 06:40] LABS: Calcium 8.9 mg/dl (8.5-10.1); Creatinine Clr Calc Pharmacy 32.4 ml/min; Est GFR (African American) 41.4; Est GFR (Non-African American) 35.7; Potassium 3.9 mmol/L (3.5-5.1)
[2019-05-07] MEDS: CALCIUM 600MG + VIT D 400 IU TAB PO SCH (07:54)
[2019-05-07] MEDS: ASPIRIN 81 MG ECTAB PO SCH (07:54)
[2019-05-07] MEDS: LETROZOLE 2.5 MG TAB PO SCH (07:54)
[2019-05-07] MEDS: ESCITALOPRAM OXALATE 10 MG TAB PO SCH (07:54)
[2019-05-07] MEDS: METOPROLOL TARTRATE 25 MG TAB PO SCH ×2 (07:55→20:50)
[2019-05-07] MEDS: FUROSEMIDE 20 MG TAB PO SCH (07:55)
[2019-05-07] MEDS: MICONAZOLE NITRATE POWDER 43 GM EXT PRN (07:57)
[2019-05-07] MEDS: INSULIN ASPART 100 UNITS/ML 3 ML PEN SC SCH ×4 (09:15→20:52)
[2019-05-07] MEDS: INSULIN ASPART 100 UNITS/ML 3 ML PEN SQ SCH ×3 (09:15→17:37)
[2019-05-07] MEDS ORDERED: ALBUT/IPRATROP 3MG/0.5MG NEB 3 ML VIAL NEB STA ×2 (10:46→17:40)
--- NOTE | 2019-05-07 11:01 | XRay Report ---
XR chest 1V portable CLINICAL HISTORY: SOB, eval for edema COMPARISON STUDY: 05/05/2019 FINDINGS: The heart remains enlarged. There is calcification of mitral valve annulus. There are bilat eral pleural effusions. There is radiographic evidence of congestive failure with pulmonary edema. Ba silar airspace opacities, likely representing compressive atelectasis. Surgical clips are present wit hin the left axillary region.[ IMPRESSION: Persistent pulmonary edema pattern with bilateral pleural effusions. Electronically signed by: Carlos Arroyo M.D. 05/07/2019 11:00 AM
[2019-05-07] MEDS: FERROUS SULFATE 325 MG TAB PO SCH ×2 (11:55→15:17)
[2019-05-07] MEDS: SULFAMETHOXAZOLE/TRIMETHOPRIM DS 800/160MG TAB PO SCH ×2 (11:55→20:51)
--- NOTE | 2019-05-07 14:38 | Family Medicine Progress Note ---
Date of Service May 07, 2019 Assessment & Plan (1) CHF (congestive heart failure): -Mrs. Dumont is an 88 yo woman with a PMHx of chronic diastolic CHF, atrial fibrillation on anticoagulation, Type II Diabetes Mellitus, advanced Alzehimer's dementia and CKD stage 3 on day 3 of her hospital stay for exacerbation of her heart failure. -last ECHO 01/13/19 showed normal LV systolic function with an EF 55-60% -repeat CXR (05/07) showed evidence of bilateral pleural effusions in lower lung echeverria, appears unchanged from CXR on 05/05 -patient follows with Dr. Edwards, had a theraputic thoracentesis on 04/26/19 at which time 1400cc of transudative fluid was removed; analysis of serology was benign -Continue home dose lasix 20mg qAM; added one dose lasix, 40mg PO -baseline weight unknown; 91.5kg today, down from 92.1 kg on 05/06 -despite additional lasix 20mg IV dose given on 05/06 and decreasing body weight with a negative net fluid output, pulmonary edema is not improved -Thoracic surgery (Dr. Edwards) was consulted for consideration of theraputic thoracentesis vs. placement of pigtail catheter (2) Acute respiratory failure with hypoxia: -secondary to acute CHF exacerbation -CXR repeated (05/07); showed bilateral pleural effusions, unchanged from study on 05/05 -BiPAP restarted -DuoNeb x 1 ordered -palliative care is on board and has recommended hospice referral (3) UTI (urinary tract infection): -UA positive for nitrites, 1+ for leuk esterase with 10-30 WBC -Urine Cx with Citrobacter freundii, sensitive to TMP-SMX -cefepime IV was d/c when patient lost vascular access overnight (received a total of 3 doses) -Bactrim, 800/126mg, PO, bid ordered; we will do a 4 day course (4) Afib: -on chronic anticoagulation (coumadin)--being held due to supratherapeutic INR. -on beta deirdre for rate control (5) Elevated INR: -patient was supratheraputic on coumadin on admission -INR as high as 6; now down to 3.3 -will restart coumadin when INR is below 2.5 -continue to check INR qdaily (6) Elevated troponin: -troponin elevated to 0.038 on admission -trending down -likely secondary to demand ischemia -EKG without ST segment changes (7) CKD (chronic kidney disease): -creatinine 1.34 on admission, on 05/06 was 1.20, up to 1.32 today (05/07) -continue to monitor with daily BMPs -consider renal dosing of medications when appropriate (8) Type II diabetes mellitus: -continue home insulin regimen -added sliding scale as inpatient (9) Dementia: -chronic likely at baseline -residing at [facility], as she is unable to perform ADLs (10) Anxiety: -continue home dose of Buspar (11) HTN (hypertension): -continue beta deirdre (12) HLD (hyperlipidemia): -not taking any home meds for this (13) Breast cancer: -continue home dose of Femara FEN/GI: Carb consistent Type II DM Code: DNR/DNI PT/OT: ordered DVT prophylaxis:held as patient is supratheraputic on coumadin Dispo: admit to med/surg; POA is son "Bill" (contact number [phone]) Supervising Physician Co-Signing Physician Notes Patient seen and examined with Dr. Ram. Agree with history, physical exam findings, assessment and plan of care. 88 year old female with hx of CHF, depression, CKD, HTN, HLD, anxiety, dementia, afib admitted with CHF exacerbation. On intial exam this morning, accessory muscle use with paradoxical belly breathing, wheezing heard throughout all lung echeverria. Improved LE edema but still with + pitting. 1. CHF exacerbation, bilateral pleural effusion. - continue to diuresis--lost IV access overnight and we have not been able to re-establish after multiple attempts. - extra 40mg po lasix this evening. Urine output has tapered off a bit so unsure how much more we will be able to diuresis. - repeat CXR this morning with unchanged pulmonary edema and effusions. - appreciate thoracic surgery recommendations and time--if we are not ble to diuresis adequately for her to breathe comfortable and as her INR drifts down, may consider re-evaluation for possible therapuetic thora. This will also be dependent on her goals of care. 2. Citrobacter urinary tract infection - switching to bactrim 3. elevated troponin 2/2 demand ischemia 4. DM2 - continue home med (lantus 10u qhs + novalog 8+10+8), ssi PRN - will need to adjust her insulin with her being NPO on BiPAP. 5. CKD, baseline Cr 1.5 -stable, monitor in the setting of increased diuretic use 6. afib, rate controlled. - AC with Coumadin 3mg (currently being held due to supratherapeutic INR), continue home beta 7. supratherapeutic INR - INR slowly drifting drown, no signs or symptoms of bleeding. 8. anxiety/depression - buspar 10mg BID, 4mg qhs + Lexapro 10mg Dispo: pending hospice decision and clinical improvement Subjective Mrs. Mahan was slightly more verbally interactive today (able to answer questions), although she not orientated. Overnight she lost IV access, so her cefepime was discontinued (last dose 1:08pm on 05/06), per night float. Oral intake is sparse, patient did not eat any lunch Review of Systems Review of Systems: Unobtainable due to cognitive status Denies any source of pain Physical Exam Physical Exam: On initial assessment, patient was found resting in bed in respiratory distress (visible accessory muscle use including belly breathing). Inspiratory and expiratory wheezing was audible without stethoscope and diffusely throughout lung echeverria. Bipap was restarted and patient received DuoNeb treatment. Exam on reassessment was as follows: Constitutional: well developed, well nourished, comfortable and + mechanically ventilated (on BiPAP); no acute distress Eyes: + anicteric sclerae Neck: trachea midline Respiratory: normal respiratory effort; no respiratory distress, no labored breathing, no retractions, does not use accessory muscles, no cough, no audible wheezes and no nasal flaring Auscultation: + diminished lung sounds; no crac kles, no rales, no wheezes and no pleural rub Cardiovascular: Rate/Rhythm: regular rate and regular rhythm Heart Sounds: normal S1, normal S2 and + gallop; no click, no murmur and no cardiac rub Extremities: no pedal edema (+2 to the calf, slightly improved from yesterday's exam ) Gastrointestinal (Abdomen): normal bowel sounds, soft, nontender, no hepatosplenomegaly Inspection/Auscultation: abdomen not distended Neurologic: awake and + confused Speech / Cognition: + abnormal cognition Psychiatric: Orientation: cooperative; + not oriented x 3 Genitourinary: Coelho catheter in place draining elina colored urine free of clots Results & Data Vital Signs (Past 12 Hours) Vital Signs Temp Pulse Pulse Resp BP Pulse Ox 05/07/19 11:23 36.0 C L 66 16 122/53 L 98 05/07/19 11:09 66 66 20 98 05/07/19 07:28 36.5 C 67 16 140/60 94 05/07/19 04:00 36.5 C 58 L 18 112/67 98 Laboratory Results 05/07/19 05/07/19 05/07/19 Range/Units 11:38 07:43 05:14 WBC 10.28 (4.8-10.8) K/uL RBC 3.28 L (4.2-5.4) M/uL Hgb 9.9 L (12.0-16.0) g/dL Hct 33.5 L (37-47) % MCV 102.1 H (80-100) fL MCH 30.2 (25-34) pg MCHC 29.6 L (32-36) g/dL RDW Std Deviation 63.8 H (36.4-46.3) fL RDW Coeff of Nury 17.0 H (11.5-14.5) % Plt Count 299 (130-400) K/uL MPV 10.9 H (7.4-10.4) fL PT (9.0-12.0) Seconds INR (0.9-1.1) Sodium (136-145) mmol/L Potassium (3.5-5.1) mmol/L Chloride (98-107) mmol/L Carbon Dioxide (21-32) mmol/L Anion Gap (3-11) BUN (7-18) mg/dl Creatinine (0.6-1.2) mg/dl Est Cr Clr Drug Dosing ml/min Est GFR ( Amer) Est GFR (Non-Af Amer) BUN/Creatinine Ratio (10-20) Glucose (70-99) mg/dl POC Glucose 137 H 108 H (70-99) Calcium (8.5-10.1) mg/dl 05/07/19 05/07/19 05/06/19 Range/Units 05:14 05:14 20:26 WBC (4.8-10.8) K/uL RBC (4.2-5.4) M/uL Hgb (12.0-16.0) g/dL Hct (37-47) % MCV (80-100) fL MCH (25-34) pg MCHC (32-36) g/dL RDW Std Deviation (36.4-46.3) fL RDW Coeff of Nury (11.5-14.5) % Plt Count (130-400) K/uL MPV (7.4-10.4) fL PT 31.3 H (9.0-12.0) Seconds INR 3.3 H (0.9-1.1) Sodium 141 (136-145) mmol/L Potassium 3.9 (3.5-5.1) mmol/L Chloride 96 L (98-107) mmol/L Carbon Dioxide 41 H* (21-32) mmol/L Anion Gap 3.0 (3-11) BUN 34 H (7-18) mg/dl Creatinine 1.32 H (0.6-1.2) mg/dl Est Cr Clr Drug Dosing 32.4 ml/min Est GFR ( Amer) 41.4 Est GFR (Non-Af Amer) 35.7 BUN/Creatinine Ratio 26.0 H (10-20) Glucose 84 (70-99) mg/dl POC Glucose 117 H (70-99) Calcium 8.9 (8.5-10.1) mg/dl 05/06/19 Range/Units 16:25 WBC (4.8-10.8) K/uL RBC (4.2-5.4) M/uL Hgb (12.0-16.0) g/dL Hct (37-47) % MCV (80-100) fL MCH (25-34) pg MCHC (32-36) g/dL RDW Std Deviation (36.4-46.3) fL RDW Coeff of Nury (11.5-14.5) % Plt Count (130-400) K/uL MPV (7.4-10.4) fL PT (9.0-12.0) Seconds INR (0.9-1.1) Sodium (136-145) mmol/L Potassium (3.5-5.1) mmol/L Chloride (98-107) mmol/L Carbon Dioxide (21-32) mmol/L Anion Gap (3-11) BUN (7-18) mg/dl Creatinine (0.6-1.2) mg/dl Est Cr Clr Drug Dosing ml/min Est GFR ( Amer) Est GFR (Non-Af Amer) BUN/Creatinine Ratio (10-20) Glucose (70-99) mg/dl POC Glucose 73 (70-99) Calcium (8.5-10.1) mg/dl Diagnostic Findings XR chest 1V portable CLINICAL HISTORY: SOB, eval for edema COMPARISON STUDY: 05/05/2019 FINDINGS: The heart remains enlarged. There is calcification of mitral valve annulus. There are bilateral pleural effusions. There is radiographic evidence of congestive failure with pulmonary edema. Basilar airspace opacities, likely representing compressive atelectasis. Surgical clips are present within the left axillary region.[ IMPRESSION: Persistent pulmonary edema pattern with bilateral pleural effusions. Electronically signed by: Carlos Arroyo M.D. 05/07/2019 11:00 AM Medications Administered Current Inpatient Medications Acetaminophen (Tylenol) 650 mg PO Q4H PRN PRN Reason: Pain or Fever Stop: 06/04/19 16:15 Albuterol (Ventolin Hfa) 2 puffs INH Q5H PRN PRN Reason: Dyspnea Aspirin (Ecotrin Ectab) 81 mg PO QAM [facility] Stop: 06/05/19 08:59 Last Admin: 05/07/19 07:54 Dose: 81 mg Documented by: Buspirone HCl (Buspar) 10 mg PO HS [facility] Stop: 06/04/19 20:59 Last Admin: 05/06/19 21:15 Dose: 10 mg Documented by: Buspirone HCl (Buspar) 5 mg PO BID17 [facility]ER Stop: 06/04/19 16:59 Last Admin: 05/07/19 07:55 Dose: 5 mg Documented by: Dextrose (Dextrose 50%) 25 - 50 ml IV UD PRN; Protocol PRN Reason: Hypoglycemia Protocol Stop: 06/04/19 16:15 Diclofenac Sodium (Voltaren 1% Top) 1 appln EXT Q8H PRN PRN Reason: Pain Stop: 06/04/19 16:15 Escitalopram Oxalate (Lexapro Tab) 10 mg PO QAM [facility] Stop: 06/05/19 08:59 Last Admin: 05/07/19 07:54 Dose: 10 mg Documented by: Ferrous Sulfate (Feosol) 325 mg PO QDL [facility] Stop: 06/05/19 11:29 Last Admin: 05/07/19 11:55 Dose: 325 mg Documented by: Furosemide (Lasix) 20 mg PO QAM [facility] Stop: 06/05/19 08:59 Last Admin: 05/07/19 07:55 Dose: 20 mg Documented by: Glucagon (Glucagen) 1 mg SQ UD PRN; Protocol PRN Reason: Hypoglycemia Protocol Stop: 06/04/19 16:15 Glucose (Glucose 40%) 15 - 30 gm PO UD PRN; Protocol PRN Reason: Hypoglycemia Protocol Stop: 06/04/19 16:15 Glucose (Dex4 Glucose) 4 - 8 tabs PO UD PRN; Protocol PRN Reason: Hypoglycemia Protocol Stop: 06/04/19 16:15 Insulin Aspart (Novolog Flexpen) 8 units SQ QDD [facility] Stop: 06/05/19 16:29 Last Admin: 05/06/19 17:30 Dose: Not Given Documented by: Insulin Aspart (Novolog Flexpen) 8 units SQ DAILY@0730 [facility] Stop: 06/05/19 07:29 Last Admin: 05/07/19 09:15 Dose: Not Given Documented by: Insulin Aspart (Novolog Flexpen) 10 units SQ QDL [facility] Stop: 06/05/19 11:29 Last Admin: 05/07/19 12:56 Dose: Not Given Documented by: Insulin Aspart (Novolog Flexpen) 0 units SC ACHS [facility] Stop: 06/04/19 16:29 Last Admin: 05/07/19 12:57 Dose: Not Given Documented by: Insulin Glargine (Lantus Solostar Pen) 10 units SQ HS [facility] Stop: 06/04/19 20:59 Last Admin: 05/06/19 21:18 Dose: 10 units Documented by: Letrozole (Femara) 2.5 mg PO QAM [facility] Stop: 06/05/19 08:59 Last Admin: 05/07/19 07:54 Dose: 2.5 mg Documented by: Magnesium Hydroxide (Milk Of Magnesia) 30 ml PO Q12H PRN PRN Reason: Constipation Stop: 06/04/19 16:15 Metoprolol Tartrate (Lopressor) 75 mg PO BID [facility] Stop: 06/04/19 20:59 Last Admin: 05/07/19 07:55 Dose: 75 mg Documented by: Miconazole Nitrate (Desenex) 1 appln EXT PRN PRN PRN Reason: Affected Skin Folds Stop: 06/04/19 17:37 Last Admin: 05/07/19 07:57 Dose: 1 appln Documented by: Miscellaneous (Carbohydrates For Hypoglycemia) 15 - 30 gm PO UD PRN PRN Reason: Hypoglycemia Treatment Stop: 06/04/19 16:15 Multivitamins/Minerals (Caltrate Plus) 1 tab PO QAM [facility] Stop: 06/05/19 08:59 Last Admin: 05/07/19 07:54 Dose: 1 tab Documented by: Nitroglycerin (Nitrostat) 0.4 mg SL UD [facility]JWINDER Stop: 06/04/19 16:15 Ondansetron HCl (Zofran) 4 mg IV Q6H PRN PRN Reason: Nausea Stop: 06/04/19 16:15 Trimethoprim/Sulfamethoxazole (Septra Ds 800/160mg Tab) 1 tab PO Q12 RAJWINDER; Prot ocol Stop: 05/12/19 11:29 Last Admin: 05/07/19 11:55 Dose: 1 tab Documented by: PG Care Time/CCT Total # of Minutes Spent Total Time Spent with Patient: Total time spent is greater than 50% in coordination of care (as documented) at patient's floor/unit and/or counseling patient: Resident Activity Tracking Resident Involvement: Resident Care Provided Care Provided: Adult Hospital Medicine (1) CHF (congestive heart failure) Heart failure chronicity: unspecified Heart failure type: unspecified Qualified Code(s): I50.9 - Heart failure, unspecified (2) HLD (hyperlipidemia) Hyperlipidemia type: mixed hyperlipidemia Qualified Code(s): E78.2 - Mixed hyperlipidemia (3) CKD (chronic kidney disease) Chronic kidney disease stage: stage 3 (moderate) Qualified Code(s): N18.3 - Chronic kidney disease, stage 3 (moderate) (4) Breast cancer Breast location: unspecified site of breast Estrogen receptor status: unspecified Laterality: left Patient sex: female Qualified Code(s): C50.912 - Malignant neoplasm of unspecified site of left female breast (5) HTN (hypertension) Hypertension type: essential hypertension Qualified Code(s): I10 - Essential (primary) hypertension
--- NOTE | 2019-05-07 14:48 | Palliative Care Progress Note ---
Date of Service May 07, 2019 Assessment & Plan (1) Goals of care, counseling/discussion: -Patient is doing a little better today. Off Bipap and on nasal cannula. she remains mildly dyspneic at rest although she denies it. -Patient's son, Juan Carlos, plans to meet with hospice agency to discuss possible hospice care at [facility]. He will then let me know what he decides to do. -Patient is DNR/DNI which was confirmed yesterday By Juan Carlos who is POA. -Case management also following to coordinate discharge planning. (2) CHF (congestive heart failure): (3) Dementia: (4) UTI (urinary tract infection): Review of Systems Review of Systems: C/o weakness and confusion/forgetfulness. Denies pain, CP, SOB, N/V. Physical Exam Constitutional: + ill appearing and + overweight; no acute distress ENMT: Mouth: + dry oral mucous membranes Neck: normal visual inspection Respiratory: normal respiratory effort, lungs clear to auscultation Auscultation: + diminished lung sounds Cardiovascular: Rate/Rhythm: regular rate and regular rhythm Extremities: + edema (BL ankles +2 pitting edema) Gastrointestinal (Abdomen): Inspection/Auscultation: abdomen normal to inspection and normal bowel sounds; abdomen not distended Percussion/Palpation: abdomen soft Skin: no rashes, warm and dry Neurologic: moves all extremities and awake Psychiatric: Orientation: oriented to person and oriented to place; + not oriented to time Insight: + poor insight Results & Data Vital Signs (Past 12 Hours) Vital Signs Temp Pulse Pulse Resp BP Pulse Ox 05/07/19 11:23 36.0 C L 66 16 122/53 L 98 05/07/19 11:09 66 66 20 98 05/07/19 07:28 36.5 C 67 16 140/60 94 05/07/19 04:00 36.5 C 58 L 18 112/67 98 PG Care Time/CCT Total # of Minutes Spent Total Time Spent with Patient: Total time spent is greater than 50% in coordination of care (as documented) at patient's floor/unit and/or counseling patient: Time Spent Midlevel 25 minutes with >50% of the time spent at bedside with patient and IDT discussing [condition and GOC]. (1) CHF (congestive heart failure) Heart failure chronicity: unspecified Heart failure type: unspecified Qualified Code(s): I50.9 - Heart failure, unspecified
[2019-05-07] MEDS ORDERED: FUROSEMIDE 20 MG in SYRINGE 0 ML IV ONE (16:39)
[2019-05-07] MEDS ORDERED: FUROSEMIDE 40 MG TAB PO ONE (16:54)
--- NOTE | 2019-05-08 01:26 | Consultation Report ---
DATE OF CONSULTATION: 05/07/2019 An 88-year-old patient, we know well, who has had progressive cognitive dysfunction. The patient is on room air with 94% saturations and we were called to evaluate her for pleural effusions. We just recently tapped her on 04/26/2019 for 1400 mL. The problem is it is hard for me to tell that she is improved with this. We have now done a thoracentesis on both sides and it has come back, however, I think that this is probably due to congestive heart failure. The patient presents, found to have bilateral effusions. I have seen her, have more fluid in her chest. At this point, her INR is a supratherapeutic. I would hold off intervention at this time and aggressively diurese her. For the details of this consultation, please see Mr. Saran Palacios's note.
--- NOTE | 2019-05-08 01:41 | Consultation Report ---
DATE OF CONSULTATION: 05/07/2019 REASON FOR CONSULTATION: Pleural effusions. HISTORY OF PRESENT ILLNESS: This is an 88-year-old female known to our service. Dr. Edwards performed a right thoracentesis on January 16 of this year for 400 mL of fluid and again on 04/26/2019 on the left side for 1400 mL of fluid. It should be noted that the cytology was negative for these specimens for malignancy. Cultures have been repeatedly checked and most recent culture that just became available showed coagulase negative staph in the left pleural fluid. The patient resides at [facility] and was recently admitted to [facility] due to CHF exacerbation. The patient was noted by the staff there to have worsening shortness of breath. Of note, the patient has been on regular nasal cannula oxygen for the past several months. Because the patient appeared to be more short of breath, she was sent to the Emergency Department where patient was given 20 mg of IV Lasix along with BiPAP and she was eventually was able to be weaned off her BiPAP with improvement. She has since been admitted to the hospital for a CHF exacerbation. I did go visit with the patient at the bedside and she was currently on a BiPAP, but appeared to be comfortable and did not appear to be struggling to breathe. I discussed with Dr. Young of Family Medicine, they noted that the patient appeared to have some worsening shortness of breath this morning and therefore they changed her from nasal cannula to BiPAP at that time. At the time of my visit, the patient did appear to be resting comfortably. She was not struggling to breathe. She did not offer any other specific complaints, but it should be noted that the patient does have an element of underlying dementia making her subjective data somewhat less reliable. PAST MEDICAL HISTORY: Includes the followin. History of breast cancer. 2. Chronic kidney disease. 3. Hypertension. 4. Hyperlipidemia. 5. Diabetes. 6. Diastolic CHF. 7. Atrial fibrillation. 8. Dementia. PAST SURGICAL HISTORY: Includes: 1. Tonsillectomy. 2. Appendectomy. 3. Left breast lumpectomy. 4. History of lumbar spine surgery. 5. Thoracentesis as noted above. SOCIAL HISTORY: The patient lives at [facility]. FAMILY HISTORY: The patient could not provide any family history due to her underlying clinical status. MEDICATIONS: Include the followin. Aspirin 81 mg daily. 2. BuSpar 10 mg at bedtime. 3. Multivitamin daily. 4. Lexapro 10 mg daily. 5. Iron 325 mg daily. 6. BuSpar 5 mg twice daily in addition to the dose noted above. 7. Sliding scale NovoLog insulin along with 8 units subcutaneous daily in the morning, and 10 units at lunchtime and along with Lantus 10 units at bedtime. 8. Femara 2.5 mg daily. 9. Sublingual nitroglycerin as needed. 10. Lasix 20 mg daily. 11. Lopressor 75 mg twice daily. 12. Bactrim every 12 hours. Of note, the patient takes Coumadin as an outpatient and this has been held. REVIEW OF SYSTEMS: A full review of systems was attempted to be completed; however, due to patient's clinical status, full review of systems was unable to be performed. DIAGNOSTIC DATA: The patient has had imaging performed this admission consisting of a chest x-ray that showed the patient has bilateral pleural effusions and findings consistent with pulmonary vascular congestion consistent with heart failure. LABORATORY DATA: Includes the following, today she had a CBC with white blood cell count is normal. Hemoglobin and hematocrit are 9.9 and 33.5 and her platelet count is 299,000. Her INR on day of admission was 6.08, it is decreased to 3.3 today. Chemistry profile showed sodium and potassium were 141/3.9. Her BUN and creatinine were 34 and 1.2. Of note, her creatinine appears to be stable from historical values. IMPRESSION: An 88-year-old female with bilateral pleural effusions. PLAN: Suspect that her pleural effusion is likely due to underlying congestive heart failure. We have been called on to act on these pleural effusions. As the patient does not appear to be in any respiratory distress at this time we will hold on any procedure or intervention until her INR can be further corrected. I did discuss with the primary service that it may be prudent to attempt a more aggressive diuresis in order to improve her breathing further, of course use BiPAP as needed. Once her INR is further improved, we will consider performing either a thoracentesis or placing a PleurX catheter; however, with an INR at the level currently would be ideal to let her INR decrease to further prior to performing this. We will continue to follow along while the patient is in the hospital.
[2019-05-08 06:15] LABS: INR 2.1 (0.9-1.1); Prothrombin Time 20.8 Seconds (9.0-12.0)
[2019-05-08] MEDS: ASPIRIN 81 MG ECTAB PO SCH (07:43)
[2019-05-08] MEDS: CALCIUM 600MG + VIT D 400 IU TAB PO SCH (07:43)
[2019-05-08] MEDS: METOPROLOL TARTRATE 25 MG TAB PO SCH ×2 (07:43→20:04)
[2019-05-08] MEDS: ESCITALOPRAM OXALATE 10 MG TAB PO SCH (07:43)
[2019-05-08] MEDS: FUROSEMIDE 20 MG TAB PO SCH (07:44)
[2019-05-08] MEDS: SULFAMETHOXAZOLE/TRIMETHOPRIM DS 800/160MG TAB PO SCH ×2 (07:45→20:03)
[2019-05-08] MEDS: INSULIN ASPART 100 UNITS/ML 3 ML PEN SC SCH ×4 (09:09→20:07)
[2019-05-08 09:49] LABS: Hematocrit (blood only) 32.3 % (37-47); Hemoglobin 9.9 g/dL (12.0-16.0); Mean Platelet Volume 10.9 fL (7.4-10.4); Platelet Count 256 K/uL (130-400); RDW Coefficient of Variation 16.6 % (11.5-14.5); Red Blood Count 3.23 M/uL (4.2-5.4); White Blood Count 10.12 K/uL (4.8-10.8)
[2019-05-08 10:03] LABS: Mean Corpuscular Hgb Conc 30.7 g/dL (32-36)
--- NOTE | 2019-05-08 10:04 | XRay Report ---
XR chest 1V portable CLINICAL HISTORY: pleural effusion COMPARISON STUDY: Chest CT April 04, 2019. Chest radiograph May 07, 2019. FINDINGS: Left axillary surgical clips are noted. There is cardiomegaly. Mitral annular calcification is noted. Pulmonary edema is similar to prior exam. There is no pneumothorax. Moderate to large bila teral pleural effusions are noted. IMPRESSION: Persistent pulmonary edema and moderate to large bilateral pleural effusions. Electronically signed by: Jeremy Ham M.D. 05/08/2019 10:03 AM
[2019-05-08 10:11] LABS: Calcium 8.9 mg/dl (8.5-10.1); Creatinine Clr Calc Pharmacy 31.2 ml/min; Est GFR (African American) 39.5; Est GFR (Non-African American) 34.1; Potassium 3.8 mmol/L (3.5-5.1)
[2019-05-08 10:28] LABS: BUN Creatinine Ratio 26.5 (10-20)
--- NOTE | 2019-05-08 11:44 | Family Medicine Progress Note ---
Date of Service May 08, 2019 Assessment & Plan (1) CHF (congestive heart failure): -Mrs. Dumont is an 88 yo woman with a PMHx of chronic diastolic CHF, atrial fibrillation on anticoagulation, Type II Diabetes Mellitus, advanced Alzehimer's dementia and CKD stage 3 on day 4 of her hospital stay for exacerbation of her heart failure. -last ECHO 01/13/19 showed normal LV systolic function with an EF 55-60% -repeat CXR (05/08) showed evidence of moderate - severe bilateral pleural effusions in lower lung echeverria, appears unchanged from CXR on 05/07 -patient follows with Dr. Edwards, had a therapeutic thoracentesis on 04/26/19 at which time 1400cc of transudative fluid was removed; analysis of serology was benign -Continue home dose lasix 20mg qAM; added one dose lasix, 40mg PO per thoracic surgery rec -baseline weight unknown; 92.2 kg today -despite additional lasix 40mg PO dose given on 05/07 and 05/08 and negative net fluid output, pulmonary edema is not improved -Thoracic surgery (Dr. Edwards) was consulted; likely to preform a therapeutic thoracentesis tomorrow (05/09) (2) Acute respiratory failure with hypoxia: -secondary to acute CHF exacerbation -CXR repeated (05/08); showed bilateral pleural effusions, unchanged from study on 05/07 -patient was on BiPAP overnight, did not desaturate -palliative care is on board and has recommended hospice referral (3) UTI (urinary tract infection): -UA positive for nitrites, 1+ for leuk esterase with 10-30 WBC -Urine Cx grew gram neg bacilli, Citrobacter freundii, sensitive to TMP-SMX -cefepime IV was d/c when patient lost vascular access overnight (received a total of 3 doses) -Bactrim, 800/126mg, PO, bid ordered; we will do a 4 day course (end date 05/11) (4) Afib: -on chronic anticoagulation (coumadin) -on beta deirdre for rate control (5) Elevated INR: -patient was supratheraputic on coumadin on admission -INR as high as 6; now down to 2.1 -restarted coumadin at 2mg; lower than home dose of 3mg (but bactrim dosing considered) -continue to check INR qdaily (6) Elevated troponin: -troponin elevated to 0.038 on admission -trended down -likely secondary to demand ischemia -EKG without ST segment changes (7) CKD (chronic kidney disease): -creatinine 1.34 on admission, on 05/06 was 1.20, up to 1.37 today (05/08) -continue to monitor with daily BMPs -consider renal dosing of medications when appropriate (8) Type II diabetes mellitus: -hold all insulin except for sliding scale (patient with poor PO intake) (9) Dementia: -chronic likely at baseline -residing at [facility], as she is unable to perform ADLs (10) Anxiety: -continue home dose of Buspar (11) HTN (hypertension): -continue beta deirdre (12) HLD (hyperlipidemia): -not taking any home meds for this (13) Breast cancer: -continue home dose of Femara FEN/GI: Carb consistent Type II DM Code: DNR/DNI PT/OT: ordered DVT prophylaxis:held as patient is theraputic on coumadin Dispo: admit to med/surg; SULYA is son "Bill" (contact number [phone]) Supervising Physician Co-Signing Physician Notes Patient seen and examined with Dr. Ram. Agree with history, physical exam findings, assessment and plan of care. 88 year old female with hx of CHF, depression, CKD, HTN, HLD, anxiety, dementia, afib admitted with CHF exacerbation. Seen on BiPAP this morning. Breathing comfortably. Improved LE edema but still with + pitting. 1. CHF exacerbation, bilateral pleural effusion with respiratory distress - wean off BiPAP, will do trial of high flow. Suspect that she needs some of the positive pressure provided by BiPAP for now and will improve after thora/pleurx. - continue to diuresis with careful attention to lytes and Cr. - extra 40mg po lasix yesterday and again today. Will likely need to discharge on a slightly higher home Lasix dose. - appreciate thoracic surgery recommendations and timeplanning for pleurx tomorrow 2. Citrobacter urinary tract infection - bactrim BID 3. elevated troponin 2/2 demand ischemia. Resolved. 4. DM2 - sliding scale for now as PO intake fluctuating 5. CKD, baseline Cr 1.5 -stable, monitor in the setting of increased diuretic use 6. afib, rate controlled. - Restart Coumadin at 2mg (home dose is 3mg), continue home beta deirdre 7. supratherapeutic INR - INR slowly drifting drown, no signs or symptoms of bleeding. INR 2.1 today. Restarted Coumadin at 2mg. 8. anemia. Hgb on admission 10.5, now 9.9. - no signs of bleeding, consider FOBT Dispo: pending hospice decision and clinical improvement Subjective No events overnight. IV team was able to re-establish vascular access today. Patient was able to communicate verbally through bipap mask, although not oriented. Review of Systems Review of Systems: cognitive status unclear, difficult to collect ROS Constitutional: denies any discomfort Respiratory: denies difficulty breathing Physical Exam Constitutional: well developed, well nourished, + altered mental status, cooperative, comfortable and + mechanically ventilated (bipap mask in place); no acute distress Eyes: + anicteric sclerae Respiratory: + audible wheezes; no labored breathing, no retractions, does not use accessory muscles, no cough and no nasal flaring while on bipap, breathing is unlabored with no accessory muscle use; improved air movement in bilateral lung bases compared to exam on (05/07) Cardiovascular: Rate/Rhythm: regular rate and regular rhythm Heart Sounds: normal S1 and normal S2; no click, no gallop, no murmur and no cardiac rub Extremities: + pedal edema Gastrointestinal (Abdomen): Inspection/Auscultation: + abdomen distended (likely secondary to bipap) and normal bowel sounds Percussion/Palpation: abdomen soft; abdomen nontender and no guarding Neurologic: awake and + confused Psychiatric: Orientation: cooperative; + not oriented x 3 Results & Data Vital Signs (Past 12 Hours) Vital Signs Temp Pulse Pulse Resp BP Pulse Ox 05/08/19 11:24 36.0 C L 67 18 121/67 97 05/08/19 08:00 67 05/08/19 07:26 36.0 C L 67 17 134/77 95 05/08/19 04:00 36.4 C L 66 20 123/80 94 05/08/19 00:16 66 05/08/19 00:00 36.4 C L 66 20 102/57 L 93 Laboratory Results 05/08/19 05/08/1919 Range/Units 15:19 11:48 09:22 WBC (4.8-10.8) K/uL RBC (4.2-5.4) M/uL Hgb (12.0-16.0) g/dL Hct (37-47) % MCV (80-100) fL MCH (25-34) pg MCHC (32-36) g/dL RDW Std Deviation (36.4-46.3) fL RDW Coeff of Nury (11.5-14.5) % Plt Count (130-400) K/uL MPV (7.4-10.4) fL PT (9.0-12.0) Seconds INR (0.9-1.1) ABG pH 7.49 H (7.35-7.45) ABG pCO2 53 H (35-46) mmHg ABG pO2 76 L (80-95) mm/Hg ABG HCO3 39 H (19-24) mmol/L ABG O2 Saturation 93.5 (90-95) % ABG Base Excess 13.9 H (-9-1.8) mEq/L Benito Test Pos (Pos) Barometric Pressure 730.5 mm/Hg Oxygen Given 14.2 Bipap Sodium 138 (136-145) mmol/L Potassium 3.8 (3.5-5.1) mmol/L Chloride 92 L (98-107) mmol/L Carbon Dioxide 43 H* (21-32) mmol/L Anion Gap 3.0 (3-11) BUN 36 H (7-18) mg/dl Creatinine 1.37 H (0.6-1.2) mg/dl Est Cr Clr Drug Dosing 31.2 ml/min Est GFR ( Amer) 39.5 Est GFR (Non-Af Amer) 34.1 BUN/Creatinine Ratio 26.5 H (10-20) Glucose 109 H (70-99) mg/dl POC Glucose 129 H (70-99) Calcium 8.9 (8.5-10.1) mg/dl 05/08/19 05/08/19 05/08/19 Range/Units 09:22 06:34 05:20 WBC 10.12 (4.8-10.8) K/uL RBC 3.23 L (4.2-5.4) M/uL Hgb 9.9 L (12.0-16.0) g/dL Hct 32.3 L (37-47) % MCV 100.0 (80-100) fL MCH 30.7 (25-34) pg MCHC 30.7 L (32-36) g/dL RDW Std Deviation 61.0 H (36.4-46.3) fL RDW Coeff of Nury 16.6 H (11.5-14.5) % Plt Count 256 (130-400) K/uL MPV 10.9 H (7.4-10.4) fL PT 20.8 H (9.0-12.0) Seconds INR 2.1 H (0.9-1.1) ABG pH (7.35-7.45) ABG pCO2 (35-46) mmHg ABG pO2 (80-95) mm/Hg ABG HCO3 (19-24) mmol/L ABG O2 Saturation (90-95) % ABG Base Excess (-9-1.8) mEq/L Benito Test (Pos) Barometric Pressure mm/Hg Oxygen Given Sodium (136-145) mmol/L Potassium (3.5-5.1) mmol/L Chloride (98-107) mmol/L Carbon Dioxide (21-32) mmol/L Anion Gap (3-11) BUN (7-18) mg/dl Creatinine (0.6-1.2) mg/dl Est Cr Clr Drug Dosing ml/min Est GFR ( Amer) Est GFR (Non-Af Amer) BUN/Creatinine Ratio (10-20) Glucose (70-99) mg/dl POC Glucose 107 H (70-99) Calcium (8.5-10.1) mg/dl 05/08/19 05/07/19 Range/Units 00:19 20:48 WBC (4.8-10.8) K/uL RBC (4.2-5.4) M/uL Hgb (12.0-16.0) g/dL Hct (37-47) % MCV (80-100) fL MCH (25-34) pg MCHC (32-36) g/dL RDW Std Deviation (36.4-46.3) fL RDW Coeff of Nury (11.5-14.5) % Plt Count (130-400) K/uL MPV (7.4-10.4) fL PT (9.0-12.0) Seconds INR (0.9-1.1) ABG pH (7.35-7.45) ABG pCO2 (35-46) mmHg ABG pO2 (80-95) mm/Hg ABG HCO3 (19-24) mmol/L ABG O2 Saturation (90-95) % ABG Base Excess (-9-1.8) mEq/L Benito Test (Pos) Barometric Pressure mm/Hg Oxygen Given Sodium (136-145) mmol/L Potassium (3.5-5.1) mmol/L Chloride (98-107) mmol/L Carbon Dioxide (21-32) mmol/L Anion Gap (3-11) BUN (7-18) mg/dl Creatinine (0.6-1.2) mg/dl Est Cr Clr Drug Dosing ml/min Est GFR ( Amer) Est GFR (Non-Af Amer) BUN/Creatinine Ratio (10-20) Glucose (70-99) mg/dl POC Glucose 100 H 147 H (70-99) Calcium (8.5-10.1) mg/dl Diagnostic Findings XR chest 1V portable CLINICAL HISTORY: pleural effusion COMPARISON STUDY: Chest CT April 04, 2019. Chest radiograph May 07, 2019. FINDINGS: Left axillary surgical clips are noted. There is cardiomegaly. Mitral annular calcification is noted. Pulmonary edema is similar to prior exam. There is no pneumothorax. Moderate to large bilateral pleural effusions are noted. IMPRESSION: Persistent pulmonary edema and moderate to large bilateral pleural effusions. Electronically signed by: Jeremy Ham M.D. 05/08/2019 10:03 AM Medications Administered Current Inpatient Medications Acetaminophen (Tylenol) 650 mg PO Q4H PRN PRN Reason: Pain or Fever Stop: 06/04/19 16:15 Albuterol (Ventolin Hfa) 2 puffs INH Q5H PRN PRN Reason: Dyspnea Last Admin: 05/07/19 17:24 Dose: 2 puffs Documented by: Aspirin (Ecotrin Ectab) 81 mg PO QAM RAJWINDER Stop: 06/05/19 08:59 Last Admin: 05/08/19 07:43 Dose: 81 mg Documented by: Buspirone HCl (Buspar) 10 mg PO HS RAJWINDER Stop: 06/04/19 20:59 Last Admin: 05/07/19 20:49 Dose: 10 mg Documented by: Buspirone HCl (Buspar) 5 mg PO BID17 [facility] Stop: 06/04/19 16:59 Last Admin: 05/08/19 07:44 Dose: 5 mg Documented by: Dextrose (Dextrose 50%) 25 - 50 ml IV UD PRN; Protocol PRN Reason: Hypoglycemia Protocol Stop: 06/04/19 16:15 Diclofenac Sodium (Voltaren 1% Top) 1 appln EXT Q8H PRN PRN Reason: Pain Stop: 06/04/19 16:15 Escitalopram Oxalate (Lexapro Tab) 10 mg PO QAM [facility] Stop: 06/05/19 08:59 Last Admin: 05/08/19 07:43 Dose: 10 mg Documented by: Ferrous Sulfate (Feosol) 325 mg PO QDL [facility] Stop: 06/05/19 11:29 Last Admin: 05/08/19 12:22 Dose: Not Given Documented by: [facility]) [facility] [place] Stop: 06/05/19 08:59 Last Admin: 05/08/19 07:44 Dose: 20 mg Documented by: Glucagon (Glucagen) 1 mg SQ UD PRN; Protocol PRN Reason: Hypoglycemia Protocol Stop: 06/04/19 16:15 Glucose (Glucose 40%) 15 - 30 gm PO UD PRN; Protocol PRN Reason: Hypoglycemia Protocol Stop: 06/04/19 16:15 Glucose (Dex4 Glucose) 4 - 8 tabs PO UD PRN; Protocol PRN Reason: Hypoglycemia Protocol Stop: 06/04/19 16:15 Sodium Chloride (Nss 1000ml) 500 mls @ 50 mls/hr IV .Q10H ONE Stop: 05/09/19 02:07 Last Admin: 05/08/19 17:09 Dose: 50 mls/hr Documented by: Insulin Aspart (Novolog Flexpen) 8 units SQ QDD [facility] Stop: 06/05/19 16:29 Last Admin: 05/07/19 17:37 Dose: Not Given Documented by: Insulin Aspart (Novolog Flexpen) 8 units SQ DAILY@0730 [facility] Stop: 06/05/19 07:29 Last Admin: 05/07/19 09:15 Dose: Not Given Documented by: Insulin Aspart (Novolog Flexpen) 10 units SQ QDL [facility] Stop: 06/05/19 11:29 Last Admin: 05/07/19 12:56 Dose: Not Given Documented by: Insulin Aspart (Novolog Flexpen) 0 units SC ACHS [facility] Stop: 06/04/19 16:29 Last Admin: 05/08/19 17:10 Dose: Not Given Documented by: Insulin Glargine (Lantus Solostar Pen) 10 units SQ HS [facility] Stop: 06/04/19 20:59 Last Admin: 05/06/19 21:18 Dose: 10 units Documented by: Letrozole (Femara) 2.5 mg PO QAM [facility] Stop: 06/05/19 08:59 Last Admin: 05/08/19 12:22 Dose: Not Given Documented by: Magnesium Hydroxide (Milk Of Magnesia) 30 ml PO Q12H PRN PRN Reason: Constipation Stop: 06/04/19 16:15 Metoprolol Tartrate (Lopressor) 75 mg PO BID [facility] Stop: 06/04/19 20:59 Last Admin: 05/08/19 07:43 Dose: 75 mg Documented by: Miconazole Nitrate (Desenex) 1 appln EXT PRN PRN PRN Reason: Affected Skin Folds Stop: 06/04/19 17:37 Last Admin: 05/07/19 07:57 Dose: 1 appln Documented by: Miscellaneous (Carbohydrates For Hypoglycemia) 15 - 30 gm PO UD PRN PRN Reason: Hypoglycemia Treatment Stop: 06/04/19 16:15 Multivitamins/Minerals (Caltrate Plus) 1 tab PO QAM [facility] Stop: 06/05/19 08:59 Last Admin: 05/08/19 07:43 Dose: 1 tab Documented by: Nitroglycerin (Nitrostat) 0.4 mg SL UD [facility] Stop: 06/04/19 16:15 Ondansetron HCl (Zofran) 4 mg IV Q6H PRN PRN Reason: Nausea Stop: 06/04/19 16:15 Trimethoprim/Sulfamethoxazole (Septra Ds 800/160mg Tab) 1 tab PO Q12 [facility]; Protocol Stop: 05/12/19 11:29 Last Admin: 05/08/19 07:45 Dose: 1 tab Documented by: Warfarin Sodium (Coumadin) 2 mg PO DAILY@1600 [facility] Stop: 06/07/19 15:59 Last Admin: 05/08/19 15:52 Dose: 2 mg Documented by: PG Care Time/CCT Total # of Minutes Spent Total Time Spent with Patient: Total time spent is greater than 50% in coordination of care (as documented) at patient's floor/unit and/or counseling patient: Resident Activity Tracking Resident Involvement: Resident Care Provided Care Provided: Adult [facility] Medicine (1) CHF (congestive heart failure) Heart failure chronicity: unspecified Heart failure type: unspecified Qualified Code(s): I50.9 - Heart failure, unspecified (2) HLD (hyperlipidemia) Hyperlipidemia type: mixed hyperlipidemia Qualified Code(s): E78.2 - Mixed hyperlipidemia (3) CKD (chronic kidney disease) Chronic kidney disease stage: stage 3 (moderate) Qualified Code(s): N18.3 - Chronic kidney disease, stage 3 (moderate) (4) Breast cancer Breast location: unspecified site of breast Estrogen receptor status: unspecified Laterality: left Patient sex: female Qualified Code(s): C50.912 - Malignant neoplasm of unspecified site of left female breast (5) HTN (hypertension) Hypertension type: essential hypertension Qualified Code(s): I10 - Essential (primary) hypertension
[2019-05-08] MEDS: FERROUS SULFATE 325 MG TAB PO SCH (12:22)
[2019-05-08] MEDS: LETROZOLE 2.5 MG TAB PO SCH (12:22)
[2019-05-08] MEDS ORDERED: FUROSEMIDE 40 MG TAB PO ONE (13:00)
--- NOTE | 2019-05-08 15:12 | Palliative Care Progress Note ---
Date of Service May 08, 2019 Assessment & Plan (1) Goals of care, counseling/discussion: -Prabhakar's son Juan Carlos is meeting with hospice agency today at 3pm to discuss placing patient on hospice once she is back to [facility]. -CO2 on blood work remains elevated at 43 today. She is now on Bipap. If she continues to not improve, may need to talk to son about transitioning to comfort measures while in hospital. For now, we are continuing to treat medical problems while she is in the hospital. Her son was hoping we could improve patient to as close to baseline as possible prior to discharge. -Awaiting determination from son about hospice. Will continue to follow and see if patient makes any progress. (2) CHF (congestive heart failure): (3) Dementia: (4) UTI (urinary tract infection): Subjective Patient is awake and on bipap this morning when I saw her. She is able to tell me she is in hospital, does not know why. Review of Systems Review of Systems: C/o "not feeling well". Denies pain, CP, SOB, N/V. Physical Exam Constitutional: + ill appearing and + overweight; no acute distress ENMT: Mouth: + dry oral mucous membranes Neck: normal visual inspection Respiratory: normal respiratory effort, lungs clear to auscultation Auscultation: + diminished lung sounds Cardiovascular: Rate/Rhythm: regular rate and regular rhythm Extremities: + edema (BL ankles +2 pitting edema) Gastrointestinal (Abdomen): Inspection/Auscultation: abdomen normal to inspection and normal bowel sounds; abdomen not distended Percussion/Palpation: abdomen soft Skin: no rashes, warm and dry Neurologic: moves all extremities and awake Psychiatric: Orientation: oriented to person and oriented to place; + not oriented to time Insight: + poor insight Results & Data Vital Signs (Past 12 Hours) Vital Signs Temp Pulse Pulse Resp BP Pulse Ox 05/08/19 15:03 36.6 C 67 19 116/76 99 05/08/19 11:24 36.0 C L 67 18 121/67 97 05/08/19 08:00 67 05/08/19 07:26 36.0 C L 67 17 134/77 95 05/08/19 04:00 36.4 C L 66 20 123/80 94 PG Care Time/CCT Total # of Minutes Spent Total Time Spent with Patient: Total time spent is greater than 50% in coordination of care (as documented) at patient's floor/unit and/or counseling patient: Time Spent Midlevel 25 minutes with >50% of the time spent at bedside with patient and care team discussing plan of care. (1) CHF (congestive heart failure) Heart failure chronicity: unspecified Heart failure type: unspecified Qualified Code(s): I50.9 - Heart failure, unspecified
[2019-05-08 15:34] LABS: HCO3 ABG 39 mmol/L (19-24); Oxygen Saturation ABG 93.5 % (90-95); PCO2 ABG 53 mmHg (35-46); PO2 ABG 76 mm/Hg (80-95); pH ABG 7.49 (7.35-7.45)
[2019-05-08 15:37] LABS: Allen Test Pos (Pos)
[2019-05-08] MEDS ORDERED: WARFARIN SOD 1 MG TAB PO SCH (16:00)
[2019-05-08] MEDS ORDERED: SODIUM CHLORIDE 0.9% 1000ML 500 ML IV ONE (16:08)
--- NOTE | 2019-05-09 06:46 | Family Medicine Progress Note ---
Date of Service May 09, 2019 Assessment & Plan (1) CHF (congestive heart failure): -Mrs. Dumont is an 88 yo woman with a PMHx of chronic diastolic CHF, atrial fibrillation on anticoagulation, Type II Diabetes Mellitus, advanced Alzehimer's dementia and CKD stage 3 who was admitted on 05/04/19 for SOB found to be secondary to CHF exacerbation. -last ECHO 01/13/19 showed normal LV systolic function with an EF 55-60% -repeat CXR (05/09) showed evidence of moderate bilateral pleural effusions in lower lung echeverria with slight improvement of right sided pleural effusion compared to CXR on 05/08 -patient follows with Dr. Edwards, had a theraputic thoracentesis on 04/26/19 at which time 1400cc of transudative fluid was removed; analysis of serology was benign -Continue home dose lasix 20mg qAM -baseline weight unknown; 92.2 kg today -despite additional lasix 40mg PO dose given on 05/07 and 05/08 and negative net fluid output, pulmonary edema is only slightly improved -Thoracic surgery (Dr. Edwards) was consulted; theraputic thoracentesis done today (05/09); 500cc of fluid removed from R side; pleur-x catheter not placed due to concern over INR level (2.5) (2) Acute respiratory failure with hypoxia: -secondary to acute CHF exacerbation -CXR repeated (05/09); showed moderate bilateral pleural effusions with only slight improvement in R sided effusion compared to study from 05/08 -patient was on 4L nasal cannula overnight -accessory muscle use evident on initial exam was relieved with high flow oxygen (30L/min) -hospice care on return to [facility] (3) UTI (urinary tract infection): -UA positive for nitrites, 1+ for leuk esterase with 10-30 WBC -Urine Cx grew gram neg bacilli, Citrobacter freundii, sensitive to TMP-SMX -cefepime IV was d/c when patient lost vascular access overnight (received a total of 3 doses) -continue Bactrim, 800/126mg, bid, PO for 4 days (end date 05/11) (4) Afib: -on chronic anticoagulation (coumadin) -on beta deirdre for rate control (5) Elevated INR: -patient was supratheraputic on coumadin on admission -INR as high as 6; now down to 2.5 -coumadin dose decreased to 1m in anticipation of today's pleur-x procedure (patient also on bactrim) -continue to check INR qdaily (6) Elevated troponin: -troponin elevated to 0.038 on admission -trended down -likely secondary to demand ischemia -EKG without ST segment changes (7) CKD (chronic kidney disease): -creatinine 1.34 on admission, on 05/06 was 1.20, up to 1.32 today (05/09) -continue to monitor with daily BMPs -consider renal dosing of medications when appropriate (8) Type II diabetes mellitus: -mealtime insulin resumed, although (patient with poor PO intake) (9) Dementia: -chronic likely at baseline -residing at [facility], as she is unable to perform ADLs (10) Anxiety: -continue home dose of Buspar (11) HTN (hypertension): -continue beta deirdre (12) HLD (hyperlipidemia): -not taking any home meds for this (13) Breast cancer: -continue home dose of Femara (14) Elevated WBC count: - mildly elevated WBC count today (05/09) at 12.14. -not febrile or hypothermic -possibly reactive (from antibiotic therapy) -continue to monitor with daily CBCs FEN/GI: Carb consistent Type II DM Code: DNR/DNI PT/OT: ordered DVT prophylaxis: SCDs Dispo: admit to med/surg; POA is son "Bill" (contact number [phone]) Present on Admission?: No Supervising Physician Co-Signing Physician Notes Patient seen and examined with Tamera Ram and Rosa. Agree with history, physical exam findings, assessment and plan of care. 88 year old female with hx of CHF, depression, CKD, HTN, HLD, anxiety, dementia, afib admitted with CHF exacerbation. Tachypneic with mild increased work. Improved LE edema but still with + pitting. Decreased breath sounds in the bilateral bases. Re-exam after throacentesis toda y, no increased work of breathing and looking more comfortable. 1. CHF exacerbation, bilateral pleural effusion with respiratory distress - Thora today -500mL from the right. No pleurx due to INR. - continue to diuresis with careful attention to lytes and Cr. - Will likely need to discharge on a slightly higher home Lasix dose. 2. Citrobacter urinary tract infection - bactrim BID 3. New leukocytosis - afebrile, on bactrim for urinary tract citrobacter - monitor for fever or hypothermia, changes in vital sign 3. DM2 - resume home insulin regimen, however if PO intake limited, consider only sliding scale. 4. CKD, baseline Cr 1.5 -stable, monitor in the setting of increased diuretic use 5. afib, rate controlled. - Restarted Coumadin at lower dose (home dose is 3mg), continue home beta deirdre 6. anemia. Hgb on admission 10.5, now 9.9. - no signs of bleeding, consider FOBT Dispo: discharge to hospice at [facility] Subjective Patient was pleasant and conversive, but confused. She feels as though her breathing has improved some and is aware Dr. Edwards is planning to place a pleur-x catheter in her chest today. Her POA, son "Juan Carlos" was contacted earlier this morning by palliatve care, and he was supportive of pleur-x placement (per palliative). Review of Systems Review of Systems: cognitive status unclear, difficult to collect ROS Constitutional: denies any discomfort Respiratory: feels as though breathing is improved Physical Exam Constitutional: WD/WN, vitals as above well developed, well nourished, + altered mental status, cooperative and + mechanically ventilated (nasal cannula in place) Eyes: + anicteric sclerae Neck: trachea midline Respiratory: normal respiratory effort, + respiratory distress, + labored breathing and + uses accessory muscles (belly breathing evident); no cough and no nasal flaring Auscultation: + diminished lung sounds (at bilateral lung bases); no crackles, no rales, no wheezes and no pleural rub On repeat exam (after high flow oxygen was trialed for 1 hour), respiratory rate return to normal and accessory muscle use was no longer evident Cardiovascular: Rate/Rhythm: regular rate and regular rhythm Heart Sounds: normal S1 and normal S2; no click, no gallop, no murmur and no cardiac rub Extremities: + pedal edema Gastrointestinal (Abdomen): normal bowel sounds, soft, nontender, no hepatosplenomegaly (belly breathing prsent) Percussion/Palpation: abdomen nontender and no guarding Neurologic: awake and + confused Speech / Cognition: + abnormal cognition Psychiatric: Orientation: cooperative; + not oriented x 3 Genitourinary: Coelho catheter in place, draining elina colored urine with no visible clots Results & Data Vital Signs (Past 12 Hours) Vital Signs Temp Pulse Resp BP Pulse Ox 05/09/19 04:22 36.6 C 65 18 160/83 H 97 05/08/19 23:26 36.7 C 65 18 128/81 97 05/08/19 20:01 66 125/77 05/08/19 19:16 36.8 C 58 L 17 129/82 95 Laboratory Results 05/09/19 05/09/19 05/09/19 Range/Units 12:04 07:04 07:04 WBC 12.14 H (4.8-10.8) K/uL RBC 3.56 L (4.2-5.4) M/uL Hgb 10.7 L (12.0-16.0) g/dL Hct 35.1 L (37-47) % MCV 98.6 (80-100) fL MCH 30.1 (25-34) pg MCHC 30.5 L (32-36) g/dL RDW Std Deviation 58.8 H (36.4-46.3) fL RDW Coeff of Nury 16.5 H (11.5-14.5) % Plt Count 300 (130-400) K/uL MPV 11.2 H (7.4-10.4) fL PT (9.0-12.0) Seconds INR (0.9-1.1) ABG pH (7.35-7.45) ABG pCO2 (35-46) mmHg ABG pO2 (80-95) mm/Hg ABG HCO3 (19-24) mmol/L ABG O2 Saturation (90-95) % ABG Base Excess (-9-1.8) mEq/L Benito Test (Pos) Barometric Pressure mm/Hg Oxygen Given Sodium 136 (136-145) mmol/L Potassium 3.9 (3.5-5.1) mmol/L Chloride 92 L (98-107) mmol/L Carbon Dioxide 38 H (21-32) mmol/L Anion Gap 6.0 (3-11) BUN 36 H (7-18) mg/dl Creatinine 1.32 H (0.6-1.2) mg/dl Est Cr Clr Drug Dosing 32.4 ml/min Est GFR ( Amer) 41.4 Est GFR (Non-Af Amer) 35.7 BUN/Creatinine Ratio 27.2 H (10-20) Glucose 137 H (70-99) mg/dl POC Glucose 185 H (70-99) Calcium 8.8 (8.5-10.1) mg/dl 05/09/19 05/09/19 05/08/19 Range/Units 07:04 00:16 20:06 WBC (4.8-10.8) K/uL RBC (4.2-5.4) M/uL Hgb (12.0-16.0) g/dL Hct (37-47) % MCV (80-100) fL MCH (25-34) pg MCHC (32-36) g/dL RDW Std Deviation (36.4-46.3) fL RDW Coeff of Nury (11.5-14.5) % Plt Count (130-400) K/uL MPV (7.4-10.4) fL PT 23.9 H (9.0-12.0) Seconds INR 2.5 H (0.9-1.1) ABG pH (7.35-7.45) ABG pCO2 (35-46) mmHg ABG pO2 (80-95) mm/Hg ABG HCO3 (19-24) mmol/L ABG O2 Saturation (90-95) % ABG Base Excess (-9-1.8) mEq/L Benito Test (Pos) Barometric Pressure mm/Hg Oxygen Given Sodium (136-145) mmol/L Potassium (3.5-5.1) mmol/L Chloride (98-107) mmol/L Carbon Dioxide (21-32) mmol/L Anion Gap (3-11) BUN (7-18) mg/dl Creatinine (0.6-1.2) mg/dl Est Cr Clr Drug Dosing ml/min Est GFR ( Amer) Est GFR (Non-Af Amer) BUN/Creatinine Ratio (10-20) Glucose (70-99) mg/dl POC Glucose 125 H 142 H (70-99) Calcium (8.5-10.1) mg/dl 05/08/19 Range/Units 15:19 WBC (4.8-10.8) K/uL RBC (4.2-5.4) M/uL Hgb (12.0-16.0) g/dL Hct (37-47) % MCV (80-100) fL MCH (25-34) pg MCHC (32-36) g/dL RDW Std Deviation (36.4-46.3) fL RDW Coeff of Nury (11.5-14.5) % Plt Count (130-400) K/uL MPV (7.4-10.4) fL PT (9.0-12.0) Seconds INR (0.9-1.1) ABG pH 7.49 H (7.35-7.45) ABG pCO2 53 H (35-46) mmHg ABG pO2 76 L (80-95) mm/Hg ABG HCO3 39 H (19-24) mmol/L ABG O2 Saturation 93.5 (90-95) % ABG Base Excess 13.9 H (-9-1.8) mEq/L Benito Test Pos (Pos) Barometric Pressure 730.5 mm/Hg Oxygen Given 14.2 Bipap Sodium (136-145) mmol/L Potassium (3.5-5.1) mmol/L Chloride (98-107) mmol/L Carbon Dioxide (21-32) mmol/L Anion Gap (3-11) BUN (7-18) mg/dl Creatinine (0.6-1.2) mg/dl Est Cr Clr Drug Dosing ml/min Est GFR ( Amer) Est GFR (Non-Af Amer) BUN/Creatinine Ratio (10-20) Glucose (70-99) mg/dl POC Glucose (70-99) Calcium (8.5-10.1) mg/dl Medications Administered Current Inpatient Medications Acetaminophen (Tylenol) 650 mg PO Q4H PRN PRN Reason: Pain or Fever Stop: 06/04/19 16:15 Albuterol (Ventolin Hfa) 2 puffs INH Q5H PRN PRN Reason: Dyspnea Last Admin: 05/07/19 17:24 Dose: 2 puffs Documented by: Aspirin (Ecotrin Ectab) 81 mg PO QAM [facility] Stop: 06/05/19 08:59 Last Admin: 05/09/19 08:15 Dose: Not Given Documented by: Buspirone HCl (Buspar) 10 mg PO HS [facility] Stop: 06/04/19 20:59 Last Admin: 05/08/19 20:04 Dose: 10 mg Documented by: Buspirone HCl (Buspar) 5 mg PO BID17 [facility] Stop: 06/04/19 16:59 Last Admin: 05/09/19 08:15 Dose: 5 mg Documented by: Dextrose (Dextrose 50%) 25 - 50 ml IV UD PRN; Protocol PRN Reason: Hypoglycemia Protocol Stop: 06/04/19 16:15 Diclofenac Sodium (Voltaren 1% Top) 1 appln EXT Q8H PRN PRN Reason: Pain Stop: 06/04/19 16:15 Escitalopram Oxalate (Lexapro Tab) 10 mg PO QAM [facility] Stop: 06/05/19 08:59 Last Admin: 05/09/19 08:14 Dose: 10 mg Documented by: Ferrous Sulfate (Feosol) 325 mg PO QDL [facility] Stop: 06/05/19 11:29 Last Admin: 05/09/19 13:53 Dose: 325 mg Documented by: Furosemide (Lasix) 20 mg PO QAM [facility] Stop: 06/05/19 08:59 Last Admin: 05/09/19 08:14 Dose: 20 mg Documented by: Glucagon (Glucagen) 1 mg SQ UD PRN; Protocol PRN Reason: Hypoglycemia Protocol Stop: 06/04/19 16:15 Glucose (Glucose 40%) 15 - 30 gm PO UD PRN; Protocol PRN Reason: Hypoglycemia Protocol Stop: 06/04/19 16:15 Glucose (Dex4 Glucose) 4 - 8 tabs PO UD PRN; Protocol PRN Reason: Hypoglycemia Protocol Stop: 06/04/19 16:15 Insulin Aspart (Novolog Flexpen) 8 units SQ QDD [facility] Stop: 06/05/19 16:29 Last Admin: 05/07/19 17:37 Dose: Not Given Documented by: Insulin Aspart (Novolog Flexpen) 8 units SQ DAILY@0730 [facility] Stop: 06/05/19 07:29 Last Admin: 05/07/19 09:15 Dose: Not Given Documented by: Insulin Aspart (Novolog Flexpen) 10 units SQ QDL [facility] Stop: 06/05/19 11:29 Last Admin: 05/07/19 12:56 Dose: Not Given Documented by: Insulin Aspart (Novolog Flexpen) 0 units SC ACHS [facility] Stop: 06/04/19 16:29 Last Admin: 05/09/19 13:53 Dose: Not Given Documented by: Insulin Glargine (Lantus Solostar Pen) 10 units SQ HS [facility] Stop: 06/04/19 20:59 Last Admin: 05/06/19 21:18 Dose: 10 units Documented by: Letrozole (Femara) 2.5 mg PO QAM [facility] Stop: 06/05/19 08:59 Last Admin: 05/09/19 08:12 Dose: 2.5 mg Documented by: Magnesium Hydroxide (Milk Of Magnesia) 30 ml PO Q12H PRN PRN Reason: Constipation Stop: 06/04/19 16:15 Metoprolol Tartrate (Lopressor) 75 mg PO BID [facility] Stop: 06/04/19 20:59 Last Admin: 05/09/19 08:13 Dose: 75 mg Documented by: Miconazole Nitrate (Desenex) 1 appln EXT PRN PRN PRN Reason: Affected Skin Folds Stop: 06/04/19 17:37 Last Admin: 05/07/19 07:57 Dose: 1 appln Documented by: Miscellaneous (Carbohydrates For Hypoglycemia) 15 - 30 gm PO UD PRN PRN Reason: Hypoglycemia Treatment Stop: 06/04/19 16:15 Multivitamins/Minerals (Caltrate Plus) 1 tab PO QAM [facility] Stop: 06/05/19 08:59 Last Admin: 05/09/19 08:14 Dose: 1 tab Documented by: Nitroglycerin (Nitrostat) 0.4 mg SL UD [facility] Stop: 06/04/19 16:15 Ondansetron HCl (Zofran) 4 mg IV Q6H PRN PRN Reason: Nausea Stop: 06/04/19 16:15 Last Admin: 05/09/19 10:42 Dose: 4 mg Documented by: Trimethoprim/Sulfamethoxazole (Septra Ds 800/160mg Tab) 1 tab PO Q12 [facility]; Protocol Stop: 05/12/19 11:29 Last Admin: 05/09/19 08:12 Dose: 1 tab Documented by: Warfarin Sodium (Coumadin) 1 mg PO DAILY@1600 [facility] Stop: 06/08/19 15:59 PG Care Time/CCT Total # of Minutes Spent Total Time Spent with Patient: Total time spent is greater than 50% in coordination of care (as documented) at patient's floor/unit and/or counseling patient: Resident Activity Tracking Resident Involvement: Resident Care Provided Care Provided: Adult Hospital Medicine (1) CHF (congestive heart failure) Heart failure chronicity: unspecified Heart failure type: unspecified Qualified Code(s): I50.9 - Heart failure, unspecified (2) HLD (hyperlipidemia) Hyperlipidemia type: mixed hyperlipidemia Qualified Code(s): E78.2 - Mixed hyperlipidemia (3) CKD (chronic kidney disease) Chronic kidney disease stage: stage 3 (moderate) Qualified Code(s): N18.3 - Chronic kidney disease, stage 3 (moderate) (4) Breast cancer Breast location: unspecified site of breast Estrogen receptor status: unspecified Laterality: left Patient sex: female Qualified Code(s): C50.912 - Malignant neoplasm of unspecified site of left female breast (5) HTN (hypertension) Hypertension type: essential hypertension Qualified Code(s): I10 - Essential (primary) hypertension
[2019-05-09 07:53] LABS: Hematocrit (blood only) 35.1 % (37-47); Hemoglobin 10.7 g/dL (12.0-16.0); Mean Corpuscular Hgb Conc 30.5 g/dL (32-36); Mean Corpuscular Volume 98.6 fL (80-100); Mean Platelet Volume 11.2 fL (7.4-10.4); Platelet Count 300 K/uL (130-400); RDW Coefficient of Variation 16.5 % (11.5-14.5); RDW Standard Deviation 58.8 fL (36.4-46.3); Red Blood Count 3.56 M/uL (4.2-5.4); White Blood Count 12.14 K/uL (4.8-10.8)
[2019-05-09 08:01] LABS: INR 2.5 (0.9-1.1); Prothrombin Time 23.9 Seconds (9.0-12.0)
[2019-05-09] MEDS: LETROZOLE 2.5 MG TAB PO SCH (08:12)
[2019-05-09] MEDS: SULFAMETHOXAZOLE/TRIMETHOPRIM DS 800/160MG TAB PO SCH ×2 (08:12→20:51)
[2019-05-09] MEDS: METOPROLOL TARTRATE 25 MG TAB PO SCH ×2 (08:13→20:51)
[2019-05-09] MEDS: FUROSEMIDE 20 MG TAB PO SCH (08:14)
[2019-05-09] MEDS: CALCIUM 600MG + VIT D 400 IU TAB PO SCH (08:14)
[2019-05-09] MEDS: ESCITALOPRAM OXALATE 10 MG TAB PO SCH (08:14)
[2019-05-09] MEDS: ASPIRIN 81 MG ECTAB PO SCH (08:15)
[2019-05-09] MEDS: INSULIN ASPART 100 UNITS/ML 3 ML PEN SC SCH ×4 (08:16→20:56)
[2019-05-09] MEDS ORDERED: LIDOCAINE HCL 1% 20 ML VIAL INJ ONE (08:37)
[2019-05-09 08:59] LABS: BUN Creatinine Ratio 27.2 (10-20); Calcium 8.8 mg/dl (8.5-10.1); Creatinine Clr Calc Pharmacy 32.4 ml/min; Est GFR (African American) 41.4; Est GFR (Non-African American) 35.7; Potassium 3.9 mmol/L (3.5-5.1)
--- NOTE | 2019-05-09 09:10 | Progress Note ---
DATE: 05/09/2019 Ms. Mahan was seen today. I had a long discussion about her status with Dr. Young. Quite frankly, her x-ray looked even a bit worse yesterday. I am not going to go ahead and put a PleurX catheter in place. I have discussed this with the patient's son. There are pluses and minuses; however, this patient has dementia and comes in and out of the hospital with shortness of breath and I think if she goes on hospice, I believe that a PleurX catheter would be best for her. It would prevent her from coming back to the hospital. We have tapped both sides; however, it appears to me that she has more fluid on the right. We will do that this afternoon.
--- NOTE | 2019-05-09 12:23 | Palliative Care Progress Note ---
Date of Service May 09, 2019 Assessment & Plan (1) Goals of care, counseling/discussion: -Patient is on nasal cannula and in no distress this morning. She does have pleural effusion reaccumulating on the right per Dr. Edwards. -Possibly having Pleur-x catheter placed this afternoon. This will be helpful for comfort. Hospice will be able to manage Pleur-x once patient is back to [facility]. -Spoke with patient's son, Juan Carlos, on phone. He is in agreement with the plan and favors having a Pleur-x catheter placed for comfort. -Case management updated. Spoke with attending physician as well. -No symptom management needs at this time. (2) CHF (congestive heart failure): (3) Dementia: (4) UTI (urinary tract infection): Subjective Patient was yelling "Help!" this morning when I entered room. Upon entering room, patient was not in distress. Was just feeling scared and anxious. Did not know where she was. She easily reoriented to being in the hospital, but she is confused at baseline. Review of Systems Review of Systems: C/o feeling anxios. Denies pain, CP, SOB, N/V. Physical Exam Constitutional: + ill appearing and + overweight ENMT: Mouth: + dry oral mucous membranes Neck: normal visual inspection Respiratory: normal respiratory effort, lungs clear to auscultation Auscultation: + diminished lung sounds Cardiovascular: Rate/Rhythm: regular rate and regular rhythm Extremities: + edema (BL ankles +2 pitting edema) Gastrointestinal (Abdomen): Inspection/Auscultation: abdomen normal to inspection and normal bowel sounds; abdomen not distended Percussion/Pa lpation: abdomen soft Skin: no rashes, warm and dry Neurologic: moves all extremities and awake Psychiatric: Orientation: oriented to person and oriented to place; + not oriented to time Results & Data Vital Signs (Past 12 Hours) Vital Signs Temp Pulse Resp BP Pulse Ox 05/09/19 12:00 36.6 C 101 H 28 H 113/74 85 L 05/09/19 11:22 51 L 22 92 05/09/19 10:18 93 05/09/19 07:12 36.5 C 93 H 18 163/83 H 94 05/09/19 04:22 36.6 C 65 18 160/83 H 97 PG Care Time/CCT Total # of Minutes Spent Total Time Spent with Patient: Total time spent is greater than 50% in coordination of care (as documented) at patient's floor/unit and/or counseling patient: Time Spent Midlevel 40 minutes with >50% of the time spent at bedside with patient, attending physician and nursing staff, and on phone with family discussing condition, GOC, and POC. (1) CHF (congestive heart failure) Heart failure chronicity: unspecified Heart failure type: unspecified Qualified Code(s): I50.9 - Heart failure, unspecified
--- NOTE | 2019-05-09 12:51 | XRay Report ---
XR chest 1V portable CLINICAL HISTORY: 88 years-old Female presenting with effusion , s/p thoracentesis. TECHNIQUE: Portable upright AP view of the chest was obtained. COMPARISON: 05/08/2019. FINDINGS: Atherosclerosis of the aortic arch. Cardiac silhouette enlarged. Moderate bilateral pleural effusions and extensive mid to basilar lung opacities. There has been slight interval decrease of the right pl eural effusion. No pneumothorax. Degenerative changes of the thoracic spine. External leads overlie t he right upper quadrant. IMPRESSION: 1. Slight interval decrease in size of the moderate right pleural effusion. No pneumothorax. 2. Moderate left pleural effusion. 3. Extensive bibasilar atelectasis. Electronically signed by: Heath Noyola M.D. 05/09/2019 12:49 PM
[2019-05-09] MEDS: FERROUS SULFATE 325 MG TAB PO SCH (13:53)
[2019-05-09] MEDS ORDERED: WARFARIN SOD 1 MG TAB PO SCH (16:00)
[2019-05-09] MEDS: INSULIN ASPART 100 UNITS/ML 3 ML PEN SQ SCH (18:04)
--- NOTE | 2019-05-09 20:50 | Operative Report ---
DATE OF OPERATION: 05/09/2019 REASON FOR PROCEDURE: Persistent bilateral pleural effusions secondary to congestive heart failure. PROCEDURE: Ultrasound-guided right thoracentesis. SURGEON: Sebastian Edwards MD INSECTICIDE SUPERVISOR: MOISES Harrison. SPECIFICS OF PROCEDURE: Bri Mahan is an 88-year-old who has dementia, but had intractable congestive heart failure with bilateral transudative effusions. We have tapped both sides and the fluid has reaccumulated. It is a transudate. It is not infected and not malignant. The patient presented with increasing shortness of breath and has been admitted. Her saturations are really not too bad on minimal amounts of oxygen, but she is working to breathe and is tachypneic. I discussed this in detail with Dr. Young. I was hopeful that they could diurese her and maximize her medical management and we will be able to get away without doing this. The patient is being placed on a hospice program and I prefer not to put a tube in her. However, I felt to keep her out of the hospital, we would put a PleurX catheter; however, she is on Coumadin and her PT/INR has remained elevated. It was 2.1 yesterday and I was hoping to be fall down below 2 today, but it did not. It went back up to 2.5. For this reason, I elected to proceed with thoracentesis. PROCEDURE: The patient in upright position, ultrasound was used to find a window into the pleural cavity. There is not as much fluid as I felt based on the x-ray. This was marked with an indelible ink. The patient was prepped and draped in usual sterile fashion. A 25-gauge needle with 1% Xylocaine was used to anesthetize skin and subcutaneous tissues. A large bore needle was used to anesthetize deeper tissues. We got free flowing clear fluid. Guidewire was inserted through the needle and the needle removed. Triple lumen catheter was slid over the guidewire and the guidewire removed. We were only able to drain about 500 mL of a clear yellow fluid. She had no reexpansion pain or coughing. A chest x-ray is pending. She tolerated it quite well. I attest to the content of the Intraoperative Record and any orders documented therein. Any exception s are noted below.
[2019-05-10 06:32] LABS: Hematocrit (blood only) 34.1 % (37-47); Hemoglobin 10.2 g/dL (12.0-16.0); Mean Corpuscular Hgb Conc 29.9 g/dL (32-36); Mean Corpuscular Volume 99.4 fL (80-100); Platelet Count 264 K/uL (130-400); RDW Coefficient of Variation 16.5 % (11.5-14.5); RDW Standard Deviation 59.9 fL (36.4-46.3); Red Blood Count 3.43 M/uL (4.2-5.4); White Blood Count 11.22 K/uL (4.8-10.8)
[2019-05-10 06:50] LABS: Prothrombin Time 38.9 Seconds (9.0-12.0)
[2019-05-10 07:01] LABS: INR 4.2 (0.9-1.1)
[2019-05-10 07:23] LABS: BUN Creatinine Ratio 25.7 (10-20); Creatinine Clr Calc Pharmacy 26.1 ml/min; Est GFR (African American) 31.8; Est GFR (Non-African American) 27.4; Potassium 4.4 mmol/L (3.5-5.1)
[2019-05-10] MEDS: CALCIUM 600MG + VIT D 400 IU TAB PO SCH (07:50)
[2019-05-10] MEDS: LETROZOLE 2.5 MG TAB PO SCH (07:50)
[2019-05-10] MEDS: ASPIRIN 81 MG ECTAB PO SCH (07:51)
[2019-05-10] MEDS: FUROSEMIDE 20 MG TAB PO SCH (07:51)
[2019-05-10] MEDS: SULFAMETHOXAZOLE/TRIMETHOPRIM DS 800/160MG TAB PO SCH (07:52)
[2019-05-10] MEDS: METOPROLOL TARTRATE 25 MG TAB PO SCH (07:53)
[2019-05-10] MEDS: FERROUS SULFATE 325 MG TAB PO SCH (10:13)
[2019-05-10] MEDS: ESCITALOPRAM OXALATE 10 MG TAB PO SCH (10:13)
[2019-05-10] MEDS: INSULIN ASPART 100 UNITS/ML 3 ML PEN SC SCH ×2 (10:41→13:38)
[2019-05-10] MEDS ORDERED: MoRPHine SULFATE 2 MG/ML CARP IV STA (10:55)
--- NOTE | 2019-05-10 11:07 | Discharge Summary ---
Date of Service May 10, 2019 Admission HPI Per Admitting Provider 88 y/o F who was sent to the ED from [facility] for worsening SOB. Son states that pt has been on O2 regularly for the last few weeks. This AM, he received a call that she was needing more O2 and still SOB. He was asked if they wanted pt evaluated in the ED or to be made comfortable and he selected ED eval. Son states there were no other concerns from . He has received no other calls regarding a change in health status over the last week. He had no been in to see pt since last Monday. Daughter states she saw pt last about 2 weeks ago. They both state that due to pt's dementia, she does not generally make valid statements about her status. "She might complain about something, but it was from 50 years ago, so we never know." There had been nothing that they were aware of however. They deny that they were told of any fever, chest pain, abd pain, n/v/c/d, LE pain or swelling. They believe she is eating without issue at . Pt denies fever, chest pain, abd pain, n/v/c/d, LE pain or swelling. Pt was tx in the ED with BIPAP, lasix 20mg IV, nitro paste, and abx. She states that she still feels some SOB, but better than earlier today. Family feels she is much improved. She is now on NC. Pt was just d/c'd on 04/24 for tx of afib with RVR. She also had 1400cc of fluid taken off with Dr. Edwards on 04/26 as an outpt. Son and daughter state that pt used to live outside of [facility] however they moved her here about 1.5 yrs ago due to dementia and other health issues. They state that she was having issues with knowing where she was prior, but since this move it has gotten worse. She is also never oriented to time. Her dementia has worsened since the of their brother on 03/23. During last admission there was discussion about possible palliative care, however no conclusion was made and pt was d/c'd to . They were given a POLST form to discuss prior to d/c, however they had not been able to meet to discuss. They are requesting a POLST today to fill out. Admission Exam Per Admitting Provider Constitutional: WD/WN, vitals as above Eyes: normal visual echeverria by confrontation and + anicteric sclerae Neck: normal visual inspection and trachea midline Respiratory: normal respiratory effort; no respiratory distress Auscultation: + crackles; no wheezes Cardiovascular: Rate/Rhythm: regular rate and regular rhythm Gastrointestinal (Abdomen): Inspection/Auscultation: abdomen not distended Percussion/Palpation: abdomen soft; abdomen nontender Musculoskeletal: Head/Neck/Chest: normocephalic and head atraumatic negative for edema, peripheral pulses intact Skin: no rashes, warm and dry Neurologic: awake Speech / Cognition: normal speech Psychiatric: Orientation: oriented to person and cooperative; + not oriented to place (answers "no" when asked if she knows where she is) and + not oriented to time (answers "no" when asked if she knows the year) Eye Contact: good eye contact Speech: normal rate/rhythm/volume of speech Principal Diagnosis Dyspnea secondary to CHF exacerbation Discharge Exam Constitutional WD/WN, vitals as above well developed, well nourished, + altered mental status, cooperative and + mechanically ventilated (nasal cannula in place) Eyes + anicteric sclerae Neck trachea midline Respiratory + respiratory distress, + labored breathing and + uses accessory muscles (belly breathing evident); no cough and no nasal flaring Auscultation: + diminished lung sounds (at bilateral lung bases); no crackles, no rales, no wheezes and no pleural rub Cardiovascular Rate/Rhythm: regular rate and regular rhythm Heart Sounds: normal S1 and normal S2; no click, no gallop, no murmur and no cardiac rub Extremities: + pedal edema (+1 to calabrese, much improved from admission) Gastrointestinal (Abdomen) normal bowel sounds, soft, nontender, no hepatosplenomegaly (belly breathing prsent) Inspection/Auscultation: normal bowel sounds Percussion/Palpation: abdomen nontender and no guarding Neurologic awake and + confused Speech / Cognition: + abnormal cognition Psychiatric Orientation: cooperative; + not oriented x 3, + not oriented to person, + not oriented to place and + not oriented to time Genitourinary Coelho catheter in place draining urine with no visible clots Discharge Data Allergies Allergy/AdvReac Type Severity Reaction Status Date / Time Penicillins Allergy Intermediate Unknown Verified 05/05/19 13:27 Consultations 05/05/19 14:23 ED Decision to Admit Stat 05/05/19 16:16 Consult Case Management - Discharge Planning Routine 05/06/19 11:37 Consult Palliative Care Routine 05/07/19 13:13 Consult Thoracic Surgery Routine Procedures Performed DICTATED BY: Sebastian Edwards MD DATE OF OPERATION: 05/09/2019 REASON FOR PROCEDURE: Persistent bilateral pleural effusions secondary to congestive heart failure. PROCEDURE: Ultrasound-guided right thoracentesis. SURGEON: Sebastian Edwards MD CUT OUT WORKER: MOISES Harrison. SPECIFICS OF PROCEDURE: Bri Mahan is an 88-year-old who has dementia, but had intractable congestive heart failure with bilateral transudative effusions. We have tapped both sides and the fluid has reaccumulated. It is a transudate. It is not infected and not malignant. The patient presented with increasing shortness of breath and has been admitted. Her saturations are really not too bad on minimal amounts of oxygen, but she is working to breathe and is tachypneic. I discussed this in detail with Dr. Young. I was hopeful that they could diurese her and maximize her medical management and we will be able to get away without doing this. The patient is being placed on a hospice program and I prefer not to put a tube in her. However, I felt to keep her out of the hospital, we would put a PleurX catheter; however, she is on Coumadin and her PT/INR has remained elevated. It was 2.1 yesterday and I was hoping to be fall down below 2 today, but it did not. It went back up to 2.5. For this reason, I elected to proceed with thoracentesis. PROCEDURE: The patient in upright position, ultrasound was used to find a window into the pleural cavity. There is not as much fluid as I felt based on the x-ray. This was marked with an indelible ink. The patient was prepped and draped in usual sterile fashion. A 25-gauge needle with 1% Xylocaine was used to anesthetize skin and subcutaneous tissues. A large bore needle was used to anesthetize deeper tissues. We got free flowing clear fluid. Guidewire was inserted through the needle and the needle removed. Triple lumen catheter was slid over the guidewire and the guidewire removed. We were only able to drain about 500 mL of a clear yellow fluid. She had no reexpansion pain or coughing. A chest x-ray is pending. She tolerated it quite well. I attest to the content of the Intraoperative Record and any orders documented therein. Any exceptions are noted below. Signed By:<Electronically signed by Sebastian dEwards MD>05/10/19 0412 Dictated: 05/09/19 1244 Transcribed: 05/09/192048Transcriptionist: DANNIE The status of this report is Signed. Draft = Not yet reviewed or approved by Medical Physician. Signed = Reviewed and approved by Medical Physician. Ordered Studies XR chest 1V portable CLINICAL HISTORY: 88 years-old Female presenting with effusion , s/p thoracentesis. TECHNIQUE: Portable upright AP view of the chest was obtained. COMPARISON: 05/08/2019. FINDINGS: Atherosclerosis of the aortic arch. Cardiac silhouette enlarged. Moderate bilateral pleural effusions and extensive mid to basilar lung opacities. There has been slight interval decrease of the right pleural effusion. No pneumothorax. Degenerative changes of the thoracic spine. External leads overlie the right upper quadrant. IMPRESSION: 1. Slight interval decrease in size of the moderate right pleural effusion. No pneumothorax. 2. Moderate left pleural effusion. 3. Extensive bibasilar atelectasis. Electronically signed by: Heath Noyola M.D. 05/09/2019 12:49 PM Dictated: 05/09/19 1248 Transcribed: 05/09/19 1248 Hospital Course (1) CHF (congestive heart failure): -Mrs. Dumont is an 88 yo woman with a PMHx of chronic diastolic CHF, atrial fibrillation on anticoagulation, Type II Diabetes Mellitus, advanced Alzehimer's dementia and CKD stage 3 who was admitted on 05/04/19 for SOB found to be secondary to CHF exacerbation. -last ECHO 01/13/19 showed normal LV systolic function with an EF 55-60% -serial CXR during showed evidence of moderate bilateral pleural effusions in lower lung echeverria with slight improvement - home dose lasix 20mg qAM were continued throughout stay; additional doses added for further direusis (lasix 40mg PO dose given on 05/07 and 05/08) -despite increased direutic use and negative net fluid output, pulmonary edema is only slightly improved; electrolytes remained stable -Thoracic surgery (Dr. Edwards) was consulted; theraputic thoracentesis done (05/09); 500cc of fluid removed from R side; pleur-x catheter not placed due to concern over INR level (2.5); patient follows with Dr. Edwards in outpatient setting and had theraputic thoracentsis done by him on 04/26/19 at which time he removed 1400cc of fluid (serology benign). -baseline weight unknown; 92.2 kg today (05/10) (2) Acute respiratory failure with hypoxia: -secondary to acute CHF exacerbation -serial CXR during showed evidence of moderate bilateral pleural effusions in lower lung echeverria with slight improvement -patient was on oxygen 6L nasal cannula overnight -patient demonstrating belly breathing on exam -hospice care on return to [facility] (3) UTI (urinary tract infection): -UA positive for nitrites, 1+ for leuk esterase with 10-30 WBC (05/05) -Urine Cx grew gram neg bacilli, Citrobacter freundii, sensitive to TMP-SMX -cefepime IV was d/c when patient lost vascular access overnight (received a total of 3 doses) -continue Bactrim, 800/126mg, bid, PO for 4 days (end date 05/11) -Coelho catheter removed on day of discharge (4) Afib: -on chronic anticoagulation (coumadin) -on beta deirdre for rate control (5) Elevated INR: -patient was supratheraputic on coumadin on admission -INR as high as 6; 4.2 on discharge -coumadin dose decreased to 1mg 05/09; held day of discharge; restart tomorrow (05/11) at 1mg -continue to check INR qdaily (6) Elevated troponin: -troponin elevated to 0.038 on admission -trended down -likely secondary to demand ischemia -EKG without ST segment changes (7) CKD (chronic kidney disease): -creatinine 1.34 on admission, up to 1.64 today (05/10) -rise likely secondary to direutic use -continue to monitor with daily BMPs -consider renal dosing of medications when appropriate (8) Type II diabetes mellitus: -mealtime insulin held for most of hospital stay (patient with poor PO intake) -resume home insulin dosing with caution toward mealtime insulin (pending PO intake) (9) Dementia: -chronic likely at baseline -residing at [facility], as she is unable to perform ADLs (10) Anxiety: -continue home dose of Buspar (11) HTN (hypertension): -continue beta deirdre (12) HLD (hyperlipidemia): -not taking any home meds for this (13) Breast cancer: -continue home dose of Femara (14) Elevated WBC count: - mildly elevated WBC count (05/09) at 12.14; down to 11 on day of discharge -not febrile or hypothermic -possibly reactive (from antibiotic therapy) -will hold off on treatment Dispo: patient sent to [facility] for hospice care Total Time Total Time Spent Total Time Spent (In Minutes): greater than 30 minutes Discharge Plan Discharge Items Patient Disposition: Hospice - Medical Facility Reason For Visit: CHF EXACERBATION Discharge Diagnosis: Dyspnea secondary to CHF exacerbation Discharge Goals: Decrease discomfort Activity: Resume your previous activity Activity Comment: as tolerated Non-emergency contact: Primary Care Provider Call non-emergency contact if: you have any medication questions Follow-up/Referrals: Graham Bateman at [place] [Primary Care Provider] - Diet: Carb Consistent or DM2 Addtl Provider Instructions: You were hospitalized at [facility] from 05/05/19-05/10/19 due to your shortness of breath. You were short of breath because your heart failure was in exacerbation. You were perscribed additional doses of the medication Lasix during your stay to help removed fluid from your lungs. Thoracic surgery was consulted (Dr. Edwards) and they removed 500cc of fluid from the base of your R lung. A pulmonary "Pleur-x" catheter, or drain, was not able to be placed due to your blood thinner medication. At times, your breathing was assisted with mechanical ventilation known as "BiPaP," and we also had to provide you with high flow oxygen. On admission your Urinary Analysis showed evidence of a urinary tract infection, which was treated with antibiotics. Please continue to take the antibiotic "Bactrim" for 1 day after discharge in order to complete the medication course. Palliative care was consulted and recommended hospice care. Prescriptions: New warfarin [Coumadin] 1 mg Tablet 1 mg PO USEASDIRECTD Qty: 1 RF: 0 Continued buspirone 5 mg tablet 5 mg PO BID17 RF: 0 acetaminophen [Tylenol] 325 mg Tablet 650 mg PO Q4H MDD 3600 MG APAP/24 HOURS PRN (Reason: Fever Or Pain) RF: 0 aspirin 81 mg Tablet,Delayed Release (Dr/Ec) 81 mg PO QAM RF: 0 ferrous sulfate 325 mg (65 mg iron) Tablet 325 mg PO 1400 RF: 0 buspirone 10 mg tablet 10 mg PO HS RF: 0 letrozole 2.5 mg tablet 2.5 mg PO QAM RF: 0 Novolog Flexpen U-100 Insulin 100 unit/mL (3 mL) insulin pen 8 unit subcut QAM RF: 0 calcium carbonate-vitamin D3 [Calcium 600 + D(3)] 600 mg(1,500mg) -400 unit Tablet 1 tab PO QAM RF: 0 diclofenac sodium 1 % gel 2 g topical Q8H PRN (Reason: Pain) RF: 0 ProAir RespiClick 90 mcg/actuation Aerosol Powdr Breath Activated 2 inh INHALATION Q5H PRN (Reason: Dyspnea) RF: 0 Novolog U-100 Insulin aspart 100 unit/mL solution 8 unit subcut PM RF: 0 nitroglycerin [Nitrostat] 0.4 mg Tablet, Sublingual 0.4 mg sublingual UD RF: 0 Novolog Flexpen U-100 Insulin 100 unit/mL (3 mL) insulin pen 10 unit subcut QDL RF: 0 Lantus U-100 Insulin 100 unit/mL Solution 10 unit SUBCUT HS Qty: 0 RF: 0 metoprolol tartrate 50 mg tablet 75 mg PO BID Qty: 0 RF: 0 escitalopram oxalate [Lexapro] 5 mg Tablet 10 mg PO QAM RF: 0 furosemide 20 mg Tablet 20 mg PO QAM Qty: 30 RF: 0 Discontinued warfarin 1 mg Tablet 3 mg PO DAILY RF: 0 Stand-Alone Forms: [facility] Discharge Orders: Discharge Order (Routine); Ordered 05/10/19 Ordered By: Katherine Ram Admission Data Admit Date/Time: 05/05/19 15:03 Attending Provider: Hernandez Echavarria Admit Provider: Tia Yang Primary Care Provider: Graham Bateman [place] Other Providers: Tia Yang ; Wendie Keller Joseph D. Service: Telemetry Medical Other Interventions: Discharge Summary Assessment (RN) Last Done: 05/10/19 12:36 DC Date/Time DO NOT enter until pt leaves facility: 05/10/19 15:12 Supervising Physician Co-Signing Physician Notes Attending attestation Pt seen and examined in concert with Dr. Ram. In agreement with the documented findings as noted in the resident documentation with any exceptions or additions as noted here. Anxious appearing and mildly tachypnic in bed today without orientation to self or effective interaction. Decreased breath sounds at bilateral bases. CHF exacerbation with bilateral effusion in intermittent distress - responded well to therapeutic thoracentesis, but because of baseline dementia and inability to place pleurx, would trial morphine/opiate for anxiety associated w/ SOB. Continue lasix. Supratherapeutic INR - hold coumadin, restart tomorrow at 1mg, trend per palliative and outpatient service. DMII, insulin controlled - considerable decrease to PO intake would likely eliminate AC fixed dose insulin with meals and closely monitor Else see resident documentation as noted. Resident Activity Tracking Resident Involvement: Resident Care Provided Care Provided: Adult Hospital Medicine
--- NOTE | 2019-05-10 11:29 | Palliative Care Progress Note ---
Date of Service May 10, 2019 Assessment & Plan (1) Goals of care, counseling/discussion: -Patient appears more SOB today and c/o some dyspnea. -Plan is for patient to return to [facility] on hospice. Patient did not have Pleur-x catheter placed yesterday for safety concerns-- dementia and on AC. -Will add Roxanol 5mg PO/SL Q3h PRN pain or SOB. (2) CHF (congestive heart failure): (3) Dementia: (4) UTI (urinary tract infection): Subjective Patient is looking a little more SOB today. Awake and oriented to person only. Review of Systems Review of Systems: C/o feeling anxious and SOB. Denies pain, CP, N/V. Physical Exam Constitutional: + ill appearing and + overweight; no acute distress ENMT: Mouth: + dry oral mucous membranes Neck: normal visual inspection Respiratory: Auscultation: + diminished lung sounds Cardiovascular: Rate/Rhythm: regular rate and regular rhythm Gastrointestinal (Abdomen): Inspection/Auscultation: abdomen normal to inspection and normal bowel sounds; abdomen not distended Percussion/Palpation: abdomen soft Skin: no rashes, warm and dry Neurologic: moves all extremities and awake Psychiatric: Orientation: oriented to person Results & Data Vital Signs (Past 12 Hours) Vital Signs Temp Pulse Resp BP Pulse Ox 05/10/19 08:16 36.6 C 78 18 123/75 94 05/10/19 05:01 18 118/73 96 05/09/19 23:54 36.4 C L 64 19 134/85 95 PG Care Time/CCT Total # of Minutes Spent Total Time Spent with Patient: Total time spent is greater than 50% in coordination of care (as documented) at patient's floor/unit and/or counseling patient: Time Spent Midlevel 35 minutes with >50% of the time spent at bedside with patient and IDT discussing POC. (1) CHF (congestive heart failure) Heart failure chronicity: unspecified Heart failure type: unspecified Qualified Code(s): I50.9 - Heart failure, unspecified
--- NOTE | 2019-05-10 15:18 | Progress Note ---
DATE: 05/10/2019 Ms. Mahan, I think, is a bit better even though she is still on a good deal of oxygen. She is on 6 liters with 94% sats. She was drained yesterday for about 500 mL. Her x-ray from yesterday looked a bit better after we drained, but we only got 500 mL. At this point, I would continue on as she is a hospice patient. I would not intervene in her other chest at this point.
--- NOTE | 2019-05-14 08:32 | Coding Query ---
CONGESTIVE HEART FAILURE To Promote full compliance with coding requirements relating to patient care, physician participation is requested in all cases of fabric normalizer uncertainty. Please assist us with the following questions. A diagnosis of Congestive Heart Failure is documented in the patient's medical record. To accurately code this diagnosis and to compare patient severity, we ask that you specify the type of heart failure by placing an X within the parenthesis (x). SYSTOLIC HEART FAILURE (X) Acute ( ) Chronic ( ) Acute on Chronic ( ) Rheumatic ( ) Unknown DIASTOLIC HEART FAILURE ( ) Acute ( ) Chronic ( ) Acute on Chronic ( ) Rheumatic (X) Unknown COMBINED SYSTOLIC AND DIASTOLIC HEART FAILURE ( ) Acute ( ) Chronic ( ) Acute on Chronic ( ) Rheumatic (X) Unknown Was the CHF Present On Admission? Please check the appropriate box: (X) Present on Admission ( ) Not Present On Admission ( ) Clinically undetermined Thank you . 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
== END 2019-05-10 15:12 | disposition hospice, inpatient (51) | DRG 291 ==
LOC: ED 11:20 → 2N 15:03 → SUATTDRO 15:03 → 2N 15:47 → 2W 05-10 07:07